=== PATIENT | male | born 1960 | race Hispanic/Latino ===

== ENCOUNTER 2016-08-26 20:05 | Emergency (ER) | payer MEDICARE, OTHER, MEDICAID ==
[2016-08-26 20:06] VITALS: BMI 24.7
[2016-08-26 20:12] VITALS: BP 154/98; PULSE 86; TEMP 97.2; O2SAT 99
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
[2016-08-26 20:48] VITALS: RESP 18
== END 2016-08-26 20:48 | disposition home or self-care (01) ==
LOC: C.ER 20:05
DX: F41.9 Anxiety disorder, unspecified (principal); Z76.0 Encounter for issue of repeat prescription

== ENCOUNTER 2016-08-30 10:57 | Inpatient (IN) | payer MEDICARE, OTHER ==
[2016-08-30 10:58] VITALS: BMI 24.7
[2016-08-30] MEDS ORDERED: Sodium Chloride 0.9% 1,000 ML IV ONE ×2 (11:40→14:12)
[2016-08-30 12:01] LABS: BASO # 0.1 K/uL (0.0-0.2); BASO % 0.3 % (0.0-2.0); HEMATOCRIT 52.5 % (35.0-51.0); LYMPH % 4.8 % (20.0-40.0); MEAN CORPUSCULAR HEMOGLOBIN 29.5 pg (27.0-31.0); MEAN CORPUSCULAR HGB CONC 33.4 g/dL (33.0-37.0); MEAN PLATELET VOLUME 9.5 fL (7.2-11.7); MONO # 1.6 K/uL (0.0-0.8); NRBC % 0.5 % (0.0-2.0); PLATELET COUNT 230 K/uL (130-400); RED CELL DISTRIBUTION WIDTH 13.8 % (11.5-14.5)
[2016-08-30] MEDS ORDERED: Sodium Chloride 0.9% 1,000 ML ONE (12:03)
[2016-08-30 12:05] LABS: MEAN CELL VOLUME 88.4 fL (80.0-94.0); WHITE BLOOD COUNT 20.3 K/uL (4.8-10.8)
[2016-08-30 12:09] LABS: CHLORIDE 96 mmol/L (98-107); POTASSIUM 3.6 mmol/L (3.6-5.2); SODIUM 147 mmol/L (132-148)
[2016-08-30 12:11] LABS: BILIRUBIN,TOTAL 0.9 mg/dL (0.2-1.3); GFR AFRICAN-AMERICAN > 60
[2016-08-30 12:12] LABS: ALB/GLOB RATIO 1.4 (1.0-2.1); ALKALINE PHOSPHATASE 65 U/L (38-126); ALT/SGPT 23 U/L (21-72); AST/SGOT 24 U/L (17-59); BLOOD UREA NITROGEN 63 mg/dL (9-20); CALCIUM 9.7 mg/dl (8.6-10.4); CARBON DIOXIDE 33 mmol/L (22-30); GLUCOSE,RANDOM 157 mg/dL (75-110); TOTAL PROTEIN 8.7 g/dL (6.3-8.3)
[2016-08-30 12:13] LABS: ALCOHOL SERUM < 10 mg/dl (0-10)
[2016-08-30 12:37] LABS: NEUTROPHIL 94 % (50-75); TOTAL CELLS COUNTED 100
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
[2016-08-30 13:57] LABS: VENOUS BLOOD GAS BASE EXCESS 8.1 mmol/L (0.0-2.0); VENOUS BLOOD GAS PCO2 48 mmHg (40-60); VENOUS BLOOD PH 7.45 (7.32-7.43)
--- NOTE | 2016-08-30 14:23 | RAD ---
HISTORY: AMS COMPARISON: Chest x-ray performed 06/21/15 TECHNIQUE: Chest, one view. FINDINGS: LUNGS: No focal consolidation. Please note that chest x-ray has limited sensitivity for the detection of pulmonary masses. PLEURA: No significant pleural effusion identified. No definite pneumothorax . CARDIOVASCULAR: The cardiomediastinal silhouette appears within normal limits of size. OSSEOUS STRUCTURES: Acromioclavicular arthropathy. VISUALIZED UPPER ABDOMEN: Unremarkable. OTHER FINDINGS: None. IMPRESSION: No focal consolidation, significant pleural effusion, or definite pneumothorax identified.
[2016-08-30 15:06] LABS: RBC URINE 1 /hpf (0-3); URINE BACTERIA RARE (<OCC); URINE BILIRUBIN NEGATIVE (NEGATIVE); URINE BLOOD 2+ (NEGATIVE); URINE COLOR Yellow (YELLOW); URINE GLUCOSE (UA) NORMAL (Normal); URINE KETONE TRACE mg/dL (NEGATIVE); URINE LEUKOCYTE ESTERASE NEG Leu/uL (Negative); URINE PROTEIN 2+ mg/dL (NEGATIVE); URINE UROBILINOGEN NORMAL mg/dL (0.2-1.0); WBC CLUMPS OCC /hpf; WBC URINE 6 /hpf (0-5)
--- NOTE | 2016-08-30 16:09 | CT ---
PROCEDURE: CT Abdomen and Pelvis without intravenous contrast HISTORY: fever, ams, leukocytosis COMPARISON: Comparison is made to the previous study dated 03/19/2013 TECHNIQUE: Axial and reformatted coronal and sagittal CT images of the abdomen and pelvis were obtained without IV or oral contrast administration.. Contrast Dose: 0 Radiation dose: Total exam DLP = 655.42 mGy-cm. This CT exam was performed using one or more of the following dose reduction techniques: Automated exposure control, adjustment of the mA and/or kV according to patient size, and/or use of iterative reconstruction technique. FINDINGS: LOWER THORAX: No evidence of acute pathology. LIVER: Unremarkable. No gross lesion or ductal dilatation. GALLBLADDER AND BILE DUCTS: No evidence of acute cholecystitis. Slightly prominent common bile duct is again noted. PANCREAS: Unremarkable. No gross lesion or ductal dilatation. SPLEEN: Unremarkable. ADRENALS: Unremarkable. No mass. KIDNEYS AND URETERS: Unremarkable. No hydronephrosis. No solid mass. VASCULATURE: Unremarkable. No aortic aneurysm. BOWEL: There is moderate diffuse thickening in the distal stomach and in the duodenum suspicious for gastritis and enteritis. Mildly dilated duodenum is also noted. No evidence of small bowel obstruction. Few scattered colonic diverticulosis seen without evidence of diverticulitis. APPENDIX: No evidence of appendicitis. PERITONEUM: Unremarkable. No free fluid. No free air. LYMPH NODES: Unremarkable. No enlarged lymph nodes. BLADDER: Unremarkable. REPRODUCTIVE: Unremarkable. BONES: No acute fracture. OTHER FINDINGS: None. IMPRESSION: Gastric and duodenal moderate wall thickening suspicious for gastritis/enteritis. Otherwise no evidence of acute pathology in the abdomen and pelvis.
[2016-08-30] MEDS ORDERED: Lidocaine 1% Inj (20ml) INFIL ONE (16:19)
[2016-08-30] MEDS ORDERED: Lidocaine 1% Inj (20ml) ONE (16:26)
[2016-08-30] MEDS ORDERED: cefTRIAXone IV 1 gm in Dextros 50 ML IV ONE (16:55)
[2016-08-30 17:10] LABS: FLUID TYPE SPINAL FLUID
[2016-08-30] MEDS ORDERED: cefTRIAXone IV 1 gm in Dextros 50 ML IVPB ONE (17:21)
[2016-08-30] MEDS: Piperacillin/Tazobact 3.375 GM in Sodium Chloride 100 ML IVPB SCH (22:32)
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
[2016-08-31] MEDS: Piperacillin/Tazobact 3.375 GM in Sodium Chloride 100 ML IVPB SCH ×3 (05:14→21:26)
[2016-08-31] MEDS: Vancomycin 750mg/D5W 150 ml 150 ML IV SCH ×2 (05:54→18:13)
[2016-08-31 07:32] LABS: LYMPH # 1.4 K/uL (1.0-4.3); LYMPH % 6.4 % (20.0-40.0)
[2016-08-31 07:46] LABS: BASO % 0.1 % (0.0-2.0); HEMATOCRIT 45.2 % (35.0-51.0); MEAN CELL VOLUME 88.9 fL (80.0-94.0); MEAN CORPUSCULAR HEMOGLOBIN 28.9 pg (27.0-31.0); MEAN CORPUSCULAR HGB CONC 32.5 g/dL (33.0-37.0); MEAN PLATELET VOLUME 9.8 fL (7.2-11.7); MONO # 2.2 K/uL (0.0-0.8); MONO % 9.8 % (0.0-10.0); PLATELET COUNT 194 K/uL (130-400)
[2016-08-31 07:54] LABS: CHLORIDE 103 mmol/L (98-107); POTASSIUM 3.5 mmol/L (3.6-5.2); SODIUM 145 mmol/L (132-148)
[2016-08-31 07:57] LABS: BLOOD UREA NITROGEN 34 mg/dL (9-20); CARBON DIOXIDE 27 mmol/L (22-30); GFR AFRICAN-AMERICAN > 60; GLUCOSE,RANDOM 110 mg/dL (75-110)
[2016-08-31 07:58] LABS: CALCIUM 8.2 mg/dl (8.6-10.4)
[2016-08-31 10:06] LABS: NEUTROPHIL 82 % (50-75); TOTAL CELLS COUNTED 100
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
[2016-08-31] MEDS ORDERED: Potassium Chloride 20 mEq ER Tab PO ONE (11:45)
--- NOTE | 2016-08-31 14:05 | CP.PCM.PN ---
Subjective - Date & Time of Evaluation Date of Evaluation: 08/31/16 Time of Evaluation: 14:05 - Subjective Subjective: MORE ALERT HAD URINARY RETENSION BLACKISH STOOL Objective - Vital Signs/Intake and Output Vital Signs (last 24 hours): Temp Pulse Resp BP Pulse Ox 99.5 F 60 18 169/80 H 100 08/31/16 07:25 08/31/16 08:00 08/31/16 07:25 08/31/16 07:25 08/31/16 07:25 Intake and Output: 08/31/16 08/31/16 11:59 23:59 Intake Total 830 Balance 830 - Medications Medications: Current Medications Dextrose (Dextrose 5% In Water 1000 Ml) 1,000 mls @ 80 mls/hr IV .[id number] [facility] Last Admin: 08/31/16 13:42 Dose: 80 mls/hr Piperacillin Sod/Tazobactam (Sod 3.375 gm/ Sodium Chloride) 100 mls @ 200 mls/ hr IVPB Q8H [facility] Last Admin: 08/31/16 13:43 Dose: 200 mls/hr Vancomycin HCl (Vancocin 750mg/D5w 150 Ml) 150 mls @ 167 mls/hr IV Q12H [facility] Stop: 09/05/16 06:01 Last Admin: 08/31/16 05:54 Dose: 167 mls/hr Lisinopril (Zestril) 20 mg PO DAILY [facility] Last Admin: 08/31/16 09:16 Dose: 20 mg Pneumococcal Polyvalent Vaccine (Pneumovax 23 Vaccine) 0.5 ml IM .ONCE ONE Stop: 09/01/16 10:01 - Labs Labs: 08/31/16 07:23 08/31/16 07:23
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
[2016-09-01] MEDS: Piperacillin/Tazobact 3.375 GM in Sodium Chloride 100 ML IVPB SCH ×3 (05:31→22:00)
[2016-09-01] MEDS: metroNIDAZOLE IV 500 mg/100 ml 500 MG/100 ML BAG IVPB SCH ×3 (06:30→22:38)
[2016-09-01] MEDS: Vancomycin 750mg/D5W 150 ml 150 ML IV SCH ×2 (08:22→18:01)
[2016-09-01] MEDS ORDERED: Pneumococcal 23-Valent Vaccine IM ONE (10:00)
[2016-09-01 12:22] LABS: MEAN CELL VOLUME 89.5 fL (80.0-94.0); MEAN CORPUSCULAR HEMOGLOBIN 28.9 pg (27.0-31.0); MEAN CORPUSCULAR HGB CONC 32.3 g/dL (33.0-37.0); RED CELL DISTRIBUTION WIDTH 13.8 % (11.5-14.5); WHITE BLOOD COUNT 16.8 K/uL (4.8-10.8)
[2016-09-01 12:39] LABS: CHLORIDE 99 mmol/L (98-107); SODIUM 138 mmol/L (132-148)
[2016-09-01 12:40] LABS: POTASSIUM 3.2 mmol/L (3.6-5.2)
[2016-09-01 12:42] LABS: ALB/GLOB RATIO 1.3 (1.0-2.1); ALKALINE PHOSPHATASE 54 U/L (38-126); AST/SGOT 24 U/L (17-59); BLOOD UREA NITROGEN 22 mg/dL (9-20); CARBON DIOXIDE 28 mmol/L (22-30); GFR AFRICAN-AMERICAN > 60; GLUCOSE,RANDOM 114 mg/dL (75-110); TOTAL PROTEIN 6.7 g/dL (6.3-8.3)
[2016-09-01 12:43] LABS: ALT/SGPT 21 U/L (21-72); CALCIUM 8.4 mg/dl (8.6-10.4)
[2016-09-01] MEDS ORDERED: Potassium Chloride 20 mEq/15 ml LIQ UD PO ONE (13:15)
--- NOTE | 2016-09-01 13:28 | CP.PCM.PN ---
Subjective - Date & Time of Evaluation Date of Evaluation: 09/01/16 Time of Evaluation: 13:27 - Subjective Subjective: MORE ALERT PERIODS OF CONFUSION WBC DOWN 16 K ALL CULTURES ARE NEG PT RECENTLY HAD DENTAL WORK DONE Objective - Vital Signs/Intake and Output Vital Signs (last 24 hours): Temp Pulse Resp BP Pulse Ox 98.1 F 69 97 H 161/89 H 100 09/01/16 08:05 09/01/16 10:13 09/01/16 08:05 09/01/16 10:13 08/31/16 23:50 Intake and Output: 09/01/16 09/01/16 11:59 23:59 Intake Total 940 Balance 940 - Medications Medications: Current Medications Dextrose (Dextrose 5% In Water 1000 Ml) 1,000 mls @ 80 mls/hr IV .[id number] [facility] Last Admin: 09/01/16 10:52 Dose: 80 mls/hr Piperacillin Sod/Tazobactam (Sod 3.375 gm/ Sodium Chloride) 100 mls @ 200 mls/ hr IVPB Q8H [facility] Last Admin: 09/01/16 13:11 Dose: 200 mls/hr Vancomycin HCl (Vancocin 750mg/D5w 150 Ml) 150 mls @ 167 mls/hr IV Q12H [facility] Stop: 09/05/16 06:01 Last Admin: 09/01/16 08:22 Dose: 167 mls/hr Metronidazole (Flagyl) 500 mg in 100 mls @ 100 mls/hr IVPB Q8 [facility] Last Admin: 09/01/16 06:30 Dose: 100 mls/hr Lisinopril (Zestril) 20 mg PO DAILY [facility] Last Admin: 09/01/16 10:14 Dose: 20 mg Pantoprazole Sodium (Protonix Inj) 40 mg IVP DAILY [facility] Last Admin: 09/01/16 11:54 Dose: 40 mg Pneumococcal Polyvalent Vaccine (Pneumovax 23 Vaccine) 0.5 ml IM .ONCE ONE Stop: 09/03/16 10:53 - Labs Labs: 09/01/16 06:20 09/01/16 12:21
--- NOTE | 2016-09-01 17:14 | CARD ---
APPROVED REPORT EKG Measurement Heart [id number] <Conclusion> Sinus bradycardia Nonspecific ST and T wave abnormality Prolonged QT Abnormal ECG
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
[2016-09-01 20:45] LABS: HEMATOCRIT 40.5 % (35.0-51.0); MEAN CELL VOLUME 88.2 fL (80.0-94.0); MEAN CORPUSCULAR HEMOGLOBIN 29.3 pg (27.0-31.0); MEAN CORPUSCULAR HGB CONC 33.2 g/dL (33.0-37.0); MEAN PLATELET VOLUME 9.8 fL (7.2-11.7); RED CELL DISTRIBUTION WIDTH 13.6 % (11.5-14.5); WHITE BLOOD COUNT 15.2 K/uL (4.8-10.8)
[2016-09-01 20:53] LABS: CHLORIDE 98 mmol/L (98-107); POTASSIUM 3.6 mmol/L (3.6-5.2); SODIUM 139 mmol/L (132-148)
[2016-09-01 20:55] LABS: GFR AFRICAN-AMERICAN > 60
[2016-09-01 20:56] LABS: ALB/GLOB RATIO 1.2 (1.0-2.1); ALKALINE PHOSPHATASE 49 U/L (38-126); ALT/SGPT 23 U/L (21-72); AST/SGOT 21 U/L (17-59); BILIRUBIN,TOTAL 1.1 mg/dL (0.2-1.3); BLOOD UREA NITROGEN 16 mg/dL (9-20); CALCIUM 8.6 mg/dl (8.6-10.4); CARBON DIOXIDE 29 mmol/L (22-30); GLUCOSE,RANDOM 108 mg/dL (75-110); TOTAL PROTEIN 6.7 g/dL (6.3-8.3)
--- NOTE | 2016-09-01 23:01 | CP.PCM.PN ---
Subjective - Date & Time of Evaluation Date of Evaluation: 09/01/16 Time of Evaluation: 23:01 - Subjective Subjective: AFEBRILE MORE ALERT PERIODS OF CONFUSION STATES HAS DIFFICULTY URINATING STRAIGHT CATHETER - URINE OUTPUT MORE THAN 400 CC REPORTED BY RN. PATIENT ALSO GIVES HISTORY OF RECENT DENTAL WORKUP. Objective - Vital Signs/Intake and Output Vital Signs (last 24 hours): Temp Pulse Resp BP Pulse Ox 98.2 F 61 20 169/96 H 100 09/01/16 16:09 09/01/16 16:09 09/01/16 16:09 09/01/16 16:09 09/01/16 16:09 - Medications Medications: Current Medications Dextrose (Dextrose 5% In Water 1000 Ml) 1,000 mls @ 80 mls/hr IV .[id number] [facility] Last Admin: 09/01/16 10:52 Dose: 80 mls/hr Piperacillin Sod/Tazobactam (Sod 3.375 gm/ Sodium Chloride) 100 mls @ 200 mls/ hr IVPB Q8H [facility] Last Admin: 09/01/16 22:00 Dose: 200 mls/hr Vancomycin HCl (Vancocin 750mg/D5w 150 Ml) 150 mls @ 167 mls/hr IV Q12H [facility] Stop: 09/05/16 06:01 Last Admin: 09/01/16 18:01 Dose: 167 mls/hr Metronidazole (Flagyl) 500 mg in 100 mls @ 100 mls/hr IVPB Q8 [facility] Last Admin: 09/01/16 22:38 Dose: 100 mls/hr Lisinopril (Zestril) 20 mg PO DAILY [facility] Last Admin: 09/01/16 10:14 Dose: 20 mg Pantoprazole Sodium (Protonix Inj) 40 mg IVP Q12H [facility] Last Admin: 09/01/16 20:21 Dose: 40 mg Pneumococcal Polyvalent Vaccine (Pneumovax 23 Vaccine) 0.5 ml IM .ONCE ONE Stop: 09/03/16 10:53 - Labs Labs: 09/01/16 20:41 09/01/16 20:41 - Constitutional Appears: No Acute Distress - Head Exam Head Exam: NORMAL INSPECTION - Eye Exam Eye Exam: PERRL - ENT Exam ENT Exam: Normal Oropharynx - Neck Exam Neck Exam: Normal Inspection - Respiratory Exam Respiratory Exam: Clear to Ausculation Bilateral - Cardiovascular Exam Cardiovascular Exam: REGULAR RHYTHM, +S1, +S2 - GI/Abdominal Exam GI & Abdominal Exam: Soft, Normal Bowel Sounds. absent: Tenderness - Extremities Exam Extremities Exam: absent: Calf Tenderness, Pedal Edema - Neurological Exam Neurological Exam: Awake - Psychiatric Exam Psychiatric exam: Anxious - Skin Skin Exam: Normal Color, Warm Assessment and Plan (1) Sepsis syndrome Status: Acute (2) Altered mental status Status: Acute (3) Enteritis Status: Acute (4) Leukocytosis Status: Acute (5) Anxiety Status: Acute (6) Hypertension Status: Acute (7) Dehydration Status: Acute (8) Urinary retention with incomplete bladder emptying Status: Acute (9) Melena Status: Acute - Assessment and Plan (Free Text) Plan: PLAN; CONTINUE on IV Zosyn 3.375 every 8 hourly.08/30/16 INCREASE IV vancomycin 1000 mg every 12 hourly for staph and MRSA coverage ( VANC TROUGH LEVEL 8.0 -LOW) ON IV Flagyl 500 mg every 8 hourly for anaerobic coverage.08/31/16 .Await cultures to adjust antibiotics . PSA. . SOCORRO ARANGO. ( URINARY RETENTION ) . 2D ECHO R/O VEGS . F/U CULTURES
[2016-09-02] MEDS: Piperacillin/Tazobact 3.375 GM in Sodium Chloride 100 ML IVPB SCH ×3 (05:07→22:10)
[2016-09-02] MEDS: metroNIDAZOLE IV 500 mg/100 ml 500 MG/100 ML BAG IVPB SCH ×3 (05:09→22:53)
[2016-09-02] MEDS: Vancomycin 1 gm/NS 200 ml 1 GM/200 ML BAG IVPB SCH ×2 (05:59→16:49)
[2016-09-02 11:27] LABS: HEMATOCRIT 38.9 % (35.0-51.0); MEAN CELL VOLUME 87.5 fL (80.0-94.0); MEAN CORPUSCULAR HEMOGLOBIN 29.3 pg (27.0-31.0); MEAN CORPUSCULAR HGB CONC 33.5 g/dL (33.0-37.0); MEAN PLATELET VOLUME 9.9 fL (7.2-11.7); RED CELL DISTRIBUTION WIDTH 13.2 % (11.5-14.5); WHITE BLOOD COUNT 12.5 K/uL (4.8-10.8)
[2016-09-02 11:37] LABS: CHLORIDE 99 mmol/L (98-107)
[2016-09-02 11:38] LABS: POTASSIUM 3.2 mmol/L (3.6-5.2); SODIUM 138 mmol/L (132-148)
[2016-09-02 11:40] LABS: AST/SGOT 23 U/L (17-59); CARBON DIOXIDE 27 mmol/L (22-30); GFR AFRICAN-AMERICAN > 60
[2016-09-02 11:41] LABS: ALB/GLOB RATIO 1.2 (1.0-2.1); ALKALINE PHOSPHATASE 47 U/L (38-126); ALT/SGPT 26 U/L (21-72); BLOOD UREA NITROGEN 17 mg/dL (9-20); CALCIUM 8.5 mg/dl (8.6-10.4); GLUCOSE,RANDOM 108 mg/dL (75-110); TOTAL PROTEIN 6.4 g/dL (6.3-8.3)
--- NOTE | 2016-09-02 14:11 | CP.PCM.PN ---
Subjective - Date & Time of Evaluation Date of Evaluation: 09/02/16 Time of Evaluation: 13:50 - Subjective Subjective: F/U melena Covering Dr Obregon and DR Beverly No reporrts of further melena. Pt is confused. Denies RB, melena, abdom pain, fever, chills, SZ, SOB, CP, hemoptysis, BURDEN, cough Objective - Vital Signs/Intake and Output Vital Signs (last 24 hours): Temp Pulse Resp BP Pulse Ox 99.0 F 52 L 20 159/86 H 99 09/02/16 07:22 09/02/16 07:22 09/02/16 07:22 09/02/16 05:30 09/02/16 07:22 Intake and Output: 09/02/16 09/02/16 06:59 18:59 Intake Total 990 Output Total 400 Balance 590 - Medications Medications: Current Medications Dextrose (Dextrose 5% In Water 1000 Ml) 1,000 mls @ 80 mls/hr IV .[id number] [facility] Last Admin: 09/02/16 05:09 Dose: 80 mls/hr Piperacillin Sod/Tazobactam (Sod 3.375 gm/ Sodium Chloride) 100 mls @ 200 mls/ hr IVPB Q8H [facility] Last Admin: 09/02/16 13:50 Dose: 200 mls/hr Metronidazole (Flagyl) 500 mg in 100 mls @ 100 mls/hr IVPB Q8 [facility] Last Admin: 09/02/16 13:00 Dose: 100 mls/hr Vancomycin/Sodium Chloride (Vancocin) 1 gm in 200 mls @ 166.6 mls/hr IVPB Q12H [facility] Stop: 09/07/16 05:01 Last Admin: 09/02/16 05:59 Dose: 166.6 mls/hr Lisinopril (Zestril) 20 mg PO DAILY [facility] Last Admin: 09/02/16 09:30 Dose: 20 mg Pantoprazole Sodium (Protonix Inj) 40 mg IVP Q12H [facility] Last Admin: 09/02/16 08:15 Dose: 40 mg Pneumococcal Polyvalent Vaccine (Pneumovax 23 Vaccine) 0.5 ml IM .ONCE ONE Stop: 09/03/16 10:53 - Labs Labs: 09/02/16 11:08 09/02/16 11:08 - Constitutional Appears: Non-toxic - Neck Exam Neck Exam: absent: Tenderness - Respiratory Exam Respiratory Exam: Clear to Ausculation Bilateral - Cardiovascular Exam Cardiovascular Exam: RRR - GI/Abdominal Exam GI & Abdominal Exam: Soft, Normal Bowel Sounds. absent: Guarding, Rigid, Tenderness, Mass - Extremities Exam Extremities Exam: absent: Calf Tenderness - Neurological Exam Neurological Exam: Alert, Awake. absent: Oriented x3 Assessment and Plan (1) Altered mental status Status: Acute (2) Enteritis Assessment & Plan: CT shows duodenitis and gastritis Status: Acute (3) Fever Status: Acute (4) Leukocytosis Assessment & Plan: WBC improving Status: Acute (5) Melena Assessment & Plan: Hb dropped- likley dilution. I doubt significant GI bleed. On PPI. Will need EGD when stable. Check Hbs Status: Acute (6) Occult blood in stools Status: Acute (7) Sepsis syndrome Status: Acute (8) Urinary retention with incomplete bladder emptying Status: Acute (9) Hepatitis C Assessment & Plan: and h/o etoh Status: Chronic
--- NOTE | 2016-09-02 14:13 | CP.PCM.PN ---
Subjective - Date & Time of Evaluation Date of Evaluation: 09/02/16 Time of Evaluation: 14:10 - Subjective Subjective: CLINICALLY REMAINS SAME PERIODS OF CONFUSION NO CLEAR REASON FOR CONFUSION . PSYCH CONSULTED BUT NO CONCLUSION WRITTEN FOR CAUSE OF CONFUSION NO GI W/U (EGD) DONE YET SEPTIC W/U IS NEG SO FAR Objective - Vital Signs/Intake and Output Vital Signs (last 24 hours): Temp Pulse Resp BP Pulse Ox 99.0 F 52 L 20 159/86 H 99 09/02/16 07:22 09/02/16 07:22 09/02/16 07:22 09/02/16 05:30 09/02/16 07:22 Intake and Output: 09/02/16 09/02/16 11:59 23:59 Intake Total 990 Output Total 400 Balance 590 - Medications Medications: Current Medications Dextrose (Dextrose 5% In Water 1000 Ml) 1,000 mls @ 80 mls/hr IV .[id number] [facility] Last Admin: 09/02/16 05:09 Dose: 80 mls/hr Piperacillin Sod/Tazobactam (Sod 3.375 gm/ Sodium Chloride) 100 mls @ 200 mls/ hr IVPB Q8H [facility] Last Admin: 09/02/16 13:50 Dose: 200 mls/hr Metronidazole (Flagyl) 500 mg in 100 mls @ 100 mls/hr IVPB Q8 [facility] Last Admin: 09/02/16 13:00 Dose: 100 mls/hr Vancomycin/Sodium Chloride (Vancocin) 1 gm in 200 mls @ 166.6 mls/hr IVPB Q12H [facility] Stop: 09/07/16 05:01 Last Admin: 09/02/16 05:59 Dose: 166.6 mls/hr Lisinopril (Zestril) 20 mg PO DAILY [facility] Last Admin: 09/02/16 09:30 Dose: 20 mg Pantoprazole Sodium (Protonix Inj) 40 mg IVP Q12H [facility] Last Admin: 09/02/16 08:15 Dose: 40 mg Pneumococcal Polyvalent Vaccine (Pneumovax 23 Vaccine) 0.5 ml IM .ONCE ONE Stop: 09/03/16 10:53 - Labs Labs: 09/02/16 11:08 09/02/16 11:08
--- NOTE | 2016-09-02 21:06 | CP.PCM.PN ---
Subjective - Date & Time of Evaluation Date of Evaluation: 09/02/16 Time of Evaluation: 21:06 - Subjective Subjective: AFEBRILE PERIODS OF CONFUSION STATES HAS DIFFICULTY URINATING, INCONTINANT PER RN HAD ONE LOOSE STOOL DARK COLORED REFUSES CATHETHER INSERTION Objective - Vital Signs/Intake and Output Vital Signs (last 24 hours): Temp Pulse Resp BP Pulse Ox 99.0 F 58 L 20 165/82 H 100 09/02/16 17:14 09/02/16 17:14 09/02/16 17:14 09/02/16 17:14 09/02/16 17:14 Intake and Output: 09/02/16 09/03/16 18:59 06:59 Intake Total 1040 Balance 1040 - Medications Medications: Current Medications Dextrose (Dextrose 5% In Water 1000 Ml) 1,000 mls @ 80 mls/hr IV .[id number] [facility] Last Admin: 09/02/16 05:09 Dose: 80 mls/hr Piperacillin Sod/Tazobactam (Sod 3.375 gm/ Sodium Chloride) 100 mls @ 200 mls/ hr IVPB Q8H [facility] Last Admin: 09/02/16 13:50 Dose: 200 mls/hr Metronidazole (Flagyl) 500 mg in 100 mls @ 100 mls/hr IVPB Q8 [facility] Last Admin: 09/02/16 13:00 Dose: 100 mls/hr Vancomycin/Sodium Chloride (Vancocin) 1 gm in 200 mls @ 166.6 mls/hr IVPB Q12H [facility] Stop: 09/07/16 05:01 Last Admin: 09/02/16 16:49 Dose: 166.6 mls/hr Lisinopril (Zestril) 20 mg PO DAILY [facility] Last Admin: 09/02/16 09:30 Dose: 20 mg Pantoprazole Sodium (Protonix Inj) 40 mg IVP Q12H [facility] Last Admin: 09/02/16 08:15 Dose: 40 mg Pneumococcal Polyvalent Vaccine (Pneumovax 23 Vaccine) 0.5 ml IM .ONCE ONE Stop: 09/03/16 10:53 - Labs Labs: 09/02/16 11:08 09/02/16 11:08 - Constitutional Appears: No Acute Distress - Head Exam Head Exam: NORMAL INSPECTION - Eye Exam Eye Exam: EOMI, PERRL - ENT Exam ENT Exam: Normal Oropharynx - Neck Exam Neck Exam: Normal Inspection - Cardiovascular Exam Cardiovascular Exam: REGULAR RHYTHM, +S1, +S2 - GI/Abdominal Exam GI & Abdominal Exam: Soft, Normal Bowel Sounds. absent: Organomegaly - Extremities Exam Extremities Exam: absent: Calf Tenderness, Pedal Edema - Neurological Exam Neurological Exam: Altered, Awake (TWITCHINGS OF FACE NOTED) - Psychiatric Exam Psychiatric exam: Anxious - Skin Skin Exam: Normal Color Assessment and Plan (1) Sepsis syndrome Assessment & Plan: all cultures -ve todate Status: Acute (2) Altered mental status Status: Acute (3) Enteritis Status: Acute (4) Leukocytosis Assessment & Plan: IMPROVING. ALL CULTURES -VE. Status: Acute (5) Anxiety Status: Acute (6) Hypertension Status: Acute (7) Dehydration Status: Acute (8) Urinary retention with incomplete bladder emptying Assessment & Plan: PSA -N EVALUATION PENDING ETIOLOGY OF URINARY RETENTION/ AND INCONTINANCE NOT CLEAR. WILL GET CT LUMBOSACRAL SPINE W/O CONTRAST R/O EPIDURAL ABSCESS VS DISCITIS. CSF STUDY N EXCEPT MILD ELEVATION OF CSF PROTEINS. WILL DISCUSS WITH NEUROLOGY DR IVEY.-CONSULT IN PROGRESS. CHECK WNV-IGM,WNV-IGG SERUM ARBO-VIRUS STUDIES LYME SERLOGY IGM,IGG BY WB RICKETTSIAL SEROLGY. Status: Acute (9) Melena Assessment & Plan: GI W/U IN PROGRESS PT WILL NEED EGD/COLONOSCOPY PER GI. R/O OCCULT MALIGNANCY. Status: Acute - Assessment and Plan (Free Text) Plan: DC IV Zosyn 3.375 every 8 hourly.08/30/16. START IV ROCEPHIN 1GM IVPB [id number] 09/03/16 ON IV vancomycin 1000 mg every 12 hourly for staph and MRSA coverage 08/30/16 ( VANC TROUGH LEVEL 8.0 -LOW) ON IV Flagyl 500 mg every 8 hourly for anaerobic coverage.08/31/[address] ARANGO. ( URINARY RETENTION ) -P . 2D ECHO R/O VEGS . F/U CULTURES
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
[2016-09-03] MEDS: Vancomycin 1 gm/NS 200 ml 1 GM/200 ML BAG IVPB SCH ×2 (05:00→17:59)
[2016-09-03 06:56] LABS: BASO % 0.3 % (0.0-2.0); EOS % 0.3 % (0.0-4.0); HEMATOCRIT 39.4 % (35.0-51.0); LYMPH # 1.7 K/uL (1.0-4.3); LYMPH % 12.1 % (20.0-40.0); MEAN CORPUSCULAR HEMOGLOBIN 29.2 pg (27.0-31.0); MEAN CORPUSCULAR HGB CONC 33.6 g/dL (33.0-37.0); MEAN PLATELET VOLUME 9.7 fL (7.2-11.7); MONO # 1.2 K/uL (0.0-0.8); MONO % 8.2 % (0.0-10.0); RED CELL DISTRIBUTION WIDTH 13.1 % (11.5-14.5); WHITE BLOOD COUNT 14.3 K/uL (4.8-10.8)
[2016-09-03] MEDS: metroNIDAZOLE IV 500 mg/100 ml 500 MG/100 ML BAG IVPB SCH ×3 (07:00→21:06)
[2016-09-03 07:04] LABS: CHOLESTEROL 125 mg/dL (0-199)
[2016-09-03 07:35] LABS: THYROID STIMULATING HORMONE 2.35 mIU/L (0.46-4.68)
[2016-09-03 10:17] LABS: MEAN CELL VOLUME 86.8 fL (80.0-94.0); MEAN CORPUSCULAR HEMOGLOBIN 29.6 pg (27.0-31.0); MEAN CORPUSCULAR HGB CONC 34.1 g/dL (33.0-37.0); MEAN PLATELET VOLUME 10.1 fL (7.2-11.7); RED CELL DISTRIBUTION WIDTH 13.4 % (11.5-14.5)
[2016-09-03] MEDS ORDERED: Pneumococcal 23-Valent Vaccine IM ONE (10:52)
--- NOTE | 2016-09-03 11:03 | CP.PCM.PN ---
Subjective - Date & Time of Evaluation Date of Evaluation: 09/03/16 Time of Evaluation: 10:50 - Subjective Subjective: F/U GI bleed. Covering Dr Beverly. No further bleeding. Denies fever, chills, SZ, CP, SOB, BURDEN cough, abdom pain, dysphagia, hemoptysis Objective - Vital Signs/Intake and Output Vital Signs (last 24 hours): Temp Pulse Resp BP Pulse Ox 97.1 F L 61 18 155/87 H 100 09/03/16 07:17 09/03/16 07:17 09/03/16 07:17 09/03/16 07:17 09/03/16 07:17 Intake and Output: 09/03/16 09/03/16 06:59 18:59 Intake Total 600 Balance 600 - Medications Medications: Current Medications Metronidazole (Flagyl) 500 mg in 100 mls @ 100 mls/hr IVPB Q8 [facility] Last Admin: 09/03/16 07:00 Dose: 100 mls/hr Vancomycin/Sodium Chloride (Vancocin) 1 gm in 200 mls @ 166.6 mls/hr IVPB Q12H [facility] Stop: 09/07/16 05:01 Last Admin: 09/03/16 05:00 Dose: 166.6 mls/hr Ceftriaxone Sodium 1 gm/ (Sodium Chloride) 100 mls @ 100 mls/hr IVPB Q12H [facility] Last Admin: 09/03/16 04:00 Dose: 100 mls/hr Lisinopril (Zestril) 20 mg PO DAILY [facility] Last Admin: 09/03/16 09:52 Dose: 20 mg Pantoprazole Sodium (Protonix Inj) 40 mg IVP Q12H [facility] Last Admin: 09/03/16 08:40 Dose: 40 mg Tamsulosin HCl (Flomax) 0.4 mg PO DAILY [facility] - Labs Labs: 09/03/16 10:11 - Constitutional Appears: Non-toxic - Neck Exam Neck Exam: absent: Tenderness - Respiratory Exam Respiratory Exam: Clear to Ausculation Bilateral - Cardiovascular Exam Cardiovascular Exam: RRR - GI/Abdominal Exam GI & Abdominal Exam: Soft, Normal Bowel Sounds. absent: Tenderness - Extremities Exam Extremities Exam: absent: Calf Tenderness - Neurological Exam Neurological Exam: Alert, Awake. absent: Oriented x3 Assessment and Plan (1) Altered mental status Status: Acute (2) Enteritis Status: Acute (3) Fever Status: Acute (4) Leukocytosis Assessment & Plan: Improving. Status: Acute (5) Melena Assessment & Plan: Dark stool. No further episodes. Hb is stable For EGD. Status: Acute (6) Occult blood in stools Status: Acute (7) Sepsis syndrome Status: Acute (8) Urinary retention with incomplete bladder emptying Status: Acute (9) Hepatitis C Status: Chronic
--- NOTE | 2016-09-03 14:20 | CT ---
PROCEDURE: CT HEAD WITHOUT CONTRAST. HISTORY: R/O CVA COMPARISON: 08/30/2016 TECHNIQUE: Axial computed tomography images were obtained through the head/brain without intravenous contrast. Radiation dose: Total exam DLP = 1072 mGy-cm. This CT exam was performed using one or more of the following dose reduction techniques: Automated exposure control, adjustment of the mA and/or kV according to patient size, and/or use of iterative reconstruction technique. FINDINGS: HEMORRHAGE: No intracranial hemorrhage. BRAIN: Moderate stable chronic encephalomalacia is seen in the right temporal lobe consistent with chronic infarct. Stable diffuse cerebral atrophy and mild small vessel changes are noted elsewhere. No cortical effacement is noted to suggest recent infarct. Posterior fossa is unremarkable. VENTRICLES: Stable poor encephalic change of the right temporal horn. Remainder of the ventricles are normal in outline and unchanged. CALVARIUM: Unremarkable. PARANASAL SINUSES: Unremarkable as visualized. No significant inflammatory changes. MASTOID AIR CELLS: Unremarkable as visualized. No inflammatory changes. OTHER FINDINGS: Evaluation of the right orbit reveals chronic posttraumatic deformity and previously identified radiopaque foreign bodies in the right orbit and adjacent to the right orbit. IMPRESSION: No evidence of recent infarct. 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
--- NOTE | 2016-09-03 14:24 | CP.PCM.PN ---
Subjective - Date & Time of Evaluation Date of Evaluation: 09/03/16 Time of Evaluation: 14:22 - Subjective Subjective: CLINICALLY REMAINS SAME , LESS CONFUSED NO NEW DEVELOPMENT AWAITING EGD NEURO EVAL NOTED Objective - Vital Signs/Intake and Output Vital Signs (last 24 hours): Temp Pulse Resp BP Pulse Ox 97.1 F L 58 L 18 155/87 H 100 09/03/16 07:17 09/03/16 11:43 09/03/16 07:17 09/03/16 07:17 09/03/16 11:43 Intake and Output: 09/03/16 09/03/16 11:59 23:59 Intake Total 600 Balance 600 - Medications Medications: Current Medications Metronidazole (Flagyl) 500 mg in 100 mls @ 100 mls/hr IVPB Q8 [facility] Last Admin: 09/03/16 07:00 Dose: 100 mls/hr Vancomycin/Sodium Chloride (Vancocin) 1 gm in 200 mls @ 166.6 mls/hr IVPB Q12H [facility] Stop: 09/07/16 05:01 Last Admin: 09/03/16 05:00 Dose: 166.6 mls/hr Ceftriaxone Sodium 1 gm/ (Sodium Chloride) 100 mls @ 100 mls/hr IVPB Q12H [facility] Last Admin: 09/03/16 04:00 Dose: 100 mls/hr Lisinopril (Zestril) 20 mg PO DAILY [facility] Last Admin: 09/03/16 09:52 Dose: 20 mg Pantoprazole Sodium (Protonix Inj) 40 mg IVP Q12H [facility] Last Admin: 09/03/16 08:40 Dose: 40 mg Tamsulosin HCl (Flomax) 0.4 mg PO DAILY [facility] Last Admin: 09/03/16 11:22 Dose: 0.4 mg - Labs Labs: 09/03/16 10:11
--- NOTE | 2016-09-03 14:32 | CT ---
PROCEDURE: CT Lumbar Spine without contrast HISTORY: r/o epidural abscess COMPARISON: None. TECHNIQUE: Axial computed tomography images were obtained of the lumbar spine without the use of intravenous contrast. Coronal and sagittal reformatted images were created and reviewed. Radiation dose: Total exam DLP = 1567 mGy-cm. This CT exam was performed using one or more of the following dose reduction techniques: Automated exposure control, adjustment of the mA and/or kV according to patient size, and/or use of iterative reconstruction technique. FINDINGS: VERTEBRAE: No vertebral body compression fracture. No malalignment of the vertebral bodies. No lytic process or cortical bone destruction is seen. There is evidence of a healing fracture of the right proximal 12th rib and also the right transverse process of L3 with healing callus formation identified. DISCS/SPINAL CANAL/NEURAL FORAMINA: L1-2: Mild disc bulging is seen at L1-2. No significant central canal stenosis is noted. No significant neural foraminal narrowing is noted. L2-3: Very mild disc bulging is noted with mild subarticular recess narrowing. There is additionally degenerative facet changes seen at this level with mild ligamentum flavum hypertrophy causing mild acquired stenosis. L3-4: Mild diffuse disc bulging with mild neural foraminal narrowing. Degenerate facet change and ligamentum flavum hypertrophy are also seen at this level causing mild acquired stenosis. L4-5: [id number] acquired stenosis is seen at L4-5 secondary to moderate bulging and moderate degenerative facet change and ligamentum flavum hypertrophy. Moderate bilateral neural foraminal narrowing is seen. L5-S1: Mild bulging is noted with mild flattening upon the thecal sac. Mild right neural foraminal narrowing is noted at lesser degree left neural foraminal narrowing is seen. PARASPINAL SOFT TISSUES: No appreciable paraspinal soft tissue masses or collections. OTHER FINDINGS: Visualized retroperitoneum shows no evidence of adenopathy. Adrenal glands and kidneys are within normal limits. No posterior sacral collections are seen. No presacral masses or collections are noted. Bladder is decompressed with very mild bladder wall thickening. Prostate gland is normal in size with a small amount of calcification. Visualized sacroiliac joints are not widened. Visualized sacral foramina are unremarkable. Visualized pancreas is also within normal limits. IMPRESSION: No appreciable CT scan evidence of epidural collection or discitis/osteomyelitis. Degenerative disc disease and degenerative facet changes as described above with elements of central canal narrowing. Note should be made that the examination was performed without contrast limiting evaluation for epidural enhancement as well as epidural collections. If there is strong clinical concern follow-up CT scan with contrast could be obtained.
[2016-09-03 16:05] LABS: CHLORIDE 99 mmol/L (98-107); POTASSIUM 3.2 mmol/L (3.6-5.2); SODIUM 138 mmol/L (132-148)
[2016-09-03 16:07] LABS: BILIRUBIN,TOTAL 0.7 mg/dL (0.2-1.3); GFR AFRICAN-AMERICAN > 60
[2016-09-03 16:08] LABS: ALB/GLOB RATIO 1.2 (1.0-2.1); ALKALINE PHOSPHATASE 53 U/L (38-126); ALT/SGPT 36 U/L (21-72); AST/SGOT 27 U/L (17-59); BLOOD UREA NITROGEN 13 mg/dL (9-20); CALCIUM 8.5 mg/dl (8.6-10.4); CARBON DIOXIDE 25 mmol/L (22-30); GLUCOSE,RANDOM 101 mg/dL (75-110); TOTAL PROTEIN 6.6 g/dL (6.3-8.3)
--- NOTE | 2016-09-03 23:21 | CP.PCM.PN ---
Subjective - Date & Time of Evaluation Date of Evaluation: 09/03/16 Time of Evaluation: 20:35 - Subjective Subjective: Patient is less confused than before. CT Lumbar is not showing much as it is without contrast. IMPRESSION of CT Brain: No evidence of recent infarct. 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 Lab work is showing high CRP, Non Reactive RPR Objective - Vital Signs/Intake and Output Vital Signs (last 24 hours): Temp Pulse Resp BP Pulse Ox 99.0 F 60 20 145/85 100 09/03/16 15:53 09/03/16 15:53 09/03/16 15:53 09/03/16 15:53 09/03/16 15:53 Intake and Output: 09/03/16 09/04/16 18:59 06:59 Intake Total 860 Output Total 1 Balance 859 - Medications Medications: Current Medications Metronidazole (Flagyl) 500 mg in 100 mls @ 100 mls/hr IVPB Q8 [facility] Last Admin: 09/03/16 21:06 Dose: 100 mls/hr Vancomycin/Sodium Chloride (Vancocin) 1 gm in 200 mls @ 166.6 mls/hr IVPB Q12H [facility] Stop: 09/07/16 05:01 Last Admin: 09/03/16 17:59 Dose: 166.6 mls/hr Ceftriaxone Sodium 1 gm/ (Sodium Chloride) 100 mls @ 100 mls/hr IVPB Q12H [facility] Last Admin: 09/03/16 16:29 Dose: 100 mls/hr Lisinopril (Zestril) 20 mg PO DAILY [facility] Last Admin: 09/03/16 09:52 Dose: 20 mg Pantoprazole Sodium (Protonix Inj) 40 mg IVP Q12H [facility] Last Admin: 09/03/16 21:05 Dose: 40 mg Tamsulosin HCl (Flomax) 0.4 mg PO DAILY [facility] Last Admin: 09/03/16 11:22 Dose: 0.4 mg - Labs Labs: 09/03/16 10:11 09/03/16 06:50 Assessment and Plan (1) Altered mental status Status: Acute (2) Dehydration Status: Acute (3) Enteritis Status: Acute (4) Fever Status: Acute (5) Leukocytosis Status: Acute (6) Melena Status: Acute (7) Occult blood in stools Status: Acute (8) Sepsis syndrome Status: Acute (9) CVA (cerebral vascular accident) Status: Acute (10) Seizures Status: Acute
[2016-09-04] MEDS: Vancomycin 1 gm/NS 200 ml 1 GM/200 ML BAG IVPB SCH ×2 (05:47→19:26)
[2016-09-04] MEDS: metroNIDAZOLE IV 500 mg/100 ml 500 MG/100 ML BAG IVPB SCH ×4 (05:50→22:46)
--- NOTE | 2016-09-04 09:23 | CP.PCM.PN ---
Subjective - Date & Time of Evaluation Date of Evaluation: 09/04/16 Time of Evaluation: 09:00 - Subjective Subjective: Patient was brought to endoscopy but was combative, refusing to remove dentures and accusing the staff of plotting against him. He denies having nausea, vomiting, abdominal pain or bleeding. He is oriented to person and place, and he knows the month and year. He was unable to name the President. Patient was last seen in the office 05/23/2016. He has hepatitis C and was treated with Interferon in 2007, after which he relapsed. Harvoni was prescribed in 2013, but he developed side effects including high blood pressure and rapid heart rate, and he stopped taking it after one month. The last viral load 04/03/2016 was 4,425,500, and, at the same time, the Fibrosure test showed F1 and A0. A screening colonoscopy was scheduled and cancelled by the patient. Objective - Vital Signs/Intake and Output Vital Signs (last 24 hours): Temp Pulse Resp BP Pulse Ox 99.4 F 68 18 124/80 97 09/04/16 08:42 09/04/16 08:42 09/04/16 08:42 09/04/16 08:42 09/04/16 08:42 Intake and Output: 09/04/16 09/04/16 06:59 18:59 Intake Total 1380 Balance 1380 - Medications Medications: Current Medications Metronidazole (Flagyl) 500 mg in 100 mls @ 100 mls/hr IVPB Q8 [facility] Last Admin: 09/04/16 05:50 Dose: 100 mls/hr Vancomycin/Sodium Chloride (Vancocin) 1 gm in 200 mls @ 166.6 mls/hr IVPB Q12H [facility] Stop: 09/07/16 05:01 Last Admin: 09/04/16 05:47 Dose: 166.6 mls/hr Ceftriaxone Sodium 1 gm/ (Sodium Chloride) 100 mls @ 100 mls/hr IVPB Q12H [facility] Last Admin: 09/04/16 03:15 Dose: 100 mls/hr Lisinopril (Zestril) 20 mg PO DAILY [facility] Last Admin: 09/03/16 09:52 Dose: 20 mg Pantoprazole Sodium (Protonix Inj) 40 mg IVP Q12H [facility] Last Admin: 09/04/16 08:27 Dose: 40 mg Tamsulosin HCl (Flomax) 0.4 mg PO DAILY [facility] Last Admin: 09/03/16 11:22 Dose: 0.4 mg - Labs Labs: 09/03/16 10:11 09/03/16 06:50 - Constitutional Appears: Confused - Head Exam Head Exam: ATRAUMATIC, NORMOCEPHALIC - Eye Exam Eye Exam: EOMI, PERRL - Neck Exam Neck Exam: absent: Lymphadenopathy, Thyromegaly - Respiratory Exam Respiratory Exam: NORMAL BREATHING PATTERN. absent: Rales, Rhonchi, Wheezes - Cardiovascular Exam Cardiovascular Exam: REGULAR RHYTHM, +S1, +S2. absent: Gallop, Rubs, Murmur - GI/Abdominal Exam GI & Abdominal Exam: Soft, Normal Bowel Sounds. absent: Tenderness, Mass, Organomegaly - Rectal Exam Rectal Exam: Deferred - Extremities Exam Extremities Exam: absent: Calf Tenderness, Pedal Edema Assessment and Plan (1) Altered mental status Assessment & Plan: Patient has chronic hepatitis C but no cirhosis, and the change in mental status is unlikely to be due to hepatic encephalopathy. Because of the history of melena, an EGD will be scheduled when he is more stable. The hemoglobin has been stable for the last 72 hours, so the procedure is not emergent. Status: Acute
--- NOTE | 2016-09-04 10:16 | CARD ---
APPROVED REPORT EKG Measurement Heart [id number] <Conclusion> Sinus bradycardia Minimal voltage criteria for LVH, may be normal variant ST & T wave abnormality, consider inferior ischemia ST & T wave abnormality, consider anterolateral ischemia Prolonged QT Abnormal ECG
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
[2016-09-04 11:50] LABS: HEMATOCRIT 39.3 % (35.0-51.0); MEAN CELL VOLUME 87.3 fL (80.0-94.0); MEAN CORPUSCULAR HEMOGLOBIN 29.4 pg (27.0-31.0); MEAN CORPUSCULAR HGB CONC 33.6 g/dL (33.0-37.0); MEAN PLATELET VOLUME 9.9 fL (7.2-11.7); RED CELL DISTRIBUTION WIDTH 13.2 % (11.5-14.5); WHITE BLOOD COUNT 14.7 K/uL (4.8-10.8)
[2016-09-04 12:06] LABS: CHLORIDE 98 mmol/L (98-107)
[2016-09-04 12:07] LABS: POTASSIUM 3.1 mmol/L (3.6-5.2); SODIUM 140 mmol/L (132-148)
[2016-09-04 12:08] LABS: GFR AFRICAN-AMERICAN > 60
[2016-09-04 12:09] LABS: ALB/GLOB RATIO 1.2 (1.0-2.1); ALKALINE PHOSPHATASE 55 U/L (38-126); ALT/SGPT 33 U/L (21-72); AST/SGOT 25 U/L (17-59); BILIRUBIN,TOTAL 0.6 mg/dL (0.2-1.3); BLOOD UREA NITROGEN 13 mg/dL (9-20); CARBON DIOXIDE 29 mmol/L (22-30); TOTAL PROTEIN 6.7 g/dL (6.3-8.3)
[2016-09-04 12:10] LABS: CALCIUM 8.3 mg/dl (8.6-10.4); GLUCOSE,RANDOM 102 mg/dL (75-110)
[2016-09-04 12:38] LABS: PROSTATE SPECIFIC ANTIGEN 1.49 ng/mL (0.00-4.0)
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
[2016-09-05 05:45] LABS: HAV AB (IGM) Nonreactive (Nonreactive)
[2016-09-05] MEDS: Vancomycin 1 gm/NS 200 ml 1 GM/200 ML BAG IVPB SCH ×2 (06:29→18:00)
[2016-09-05] MEDS: metroNIDAZOLE IV 500 mg/100 ml 500 MG/100 ML BAG IVPB SCH ×3 (06:30→22:05)
[2016-09-05 06:47] LABS: LYME DISEASE SCREEN <0.90 index
[2016-09-05 07:21] LABS: BASO % 0.3 % (0.0-2.0); EOS # 0.1 K/uL (0.0-0.7); EOS % 0.6 % (0.0-4.0); HEMATOCRIT 37.2 % (35.0-51.0); LYMPH # 1.6 K/uL (1.0-4.3); LYMPH % 12.9 % (20.0-40.0); MEAN CELL VOLUME 87.1 fL (80.0-94.0); MEAN CORPUSCULAR HEMOGLOBIN 29.4 pg (27.0-31.0); MEAN CORPUSCULAR HGB CONC 33.8 g/dL (33.0-37.0); MEAN PLATELET VOLUME 9.8 fL (7.2-11.7); MONO # 1.3 K/uL (0.0-0.8); MONO % 10.4 % (0.0-10.0); RED CELL DISTRIBUTION WIDTH 13.1 % (11.5-14.5); WHITE BLOOD COUNT 12.3 K/uL (4.8-10.8)
[2016-09-05] MEDS ORDERED: Iodixanol 320 MG/ML 100 ML BOTTLE IV ONE (12:15)
--- NOTE | 2016-09-05 12:57 | CP.PCM.PN ---
Subjective - Date & Time of Evaluation Date of Evaluation: 09/05/16 Time of Evaluation: 12:55 - Subjective Subjective: PT. UNCOOPERATIVE AND DOES NOT RESPONDS TO QUESTION WILL WAIT FOR PSYCH EVAL ALL W/U SO FAR NEG EGD NOT DONE Objective - Vital Signs/Intake and Output Vital Signs (last 24 hours): Temp Pulse Resp BP Pulse Ox 98.8 F 64 20 158/50 H 99 09/05/16 07:26 09/05/16 07:26 09/05/16 07:26 09/05/16 07:26 09/04/16 23:20 Intake and Output: 09/05/16 09/05/16 11:59 23:59 Intake Total 640 Balance 640 - Medications Medications: Current Medications Metronidazole (Flagyl) 500 mg in 100 mls @ 100 mls/hr IVPB Q8 [facility] Last Admin: 09/05/16 06:30 Dose: 100 mls/hr Vancomycin/Sodium Chloride (Vancocin) 1 gm in 200 mls @ 166.6 mls/hr IVPB Q12H [facility] Stop: 09/07/16 05:01 Last Admin: 09/05/16 06:29 Dose: 166.6 mls/hr Ceftriaxone Sodium 1 gm/ (Sodium Chloride) 100 mls @ 100 mls/hr IVPB Q12H [facility] Last Admin: 09/05/16 03:30 Dose: 100 mls/hr Lisinopril (Zestril) 20 mg PO DAILY [facility] Last Admin: 09/05/16 10:47 Dose: 20 mg Pantoprazole Sodium (Protonix Inj) 40 mg IVP Q12H [facility] Last Admin: 09/05/16 07:54 Dose: 40 mg Tamsulosin HCl (Flomax) 0.4 mg PO DAILY [facility] Last Admin: 09/05/16 10:47 Dose: 0.4 mg - Labs Labs: 09/05/16 07:12 09/04/16 11:30
[2016-09-05 14:15] LABS: CHLORIDE 97 mmol/L (98-107); SODIUM 137 mmol/L (132-148)
[2016-09-05 14:16] LABS: POTASSIUM 2.8 mmol/L (3.6-5.2)
[2016-09-05 14:18] LABS: ALB/GLOB RATIO 1.3 (1.0-2.1); ALKALINE PHOSPHATASE 47 U/L (38-126); ALT/SGPT 38 U/L (21-72); AST/SGOT 24 U/L (17-59); BILIRUBIN,TOTAL 0.5 mg/dL (0.2-1.3); BLOOD UREA NITROGEN 11 mg/dL (9-20); CARBON DIOXIDE 29 mmol/L (22-30); GFR AFRICAN-AMERICAN > 60; GLUCOSE,RANDOM 98 mg/dL (75-110); TOTAL PROTEIN 6.4 g/dL (6.3-8.3)
[2016-09-05 14:19] LABS: CALCIUM 8.5 mg/dl (8.6-10.4)
[2016-09-05] MEDS ORDERED: Potassium Chloride 20 mEq ER Tab PO STA (14:22)
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
--- NOTE | 2016-09-05 17:52 | CP.PCM.PN ---
Subjective - Date & Time of Evaluation Date of Evaluation: 09/05/16 Time of Evaluation: 17:48 - Subjective Subjective: Patient remains confused. He denies having abdominal pain, nausea, vomiting. He is not certain if he had a bowel movement today. Objective - Vital Signs/Intake and Output Vital Signs (last 24 hours): Temp Pulse Resp BP Pulse Ox 98.3 F 69 20 192/99 H 100 09/05/16 15:37 09/05/16 15:37 09/05/16 15:37 09/05/16 15:37 09/05/16 15:37 Intake and Output: 09/05/16 09/05/16 06:59 18:59 Intake Total 640 Balance 640 - Medications Medications: Current Medications Metronidazole (Flagyl) 500 mg in 100 mls @ 100 mls/hr IVPB Q8 [facility] Last Admin: 09/05/16 14:28 Dose: 100 mls/hr Vancomycin/Sodium Chloride (Vancocin) 1 gm in 200 mls @ 166.6 mls/hr IVPB Q12H [facility] Stop: 09/07/16 05:01 Last Admin: 09/05/16 06:29 Dose: 166.6 mls/hr Ceftriaxone Sodium 1 gm/ (Sodium Chloride) 100 mls @ 100 mls/hr IVPB Q12H [facility] Last Admin: 09/05/16 03:30 Dose: 100 mls/hr Lisinopril (Zestril) 20 mg PO DAILY [facility] Last Admin: 09/05/16 10:47 Dose: 20 mg Pantoprazole Sodium (Protonix Inj) 40 mg IVP Q12H [facility] Last Admin: 09/05/16 07:54 Dose: 40 mg Tamsulosin HCl (Flomax) 0.4 mg PO DAILY [facility] Last Admin: 09/05/16 10:47 Dose: 0.4 mg - Labs Labs: 09/05/16 07:12 09/05/16 13:54 - Constitutional Appears: Confused - Head Exam Head Exam: ATRAUMATIC, NORMOCEPHALIC - Eye Exam Eye Exam: EOMI, PERRL - Neck Exam Neck Exam: absent: Lymphadenopathy, Thyromegaly - Respiratory Exam Respiratory Exam: NORMAL BREATHING PATTERN. absent: Rales, Rhonchi, Wheezes - Cardiovascular Exam Cardiovascular Exam: REGULAR RHYTHM, +S1, +S2. absent: Gallop, Rubs, Murmur - GI/Abdominal Exam GI & Abdominal Exam: Soft, Normal Bowel Sounds. absent: Tenderness, Mass, Organomegaly - Rectal Exam Rectal Exam: Deferred - Extremities Exam Extremities Exam: absent: Calf Tenderness, Pedal Edema Assessment and Plan (1) Hepatitis C Assessment & Plan: Repeat ammonia level was 9, and AST and ALT are within the normal range. Doubt hepatic encephalopathy. EGD when stable. Status: Chronic
--- NOTE | 2016-09-05 20:00 | VASCLAB ---
PROCEDURE: HISTORY: R/O CVA COMPARISON: None available. TECHNIQUE: Grayscale and duplex Doppler evaluation of the cervical carotid and vertebral arteries were performed. The common carotid, carotid bifurcations and cervical Internal Carotid Artery (ICA) and proximal External Carotid Artery (ECA) were evaluated. The vertebral arteries were evaluated for gross patency and flow direction. Report prepared by Alfie Thompson, BS, RVT FINDINGS: RIGHT CAROTID ARTERIES: 1. Common Carotid Artery: No significant focal plaque formation of the right common carotid artery. Maximum Peak Systolic velocity: 93 cm/sec: End-diastolic velocity 12 cm/sec. 2. Carotid Bifurcation: Homogeneous plaque formation. Maximum Peak Systolic velocity: 59 cm/sec: End-diastolic velocity 11 cm/sec. 3. Internal Carotid Artery: Minimal plaque formation of the right proximal ICA which does not result in hemodynamically significant stenosis. Plaque description: Heterogeneous 3.1. Proximal Segment: Peak systolic velocity 71 cm/sec: End-diastolic velocity 17 cm/sec - % stenosis 0-15% 3.2. Middle Segment: Peak systolic velocity 119 cm/sec: End-diastolic velocity 30 cm/sec - % stenosis 0-15% 3.3. Distal Segment: Peak systolic velocity 127 cm/sec: End-diastolic velocity 33 cm/sec - % stenosis 0-15% 4. External Carotid Artery: No significant focal plaque formation. Peak systolic velocity 85 cm/sec 5. ICA/CCA Ratio: 1.4 LEFT CAROTID ARTERIES: 1. Common Carotid Artery: No significant focal plaque formation of the left common carotid artery. Maximum Peak Systolic velocity: 73 cm/sec: End-diastolic velocity 12 cm/sec. 2. Carotid Bifurcation: Homogeneous plaque formation. Maximum Peak Systolic velocity: 81 cm/sec: End-diastolic velocity 16 cm/sec. 3. Internal Carotid Artery: Minimal plaque formation of the left proximal ICA which does not result in hemodynamically significant stenosis. Plaque description: Homogeneous 3.1. Proximal Segment: Peak systolic velocity 74 cm/sec: End-diastolic velocity 18 cm/sec - % stenosis 0-15% 3.2. Middle Segment: Peak systolic velocity 74 cm/sec: End-diastolic velocity 12 cm/sec - % stenosis 0-15% 3.3. Distal Segment: Peak systolic velocity 57 cm/sec: End-diastolic velocity 19 cm/sec - % stenosis 0-15% 4. External Carotid Artery: No significant focal plaque formation. Peak systolic velocity 95 cm/sec 5. ICA/CCA Ratio: 1.1 VERTEBRAL ARTERIES: 1. Right Vertebral Artery: The right vertebral artery flow direction is antegrade. 2. Left Vertebral Artery: The left vertebral artery flow direction is antegrade. OTHER FINDINGS: 1. Right Brachial Blood pressure: 158 mmHg. 2. Left Brachial Blood pressure: 150 mmHg. IMPRESSION: RIGHT: Duplex scan does not suggest hemodynamically significant stenosis of the right extracranial carotid arteries. LEFT: Duplex scan does not suggest hemodynamically significant stenosis of the left extracranial carotid arteries.
[2016-09-05 20:32] LABS: WNV AB IGM 0.04
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
[2016-09-06] MEDS: Vancomycin 1 gm/NS 200 ml 1 GM/200 ML BAG IVPB SCH ×2 (04:30→17:02)
[2016-09-06] MEDS: metroNIDAZOLE IV 500 mg/100 ml 500 MG/100 ML BAG IVPB SCH ×3 (06:18→21:44)
--- NOTE | 2016-09-06 07:07 | PCM.URO ---
Urology Progress Note - General General: Tolerating Diet - Subjective Abdominal Pain: Yes Nausea: No Voiding Well: Yes Hematuria: No Chest Pain: No Fever & Chills: No Other: poor historian. oriented to person and place - Objective Lab Results Last 24 Hours: Laboratory Results - last 24 hr 09/03/16 09/05/16 09/05/16 06:50 07:12 13:54 WBC 12.3 H RBC 4.27 L Hgb 12.6 Hct 37.2 MCV 87.1 MCH 29.4 MCHC 33.8 RDW 13.1 Plt Count 195 MPV 9.8 Neut % (Auto) 75.8 H Lymph % (Auto) 12.9 L Porter % (Auto) 10.4 H Eos % (Auto) 0.6 Baso % (Auto) 0.3 Neut # 9.3 H Lymph # 1.6 Porter # 1.3 H Eos # 0.1 Baso # 0.0 Sodium 137 Potassium 2.8 L Chloride 97 L Carbon Dioxide 29 Anion Gap 14 BUN 11 Creatinine 0.8 Est GFR ( Amer) > 60 Est GFR (Non-Af Amer) > 60 Random Glucose 98 Calcium 8.5 L Total Bilirubin 0.5 AST 24 ALT 38 Alkaline Phosphatase 47 Total Protein 6.4 Albumin 3.6 Globulin 2.8 Albumin/Globulin Ratio 1.3 West Nile Virus IgG Ab 4.30 H West Nile Virus IgM Ab 0.04 Intake & Output: Intake & Output 09/05/16 09/06/16 09/06/16 18:59 06:59 18:59 Intake Total 350 Output Total 350 Balance 0 Intake: Intake, IV Amount 350 Right Antecubital 350 Output: Urine 350 Straight 350 Other: # Voids Straight 2 Vital Signs: Vital Signs - 24 hr 09/05/16 09/05/16 09/05/16 07:26 07:40 15:37 Temperature 98.8 F 98.3 F Pulse Rate 64 52 L 69 Respiratory 20 20 Rate Blood Pressure 158/50 H 192/99 H O2 Sat by Pulse 100 Oximetry 09/05/16 09/05/16 09/06/16 16:00 23:25 02:24 Temperature 98.8 F Pulse Rate 63 61 60 Respiratory 20 Rate Blood Pressure 167/75 H O2 Sat by Pulse 96 Oximetry 09/06/16 02:41 Temperature Pulse Rate 60 Respiratory Rate Blood Pressure O2 Sat by Pulse Oximetry - Physical Exam Abdominal Exam: Soft, Non-Tender, Non-Distended Bowel Sounds: Normal Back: No CVA Tenderness Genitalia: Without Inflammation - Plan Additional Information: imp: improved re retention - Date & Time of Note Date: 09/05/16 Time: 10:20
[2016-09-06 07:24] LABS: BASO % 0.4 % (0.0-2.0); EOS # 0.1 K/uL (0.0-0.7); EOS % 0.5 % (0.0-4.0); HEMATOCRIT 35.8 % (35.0-51.0); LYMPH # 1.8 K/uL (1.0-4.3); LYMPH % 14.1 % (20.0-40.0); MEAN CELL VOLUME 86.2 fL (80.0-94.0); MEAN CORPUSCULAR HEMOGLOBIN 29.3 pg (27.0-31.0); MEAN PLATELET VOLUME 9.6 fL (7.2-11.7); MONO # 1.1 K/uL (0.0-0.8); MONO % 9.3 % (0.0-10.0); RED CELL DISTRIBUTION WIDTH 13.3 % (11.5-14.5); WHITE BLOOD COUNT 12.4 K/uL (4.8-10.8)
--- NOTE | 2016-09-06 07:39 | CARD ---
APPROVED REPORT EXAM: Two-dimensional and M-mode echocardiogram with Doppler and color Doppler. Other Information Quality : AverageRhythm : NSR INDICATION FEVER, AMS STATUS, FEVER, LEUKOCYTOSIS, ENTERITIS RISK FACTORS Hypertension M-Mode DIMENSIONS RVDd1.64 (2.1-3.2cm)Left Atrium (MM)3.63 (2.5-4.0cm) IVSd0.74 (0.7-1.1cm)Aortic Root2.85 (2.2-3.7cm) LVDd5.97 (4.0-5.6cm)Aortic Cusp Exc.1.99 (1.5-2.0cm) PWd0.66 (0.7-1.1cm)FS (%) 25 % LVDs4.45 (2.0-3.8cm)LVEF (%)49 (>50%) Aortic Valve AoV Peak Nosmuhza859.9cm/Sarah Peak GR.17mmHg Mitral Valve MV E Krnjgayf68.0cm/sMV A Lacqgcvo63.8cm/sE/A ratio1.1 TDI E/Lateral E'0.0E/Medial E'0.0 Tricuspid Valve TR Peak [id number]/sTR Peak Gr.[id number] LEFT VENTRICLE The Left Ventricle is mildly dilated. There is normal left ventricular wall thickness. Left ventricle systolic function is borderline. The Ejection Fraction is 45-50%. There is normal LV segmental wall motion. The left ventricular diastolic function is normal. RIGHT VENTRICLE The right ventricle is normal size. There is normal right ventricular wall thickness. The right ventricular systolic function is normal. ATRIA The left atrium size is normal. The right atrium size is normal. The interatrial septum is intact with no evidence for an atrial septal defect. AORTIC VALVE The aortic valve is normal in structure. No aortic regurgitation is present. There is no aortic valvular stenosis. There is no aortic valvular vegetation. MITRAL VALVE The mitral valve is normal in structure. There is no evidence of mitral valve prolapse. There is no mitral valve stenosis. There is no mitral valve regurgitation noted. TRICUSPID VALVE The tricuspid valve is normal in structure. There is mild tricuspid regurgitation. Right ventricular systolic pressure is estimated at 30-40 mmHg. There is mild pulmonary hypertension. PULMONIC VALVE The pulmonic valve is not well visualized. There is no pulmonic valvular regurgitation. GREAT VESSELS The aortic root is normal in size. PERICARDIAL EFFUSION There is no pericardial effusion. <Conclusion> Left ventricle systolic function is borderline. The Ejection Fraction is 45-50%. No aortic regurgitation is present. There is no mitral valve regurgitation noted. There is mild tricuspid regurgitation. There is mild pulmonary hypertension. There is no pulmonic valvular regurgitation.
[2016-09-06 09:22] LABS: ALB/GLOB RATIO 1.3 (1.0-2.1); ALKALINE PHOSPHATASE 53 U/L (38-126); ALT/SGPT 36 U/L (21-72); AST/SGOT 32 U/L (17-59); BILIRUBIN,TOTAL 0.5 mg/dL (0.2-1.3); BLOOD UREA NITROGEN 12 mg/dL (9-20); CALCIUM 8.1 mg/dl (8.6-10.4); CARBON DIOXIDE 26 mmol/L (22-30); CHLORIDE 104 mmol/L (98-107); GFR AFRICAN-AMERICAN > 60; GLUCOSE,RANDOM 99 mg/dL (75-110); POTASSIUM 3.2 mmol/L (3.6-5.2); SODIUM 140 mmol/L (132-148); TOTAL PROTEIN 6.2 g/dL (6.3-8.3)
[2016-09-06 09:33] LABS: FOLATE 10.9 ng/mL
[2016-09-06 10:16] LABS: 18 KD (IGG) BAND Nonreactive; 23 KD (IGG) BAND Nonreactive; 23 KD (IGM) BAND Nonreactive; 28 KD (IGG) BAND Nonreactive; 30 KD (IGG) BAND Nonreactive; 39 KD (IGG) BAND Nonreactive; 39 KD (IGM) BAND Nonreactive; 41 KD (IGG) BAND Reactive; 41 KD (IGM) BAND Nonreactive; 45 KD (IGG) BAND Nonreactive; 58 KD (IGG) BAND Nonreactive; 66 KD (IGG) BAND Nonreactive; 93 KD (IGG) BAND Nonreactive; LYME DISEASE INTERP (IGG) Negative (Negative)
[2016-09-06] MEDS ORDERED: Potassium Chloride 20 mEq ER Tab PO ONE (11:23)
--- NOTE | 2016-09-06 11:39 | CP.PCM.PN ---
Subjective - Date & Time of Evaluation Date of Evaluation: 09/06/16 Time of Evaluation: 11:36 - Subjective Subjective: Mental status is essentially unchanged. When asked if he has any pain, he responded, "Do I look like I'm having funr?" He also stated that, "I'm totally confused." Objective - Vital Signs/Intake and Output Vital Signs (last 24 hours): Temp Pulse Resp BP Pulse Ox 98.4 F 55 L 20 157/72 H 100 09/06/16 07:25 09/06/16 07:25 09/06/16 07:25 09/06/16 07:25 09/06/16 07:25 Intake and Output: 09/06/16 09/06/16 06:59 18:59 Intake Total 350 Output Total 350 Balance 0 - Medications Medications: Current Medications Metronidazole (Flagyl) 500 mg in 100 mls @ 100 mls/hr IVPB Q8 [facility] Last Admin: 09/06/16 06:18 Dose: 100 mls/hr Vancomycin/Sodium Chloride (Vancocin) 1 gm in 200 mls @ 166.6 mls/hr IVPB Q12H [facility] Stop: 09/07/16 05:01 Last Admin: 09/06/16 04:30 Dose: 166.6 mls/hr Ceftriaxone Sodium 1 gm/ (Sodium Chloride) 100 mls @ 100 mls/hr IVPB Q12H [facility] Last Admin: 09/06/16 04:29 Dose: 100 mls/hr Lisinopril (Zestril) 20 mg PO DAILY [facility] Last Admin: 09/06/16 09:05 Dose: 20 mg Pantoprazole Sodium (Protonix Inj) 40 mg IVP Q12H [facility] Last Admin: 09/06/16 09:03 Dose: 40 mg Tamsulosin HCl (Flomax) 0.4 mg PO DAILY [facility] Last Admin: 09/06/16 09:04 Dose: 0.4 mg - Labs Labs: 09/06/16 07:10 09/06/16 07:10 - Constitutional Appears: No Acute Distress - Eye Exam Eye Exam: EOMI, PERRL - Neck Exam Neck Exam: absent: Lymphadenopathy, Thyromegaly - Respiratory Exam Respiratory Exam: NORMAL BREATHING PATTERN. absent: Rales, Rhonchi, Wheezes - Cardiovascular Exam Cardiovascular Exam: REGULAR RHYTHM, +S1, +S2. absent: Gallop, Rubs, Murmur - GI/Abdominal Exam GI & Abdominal Exam: Soft, Normal Bowel Sounds. absent: Tenderness, Mass, Organomegaly - Rectal Exam Rectal Exam: Deferred - Extremities Exam Extremities Exam: absent: Calf Tenderness, Pedal Edema Assessment and Plan (1) Hepatitis C Assessment & Plan: Transaminases remain in the same range, AST 36 and ALT 53. Leukocytosis persists, WBC now 12,400 down from 14,700. CT scan showed possible dental abscesses. Consider oral surgery consult. Consider adding IV penicillin or Zosyn. Status: Chronic
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
--- NOTE | 2016-09-06 12:01 | PCM.PYCHPN ---
Psychiatric Progress Note - Psychiatric Progress Note Patient seen today, length of contact: 17 min Patient Chief Complaint: "I knew something was wrong." "I am depressed." Problems Identified/Issues Discussed: Patient seen and evaluated, chart reviewed and discussed with the nurse. Patient remained disorganized and internally preoccupied. He appears suspicious , and paranoid. He is refusing to take medication and says 'they are giving him poison.' Supportive therapy and psychoeducation were given. Medication Change: Yes (Start depakote, start prolixin) Medical Record Reviewed: Yes Mental Status Examination - Cognitive Function Orientation: Person, Place, Situation, Time Memory: Intact Attention: Poor Concentration: Poor Association: Loose Fund of Knowledge: Poor - Mood Mood: Anxious - Affect Affect: Broad - Formal Thought Process Formal Thought Process: Hallucinations, Delusions, Paranoia, Loosening of associations, Flight of ideas - Suicidal Ideation Suicidal Ideation: No - Homicidal Ideation Homicidal Ideation: No Goal/Treatment Plan - Goal/Treatment Plan Need for Continued Stay: Discharge may exacerbated symptoms, Severe functional impairment Progress Toward Problem(s) and Goals/Treatment Plan: Brief psychotic disorder Rule out schizophrenia paranoid type CBT Psychoeducation start Prolixin 5 by mouth twice daily Start Depakote 250 mg by mouth twice a day start Cogentin 1 mg by mouth BID Start gabapentin 100 mg by TID Start trazodone 50 mg by mouth daily HS
--- NOTE | 2016-09-06 12:46 | CP.PCM.PN ---
Subjective - Date & Time of Evaluation Date of Evaluation: 09/06/16 Time of Evaluation: 12:43 - Subjective Subjective: FLIGHT OF IDEAS WITH PARANOIA PSYCH EVAL NOTED ON NOW MULTIPLE PSYCH MEDS SMALL DENTAL ABSCESS NOT THE CAUSE OF CONFUSION CONT IV AB AND MAY NEED PSYCH [facility] Objective - Vital Signs/Intake and Output Vital Signs (last 24 hours): Temp Pulse Resp BP Pulse Ox 98.4 F 55 L 20 157/72 H 100 09/06/16 07:25 09/06/16 07:25 09/06/16 07:25 09/06/16 07:25 09/06/16 07:25 Intake and Output: 09/06/16 09/06/16 11:59 23:59 Intake Total 350 Output Total 350 Balance 0 - Medications Medications: Current Medications Benztropine Mesylate (Cogentin) 1 mg PO BID [facility] Divalproex Sodium (Depakote Dr) 250 mg PO BID [facility] Fluphenazine HCl (Prolixin) 5 mg PO BID [facility] Gabapentin (Neurontin) 100 mg PO TID [facility] Metronidazole (Flagyl) 500 mg in 100 mls @ 100 mls/hr IVPB Q8 [facility] Last Admin: 09/06/16 06:18 Dose: 100 mls/hr Vancomycin/Sodium Chloride (Vancocin) 1 gm in 200 mls @ 166.6 mls/hr IVPB Q12H [facility] Stop: 09/07/16 05:01 Last Admin: 09/06/16 04:30 Dose: 166.6 mls/hr Ceftriaxone Sodium 1 gm/ (Sodium Chloride) 100 mls @ 100 mls/hr IVPB Q12H [facility] Last Admin: 09/06/16 04:29 Dose: 100 mls/hr Lisinopril (Zestril) 20 mg PO DAILY [facility] Last Admin: 09/06/16 09:05 Dose: 20 mg Lorazepam (Ativan) 1 mg PO Q6 PRN PRN Reason: Agitation Pantoprazole Sodium (Protonix Inj) 40 mg IVP Q12H [facility] Last Admin: 09/06/16 09:03 Dose: 40 mg Tamsulosin HCl (Flomax) 0.4 mg PO DAILY [facility] Last Admin: 09/06/16 09:04 Dose: 0.4 mg Trazodone HCl (Desyrel) 50 mg PO HS [facility] - Labs Labs: 09/06/16 07:10 09/06/16 07:10
[2016-09-06] MEDS: Divalproex 250 mg DR Tab PO SCH ×2 (13:55→19:43)
[2016-09-06 14:22] LABS: RMSF IGG Not Detected (Not Detected)
[2016-09-06 16:31] LABS: HCV RNA QN PCR IU/ML 48548 IU/mL (<15); HCV RNA QN PCR LOG IU/ML 4.69 log IU/mL (<1.18)
[2016-09-06 17:06] LABS: ALT 15 U/L (9-46); BILIRUBIN, TOTAL 0.7 mg/dL (0.2-1.2); FIBROSIS STAGE F1-F2; HAPTOGLOBIN 244 mg/dL (43-212); REFERENCE ID 1514588
--- NOTE | 2016-09-07 00:32 | CP.PCM.PN ---
Subjective - Date & Time of Evaluation Date of Evaluation: 09/06/16 Time of Evaluation: 20:15 - Subjective Subjective: Psychiatry note is well appreciated as it is describing typically his status. He is suffering from Paranoia and is started on Prolixin 5 mg BID and other measures. There is no change in his condition. Objective - Vital Signs/Intake and Output Vital Signs (last 24 hours): Temp Pulse Resp BP Pulse Ox 98.8 F 68 20 158/96 H 100 09/06/16 15:49 09/06/16 15:49 09/06/16 15:49 09/06/16 15:49 09/06/16 15:49 - Medications Medications: Current Medications Benztropine Mesylate (Cogentin) 1 mg PO BID [facility] Last Admin: 09/06/16 19:43 Dose: 1 mg Divalproex Sodium (Depakote Dr) 250 mg PO BID [facility] Last Admin: 09/06/16 19:43 Dose: 250 mg Fluphenazine HCl (Prolixin) 5 mg PO BID [facility] Last Admin: 09/06/16 19:43 Dose: 5 mg Gabapentin (Neurontin) 100 mg PO TID [facility] Last Admin: 09/06/16 19:42 Dose: 100 mg Metronidazole (Flagyl) 500 mg in 100 mls @ 100 mls/hr IVPB Q8 [facility] Last Admin: 09/06/16 21:44 Dose: 100 mls/hr Vancomycin/Sodium Chloride (Vancocin) 1 gm in 200 mls @ 166.6 mls/hr IVPB Q12H [facility] Stop: 09/07/16 05:01 Last Admin: 09/06/16 17:02 Dose: 166.6 mls/hr Ceftriaxone Sodium 1 gm/ (Sodium Chloride) 100 mls @ 100 mls/hr IVPB Q12H [facility] Last Admin: 09/06/16 17:02 Dose: 100 mls/hr Lisinopril (Zestril) 20 mg PO DAILY [facility] Last Admin: 09/06/16 09:05 Dose: 20 mg Lorazepam (Ativan) 1 mg PO Q6 PRN PRN Reason: Agitation Pantoprazole Sodium (Protonix Inj) 40 mg IVP Q12H [facility] Last Admin: 09/06/16 20:34 Dose: 40 mg Tamsulosin HCl (Flomax) 0.4 mg PO DAILY [facility] Last Admin: 09/06/16 09:04 Dose: 0.4 mg Trazodone HCl (Desyrel) 50 mg PO HS [facility] Last Admin: 09/06/16 21:44 Dose: 50 mg - Labs Labs: 09/06/16 07:10 09/06/16 07:10 Assessment and Plan (1) Altered mental status Status: Acute (2) Dehydration Status: Acute (3) Enteritis Status: Acute (4) Fever Status: Acute (5) Leukocytosis Status: Acute (6) Melena Status: Acute (7) Occult blood in stools Status: Acute (8) Sepsis syndrome Status: Acute (9) CVA (cerebral vascular accident) Status: Acute (10) Seizures Status: Acute (11) Acute psychosis Assessment & Plan: seen by Psychiatry and is started on Prolaxin and other measures. Status: Acute
[2016-09-07] MEDS: Vancomycin 1 gm/NS 200 ml 1 GM/200 ML BAG IVPB SCH (04:32)
[2016-09-07] MEDS: metroNIDAZOLE IV 500 mg/100 ml 500 MG/100 ML BAG IVPB SCH ×3 (05:16→21:09)
[2016-09-07] MEDS: Divalproex 250 mg DR Tab PO SCH ×2 (09:01→17:10)
--- NOTE | 2016-09-07 12:50 | CP.PCM.PN ---
Subjective - Date & Time of Evaluation Date of Evaluation: 09/07/16 Time of Evaluation: 12:49 - Subjective Subjective: AFEBRILE. 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 DOES NOT REMEMBER HIS DENTIST NAME LABS REVIEWED; CSF CULTURE -VE GROWTH LYME SEROLOGY BY WESTERN BLOT -VE. WNV -IGG +VE -IMMUNE. WNV IGM -VE Objective - Vital Signs/Intake and Output Vital Signs (last 24 hours): Temp Pulse Resp BP Pulse Ox 98.8 F 78 20 166/98 H 99 09/07/16 08:04 09/07/16 08:04 09/07/16 08:04 09/07/16 08:04 09/07/16 08:04 - Medications Medications: Current Medications Benztropine Mesylate (Cogentin) 1 mg PO BID [facility] Last Admin: 09/07/16 09:00 Dose: 1 mg Divalproex Sodium (Depakote Dr) 250 mg PO BID [facility] Last Admin: 09/07/16 09:01 Dose: 250 mg Fluphenazine HCl (Prolixin) 5 mg PO BID [facility] Last Admin: 09/07/16 09:00 Dose: 5 mg Gabapentin (Neurontin) 100 mg PO TID [facility] Last Admin: 09/07/16 09:00 Dose: 100 mg Metronidazole (Flagyl) 500 mg in 100 mls @ 100 mls/hr IVPB Q8 [facility] Last Admin: 09/07/16 05:16 Dose: 100 mls/hr Ceftriaxone Sodium 1 gm/ (Sodium Chloride) 100 mls @ 100 mls/hr IVPB Q12H [facility] Last Admin: 09/07/16 04:31 Dose: 100 mls/hr Lisinopril (Zestril) 20 mg PO DAILY [facility] Last Admin: 09/07/16 09:00 Dose: 20 mg Lorazepam (Ativan) 1 mg PO Q6 PRN PRN Reason: Agitation Pantoprazole Sodium (Protonix Inj) 40 mg IVP Q12H [facility] Last Admin: 09/07/16 07:57 Dose: 40 mg Tamsulosin HCl (Flomax) 0.4 mg PO DAILY [facility] Last Admin: 09/07/16 09:00 Dose: 0.4 mg Trazodone HCl (Desyrel) 50 mg PO HS [facility] Last Admin: 09/06/16 21:44 Dose: 50 mg - Labs Labs: 09/06/16 07:10 09/06/16 07:10 - Constitutional Appears: No Acute Distress - Head Exam Head Exam: NORMAL INSPECTION - Eye Exam Eye Exam: EOMI, PERRL - ENT Exam ENT Exam: Normal Oropharynx - Neck Exam Neck Exam: Normal Inspection - Respiratory Exam Respiratory Exam: Clear to Ausculation Bilateral - Cardiovascular Exam Cardiovascular Exam: REGULAR RHYTHM, +S1, +S2 - GI/Abdominal Exam GI & Abdominal Exam: Soft, Normal Bowel Sounds. absent: Organomegaly - Extremities Exam Extremities Exam: Normal Capillary Refill. absent: Calf Tenderness, Pedal Edema - Neurological Exam Neurological Exam: Awake, Reflexes Normal - Psychiatric Exam Psychiatric exam: Anxious, Depressed - Skin Skin Exam: Normal Color, Warm. absent: Rash Assessment and Plan (1) Sepsis syndrome Assessment & Plan: -PATIENT ON IV ANTIBIOTICS. IV ROCEPHIN 1GM IVPB [id number] 09/03/16 ON IV vancomycin 1000 mg every 12 hourly for staph and MRSA coverage 08/30/16 ( VANC TROUGH LEVEL 8.0 -LOW)dose increased to 1 g every 12hrly. ON IV Flagyl 500 mg every 8 hourly for anaerobic coverage.08/31/16 -ALL CULTURES NEGATIVE TO DATE -F/U 2-D ECHO R/O VEGETATIONS. Status: Acute (2) Altered mental status Status: Acute (3) Enteritis Status: Acute (4) Leukocytosis Status: Acute (5) Anxiety Status: Acute (6) Hypertension Status: Acute (7) Dehydration Status: Acute (8) Urinary retention with incomplete bladder emptying Status: Acute (9) Melena Assessment & Plan: NO MELANOTIC STOOLS PER RN. H/H STABLE. Status: Acute (10) Hepatitis C Assessment & Plan: PER GI. Status: Chronic (11) Acute psychosis Assessment & Plan: PER PSYCHIATRY. Status: Acute
--- NOTE | 2016-09-07 13:02 | CP.PCM.PN ---
Subjective - Date & Time of Evaluation Date of Evaluation: 09/07/16 Time of Evaluation: 13:02 - Subjective Subjective: FLIGHT OF IDEAS WITH PARANOIA PSYCH EVAL NOTED ON NOW MULTIPLE PSYCH MEDS SMALL DENTAL ABSCESS NOT THE CAUSE OF CONFUSION CONT IV AB AND MAY NEED PSYCH [facility] Objective - Vital Signs/Intake and Output Vital Signs (last 24 hours): Temp Pulse Resp BP Pulse Ox 98.8 F 78 20 166/98 H 99 09/07/16 08:04 09/07/16 08:04 09/07/16 08:04 09/07/16 08:04 09/07/16 08:04 - Medications Medications: Current Medications Benztropine Mesylate (Cogentin) 1 mg PO BID [facility] Last Admin: 09/07/16 09:00 Dose: 1 mg Divalproex Sodium (Depakote Dr) 250 mg PO BID [facility] Last Admin: 09/07/16 09:01 Dose: 250 mg Fluphenazine HCl (Prolixin) 5 mg PO BID [facility] Last Admin: 09/07/16 09:00 Dose: 5 mg Gabapentin (Neurontin) 100 mg PO TID [facility] Last Admin: 09/07/16 09:00 Dose: 100 mg Metronidazole (Flagyl) 500 mg in 100 mls @ 100 mls/hr IVPB Q8 [facility] Last Admin: 09/07/16 05:16 Dose: 100 mls/hr Ceftriaxone Sodium 1 gm/ (Sodium Chloride) 100 mls @ 100 mls/hr IVPB Q12H [facility] Last Admin: 09/07/16 04:31 Dose: 100 mls/hr Lisinopril (Zestril) 20 mg PO DAILY [facility] Last Admin: 09/07/16 09:00 Dose: 20 mg Lorazepam (Ativan) 1 mg PO Q6 PRN PRN Reason: Agitation Pantoprazole Sodium (Protonix Inj) 40 mg IVP Q12H [facility] Last Admin: 09/07/16 07:57 Dose: 40 mg Tamsulosin HCl (Flomax) 0.4 mg PO DAILY [facility] Last Admin: 09/07/16 09:00 Dose: 0.4 mg Trazodone HCl (Desyrel) 50 mg PO HS [facility] Last Admin: 09/06/16 21:44 Dose: 50 mg - Labs Labs: 09/06/16 07:10 09/06/16 07:10
[2016-09-07 20:25] LABS: CA ENCEPH.VIRUS IGG <1:16; CA ENCEPH.VIRUS IGM <1:16; E.EQUINE ENCEPH. VIRUS IGG <1:16; E.EQUINE ENCEPH.VIRUS IGM <1:16; W.EQUINE ENCEPH.VIRUS IGG <1:16; W.EQUINE ENCEPH.VIRUS IGM <1:16
--- NOTE | 2016-09-08 00:29 | CP.PCM.PN ---
Subjective - Date & Time of Evaluation Date of Evaluation: 09/07/16 Time of Evaluation: 19:35 - Subjective Subjective: Mental problems, Paranoid features, forgetfulness are seen. His lab work is negative for West Nile Virus and Other Viruses, Lyme disease as well. Objective - Vital Signs/Intake and Output Vital Signs (last 24 hours): Temp Pulse Resp BP Pulse Ox 98.8 F 78 20 163/86 H 98 09/07/16 15:16 09/07/16 15:16 09/07/16 15:16 09/07/16 15:16 09/07/16 15:16 Intake and Output: 09/07/16 09/08/16 18:59 06:59 Intake Total 400 450 Balance 400 450 - Medications Medications: Current Medications Benztropine Mesylate (Cogentin) 1 mg PO BID [facility] Last Admin: 09/07/16 17:10 Dose: 1 mg Divalproex Sodium (Depakote Dr) 250 mg PO BID [facility] Last Admin: 09/07/16 17:10 Dose: 250 mg Fluphenazine HCl (Prolixin) 5 mg PO BID [facility] Last Admin: 09/07/16 18:28 Dose: 5 mg Gabapentin (Neurontin) 100 mg PO TID [facility] Last Admin: 09/07/16 17:10 Dose: 100 mg Metronidazole (Flagyl) 500 mg in 100 mls @ 100 mls/hr IVPB Q8 [facility] Last Admin: 09/07/16 21:09 Dose: 100 mls/hr Ceftriaxone Sodium 1 gm/ (Sodium Chloride) 100 mls @ 100 mls/hr IVPB Q12H [facility] Last Admin: 09/07/16 16:00 Dose: 100 mls/hr Lisinopril (Zestril) 20 mg PO DAILY [facility] Last Admin: 09/07/16 09:00 Dose: 20 mg Lorazepam (Ativan) 1 mg PO Q6 PRN PRN Reason: Agitation Pantoprazole Sodium (Protonix Inj) 40 mg IVP Q12H [facility] Last Admin: 09/07/16 20:39 Dose: 40 mg Tamsulosin HCl (Flomax) 0.4 mg PO DAILY [facility] Last Admin: 09/07/16 09:00 Dose: 0.4 mg Trazodone HCl (Desyrel) 50 mg PO HS [facility] Last Admin: 09/07/16 21:10 Dose: 50 mg - Labs Labs: 09/06/16 07:10 09/06/16 07:10 Assessment and Plan (1) Altered mental status Status: Acute (2) Dehydration Status: Acute (3) Enteritis Status: Acute (4) Fever Status: Acute (5) Leukocytosis Status: Acute (6) Melena Status: Acute (7) Occult blood in stools Status: Acute (8) Sepsis syndrome Status: Acute (9) CVA (cerebral vascular accident) Status: Acute (10) Seizures Status: Acute (11) Acute psychosis Status: Acute
[2016-09-08] MEDS: metroNIDAZOLE IV 500 mg/100 ml 500 MG/100 ML BAG IVPB SCH ×3 (05:25→22:08)
--- NOTE | 2016-09-08 09:05 | CP.PCM.PN ---
Subjective - Date & Time of Evaluation Date of Evaluation: 09/08/16 Time of Evaluation: 09:02 - Subjective Subjective: Patient is more alert and calmer this morning. He again denies having nausea, vomiting or abdominal pain. He had a bowel movement this morning, but he is unaware if the stool contained any blood. Hep C RNA returned positive. The hemoglobin is currently 12.2, down from 13.2 on admission. The stool for occult blood was positive. Objective - Vital Signs/Intake and Output Vital Signs (last 24 hours): Temp Pulse Resp BP Pulse Ox 98.2 F 83 18 150/89 96 09/08/16 07:35 09/08/16 07:35 09/08/16 07:35 09/08/16 07:35 09/08/16 07:35 Intake and Output: 09/08/16 09/08/16 06:59 18:59 Intake Total 750 Balance 750 - Medications Medications: Current Medications Benztropine Mesylate (Cogentin) 1 mg PO BID [facility] Last Admin: 09/07/16 17:10 Dose: 1 mg Divalproex Sodium (Depakote Dr) 250 mg PO BID [facility] Last Admin: 09/07/16 17:10 Dose: 250 mg Fluphenazine HCl (Prolixin) 5 mg PO BID [facility] Last Admin: 09/07/16 18:28 Dose: 5 mg Gabapentin (Neurontin) 100 mg PO TID [facility] Last Admin: 09/07/16 17:10 Dose: 100 mg Metronidazole (Flagyl) 500 mg in 100 mls @ 100 mls/hr IVPB Q8 [facility] Last Admin: 09/08/16 05:25 Dose: 100 mls/hr Ceftriaxone Sodium 1 gm/ (Sodium Chloride) 100 mls @ 100 mls/hr IVPB Q12H [facility] Last Admin: 09/08/16 04:08 Dose: 100 mls/hr Lisinopril (Zestril) 20 mg PO DAILY [facility] Last Admin: 09/07/16 09:00 Dose: 20 mg Lorazepam (Ativan) 1 mg PO Q6 PRN PRN Reason: Agitation Pantoprazole Sodium (Protonix Inj) 40 mg IVP Q12H [facility] Last Admin: 09/07/16 20:39 Dose: 40 mg Tamsulosin HCl (Flomax) 0.4 mg PO DAILY [facility] Last Admin: 09/07/16 09:00 Dose: 0.4 mg Trazodone HCl (Desyrel) 50 mg PO HS [facility] Last Admin: 09/07/16 21:10 Dose: 50 mg - Labs Labs: 09/06/16 07:10 09/06/16 07:10 - Constitutional Appears: No Acute Distress - Eye Exam Eye Exam: EOMI, PERRL - Neck Exam Neck Exam: absent: Lymphadenopathy, Thyromegaly - Respiratory Exam Respiratory Exam: NORMAL BREATHING PATTERN. absent: Rales, Rhonchi, Wheezes - Cardiovascular Exam Cardiovascular Exam: REGULAR RHYTHM, +S1, +S2. absent: Gallop, Rubs, Murmur - GI/Abdominal Exam GI & Abdominal Exam: Soft, Normal Bowel Sounds. absent: Tenderness, Mass, Organomegaly - Rectal Exam Rectal Exam: Deferred - Extremities Exam Extremities Exam: absent: Calf Tenderness, Pedal Edema Assessment and Plan (1) Hepatitis C Assessment & Plan: Hepatitis C RNA remains positive, albeit at a lower level than in March. He evidently had a self-limited episode of melena. EGD should be performed; this can be done on Sunday, if patient remains hospitalized, or as an outpatient. Status: Chronic
[2016-09-08] MEDS: Divalproex 250 mg DR Tab PO SCH ×2 (09:08→18:01)
[2016-09-08] MEDS: Pantoprazole 40 mg EC Tab PO SCH ×2 (09:24→22:08)
[2016-09-08 11:41] LABS: BASO % 0.2 % (0.0-2.0); EOS % 0.2 % (0.0-4.0); HEMATOCRIT 36.9 % (35.0-51.0); LYMPH # 1.5 K/uL (1.0-4.3); LYMPH % 11.1 % (20.0-40.0); MEAN CORPUSCULAR HEMOGLOBIN 29.3 pg (27.0-31.0); MEAN CORPUSCULAR HGB CONC 33.7 g/dL (33.0-37.0); MEAN PLATELET VOLUME 9.3 fL (7.2-11.7); MONO # 1.2 K/uL (0.0-0.8); MONO % 8.5 % (0.0-10.0); RED CELL DISTRIBUTION WIDTH 13.4 % (11.5-14.5); WHITE BLOOD COUNT 13.6 K/uL (4.8-10.8)
[2016-09-08 11:52] LABS: SODIUM 139 mmol/L (132-148)
[2016-09-08 11:54] LABS: ALB/GLOB RATIO 1.1 (1.0-2.1); AST/SGOT 22 U/L (17-59); BILIRUBIN,TOTAL < 0.1 mg/dL (0.2-1.3); CARBON DIOXIDE 29 mmol/L (22-30); GFR AFRICAN-AMERICAN > 60; TOTAL PROTEIN 6.1 g/dL (6.3-8.3)
[2016-09-08 11:55] LABS: ALKALINE PHOSPHATASE 45 U/L (38-126); ALT/SGPT 37 U/L (21-72); BLOOD UREA NITROGEN 13 mg/dL (9-20); CALCIUM 8.4 mg/dl (8.6-10.4); GLUCOSE,RANDOM 135 mg/dL (75-110)
[2016-09-08 12:11] LABS: CHLORIDE 101 mmol/L (98-107)
--- NOTE | 2016-09-08 12:31 | CP.PCM.PN ---
Subjective - Date & Time of Evaluation Date of Evaluation: 09/08/16 Time of Evaluation: 12:30 - Subjective Subjective: temp 98.4 vs BP 141/85. MORE AWAKE AND RESPONSIVE POOR CONCENTRATION. INTERMITTENT INCONTINENT STATED BY THE PATIENT. STATES HAD A BOWEL MOVEMENT . HIV1/2 ANTIBODY NEGATIVE wbc 13.6 CREATININE 0.9/bun 13 LFTS NORMAL HCV VIRAL LOAD HIGH. GI FOLLOW-UP NOTED Objective - Vital Signs/Intake and Output Vital Signs (last 24 hours): Temp Pulse Resp BP Pulse Ox 98.2 F 83 18 150/89 96 09/08/16 07:35 09/08/16 07:35 09/08/16 07:35 09/08/16 07:35 09/08/16 07:35 Intake and Output: 09/08/16 09/08/16 06:59 18:59 Intake Total 750 Balance 750 - Medications Medications: Current Medications Benztropine Mesylate (Cogentin) 1 mg PO BID [facility] Last Admin: 09/08/16 09:08 Dose: 1 mg Divalproex Sodium (Depakote Dr) 250 mg PO BID [facility] Last Admin: 09/08/16 09:08 Dose: 250 mg Fluphenazine HCl (Prolixin) 5 mg PO BID [facility] Last Admin: 09/08/16 09:24 Dose: 5 mg Gabapentin (Neurontin) 100 mg PO TID [facility] Last Admin: 09/08/16 09:08 Dose: 100 mg Haloperidol (Haldol) 5 mg PO Q8 PRN PRN Reason: Moderate Agitation Haloperidol Lactate (Haldol) 5 mg IM Q8 PRN PRN Reason: Moderate Agitation Metronidazole (Flagyl) 500 mg in 100 mls @ 100 mls/hr IVPB Q8 [facility] Last Admin: 09/08/16 05:25 Dose: 100 mls/hr Ceftriaxone Sodium 1 gm/ (Sodium Chloride) 100 mls @ 100 mls/hr IVPB Q12H [facility] Last Admin: 09/08/16 04:08 Dose: 100 mls/hr Lisinopril (Zestril) 20 mg PO DAILY [facility] Last Admin: 09/08/16 09:07 Dose: 20 mg Lorazepam (Ativan) 1 mg PO Q6 PRN PRN Reason: Agitation Lorazepam (Ativan) 1 mg IM Q6H PRN PRN Reason: Anxiety Pantoprazole Sodium (Protonix Ec Tab) 40 mg PO Q12 [facility] Last Admin: 09/08/16 09:24 Dose: Not Given Tamsulosin HCl (Flomax) 0.4 mg PO DAILY [facility] Last Admin: 09/08/16 09:08 Dose: 0.4 mg Trazodone HCl (Desyrel) 50 mg PO HS [facility] Last Admin: 09/07/16 21:10 Dose: 50 mg - Labs Labs: 09/08/16 11:28 09/08/16 11:28 - Constitutional Appears: No Acute Distress - Head Exam Head Exam: NORMAL INSPECTION - Eye Exam Eye Exam: EOMI, PERRL. absent: Scleral icterus - ENT Exam ENT Exam: Normal Oropharynx - Neck Exam Neck Exam: Normal Inspection - Respiratory Exam Respiratory Exam: Clear to Ausculation Bilateral - Cardiovascular Exam Cardiovascular Exam: REGULAR RHYTHM, +S1, +S2 - GI/Abdominal Exam GI & Abdominal Exam: Soft, Normal Bowel Sounds. absent: Tenderness - Extremities Exam Extremities Exam: absent: Calf Tenderness, Pedal Edema - Neurological Exam Neurological Exam: Awake - Psychiatric Exam Psychiatric exam: Normal Affect - Skin Skin Exam: Normal Color, Warm Assessment and Plan (1) Sepsis syndrome Assessment & Plan: IV ROCEPHIN 1GM IVPB [id number] 09/03/16 ON IV vancomycin 1000 mg every 12 hourly for staph and MRSA coverage 08/30/16 ( VANC TROUGH LEVEL 8.0 -LOW)dose increased to 1 g every 12hrly. ON IV Flagyl 500 mg every 8 hourly for anaerobic coverage.08/31/16 -ALL CULTURES NEGATIVE TO DATE - 2D -ECHO ;09/04/16 EJECTION FRACTION 45-50% LVSF BORDERLINE . NO VALVULAR ABNORMALITIES. NO PERICARDIAL EFFUSION. Status: Acute (2) Altered mental status Assessment & Plan: EEG REPORTED NORMAL PER NEURO. CSF -CULTURE NEGATIVE GROWTH. Status: Acute (3) Enteritis Status: Acute (4) Leukocytosis Status: Acute (5) Anxiety Status: Acute (6) Hypertension Status: Acute (7) Dehydration Status: Acute (8) Urinary retention with incomplete bladder emptying Status: Acute (9) Melena Status: Acute (10) Hepatitis C Status: Chronic (11) Acute psychosis Status: Acute
--- NOTE | 2016-09-08 13:23 | CP.PCM.PN ---
Subjective - Date & Time of Evaluation Date of Evaluation: 09/08/16 Time of Evaluation: 13:21 - Subjective Subjective: PT IS MORE HAVING INTELLIGENT CONVERSATION BUT IN BETWEEN HAS DISORGANIZED THOUGHT PROCESS GI PLANNING EGD PT WILL CONT IV AB Objective - Vital Signs/Intake and Output Vital Signs (last 24 hours): Temp Pulse Resp BP Pulse Ox 98.2 F 83 18 150/89 96 09/08/16 07:35 09/08/16 07:35 09/08/16 07:35 09/08/16 07:35 09/08/16 07:35 Intake and Output: 09/08/16 09/08/16 11:59 23:59 Intake Total 300 Balance 300 - Medications Medications: Current Medications Benztropine Mesylate (Cogentin) 1 mg PO BID [facility] Last Admin: 09/08/16 09:08 Dose: 1 mg Divalproex Sodium (Depakote Dr) 250 mg PO BID [facility] Last Admin: 09/08/16 09:08 Dose: 250 mg Fluphenazine HCl (Prolixin) 5 mg PO BID [facility] Last Admin: 09/08/16 09:24 Dose: 5 mg Gabapentin (Neurontin) 100 mg PO TID [facility] Last Admin: 09/08/16 09:08 Dose: 100 mg Haloperidol (Haldol) 5 mg PO Q8 PRN PRN Reason: Moderate Agitation Haloperidol Lactate (Haldol) 5 mg IM Q8 PRN PRN Reason: Moderate Agitation Metronidazole (Flagyl) 500 mg in 100 mls @ 100 mls/hr IVPB Q8 [facility] Last Admin: 09/08/16 05:25 Dose: 100 mls/hr Ceftriaxone Sodium 1 gm/ (Sodium Chloride) 100 mls @ 100 mls/hr IVPB Q12H [facility] Last Admin: 09/08/16 04:08 Dose: 100 mls/hr Lisinopril (Zestril) 20 mg PO DAILY [facility] Last Admin: 09/08/16 09:07 Dose: 20 mg Lorazepam (Ativan) 1 mg PO Q6 PRN PRN Reason: Agitation Lorazepam (Ativan) 1 mg IM Q6H PRN PRN Reason: Anxiety Pantoprazole Sodium (Protonix Ec Tab) 40 mg PO Q12 [facility] Last Admin: 09/08/16 09:24 Dose: Not Given Tamsulosin HCl (Flomax) 0.4 mg PO DAILY [facility] Last Admin: 09/08/16 09:08 Dose: 0.4 mg Trazodone HCl (Desyrel) 50 mg PO [facility] Last Admin: 09/07/16 21:10 Dose: 50 mg - Labs Labs: 09/08/16 11:28 09/08/16 11:28
[2016-09-08 15:27] LABS: RBC URINE < 1 /hpf (0-3); URINE BILIRUBIN NEGATIVE (NEGATIVE); URINE BLOOD NEGATIVE (NEGATIVE); URINE COLOR Yellow (YELLOW); URINE GLUCOSE (UA) NORMAL (Normal); URINE KETONE 1+ mg/dL (NEGATIVE); URINE LEUKOCYTE ESTERASE TRACE Leu/uL (Negative); URINE PROTEIN NEGATIVE (NEGATIVE); URINE UROBILINOGEN NORMAL mg/dL (0.2-1.0); WBC URINE 1 /hpf (0-5)
[2016-09-09] MEDS ORDERED: Potassium Chloride 20 mEq ER Tab PO ONE ×2 (00:43→23:50)
--- NOTE | 2016-09-09 01:05 | CP.PCM.PN ---
Subjective - Date & Time of Evaluation Date of Evaluation: 09/08/16 Time of Evaluation: 21:35 - Subjective Subjective: More Psychologically controlled, less aggressive, not violent, more intelligible conversation. He still has to have his EGD and needs to have a resolution for his Hepatitis C infection. No seizures are reported and his EEG is negative. Remains Hypokalemic. Objective - Vital Signs/Intake and Output Vital Signs (last 24 hours): Temp Pulse Resp BP Pulse Ox 98.4 F 87 20 153/87 H 96 09/08/16 16:00 09/08/16 19:05 09/08/16 16:00 09/08/16 16:00 09/08/16 07:35 - Medications Medications: Current Medications Benztropine Mesylate (Cogentin) 1 mg PO BID [facility] Last Admin: 09/08/16 18:01 Dose: 1 mg Divalproex Sodium (Depakote Dr) 250 mg PO BID [facility] Last Admin: 09/08/16 18:01 Dose: 250 mg Fluphenazine HCl (Prolixin) 5 mg PO BID [facility] Last Admin: 09/08/16 18:01 Dose: 5 mg Gabapentin (Neurontin) 100 mg PO TID [facility] Last Admin: 09/08/16 18:01 Dose: 100 mg Haloperidol (Haldol) 5 mg PO Q8 PRN PRN Reason: Moderate Agitation Haloperidol Lactate (Haldol) 5 mg IM Q8 PRN PRN Reason: Moderate Agitation Metronidazole (Flagyl) 500 mg in 100 mls @ 100 mls/hr IVPB Q8 [facility] Last Admin: 09/08/16 22:08 Dose: 100 mls/hr Ceftriaxone Sodium 1 gm/ (Sodium Chloride) 100 mls @ 100 mls/hr IVPB Q12H [facility] Last Admin: 09/08/16 15:20 Dose: 100 mls/hr Lisinopril (Zestril) 20 mg PO DAILY [facility] Last Admin: 09/08/16 09:07 Dose: 20 mg Lorazepam (Ativan) 1 mg PO Q6 PRN PRN Reason: Agitation Lorazepam (Ativan) 1 mg IM Q6H PRN PRN Reason: Anxiety Pantoprazole Sodium (Protonix Ec Tab) 40 mg PO Q12 [facility] Last Admin: 09/08/16 22:08 Dose: 40 mg Tamsulosin HCl (Flomax) 0.4 mg PO DAILY [facility] Last Admin: 09/08/16 09:08 Dose: 0.4 mg Trazodone HCl (Desyrel) 50 mg PO [facility] Last Admin: 09/08/16 22:08 Dose: 50 mg - Labs Labs: 09/08/16 11:28 09/08/16 11:28 Assessment and Plan (1) Altered mental status Status: Acute (2) Dehydration Status: Acute (3) Enteritis Status: Acute (4) Fever Status: Acute (5) Leukocytosis Status: Acute (6) Melena Status: Acute (7) Occult blood in stools Status: Acute (8) Sepsis syndrome Status: Acute (9) CVA (cerebral vascular accident) Status: Chronic (10) Seizures Status: Suspected (11) Acute psychosis Status: Acute (12) Hepatitis C Status: Chronic
[2016-09-09] MEDS: metroNIDAZOLE IV 500 mg/100 ml 500 MG/100 ML BAG IVPB SCH ×3 (05:34→21:21)
[2016-09-09 08:13] LABS: MAGNESIUM 2.6 mg/dL (1.6-2.3)
[2016-09-09 10:09] LABS: CHLORIDE 102 mmol/L (98-107)
[2016-09-09] MEDS: Pantoprazole 40 mg EC Tab PO SCH ×2 (10:09→21:21)
[2016-09-09 10:10] LABS: POTASSIUM 3.8 mmol/L (3.6-5.2); SODIUM 139 mmol/L (132-148)
[2016-09-09] MEDS: Divalproex 250 mg DR Tab PO SCH ×2 (10:11→17:26)
[2016-09-09 10:12] LABS: ALB/GLOB RATIO 1.2 (1.0-2.1); ALKALINE PHOSPHATASE 42 U/L (38-126); AST/SGOT 24 U/L (17-59); BILIRUBIN,TOTAL 0.5 mg/dL (0.2-1.3); BLOOD UREA NITROGEN 14 mg/dL (9-20); CARBON DIOXIDE 29 mmol/L (22-30); GFR AFRICAN-AMERICAN > 60; GLUCOSE,RANDOM 99 mg/dL (75-110); TOTAL PROTEIN 6.1 g/dL (6.3-8.3)
[2016-09-09 10:13] LABS: ALT/SGPT 40 U/L (21-72); CALCIUM 8.5 mg/dl (8.6-10.4)
[2016-09-09 10:14] LABS: BASO # 0.1 K/uL (0.0-0.2); BASO % 0.5 % (0.0-2.0); EOS % 0.2 % (0.0-4.0); LYMPH # 1.8 K/uL (1.0-4.3); LYMPH % 15.7 % (20.0-40.0); MEAN CELL VOLUME 88.2 fL (80.0-94.0); MEAN CORPUSCULAR HEMOGLOBIN 29.1 pg (27.0-31.0); MEAN PLATELET VOLUME 9.4 fL (7.2-11.7); MONO # 0.8 K/uL (0.0-0.8); MONO % 7.1 % (0.0-10.0); RED CELL DISTRIBUTION WIDTH 13.6 % (11.5-14.5); WHITE BLOOD COUNT 11.5 K/uL (4.8-10.8)
--- NOTE | 2016-09-09 14:08 | CP.PCM.PN ---
Subjective - Date & Time of Evaluation Date of Evaluation: 09/09/16 Time of Evaluation: 14:07 - Subjective Subjective: CLINICALLY IMPROVING PT IS MORE HAVING INTELLIGENT CONVERSATION BUT IN BETWEEN HAS DISORGANIZED THOUGHT PROCESS GI PLANNING EGD PT WILL CONT IV AB Objective - Vital Signs/Intake and Output Vital Signs (last 24 hours): Temp Pulse Resp BP Pulse Ox 97.6 F 76 20 160/87 H 98 09/09/16 07:28 09/09/16 07:30 09/09/16 07:28 09/09/16 07:28 09/09/16 07:28 - Medications Medications: Current Medications Benztropine Mesylate (Cogentin) 1 mg PO BID [facility] Last Admin: 09/09/16 10:11 Dose: 1 mg Divalproex Sodium (Depakote Dr) 250 mg PO BID [facility] Last Admin: 09/09/16 10:11 Dose: 250 mg Fluphenazine HCl (Prolixin) 5 mg PO BID [facility] Last Admin: 09/09/16 10:11 Dose: 5 mg Gabapentin (Neurontin) 100 mg PO TID [facility] Last Admin: 09/09/16 13:17 Dose: 100 mg Haloperidol (Haldol) 5 mg PO Q8 PRN PRN Reason: Moderate Agitation Last Admin: 09/09/16 10:14 Dose: 5 mg Haloperidol Lactate (Haldol) 5 mg IM Q8 PRN PRN Reason: Moderate Agitation Metronidazole (Flagyl) 500 mg in 100 mls @ 100 mls/hr IVPB Q8 [facility] Last Admin: 09/09/16 13:15 Dose: 100 mls/hr Ceftriaxone Sodium 1 gm/ (Sodium Chloride) 100 mls @ 100 mls/hr IVPB Q12H [facility] Last Admin: 09/09/16 04:34 Dose: 100 mls/hr Lisinopril (Zestril) 20 mg PO DAILY [facility] Last Admin: 09/09/16 13:17 Dose: 20 mg Lorazepam (Ativan) 1 mg PO Q6 PRN PRN Reason: Agitation Lorazepam (Ativan) 1 mg IM Q6H PRN PRN Reason: Anxiety Pantoprazole Sodium (Protonix Ec Tab) 40 mg PO Q12 [facility] Last Admin: 09/09/16 10:09 Dose: 40 mg Tamsulosin HCl (Flomax) 0.4 mg PO DAILY [facility] Last Admin: 09/09/16 10:09 Dose: 0.4 mg Trazodone HCl (Desyrel) 50 mg PO HS [facility] Last Admin: 09/08/16 22:08 Dose: 50 mg - Labs Labs: 09/09/16 10:03 09/09/16 07:15
--- NOTE | 2016-09-09 19:37 | CP.PCM.PN ---
Subjective - Date & Time of Evaluation Date of Evaluation: 09/09/16 Time of Evaluation: 19:37 - Subjective Subjective: TMAX 100, BP 145/72 MORE AWAKE AND RESPONSIVE POOR CONCENTRATION. TRYING TO REMEMBER FACTS STILL INTERMITTENT INCONTINANT ?BPH MOVES ALL EXTREMITIES Objective - Vital Signs/Intake and Output Vital Signs (last 24 hours): Temp Pulse Resp BP Pulse Ox 99.6 F 89 20 143/94 H 100 09/09/16 16:10 09/09/16 16:10 09/09/16 16:10 09/09/16 16:10 09/09/16 16:10 - Medications Medications: Current Medications Benztropine Mesylate (Cogentin) 1 mg PO BID [facility] Last Admin: 09/09/16 17:26 Dose: 1 mg Divalproex Sodium (Depakote Dr) 250 mg PO BID [facility] Last Admin: 09/09/16 17:26 Dose: 250 mg Fluphenazine HCl (Prolixin) 5 mg PO BID [facility] Last Admin: 09/09/16 17:26 Dose: 5 mg Gabapentin (Neurontin) 100 mg PO TID [facility] Last Admin: 09/09/16 17:26 Dose: 100 mg Haloperidol (Haldol) 5 mg PO Q8 PRN PRN Reason: Moderate Agitation Last Admin: 09/09/16 10:14 Dose: 5 mg Haloperidol Lactate (Haldol) 5 mg IM Q8 PRN PRN Reason: Moderate Agitation Metronidazole (Flagyl) 500 mg in 100 mls @ 100 mls/hr IVPB Q8 [facility] Last Admin: 09/09/16 13:15 Dose: 100 mls/hr Ceftriaxone Sodium 1 gm/ (Sodium Chloride) 100 mls @ 100 mls/hr IVPB Q12H [facility] Last Admin: 09/09/16 16:00 Dose: 100 mls/hr Lisinopril (Zestril) 20 mg PO DAILY [facility] Last Admin: 09/09/16 13:17 Dose: 20 mg Lorazepam (Ativan) 1 mg PO Q6 PRN PRN Reason: Agitation Lorazepam (Ativan) 1 mg IM Q6H PRN PRN Reason: Anxiety Pantoprazole Sodium (Protonix Ec Tab) 40 mg PO Q12 [facility] Last Admin: 09/09/16 10:09 Dose: 40 mg Tamsulosin HCl (Flomax) 0.4 mg PO DAILY [facility] Last Admin: 09/09/16 10:09 Dose: 0.4 mg Trazodone HCl (Desyrel) 50 mg PO HS [facility] Last Admin: 09/08/16 22:08 Dose: 50 mg - Labs Labs: 09/09/16 10:03 09/09/16 07:15 - Constitutional Appears: No Acute Distress - Head Exam Head Exam: NORMAL INSPECTION - Eye Exam Eye Exam: EOMI, PERRL - ENT Exam ENT Exam: Normal Oropharynx - Respiratory Exam Respiratory Exam: Clear to Ausculation Bilateral - Cardiovascular Exam Cardiovascular Exam: REGULAR RHYTHM, +S1, +S2 - GI/Abdominal Exam GI & Abdominal Exam: Soft, Normal Bowel Sounds - Extremities Exam Extremities Exam: Normal Capillary Refill. absent: Calf Tenderness, Pedal Edema - Neurological Exam Neurological Exam: Awake, CN II-XII Intact - Psychiatric Exam Psychiatric exam: Normal Affect - Skin Skin Exam: Pallor, Warm Assessment and Plan (1) Sepsis syndrome Assessment & Plan: PATIENT WILL NEED 3 WEEKS OF IV -F/U BY ORAL ANTIBIOTICS FOR HIS MULTIPLE DENTAL ABSCESSES. ON IV ROCEPHIN 1GM IVPB [id number] 09/03/16 ON IV vancomycin 1000 mg every 12 hourly for staph and MRSA coverage 08/30/16 ( VANC TROUGH LEVEL 8.0 -LOW)dose increased to 1 g every 12hrly. ON IV Flagyl 500 mg every 8 hourly for anaerobic coverage.08/31/16 -ALL CULTURES NEGATIVE TO DATE - 2D -ECHO ;09/04/16 EJECTION FRACTION 45-50% LVSF BORDERLINE . NO VALVULAR ABNORMALITIES. NO PERICARDIAL EFFUSION. Status: Acute (2) Altered mental status Status: Acute (3) Enteritis Status: Acute (4) Leukocytosis Status: Acute (5) Anxiety Status: Acute (6) Hypertension Status: Acute (7) Dehydration Status: Acute (8) Urinary retention with incomplete bladder emptying Status: Acute (9) Melena Status: Acute (10) Hepatitis C Status: Chronic (11) Acute psychosis Status: Acute
--- NOTE | 2016-09-09 23:34 | CP.PCM.PN ---
Subjective - Date & Time of Evaluation Date of Evaluation: 09/09/16 Time of Evaluation: 21:05 - Subjective Subjective: He is more able to have intelligible conversations for short period of time, followed by periods of mental unsteadiness and paranoia. He is to be continued on Antibiotics. Objective - Vital Signs/Intake and Output Vital Signs (last 24 hours): Temp Pulse Resp BP Pulse Ox 99.6 F 89 20 143/94 H 100 09/09/16 16:10 09/09/16 16:10 09/09/16 16:10 09/09/16 16:10 09/09/16 16:10 Intake and Output: 09/09/16 09/10/16 18:59 06:59 Intake Total 600 Balance 600 - Medications Medications: Current Medications Benztropine Mesylate (Cogentin) 1 mg PO BID [facility] Last Admin: 09/09/16 17:26 Dose: 1 mg Divalproex Sodium (Depakote Dr) 250 mg PO BID [facility] Last Admin: 09/09/16 17:26 Dose: 250 mg Fluphenazine HCl (Prolixin) 5 mg PO BID [facility] Last Admin: 09/09/16 17:26 Dose: 5 mg Gabapentin (Neurontin) 100 mg PO TID [facility] Last Admin: 09/09/16 17:26 Dose: 100 mg Haloperidol (Haldol) 5 mg PO Q8 PRN PRN Reason: Moderate Agitation Last Admin: 09/09/16 10:14 Dose: 5 mg Haloperidol Lactate (Haldol) 5 mg IM Q8 PRN PRN Reason: Moderate Agitation Metronidazole (Flagyl) 500 mg in 100 mls @ 100 mls/hr IVPB Q8 [facility] Last Admin: 09/09/16 21:21 Dose: 100 mls/hr Ceftriaxone Sodium 1 gm/ (Sodium Chloride) 100 mls @ 100 mls/hr IVPB Q12H [facility] Last Admin: 09/09/16 16:00 Dose: 100 mls/hr Lisinopril (Zestril) 20 mg PO DAILY [facility] Last Admin: 09/09/16 13:17 Dose: 20 mg Lorazepam (Ativan) 1 mg PO Q6 PRN PRN Reason: Agitation Lorazepam (Ativan) 1 mg IM Q6H PRN PRN Reason: Anxiety Pantoprazole Sodium (Protonix Ec Tab) 40 mg PO Q12 [facility] Last Admin: 09/09/16 21:21 Dose: 40 mg Tamsulosin HCl (Flomax) 0.4 mg PO DAILY [facility] Last Admin: 09/09/16 10:09 Dose: 0.4 mg Trazodone HCl (Desyrel) 50 mg PO HS [facility] Last Admin: 09/09/16 21:21 Dose: 50 mg - Labs Labs: 09/09/16 10:03 09/09/16 07:15 Assessment and Plan (1) Altered mental status Status: Acute (2) Dehydration Status: Acute (3) Enteritis Status: Acute (4) Fever Status: Acute (5) Leukocytosis Status: Acute (6) Melena Status: Acute (7) Occult blood in stools Status: Acute (8) Sepsis syndrome Status: Acute (9) CVA (cerebral vascular accident) Status: Chronic (10) Seizures Status: Suspected (11) Acute psychosis Status: Acute (12) Hepatitis C Status: Chronic
[2016-09-10] MEDS: metroNIDAZOLE IV 500 mg/100 ml 500 MG/100 ML BAG IVPB SCH ×3 (05:04→21:52)
[2016-09-10] MEDS: Pantoprazole 40 mg EC Tab PO SCH ×2 (09:37→21:52)
[2016-09-10] MEDS: Divalproex 250 mg DR Tab PO SCH ×2 (09:38→17:56)
--- NOTE | 2016-09-10 10:17 | CP.PCM.PN ---
Subjective - Date & Time of Evaluation Date of Evaluation: 09/10/16 Time of Evaluation: 10:15 - Subjective Subjective: Covering Dr Beverly CC: history of GI bleed Hgbs have remained stable, and no overt bleeding noted. Patient can not provide meaningful history, does not answer questions appropriately. Denies abdominal pain Objective - Vital Signs/Intake and Output Vital Signs (last 24 hours): Temp Pulse Resp BP Pulse Ox 98.3 F 69 20 165/98 H 99 09/10/16 07:30 09/10/16 07:40 09/10/16 07:30 09/10/16 07:30 09/10/16 07:30 Intake and Output: 09/10/16 09/10/16 06:59 18:59 Intake Total 600 Balance 600 - Medications Medications: Current Medications Benztropine Mesylate (Cogentin) 1 mg PO BID [facility] Last Admin: 09/10/16 09:39 Dose: 1 mg Divalproex Sodium (Depakote Dr) 250 mg PO BID [facility] Last Admin: 09/10/16 09:38 Dose: 250 mg Fluphenazine HCl (Prolixin) 5 mg PO BID [facility] Last Admin: 09/10/16 09:39 Dose: 5 mg Gabapentin (Neurontin) 100 mg PO TID [facility] Last Admin: 09/10/16 09:37 Dose: 100 mg Haloperidol (Haldol) 5 mg PO Q8 PRN PRN Reason: Moderate Agitation Last Admin: 09/09/16 10:14 Dose: 5 mg Haloperidol Lactate (Haldol) 5 mg IM Q8 PRN PRN Reason: Moderate Agitation Metronidazole (Flagyl) 500 mg in 100 mls @ 100 mls/hr IVPB Q8 [facility] Last Admin: 09/10/16 05:04 Dose: 100 mls/hr Ceftriaxone Sodium 1 gm/ (Sodium Chloride) 100 mls @ 100 mls/hr IVPB Q12H [facility] Last Admin: 09/10/16 03:18 Dose: 100 mls/hr Lisinopril (Zestril) 20 mg PO DAILY [facility] Last Admin: 09/10/16 09:37 Dose: 20 mg Lorazepam (Ativan) 1 mg PO Q6 PRN PRN Reason: Agitation Last Admin: 09/10/16 00:02 Dose: 1 mg Lorazepam (Ativan) 1 mg IM Q6H PRN PRN Reason: Anxiety Pantoprazole Sodium (Protonix Ec Tab) 40 mg PO Q12 [facility] Last Admin: 09/10/16 09:37 Dose: 40 mg Tamsulosin HCl (Flomax) 0.4 mg PO DAILY [facility] Last Admin: 09/10/16 09:37 Dose: 0.4 mg Trazodone HCl (Desyrel) 50 mg PO HS [facility] Last Admin: 09/09/16 21:21 Dose: 50 mg - Labs Labs: 09/09/16 10:03 09/09/16 07:15 - Constitutional Appears: Confused, Chronically Ill - Eye Exam Eye Exam: absent: Scleral icterus - Cardiovascular Exam Cardiovascular Exam: REGULAR RHYTHM - GI/Abdominal Exam GI & Abdominal Exam: Soft. absent: Tenderness Assessment and Plan (1) Altered mental status Assessment & Plan: Remains confused. Followed and addressed by Neurolologist. Status: Acute (2) Melena Assessment & Plan: Last week, without recurrence. Hgb stable. Rec: EGD by Dr Beverly, provided consent can be obtained and patient cooperates. Can be deferred until more stable. Status: Acute (3) Occult blood in stools Assessment & Plan: see melena Status: Acute (4) Hepatitis C Assessment & Plan: stable To be addressed as outpatient Status: Chronic
--- NOTE | 2016-09-10 14:22 | CP.PCM.PN ---
Subjective - Date & Time of Evaluation Date of Evaluation: 09/10/16 Time of Evaluation: 14:21 - Subjective Subjective: MENTAL STAUS HAS NOT MUCH IMPROVED FROM FEW DAYS ON IV AB WILL NEED PSYCH FLOOR Objective - Vital Signs/Intake and Output Vital Signs (last 24 hours): Temp Pulse Resp BP Pulse Ox 98.3 F 69 20 165/98 H 99 09/10/16 07:30 09/10/16 07:40 09/10/16 07:30 09/10/16 07:30 09/10/16 07:30 - Medications Medications: Current Medications Benztropine Mesylate (Cogentin) 1 mg PO BID [facility] Last Admin: 09/10/16 09:39 Dose: 1 mg Divalproex Sodium (Depakote Dr) 250 mg PO BID [facility] Last Admin: 09/10/16 09:38 Dose: 250 mg Fluphenazine HCl (Prolixin) 5 mg PO BID [facility] Last Admin: 09/10/16 09:39 Dose: 5 mg Gabapentin (Neurontin) 100 mg PO TID [facility] Last Admin: 09/10/16 09:37 Dose: 100 mg Haloperidol (Haldol) 5 mg PO Q8 PRN PRN Reason: Moderate Agitation Last Admin: 09/09/16 10:14 Dose: 5 mg Haloperidol Lactate (Haldol) 5 mg IM Q8 PRN PRN Reason: Moderate Agitation Metronidazole (Flagyl) 500 mg in 100 mls @ 100 mls/hr IVPB Q8 [facility] Last Admin: 09/10/16 05:04 Dose: 100 mls/hr Ceftriaxone Sodium 1 gm/ (Sodium Chloride) 100 mls @ 100 mls/hr IVPB Q12H [facility] Last Admin: 09/10/16 03:18 Dose: 100 mls/hr Lisinopril (Zestril) 20 mg PO DAILY [facility] Last Admin: 09/10/16 09:37 Dose: 20 mg Lorazepam (Ativan) 1 mg PO Q6 PRN PRN Reason: Agitation Last Admin: 09/10/16 00:02 Dose: 1 mg Lorazepam (Ativan) 1 mg IM Q6H PRN PRN Reason: Anxiety Pantoprazole Sodium (Protonix Ec Tab) 40 mg PO Q12 [facility] Last Admin: 09/10/16 09:37 Dose: 40 mg Tamsulosin HCl (Flomax) 0.4 mg PO DAILY [facility] Last Admin: 09/10/16 09:37 Dose: 0.4 mg Trazodone HCl (Desyrel) 50 mg PO [facility] Last Admin: 09/09/16 21:21 Dose: 50 mg - Labs Labs: 09/09/16 10:03 09/09/16 07:15
[2016-09-10 18:45] VITALS: RESP 20
--- NOTE | 2016-09-11 00:25 | CP.PCM.PN ---
Subjective - Date & Time of Evaluation Date of Evaluation: 09/10/16 Time of Evaluation: 19:35 - Subjective Subjective: No change, Hb and Hct did not change, h/o melena. Will need a GI Study for better assessment. Mental status is still showing paranoid features. He will eventually need to go go to Psych care floor. Objective - Vital Signs/Intake and Output Vital Signs (last 24 hours): Temp Pulse Resp BP Pulse Ox 98.6 F 82 20 157/94 H 98 09/11/16 00:14 09/11/16 00:14 09/11/16 00:14 09/11/16 00:14 09/11/16 00:14 Intake and Output: 09/10/16 09/11/16 18:59 06:59 Intake Total 520 Output Total 600 Balance -80 - Medications Medications: Current Medications Benztropine Mesylate (Cogentin) 1 mg PO BID [facility] Last Admin: 09/10/16 17:56 Dose: 1 mg Divalproex Sodium (Depakote Dr) 250 mg PO BID [facility] Last Admin: 09/10/16 17:56 Dose: 250 mg Fluphenazine HCl (Prolixin) 5 mg PO BID [facility] Last Admin: 09/10/16 17:56 Dose: 5 mg Gabapentin (Neurontin) 100 mg PO TID [facility] Last Admin: 09/10/16 17:56 Dose: 100 mg Haloperidol (Haldol) 5 mg PO Q8 PRN PRN Reason: Moderate Agitation Last Admin: 09/09/16 10:14 Dose: 5 mg Haloperidol Lactate (Haldol) 5 mg IM Q8 PRN PRN Reason: Moderate Agitation Metronidazole (Flagyl) 500 mg in 100 mls @ 100 mls/hr IVPB Q8 [facility] Last Admin: 09/10/16 21:52 Dose: 100 mls/hr Ceftriaxone Sodium 1 gm/ (Sodium Chloride) 100 mls @ 100 mls/hr IVPB Q12H [facility] Last Admin: 09/10/16 15:05 Dose: 100 mls/hr Lisinopril (Zestril) 20 mg PO DAILY [facility] Last Admin: 09/10/16 09:37 Dose: 20 mg Lorazepam (Ativan) 1 mg PO Q6 PRN PRN Reason: Agitation Last Admin: 09/10/16 00:02 Dose: 1 mg Lorazepam (Ativan) 1 mg IM Q6H PRN PRN Reason: Anxiety Pantoprazole Sodium (Protonix Ec Tab) 40 mg PO Q12 [facility] Last Admin: 09/10/16 21:52 Dose: 40 mg Tamsulosin HCl (Flomax) 0.4 mg PO DAILY [facility] Last Admin: 09/10/16 09:37 Dose: 0.4 mg Trazodone HCl (Desyrel) 50 mg PO HS [facility] Last Admin: 09/10/16 21:52 Dose: 50 mg - Labs Labs: 09/09/16 10:03 09/09/16 07:15 Assessment and Plan (1) Altered mental status Status: Acute (2) Dehydration Status: Resolved (3) Enteritis Status: Acute (4) Fever Status: Acute (5) Leukocytosis Status: Acute (6) Melena Status: Acute (7) Occult blood in stools Status: Acute (8) Sepsis syndrome Status: Acute (9) CVA (cerebral vascular accident) Status: Chronic (10) Seizures Status: Suspected (11) Acute psychosis Status: Acute (12) Hepatitis C Status: Chronic
[2016-09-11] MEDS: metroNIDAZOLE IV 500 mg/100 ml 500 MG/100 ML BAG IVPB SCH ×3 (05:23→21:06)
[2016-09-11 06:17] LABS: BASO # 0.1 K/uL (0.0-0.2); BASO % 0.4 % (0.0-2.0); EOS % 0.3 % (0.0-4.0); HEMATOCRIT 37.7 % (35.0-51.0); LYMPH # 1.1 K/uL (1.0-4.3); LYMPH % 6.2 % (20.0-40.0); MEAN CELL VOLUME 87.4 fL (80.0-94.0); MEAN CORPUSCULAR HEMOGLOBIN 28.9 pg (27.0-31.0); MEAN CORPUSCULAR HGB CONC 33.1 g/dL (33.0-37.0); MEAN PLATELET VOLUME 8.7 fL (7.2-11.7); MONO # 0.9 K/uL (0.0-0.8); MONO % 4.8 % (0.0-10.0); PLATELET COUNT 226 K/uL (130-400); RED CELL DISTRIBUTION WIDTH 13.7 % (11.5-14.5)
[2016-09-11 06:36] LABS: CHLORIDE 101 mmol/L (98-107); POTASSIUM 3.6 mmol/L (3.6-5.2); SODIUM 137 mmol/L (132-148)
[2016-09-11 06:38] LABS: ALB/GLOB RATIO 1.2 (1.0-2.1); AST/SGOT 18 U/L (17-59); BILIRUBIN,TOTAL 0.6 mg/dL (0.2-1.3); CARBON DIOXIDE 29 mmol/L (22-30); GFR AFRICAN-AMERICAN > 60; TOTAL PROTEIN 6.3 g/dL (6.3-8.3)
[2016-09-11 06:39] LABS: ALKALINE PHOSPHATASE 46 U/L (38-126); ALT/SGPT 30 U/L (21-72); BLOOD UREA NITROGEN 13 mg/dL (9-20); CALCIUM 8.2 mg/dl (8.6-10.4); GLUCOSE,RANDOM 90 mg/dL (75-110); INR 1.2
[2016-09-11 07:46] LABS: NEUTROPHIL 88 % (50-75); TOTAL CELLS COUNTED 100
--- NOTE | 2016-09-11 10:29 | CP.PCM.PN ---
Subjective - Date & Time of Evaluation Date of Evaluation: 09/11/16 Time of Evaluation: 10:26 - Subjective Subjective: Patient remains confused. He is concerned about losing his [address] housing. He denies having abdominal pain, nausea or vomiting today. He had one bowel movement this morning which was loose. Objective - Vital Signs/Intake and Output Vital Signs (last 24 hours): Temp Pulse Resp BP Pulse Ox 99.1 F 94 H 20 157/92 H 98 09/11/16 07:57 09/11/16 07:57 09/11/16 07:57 09/11/16 07:57 09/11/16 07:57 Intake and Output: 09/11/16 09/11/16 06:59 18:59 Intake Total 520 Output Total 600 Balance -80 - Medications Medications: Current Medications Benztropine Mesylate (Cogentin) 1 mg PO BID [facility] Last Admin: 09/10/16 17:56 Dose: 1 mg Divalproex Sodium (Depakote Dr) 250 mg PO BID [facility] Last Admin: 09/10/16 17:56 Dose: 250 mg Fluphenazine HCl (Prolixin) 5 mg PO BID [facility] Last Admin: 09/10/16 17:56 Dose: 5 mg Gabapentin (Neurontin) 100 mg PO TID [facility] Last Admin: 09/10/16 17:56 Dose: 100 mg Haloperidol (Haldol) 5 mg PO Q8 PRN PRN Reason: Moderate Agitation Last Admin: 09/09/16 10:14 Dose: 5 mg Haloperidol Lactate (Haldol) 5 mg IM Q8 PRN PRN Reason: Moderate Agitation Metronidazole (Flagyl) 500 mg in 100 mls @ 100 mls/hr IVPB Q8 [facility] Last Admin: 09/11/16 05:23 Dose: 100 mls/hr Ceftriaxone Sodium 1 gm/ (Sodium Chloride) 100 mls @ 100 mls/hr IVPB Q12H [facility] Last Admin: 09/11/16 04:12 Dose: 100 mls/hr Lisinopril (Zestril) 20 mg PO DAILY [facility] Last Admin: 09/10/16 09:37 Dose: 20 mg Lorazepam (Ativan) 1 mg PO Q6 PRN PRN Reason: Agitation Last Admin: 09/10/16 00:02 Dose: 1 mg Lorazepam (Ativan) 1 mg IM Q6H PRN PRN Reason: Anxiety Pantoprazole Sodium (Protonix Ec Tab) 40 mg PO Q12 [facility] Last Admin: 09/10/16 21:52 Dose: 40 mg Tamsulosin HCl (Flomax) 0.4 mg PO DAILY [facility] Last Admin: 09/10/16 09:37 Dose: 0.4 mg Trazodone HCl (Desyrel) 50 mg PO HS [facility] Last Admin: 09/10/16 21:52 Dose: 50 mg - Labs Labs: 09/11/16 06:06 09/11/16 06:06 PT 13.7 SECONDS (9.7-12.2) H 09/11/16 06:06 INR 1.2 09/11/16 06:06 APTT 28 SECONDS (21-34) 09/11/16 06:06 - Eye Exam Eye Exam: EOMI, PERRL - Neck Exam Neck Exam: absent: Lymphadenopathy, Thyromegaly - Respiratory Exam Respiratory Exam: NORMAL BREATHING PATTERN. absent: Rales, Rhonchi, Wheezes - Cardiovascular Exam Cardiovascular Exam: REGULAR RHYTHM, +S1, +S2. absent: Gallop, Rubs, Murmur - GI/Abdominal Exam GI & Abdominal Exam: Soft, Normal Bowel Sounds. absent: Tenderness, Mass, Organomegaly - Rectal Exam Rectal Exam: Deferred - Extremities Exam Extremities Exam: absent: Calf Tenderness, Pedal Edema Assessment and Plan (1) Hepatitis C Assessment & Plan: Liver enzymes are unchanged. No plans to initiate treatment at present. Status: Chronic (2) Melena Assessment & Plan: Hemoglobin has been stable around 12.5 for the past six days. Will perform EGD when patient or family give consent (ex- does not have standing to do this). Status: Acute (3) Occult blood in stools Status: Acute
[2016-09-11] MEDS: Pantoprazole 40 mg EC Tab PO SCH ×3 (11:00→21:03)
[2016-09-11] MEDS: Divalproex 250 mg DR Tab PO SCH ×3 (11:00→17:12)
--- NOTE | 2016-09-11 11:25 | PCM.URO ---
Urology Progress Note - General General: Tolerating Diet - Subjective Abdominal Pain: Yes Nausea: No Vomiting: No Voiding Well: Yes Dysuria: No Hematuria: No Good Stream: Yes Fever & Chills: No - Objective Lab Studies: Reviewed (LEKOCYTOSIS) Lab Results Last 24 Hours: Laboratory Results - last 24 hr 09/02/16 09/11/16 09/11/16 11:08 06:06 06:06 WBC 18.0 H D RBC 4.31 L Hgb 12.5 Hct 37.7 MCV 87.4 MCH 28.9 MCHC 33.1 RDW 13.7 Plt Count 226 MPV 8.7 Neut % (Auto) 88.3 H Lymph % (Auto) 6.2 L [place] % (Auto) 4.8 Eos % (Auto) 0.3 Baso % (Auto) 0.4 Neut # 16.0 H Lymph # 1.1 [place] # 0.9 H Eos # 0.0 Baso # 0.1 Neutrophils % (Manual) 88 H Lymphocytes % (Manual) 7 L Monocytes % (Manual) 5 Platelet Estimate Normal PT INR APTT Sodium 137 Potassium 3.6 Chloride 101 Carbon Dioxide 29 Anion Gap 11 BUN 13 Creatinine 0.8 Est GFR ( Amer) > 60 Est GFR (Non-Af Amer) > 60 Random Glucose 90 Calcium 8.2 L Total Bilirubin 0.6 AST 18 ALT 30 Alkaline Phosphatase 46 Total Protein 6.3 Albumin 3.4 L Globulin 2.9 Albumin/Globulin Ratio 1.2 HCV RNA Genotype LiPA 4 H 09/11/16 06:06 WBC RBC Hgb Hct MCV MCH MCHC RDW Plt Count MPV Neut % (Auto) Lymph % (Auto) [place] % (Auto) Eos % (Auto) Baso % (Auto) Neut # Lymph # [place] # Eos # Baso # Neutrophils % (Manual) Lymphocytes % (Manual) Monocytes % (Manual) Platelet Estimate PT 13.7 H INR 1.2 APTT 28 Sodium Potassium Chloride Carbon Dioxide Anion Gap BUN Creatinine Est GFR ( Amer) Est GFR (Non-Af Amer) Random Glucose Calcium Total Bilirubin AST ALT Alkaline Phosphatase Total Protein Albumin Globulin Albumin/Globulin Ratio HCV RNA Genotype LiPA Intake & Output: Intake & Output 09/10/16 09/11/16 09/11/16 18:59 06:59 18:59 Intake Total 520 Output Total 600 Balance -80 Intake: Intake, IV Amount 100 Right Antecubital 100 Oral 420 Output: Urine 600 Urine, Voided 600 Other: # Voids Urine, Voided 3 # Bowel Movements 1 Vital Signs: Vital Signs - 24 hr 09/10/16 09/10/16 09/11/16 16:00 23:30 00:14 Temperature 98.4 F 98.6 F Pulse Rate 86 84 82 Respiratory 20 20 Rate Blood Pressure 176/82 H 157/94 H O2 Sat by Pulse 97 98 Oximetry 09/11/16 09/11/16 03:30 07:57 Temperature 99.1 F Pulse Rate 76 94 H Respiratory 20 Rate Blood Pressure 157/92 H O2 Sat by Pulse 98 Oximetry - Physical Exam Abdominal Exam: Soft, Non-Tender, Non-Distended Bowel Sounds: Normal Back: No CVA Tenderness Genitalia: Without Inflammation Urine Color: Clear, Yellow - Plan Additional Information: IMP: IMPROVED RE RETENTION - Date & Time of Note Date: 09/11/16 Time: 11:10
--- NOTE | 2016-09-11 12:47 | CP.PCM.PN ---
Subjective - Date & Time of Evaluation Date of Evaluation: 09/11/16 Time of Evaluation: 12:47 - Subjective Subjective: MORE AWAKE AND RESPONSIVE OUT OF BED ON CHAIR STILL POOR CONCENTRATION. SPEECH MUCH MORE CLEARER AND COMPLETING SENTENCES WBC INCREASED TO 18.0. NOTED PATIENT'S MEDICATION GOT DROPPED OUT-PATIENT WAS NOT GETTING VANCOMYCIN. VANCOMYCIN RESTARTED. Objective - Vital Signs/Intake and Output Vital Signs (last 24 hours): Temp Pulse Resp BP Pulse Ox 99.1 F 94 H 20 157/92 H 98 09/11/16 07:57 09/11/16 07:57 09/11/16 07:57 09/11/16 07:57 09/11/16 07:57 Intake and Output: 09/11/16 09/11/16 06:59 18:59 Intake Total 520 Output Total 600 Balance -80 - Medications Medications: Current Medications Benztropine Mesylate (Cogentin) 1 mg PO BID [facility] Last Admin: 09/11/16 11:00 Dose: 1 mg Divalproex Sodium (Depakote Dr) 250 mg PO BID [facility] Last Admin: 09/11/16 11:00 Dose: 250 mg Fluphenazine HCl (Prolixin) 5 mg PO BID [facility] Last Admin: 09/11/16 11:00 Dose: 5 mg Gabapentin (Neurontin) 100 mg PO TID [facility] Last Admin: 09/11/16 11:00 Dose: 100 mg Haloperidol (Haldol) 5 mg PO Q8 PRN PRN Reason: Moderate Agitation Last Admin: 09/09/16 10:14 Dose: 5 mg Haloperidol Lactate (Haldol) 5 mg IM Q8 PRN PRN Reason: Moderate Agitation Metronidazole (Flagyl) 500 mg in 100 mls @ 100 mls/hr IVPB Q8 [facility] Last Admin: 09/11/16 05:23 Dose: 100 mls/hr Ceftriaxone Sodium 1 gm/ (Sodium Chloride) 100 mls @ 100 mls/hr IVPB Q12H [facility] Last Admin: 09/11/16 04:12 Dose: 100 mls/hr Lisinopril (Zestril) 20 mg PO DAILY [facility] Last Admin: 09/11/16 11:00 Dose: 20 mg Lorazepam (Ativan) 1 mg PO Q6 PRN PRN Reason: Agitation Last Admin: 09/10/16 00:02 Dose: 1 mg Lorazepam (Ativan) 1 mg IM Q6H PRN PRN Reason: Anxiety Last Admin: 09/11/16 10:56 Dose: 1 mg Pantoprazole Sodium (Protonix Ec Tab) 40 mg PO Q12 [facility] Last Admin: 09/11/16 11:00 Dose: 40 mg Tamsulosin HCl (Flomax) 0.4 mg PO DAILY [facility] Last Admin: 09/11/16 11:00 Dose: 0.4 mg Trazodone HCl (Desyrel) 50 mg PO HS [facility] Last Admin: 09/10/16 21:52 Dose: 50 mg - Labs Labs: 09/11/16 06:06 09/11/16 06:06 PT 13.7 SECONDS (9.7-12.2) H 09/11/16 06:06 INR 1.2 09/11/16 06:06 APTT 28 SECONDS (21-34) 09/11/16 06:06 - Constitutional Appears: No Acute Distress - Eye Exam Eye Exam: EOMI, PERRL - ENT Exam ENT Exam: Normal Oropharynx - Neck Exam Neck Exam: Normal Inspection - Respiratory Exam Respiratory Exam: Clear to Ausculation Bilateral - Cardiovascular Exam Cardiovascular Exam: REGULAR RHYTHM, +S1, +S2 - GI/Abdominal Exam GI & Abdominal Exam: Soft, Normal Bowel Sounds - Extremities Exam Extremities Exam: absent: Calf Tenderness, Full ROM, Pedal Edema - Neurological Exam Neurological Exam: Awake, CN II-XII Intact, Reflexes Normal - Psychiatric Exam Psychiatric exam: Anxious - Skin Skin Exam: Normal Color Assessment and Plan (1) Sepsis syndrome Assessment & Plan: source of sepsis most likely multiple mandibular abscesses with previous history of dental workup. Patient still not remembering when he had dental workup ON IV ROCEPHIN 1GM IVPB [id number] 09/03/16 ON IV vancomycin 1000 mg every 12 hourly for staph and MRSA coverage 08/30/16 ( VANC TROUGH LEVEL 8.0 -LOW ) dose increased to 1 g every 12hrly. ON IV Flagyl 500 mg every 8 hourly for anaerobic coverage.08/31/16 -ALL CULTURES NEGATIVE TO DATE - 2D -ECHO ;09/04/16 EJECTION FRACTION 45-50% LVSF BORDERLINE . NO VALVULAR ABNORMALITIES. NO PERICARDIAL EFFUSION. PATIENT WILL NEED 3 WEEKS OF IV -F/U BY ORAL ANTIBIOTICS FOR HIS MULTIPLE DENTAL ABSCESSES. F/U CT [facility] AFTER 4 WEEKS OF ABX. Status: Acute (2) Altered mental status Status: Acute (3) Enteritis Status: Acute (4) Leukocytosis Status: Acute (5) Anxiety Status: Acute (6) Hypertension Status: Acute (7) Dehydration Status: Resolved (8) Urinary retention with incomplete bladder emptying Assessment & Plan: PATIENT HAS MORE CONTROL OVER URINE AND VOIDING ON HIS OWN. dENIES ANY HESITANCY OR DYSURIA. Status: Acute (9) Melena Status: Acute (10) Hepatitis C Status: Chronic (11) Acute psychosis Assessment & Plan: PER DR. LIZ PETERS Status: Acute
--- NOTE | 2016-09-11 13:16 | CP.PCM.PN ---
Subjective - Date & Time of Evaluation Date of Evaluation: 09/11/16 Time of Evaluation: 13:15 - Subjective Subjective: AFEBRILE WBC UP, PHARMACY D/JACOB AB WITHOUT CALLING MD CONFUSED AT TIMES EGD POSTPONED PSYCH EVAL Objective - Vital Signs/Intake and Output Vital Signs (last 24 hours): Temp Pulse Resp BP Pulse Ox 99.1 F 94 H 20 157/92 H 98 09/11/16 07:57 09/11/16 07:57 09/11/16 07:57 09/11/16 07:57 09/11/16 07:57 - Medications Medications: Current Medications Benztropine Mesylate (Cogentin) 1 mg PO BID [facility] Last Admin: 09/11/16 11:00 Dose: 1 mg Divalproex Sodium (Depakote Dr) 250 mg PO BID [facility] Last Admin: 09/11/16 11:00 Dose: 250 mg Fluphenazine HCl (Prolixin) 5 mg PO BID [facility] Last Admin: 09/11/16 11:00 Dose: 5 mg Gabapentin (Neurontin) 100 mg PO TID [facility] Last Admin: 09/11/16 11:00 Dose: 100 mg Haloperidol (Haldol) 5 mg PO Q8 PRN PRN Reason: Moderate Agitation Last Admin: 09/09/16 10:14 Dose: 5 mg Haloperidol Lactate (Haldol) 5 mg IM Q8 PRN PRN Reason: Moderate Agitation Metronidazole (Flagyl) 500 mg in 100 mls @ 100 mls/hr IVPB Q8 [facility] Last Admin: 09/11/16 05:23 Dose: 100 mls/hr Ceftriaxone Sodium 1 gm/ (Sodium Chloride) 100 mls @ 100 mls/hr IVPB Q12H [facility] Last Admin: 09/11/16 04:12 Dose: 100 mls/hr Vancomycin/Sodium Chloride (Vancocin) 1 gm in 200 mls @ 133.333 mls/hr IVPB Q12H [facility] Lisinopril (Zestril) 20 mg PO DAILY [facility] Last Admin: 09/11/16 11:00 Dose: 20 mg Lorazepam (Ativan) 1 mg PO Q6 PRN PRN Reason: Agitation Last Admin: 09/10/16 00:02 Dose: 1 mg Lorazepam (Ativan) 1 mg IM Q6H PRN PRN Reason: Anxiety Last Admin: 09/11/16 10:56 Dose: 1 mg Pantoprazole Sodium (Protonix Ec Tab) 40 mg PO Q12 [facility] Last Admin: 09/11/16 11:00 Dose: 40 mg Tamsulosin HCl (Flomax) 0.4 mg PO DAILY [facility] Last Admin: 09/11/16 11:00 Dose: 0.4 mg Trazodone HCl (Desyrel) 50 mg PO HS [facility] Last Admin: 09/10/16 21:52 Dose: 50 mg - Labs Labs: 09/11/16 06:06 09/11/16 06:06 PT 13.7 SECONDS (9.7-12.2) H 09/11/16 06:06 INR 1.2 09/11/16 06:06 APTT 28 SECONDS (21-34) 09/11/16 06:06
[2016-09-11] MEDS: Vancomycin 1 gm/NS 200 ml 1 GM/200 ML BAG IVPB SCH (13:30)
[2016-09-11 14:40] LABS: ST.LOUIS ENCEPH VIRUS IGG 1:32; ST.LOUIS ENCEPH VIRUS IGM <1:16
--- NOTE | 2016-09-12 00:14 | CP.PCM.PN ---
Subjective - Date & Time of Evaluation Date of Evaluation: 09/11/16 Time of Evaluation: 20:10 - Subjective Subjective: Patient is has +ve Lisette Ig G Abs in serum at a titer of 1:32 He is doing the same, unstable emotionally and is suffering from Paranoia. Hypertensive, Temperature is 99.2 Objective - Vital Signs/Intake and Output Vital Signs (last 24 hours): Temp Pulse Resp BP Pulse Ox 99.2 F 85 20 169/112 H 95 09/11/16 15:00 09/11/16 22:40 09/11/16 15:00 09/11/16 15:00 09/11/16 15:00 - Medications Medications: Current Medications Benztropine Mesylate (Cogentin) 1 mg PO BID [facility] Last Admin: 09/11/16 17:12 Dose: 1 mg Divalproex Sodium (Depakote Dr) 250 mg PO BID [facility] Last Admin: 09/11/16 17:12 Dose: 250 mg Fluphenazine HCl (Prolixin) 5 mg PO BID [facility] Last Admin: 09/11/16 17:12 Dose: 5 mg Gabapentin (Neurontin) 100 mg PO TID [facility] Last Admin: 09/11/16 17:12 Dose: 100 mg Haloperidol (Haldol) 5 mg PO Q8 PRN PRN Reason: Moderate Agitation Last Admin: 09/09/16 10:14 Dose: 5 mg Haloperidol Lactate (Haldol) 5 mg IM Q8 PRN PRN Reason: Moderate Agitation Metronidazole (Flagyl) 500 mg in 100 mls @ 100 mls/hr IVPB Q8 [facility] Last Admin: 09/11/16 21:06 Dose: 100 mls/hr Ceftriaxone Sodium 1 gm/ (Sodium Chloride) 100 mls @ 100 mls/hr IVPB Q12H [facility] Last Admin: 09/11/16 16:30 Dose: 100 mls/hr Vancomycin/Sodium Chloride (Vancocin) 1 gm in 200 mls @ 133.333 mls/hr IVPB Q12H [facility] Last Admin: 09/11/16 13:30 Dose: 133.333 mls/hr Lisinopril (Zestril) 20 mg PO DAILY [facility] Last Admin: 09/11/16 11:00 Dose: 20 mg Lorazepam (Ativan) 1 mg PO Q6 PRN PRN Reason: Agitation Last Admin: 09/11/16 21:04 Dose: 1 mg Lorazepam (Ativan) 1 mg IM Q6H PRN PRN Reason: Anxiety Last Admin: 09/11/16 10:56 Dose: 1 mg Pantoprazole Sodium (Protonix Ec Tab) 40 mg PO Q12 [facility] Last Admin: 09/11/16 21:03 Dose: 40 mg Tamsulosin HCl (Flomax) 0.4 mg PO DAILY [facility] Last Admin: 09/11/16 11:00 Dose: 0.4 mg Trazodone HCl (Desyrel) 50 mg PO HS [facility] Last Admin: 09/11/16 21:03 Dose: 50 mg - Labs Labs: 09/11/16 06:06 09/11/16 06:06 PT 13.7 SECONDS (9.7-12.2) H 09/11/16 06:06 INR 1.2 09/11/16 06:06 APTT 28 SECONDS (21-34) 09/11/16 06:06 Assessment and Plan (1) Altered mental status Status: Acute (2) Dehydration Status: Resolved (3) Enteritis Status: Acute (4) Fever Status: Acute (5) Leukocytosis Status: Acute (6) Melena Status: Acute (7) Occult blood in stools Status: Acute (8) Sepsis syndrome Status: Acute (9) CVA (cerebral vascular accident) Status: Chronic (10) Seizures Status: Suspected (11) Acute psychosis Status: Acute (12) Hepatitis C Status: Chronic
[2016-09-12] MEDS: Vancomycin 1 gm/NS 200 ml 1 GM/200 ML BAG IVPB SCH ×2 (02:09→15:58)
[2016-09-12] MEDS: metroNIDAZOLE IV 500 mg/100 ml 500 MG/100 ML BAG IVPB SCH ×3 (05:50→21:43)
[2016-09-12] MEDS: Divalproex 250 mg DR Tab PO SCH (09:15)
[2016-09-12] MEDS: Pantoprazole 40 mg EC Tab PO SCH ×2 (09:15→21:43)
[2016-09-12 11:56] LABS: BASO % 0.5 % (0.0-2.0); EOS # 0.1 K/uL (0.0-0.7); EOS % 0.6 % (0.0-4.0); HEMATOCRIT 37.7 % (35.0-51.0); LYMPH # 1.1 K/uL (1.0-4.3); LYMPH % 11.9 % (20.0-40.0); MEAN CELL VOLUME 87.8 fL (80.0-94.0); MEAN CORPUSCULAR HEMOGLOBIN 29.3 pg (27.0-31.0); MEAN CORPUSCULAR HGB CONC 33.4 g/dL (33.0-37.0); MEAN PLATELET VOLUME 9.3 fL (7.2-11.7); MONO # 1.1 K/uL (0.0-0.8); MONO % 11.7 % (0.0-10.0); RED CELL DISTRIBUTION WIDTH 13.6 % (11.5-14.5); WHITE BLOOD COUNT 9.1 K/uL (4.8-10.8)
[2016-09-12 12:13] LABS: CHLORIDE 99 mmol/L (98-107); POTASSIUM 3.1 mmol/L (3.6-5.2); SODIUM 138 mmol/L (132-148)
[2016-09-12 12:15] LABS: BILIRUBIN,TOTAL 0.5 mg/dL (0.2-1.3); GFR AFRICAN-AMERICAN > 60
[2016-09-12 12:16] LABS: ALB/GLOB RATIO 1.3 (1.0-2.1); ALKALINE PHOSPHATASE 37 U/L (38-126); ALT/SGPT 29 U/L (21-72); AST/SGOT 23 U/L (17-59); BLOOD UREA NITROGEN 10 mg/dL (9-20); CALCIUM 8.3 mg/dl (8.6-10.4); CARBON DIOXIDE 30 mmol/L (22-30); GLUCOSE,RANDOM 96 mg/dL (75-110); TOTAL PROTEIN 6.4 g/dL (6.3-8.3)
--- NOTE | 2016-09-12 13:15 | CP.PCM.PN ---
Subjective - Date & Time of Evaluation Date of Evaluation: 09/12/16 Time of Evaluation: 13:14 - Subjective Subjective: AFEBRILE PERIODS OF CONFUSION AWAITING FURTHER PSYCH EVALUATION Objective - Vital Signs/Intake and Output Vital Signs (last 24 hours): Temp Pulse Resp BP Pulse Ox 98.9 F 74 20 150/95 H 97 09/11/16 23:30 09/12/16 10:30 09/11/16 23:30 09/11/16 23:30 09/11/16 23:30 Intake and Output: 09/12/16 09/12/16 11:59 23:59 Intake Total 600 Balance 600 - Medications Medications: Current Medications Benztropine Mesylate (Cogentin) 1 mg PO BID [facility] Last Admin: 09/12/16 09:15 Dose: 1 mg Divalproex Sodium (Depakote Dr) 250 mg PO BID [facility] Last Admin: 09/12/16 09:15 Dose: 250 mg Fluphenazine HCl (Prolixin) 5 mg PO BID [facility] Last Admin: 09/12/16 09:15 Dose: 5 mg Gabapentin (Neurontin) 100 mg PO TID [facility] Last Admin: 09/12/16 09:15 Dose: 100 mg Haloperidol (Haldol) 5 mg PO Q8 PRN PRN Reason: Moderate Agitation Last Admin: 09/09/16 10:14 Dose: 5 mg Haloperidol Lactate (Haldol) 5 mg IM Q8 PRN PRN Reason: Moderate Agitation Metronidazole (Flagyl) 500 mg in 100 mls @ 100 mls/hr IVPB Q8 [facility] Last Admin: 09/12/16 05:50 Dose: 100 mls/hr Ceftriaxone Sodium 1 gm/ (Sodium Chloride) 100 mls @ 100 mls/hr IVPB Q12H [facility] Last Admin: 09/12/16 03:50 Dose: 100 mls/hr Vancomycin/Sodium Chloride (Vancocin) 1 gm in 200 mls @ 133.333 mls/hr IVPB Q12H [facility] Last Admin: 09/12/16 02:09 Dose: 133.333 mls/hr Lisinopril (Zestril) 20 mg PO DAILY [facility] Last Admin: 09/12/16 09:15 Dose: 20 mg Lorazepam (Ativan) 1 mg PO Q6 PRN PRN Reason: Agitation Last Admin: 09/11/16 21:04 Dose: 1 mg Lorazepam (Ativan) 1 mg IM Q6H PRN PRN Reason: Anxiety Last Admin: 09/11/16 10:56 Dose: 1 mg Pantoprazole Sodium (Protonix Ec Tab) 40 mg PO Q12 [facility] Last Admin: 09/12/16 09:15 Dose: 40 mg Tamsulosin HCl (Flomax) 0.4 mg PO DAILY [facility] Last Admin: 09/12/16 09:16 Dose: 0.4 mg Trazodone HCl (Desyrel) 50 mg PO HS [facility] Last Admin: 09/11/16 21:03 Dose: 50 mg - Labs Labs: 09/12/16 11:38 09/12/16 11:38 PT 13.7 SECONDS (9.7-12.2) H 09/11/16 06:06 INR 1.2 09/11/16 06:06 APTT 28 SECONDS (21-34) 09/11/16 06:06
--- NOTE | 2016-09-12 13:20 | PCM.PYCHPN ---
Psychiatric Progress Note - Psychiatric Progress Note Patient seen today, length of contact: 16 min Patient Chief Complaint: I'm feeling much better Problems Identified/Issues Discussed: Patient seen and evaluated, chart reviewed and discussed with the nurse. Today patient appeared more organized and less delusional and less internally preoccupied than before. He is more coherent today than before. However during conversation he appears to have some degrees of paranoia. He reports improvement in the voices and his mood. He is taking medication and denies any side effects. However, ss per the staff they have to push him to take his medications. Supportive therapy and psychoeducation were given. Medication Change: Yes (Increase depakote, increase prolixin) Medical Record Reviewed: Yes Mental Status Examination - Cognitive Function Orientation: Person, Place, Situation, Time Memory: Intact Attention: WNL Concentration: WNL Association: Loose Fund of Knowledge: WNL - Mood Mood: Anxious - Affect Affect: Constricted - Formal Thought Process Formal Thought Process: Paranoia, Loosening of associations - Suicidal Ideation Suicidal Ideation: No - Homicidal Ideation Homicidal Ideation: No Goal/Treatment Plan - Goal/Treatment Plan Need for Continued Stay: Discharge may exacerbated symptoms, Severe functional impairment Progress Toward Problem(s) and Goals/Treatment Plan: Brief psychotic disorder Rule out schizophrenia paranoid type CBT Psychoeducation Increase Prolixin to 10 mg by mouth twice daily Increase Depakote to 500 mg by mouth twice a day Cogentin 1 mg by mouth BID gabapentin 100 mg by TID trazodone 50 mg by mouth daily HS - Smoking Cessation Smoking Cessation Initiated: No
--- NOTE | 2016-09-12 13:32 | CP.PCM.PN ---
Subjective - Date & Time of Evaluation Date of Evaluation: 09/12/16 Time of Evaluation: 13:32 - Subjective Subjective: afebrile. Mental status slowly improving Less paranoia. Labs reviewed wbc DECREASED TO 9.1. [place] IgG positive 1:32 [place] IgM negative ( PAST INFECTION ) NO THERAPY. SEEN BY PSYCHIATRIST MEDS INCREASED NOTED .pATIENT TO CONTINUE iv ANTIBIOTICS FOR NOW PATIENT WILL NEED 3 WEEKS OF IV -F/U BY ORAL ANTIBIOTICS FOR HIS MULTIPLE DENTAL ABSCESSES.( STARTED 08/30- 2WKS RX ) F/U CT MAXILLO-FACIAL AFTER 4 WEEKS OF ABX. PER PSYCHE Discharge may exacerbated symptoms, Severe functional impairment CONSIDER TRANSFER TO PSYCH UNIT.WILL SWITCH TO BY MOUTH ANTIBIOTICS BY END OF WEEK. Objective - Vital Signs/Intake and Output Vital Signs (last 24 hours): Temp Pulse Resp BP Pulse Ox 98.9 F 74 20 150/95 H 97 09/11/16 23:30 09/12/16 10:30 09/11/16 23:30 09/11/16 23:30 09/11/16 23:30 Intake and Output: 09/12/16 09/12/16 06:59 18:59 Intake Total 600 Balance 600 - Medications Medications: Current Medications Benztropine Mesylate (Cogentin) 1 mg PO BID [facility] Last Admin: 09/12/16 09:15 Dose: 1 mg Divalproex Sodium (Depakote Dr) 500 mg PO BID [facility] Fluphenazine HCl (Prolixin) 10 mg PO BID [facility] Gabapentin (Neurontin) 100 mg PO TID [facility] Last Admin: 09/12/16 09:15 Dose: 100 mg Haloperidol (Haldol) 5 mg PO Q8 PRN PRN Reason: Moderate Agitation Last Admin: 09/09/16 10:14 Dose: 5 mg Haloperidol Lactate (Haldol) 5 mg IM Q8 PRN PRN Reason: Moderate Agitation Metronidazole (Flagyl) 500 mg in 100 mls @ 100 mls/hr IVPB Q8 [facility] Last Admin: 09/12/16 13:19 Dose: 100 mls/hr Ceftriaxone Sodium 1 gm/ (Sodium Chloride) 100 mls @ 100 mls/hr IVPB Q12H [facility] Last Admin: 09/12/16 03:50 Dose: 100 mls/hr Vancomycin/Sodium Chloride (Vancocin) 1 gm in 200 mls @ 133.333 mls/hr IVPB Q12H [facility] Last Admin: 09/12/16 02:09 Dose: 133.333 mls/hr Lisinopril (Zestril) 20 mg PO DAILY [facility] Last Admin: 09/12/16 09:15 Dose: 20 mg Lorazepam (Ativan) 1 mg PO Q6 PRN PRN Reason: Agitation Last Admin: 09/11/16 21:04 Dose: 1 mg Lorazepam (Ativan) 1 mg IM Q6H PRN PRN Reason: Anxiety Last Admin: 09/11/16 10:56 Dose: 1 mg Pantoprazole Sodium (Protonix Ec Tab) 40 mg PO Q12 [facility] Last Admin: 09/12/16 09:15 Dose: 40 mg Potassium Chloride (Potassium Chloride Oral Soln) 40 meq PO Q4 [facility] Stop: 09/12/16 16:01 Tamsulosin HCl (Flomax) 0.4 mg PO DAILY [facility] Last Admin: 09/12/16 09:16 Dose: 0.4 mg Trazodone HCl (Desyrel) 50 mg PO HS [facility] Last Admin: 09/11/16 21:03 Dose: 50 mg - Labs Labs: 09/12/16 11:38 09/12/16 11:38 PT 13.7 SECONDS (9.7-12.2) H 09/11/16 06:06 INR 1.2 09/11/16 06:06 APTT 28 SECONDS (21-34) 09/11/16 06:06 Assessment and Plan (1) Sepsis syndrome Status: Acute (2) Altered mental status Status: Acute (3) Enteritis Status: Acute (4) Leukocytosis Status: Acute (5) Anxiety Status: Acute (6) Hypertension Status: Acute (7) Dehydration Status: Resolved (8) Urinary retention with incomplete bladder emptying Status: Acute (9) Melena Status: Acute (10) Hepatitis C Status: Chronic (11) Acute psychosis Status: Acute
[2016-09-12] MEDS: Potassium Chloride 20 mEq/15 ml LIQ UD PO SCH ×2 (13:39→16:00)
[2016-09-12] MEDS: Divalproex 500 mg DR Tab PO SCH (17:50)
[2016-09-13] MEDS: Vancomycin 1 gm/NS 200 ml 1 GM/200 ML BAG IVPB SCH ×2 (02:27→13:52)
[2016-09-13] MEDS: metroNIDAZOLE IV 500 mg/100 ml 500 MG/100 ML BAG IVPB SCH ×2 (05:21→13:49)
[2016-09-13] MEDS: Pantoprazole 40 mg EC Tab PO SCH (09:43)
[2016-09-13] MEDS: Divalproex 500 mg DR Tab PO SCH ×2 (09:43→18:03)
[2016-09-13 11:41] LABS: CHLORIDE 99 mmol/L (98-107); POTASSIUM 3.5 mmol/L (3.6-5.2); SODIUM 139 mmol/L (132-148)
[2016-09-13 11:43] LABS: BILIRUBIN,TOTAL 0.3 mg/dL (0.2-1.3); GFR AFRICAN-AMERICAN > 60
[2016-09-13 11:44] LABS: ALB/GLOB RATIO 1.2 (1.0-2.1); ALKALINE PHOSPHATASE 42 U/L (38-126); ALT/SGPT 35 U/L (21-72); AST/SGOT 18 U/L (17-59); BLOOD UREA NITROGEN 9 mg/dL (9-20); CARBON DIOXIDE 31 mmol/L (22-30); GLUCOSE,RANDOM 100 mg/dL (75-110); TOTAL PROTEIN 6.1 g/dL (6.3-8.3)
[2016-09-13 11:45] LABS: CALCIUM 8.8 mg/dl (8.6-10.4)
--- NOTE | 2016-09-13 13:22 | CP.PCM.PN ---
Subjective - Date & Time of Evaluation Date of Evaluation: 09/13/16 Time of Evaluation: 13:21 - Subjective Subjective: PSYCH EVALUATION NOTED . WILL NEED CONTINUED HOSPITAL STAY INCONGRUENT THOUGHT PROCESS WITH PARONIA HAD WHEEZING , NEB. GIVEN CONT IV AB Objective - Vital Signs/Intake and Output Vital Signs (last 24 hours): Temp Pulse Resp BP Pulse Ox 97.9 F 65 20 158/92 H 100 09/13/16 07:00 09/13/16 07:30 09/13/16 07:00 09/13/16 07:00 09/13/16 07:00 Intake and Output: 09/13/16 09/13/16 11:59 23:59 Intake Total 520 Balance 520 - Medications Medications: Current Medications Benztropine Mesylate (Cogentin) 1 mg PO BID [facility] Last Admin: 09/13/16 09:44 Dose: 1 mg Divalproex Sodium (Depakote Dr) 500 mg PO BID [facility] Last Admin: 09/13/16 09:43 Dose: 500 mg Fluphenazine HCl (Prolixin) 10 mg PO BID [facility] Last Admin: 09/13/16 10:10 Dose: 10 mg Gabapentin (Neurontin) 100 mg PO TID [facility] Last Admin: 09/13/16 09:43 Dose: 100 mg Haloperidol (Haldol) 5 mg PO Q8 PRN PRN Reason: Moderate Agitation Last Admin: 09/12/16 22:43 Dose: 5 mg Haloperidol Lactate (Haldol) 5 mg IM Q8 PRN PRN Reason: Moderate Agitation Metronidazole (Flagyl) 500 mg in 100 mls @ 100 mls/hr IVPB Q8 [facility] Last Admin: 09/13/16 05:21 Dose: 100 mls/hr Ceftriaxone Sodium 1 gm/ (Sodium Chloride) 100 mls @ 100 mls/hr IVPB Q12H [facility] Last Admin: 09/13/16 04:17 Dose: 100 mls/hr Vancomycin/Sodium Chloride (Vancocin) 1 gm in 200 mls @ 133.333 mls/hr IVPB Q12H [facility] Last Admin: 09/13/16 02:27 Dose: 133.333 mls/hr Lisinopril (Zestril) 20 mg PO DAILY [facility] Last Admin: 09/13/16 09:43 Dose: 20 mg Lorazepam (Ativan) 1 mg IM Q6H PRN PRN Reason: Anxiety Last Admin: 09/11/16 10:56 Dose: 1 mg Pantoprazole Sodium (Protonix Ec Tab) 40 mg PO Q12 [facility] Last Admin: 09/13/16 09:43 Dose: 40 mg Tamsulosin HCl (Flomax) 0.4 mg PO DAILY [facility] Last Admin: 09/13/16 09:43 Dose: 0.4 mg Trazodone HCl (Desyrel) 50 mg PO HS [facility] Last Admin: 09/12/16 21:44 Dose: 50 mg - Labs Labs: 09/12/16 11:38 09/13/16 11:24 PT 13.7 SECONDS (9.7-12.2) H 09/11/16 06:06 INR 1.2 09/11/16 06:06 APTT 28 SECONDS (21-34) 09/11/16 06:06
--- NOTE | 2016-09-13 13:32 | CP.PCM.PN ---
Subjective - Date & Time of Evaluation Date of Evaluation: 09/13/16 Time of Evaluation: 13:32 - Subjective Subjective: AFEBRILE, STILL WEAK, OPENS EYES TO NAME BUT STATES HE IS STILL NOT UP TO IT SPEECH CLEAR BUT MUMBLES AT TIME.. PT IS GETTING TRANSFERRED TO THE [facility]. CASE DISCUSSED WITH NURSE PRACTITIONER NIGEL. DC IV ABX . START BY MOUTH KEFLEX 500MF QID X 3WKS . PO FLAGYL 250MG TID X 3 WKS. F/U RENAL FUNCTION /LFTS WEEKLY. Objective - Vital Signs/Intake and Output Vital Signs (last 24 hours): Temp Pulse Resp BP Pulse Ox 97.9 F 65 20 158/92 H 100 09/13/16 07:00 09/13/16 07:30 09/13/16 07:00 09/13/16 07:00 09/13/16 07:00 Intake and Output: 09/13/16 09/13/16 06:59 18:59 Intake Total 520 Balance 520 - Medications Medications: Current Medications Benztropine Mesylate (Cogentin) 1 mg PO BID [facility] Last Admin: 09/13/16 09:44 Dose: 1 mg Divalproex Sodium (Depakote Dr) 500 mg PO BID [facility] Last Admin: 09/13/16 09:43 Dose: 500 mg Fluphenazine HCl (Prolixin) 10 mg PO BID [facility] Last Admin: 09/13/16 10:10 Dose: 10 mg Gabapentin (Neurontin) 100 mg PO TID [facility] Last Admin: 09/13/16 09:43 Dose: 100 mg Haloperidol (Haldol) 5 mg PO Q8 PRN PRN Reason: Moderate Agitation Last Admin: 09/12/16 22:43 Dose: 5 mg Haloperidol Lactate (Haldol) 5 mg IM Q8 PRN PRN Reason: Moderate Agitation Metronidazole (Flagyl) 500 mg in 100 mls @ 100 mls/hr IVPB Q8 [facility] Last Admin: 09/13/16 05:21 Dose: 100 mls/hr Ceftriaxone Sodium 1 gm/ (Sodium Chloride) 100 mls @ 100 mls/hr IVPB Q12H [facility] Last Admin: 09/13/16 04:17 Dose: 100 mls/hr Vancomycin/Sodium Chloride (Vancocin) 1 gm in 200 mls @ 133.333 mls/hr IVPB Q12H [facility] Last Admin: 09/13/16 02:27 Dose: 133.333 mls/hr Lisinopril (Zestril) 20 mg PO DAILY [facility] Last Admin: 09/13/16 09:43 Dose: 20 mg Lorazepam (Ativan) 1 mg IM Q6H PRN PRN Reason: Anxiety Last Admin: 09/11/16 10:56 Dose: 1 mg Pantoprazole Sodium (Protonix Ec Tab) 40 mg PO Q12 [facility] Last Admin: 09/13/16 09:43 Dose: 40 mg Potassium Chloride (K-Dur 20 Meq Er Tab) 20 meq PO DAILY [facility] Stop: 09/15/16 16:01 Tamsulosin HCl (Flomax) 0.4 mg PO DAILY [facility] Last Admin: 09/13/16 09:43 Dose: 0.4 mg Trazodone HCl (Desyrel) 50 mg PO HS [facility] Last Admin: 09/12/16 21:44 Dose: 50 mg - Labs Labs: 09/12/16 11:38 09/13/16 11:24 PT 13.7 SECONDS (9.7-12.2) H 09/11/16 06:06 INR 1.2 09/11/16 06:06 APTT 28 SECONDS (21-34) 09/11/16 06:06 - Constitutional Appears: No Acute Distress - Head Exam Head Exam: NORMAL INSPECTION - Eye Exam Eye Exam: EOMI, PERRL. absent: Scleral icterus - ENT Exam ENT Exam: Normal Oropharynx - Neck Exam Neck Exam: Normal Inspection - Respiratory Exam Respiratory Exam: Prolonged Expiratory Phase - GI/Abdominal Exam GI & Abdominal Exam: Soft, Normal Bowel Sounds - Extremities Exam Extremities Exam: absent: Calf Tenderness, Pedal Edema - Neurological Exam Neurological Exam: Awake, CN II-XII Intact, Normal Gait, Oriented x3, Reflexes Normal - Psychiatric Exam Psychiatric exam: Depressed, Normal Affect - Skin Skin Exam: Normal Color, Warm Assessment and Plan (1) Sepsis syndrome Assessment & Plan: SOURCE OF SEPSIS MULTIPLE DENTAL ABSCESSES. pATIENT ON iv ANTIBIOTICS-TO BE FOLLOWED UP BY BY MOUTH kEFLEX 500 4 TIMES A DAY FOR 21 DAYS aND BY MOUTH fLAGYL 250 3 TIMES A DAY FOR [address]YS. fOLLOW-UP CT MAXILLOFACIAL ONCE ANTIBIOTICS ARE COMPLETED FOR RESOLUTION OFF ABSCESSES. cASE DISCUSSED WITH ATTENDING. Status: Acute (2) Altered mental status Status: Acute (3) Enteritis Status: Acute (4) Anxiety Status: Acute (5) Hypertension Status: Acute (6) Urinary retention with incomplete bladder emptying Status: Acute (7) Melena Status: Acute (8) Hepatitis C Status: Chronic (9) Acute psychosis Status: Acute
--- NOTE | 2016-09-13 14:55 | RAD ---
HISTORY: r/o aspiration pneumonia COMPARISON: 08/30/2016 TECHNIQUE: Chest PA and lateral FINDINGS: LUNGS: No pulmonary infiltrate. Small calcified granuloma upper right lung. Probable small granulomas lower right lung, frontal view. Likely lower lobe. PLEURA: No significant pleural effusion identified. No pneumothorax apparent. CARDIOVASCULAR: Normal. OSSEOUS STRUCTURES: No significant abnormalities. VISUALIZED UPPER ABDOMEN: Normal. OTHER FINDINGS: None. IMPRESSION: No active disease.
--- NOTE | 2016-09-13 15:59 | CP.PCM.PN ---
Subjective - Date & Time of Evaluation Date of Evaluation: 09/13/16 Time of Evaluation: 15:57 - Subjective Subjective: Patient seems more alert today. He denies having nausea, vomiting, abdominal pain or constipation. Hemoglobin from today is pending. Yesterday, the hemoglobin was stable at 12.6. Objective - Vital Signs/Intake and Output Vital Signs (last 24 hours): Temp Pulse Resp BP Pulse Ox 97.9 F 65 20 158/92 H 100 09/13/16 07:00 09/13/16 07:30 09/13/16 07:00 09/13/16 07:00 09/13/16 07:00 Intake and Output: 09/13/16 09/13/16 06:59 18:59 Intake Total 520 Balance 520 - Medications Medications: Current Medications Benztropine Mesylate (Cogentin) 1 mg PO BID [facility] Last Admin: 09/13/16 09:44 Dose: 1 mg Divalproex Sodium (Depakote Dr) 500 mg PO BID [facility] Last Admin: 09/13/16 09:43 Dose: 500 mg Fluphenazine HCl (Prolixin) 10 mg PO BID [facility] Gabapentin (Neurontin) 100 mg PO TID [facility] Last Admin: 09/13/16 13:52 Dose: 100 mg Haloperidol (Haldol) 5 mg PO Q8 PRN PRN Reason: Moderate Agitation Last Admin: 09/12/16 22:43 Dose: 5 mg Haloperidol Lactate (Haldol) 5 mg IM Q8 PRN PRN Reason: Moderate Agitation Metronidazole (Flagyl) 500 mg in 100 mls @ 100 mls/hr IVPB Q8 [facility] Last Admin: 09/13/16 13:49 Dose: 100 mls/hr Ceftriaxone Sodium 1 gm/ (Sodium Chloride) 100 mls @ 100 mls/hr IVPB Q12H [facility] Last Admin: 09/13/16 15:00 Dose: 100 mls/hr Vancomycin/Sodium Chloride (Vancocin) 1 gm in 200 mls @ 133.333 mls/hr IVPB Q12H [facility] Last Admin: 09/13/16 13:52 Dose: 133.333 mls/hr Lisinopril (Zestril) 20 mg PO DAILY [facility] Last Admin: 09/13/16 09:43 Dose: 20 mg Lorazepam (Ativan) 1 mg IM Q6H PRN PRN Reason: Anxiety Last Admin: 09/11/16 10:56 Dose: 1 mg Pantoprazole Sodium (Protonix Ec Tab) 40 mg PO Q12 [facility] Last Admin: 09/13/16 09:43 Dose: 40 mg Potassium Chloride (K-Dur 20 Meq Er Tab) 20 meq PO DAILY [facility] Stop: 09/15/16 16:01 Tamsulosin HCl (Flomax) 0.4 mg PO DAILY [facility] Last Admin: 09/13/16 09:43 Dose: 0.4 mg Trazodone HCl (Desyrel) 50 mg PO HS [facility] Last Admin: 09/12/16 21:44 Dose: 50 mg - Labs Labs: 09/12/16 11:38 09/13/16 11:24 PT 13.7 SECONDS (9.7-12.2) H 09/11/16 06:06 INR 1.2 09/11/16 06:06 APTT 28 SECONDS (21-34) 09/11/16 06:06 - Constitutional Appears: No Acute Distress - Eye Exam Eye Exam: EOMI, PERRL - Neck Exam Neck Exam: absent: Lymphadenopathy, Thyromegaly - Respiratory Exam Respiratory Exam: NORMAL BREATHING PATTERN. absent: Rales, Rhonchi, Wheezes - Cardiovascular Exam Cardiovascular Exam: REGULAR RHYTHM, +S1, +S2. absent: Gallop, Rubs, Murmur - GI/Abdominal Exam GI & Abdominal Exam: Soft, Normal Bowel Sounds. absent: Tenderness, Mass, Organomegaly - Rectal Exam Rectal Exam: Deferred - Extremities Exam Extremities Exam: absent: Calf Tenderness, Pedal Edema Assessment and Plan (1) Hepatitis C Assessment & Plan: AST and ALT remain within the normal range. No plans for treatment at present. Status: Chronic (2) Melena Assessment & Plan: Hemoglobin remains stable, though we will check again this evening. This was a self-limited episode of melena, and EGD is not emergent. The EGD will be scheduled electively when patient's mental status improves. Status: Acute (3) Occult blood in stools Status: Acute
[2016-09-13] MEDS ORDERED: Potassium Chloride 20 mEq ER Tab PO SCH (16:00)
[2016-09-13 16:24] VITALS: BP 147/87; PULSE 87; TEMP 98; O2SAT 99
--- NOTE | 2016-09-13 17:41 | CP.PCM.PN ---
Objective - Vital Signs/Intake and Output Vital Signs (last 24 hours): Temp Pulse Resp BP Pulse Ox 98 F 87 20 147/87 99 09/13/16 16:22 09/13/16 16:22 09/13/16 16:22 09/13/16 16:22 09/13/16 16:22 Intake and Output: 09/13/16 09/13/16 06:59 18:59 Intake Total 520 Balance 520 - Medications Medications: Current Medications Benztropine Mesylate (Cogentin) 1 mg PO BID [facility] Last Admin: 09/13/16 09:44 Dose: 1 mg Divalproex Sodium (Depakote Dr) 500 mg PO BID [facility] Last Admin: 09/13/16 09:43 Dose: 500 mg Fluphenazine HCl (Prolixin) 10 mg PO BID [facility] Gabapentin (Neurontin) 100 mg PO TID [facility] Last Admin: 09/13/16 13:52 Dose: 100 mg Haloperidol (Haldol) 5 mg PO Q8 PRN PRN Reason: Moderate Agitation Last Admin: 09/12/16 22:43 Dose: 5 mg Haloperidol Lactate (Haldol) 5 mg IM Q8 PRN PRN Reason: Moderate Agitation Metronidazole (Flagyl) 500 mg in 100 mls @ 100 mls/hr IVPB Q8 [facility] Last Admin: 09/13/16 13:49 Dose: 100 mls/hr Ceftriaxone Sodium 1 gm/ (Sodium Chloride) 100 mls @ 100 mls/hr IVPB Q12H [facility] Last Admin: 09/13/16 15:00 Dose: 100 mls/hr Vancomycin/Sodium Chloride (Vancocin) 1 gm in 200 mls @ 133.333 mls/hr IVPB Q12H [facility] Last Admin: 09/13/16 13:52 Dose: 133.333 mls/hr Lisinopril (Zestril) 20 mg PO DAILY [facility] Last Admin: 09/13/16 09:43 Dose: 20 mg Lorazepam (Ativan) 1 mg IM Q6H PRN PRN Reason: Anxiety Last Admin: 09/11/16 10:56 Dose: 1 mg Pantoprazole Sodium (Protonix Ec Tab) 40 mg PO Q12 [facility] Last Admin: 09/13/16 09:43 Dose: 40 mg Potassium Chloride (K-Dur 20 Meq Er Tab) 20 meq PO DAILY [facility] Stop: 09/15/16 16:01 Tamsulosin HCl (Flomax) 0.4 mg PO DAILY [facility] Last Admin: 09/13/16 09:43 Dose: 0.4 mg Trazodone HCl (Desyrel) 50 mg PO [facility] Last Admin: 09/12/16 21:44 Dose: 50 mg - Labs Labs: 09/12/16 11:38 09/13/16 11:24 PT 13.7 SECONDS (9.7-12.2) H 09/11/16 06:06 INR 1.2 09/11/16 06:06 APTT 28 SECONDS (21-34) 09/11/16 06:06
--- NOTE | 2016-09-13 22:49 | CP.PCM.PN ---
Subjective - Date & Time of Evaluation Date of Evaluation: 09/13/16 Time of Evaluation: 14:00 - Subjective Subjective: Patient spoke to me earlier in the morning and told me he wants a treatment for his dry throat and is worried about respiratory complications. He received a treatment of Duoneb that helped him. He is discharged to a longterm [facility] and will be followed. Objective - Vital Signs/Intake and Output Vital Signs (last 24 hours): Temp Pulse Resp BP Pulse Ox 98 F 87 20 147/87 99 09/13/16 16:22 09/13/16 16:22 09/13/16 16:22 09/13/16 16:22 09/13/16 16:22 - Labs Labs: 09/12/16 11:38 09/13/16 11:24 PT 13.7 SECONDS (9.7-12.2) H 09/11/16 06:06 INR 1.2 09/11/16 06:06 APTT 28 SECONDS (21-34) 09/11/16 06:06 Assessment and Plan (1) Altered mental status Status: Acute (2) Dehydration Status: Resolved (3) Enteritis Status: Acute (4) Fever Status: Acute (5) Leukocytosis Status: Resolved (6) Melena Status: Acute (7) Occult blood in stools Status: Acute (8) Sepsis syndrome Status: Acute (9) CVA (cerebral vascular accident) Status: Chronic (10) Seizures Status: Suspected (11) Acute psychosis Status: Acute (12) Hepatitis C Status: Chronic
--- NOTE | 2016-09-14 20:58 | CP.PCM.DIS ---
Provider - Provider Date of Admission: 08/30/16 17:04 Attending physician: Mary Sam MD Time Spent in preparation of Discharge (in minutes): 35 Hospital Course - Lab Results Lab Results: Micro Results 09/08/16 15:15 Urine Urine Culture - Final No Growth (<1,000 CFU/ML) Most Recent Lab Values WBC 9.1 K/uL (4.8-10.8) 09/12/16 11:38 RBC 4.30 Mil/uL (4.40-5.90) L 09/12/16 11:38 Hgb 12.6 g/dL (12.0-18.0) 09/12/16 11:38 Hct 37.7 % (35.0-51.0) 09/12/16 11:38 MCV 87.8 fL (80.0-94.0) 09/12/16 11:38 MCH 29.3 pg (27.0-31.0) 09/12/16 11:38 MCHC 33.4 g/dL (33.0-37.0) 09/12/16 11:38 RDW 13.6 % (11.5-14.5) 09/12/16 11:38 Plt Count 183 K/uL (130-400) 09/12/16 11:38 MPV 9.3 fL (7.2-11.7) 09/12/16 11:38 Neut % (Auto) 75.3 % (50.0-75.0) H 09/12/16 11:38 Lymph % (Auto) 11.9 % (20.0-40.0) L 09/12/16 11:38 Nobles % (Auto) 11.7 % (0.0-10.0) H 09/12/16 11:38 Eos % (Auto) 0.6 % (0.0-4.0) 09/12/16 11:38 Baso % (Auto) 0.5 % (0.0-2.0) 09/12/16 11:38 Neut # 6.9 K/uL (1.8-7.0) 09/12/16 11:38 Lymph # 1.1 K/uL (1.0-4.3) 09/12/16 11:38 Nobles # 1.1 K/uL (0.0-0.8) H 09/12/16 11:38 Eos # 0.1 K/uL (0.0-0.7) 09/12/16 11:38 Baso # 0.0 K/uL (0.0-0.2) 09/12/16 11:38 Neutrophils % (Manual) 88 % (50-75) H 09/11/16 06:06 Lymphocytes % (Manual) 7 % (20-40) L 09/11/16 06:06 Monocytes % (Manual) 5 % (0-10) 09/11/16 06:06 Platelet Estimate Normal (NORMAL) 09/11/16 06:06 RBC Morphology Normal 08/31/16 07:23 ESR 10 mm/hr (0-15) 09/03/16 06:50 Haptoglobin 244 mg/dL (43-212) H 09/02/16 11:08 PT 13.7 SECONDS (9.7-12.2) H 09/11/16 06:06 INR 1.2 09/11/16 06:06 APTT 28 SECONDS (21-34) 09/11/16 06:06 pO2 31 mm/Hg (30-55) 08/30/16 13:50 VBG pH 7.45 (7.32-7.43) H 08/30/16 13:50 VBG pCO2 48 mmHg (40-60) 08/30/16 13:50 VBG HCO3 30.3 mmol/L 08/30/16 13:50 VBG Total CO2 34.9 mmol/L (22-28) H 08/30/16 13:50 VBG O2 Sat (Calc) 62.2 % (40-65) 08/30/16 13:50 VBG Base Excess 8.1 mmol/L (0.0-2.0) H 08/30/16 13:50 VBG Potassium 3.0 mmol/L (3.6-5.2) L 08/30/16 13:50 Sodium 148.0 mmol/l (132-148) 08/30/16 13:50 Chloride 107.0 mmol/L (98-107) 08/30/16 13:50 Glucose 123 mg/dl (75-110) H 08/30/16 13:50 Lactate 1.9 mmol/L (0.7-2.1) 08/30/16 13:50 Sodium 139 mmol/L (132-148) 09/13/16 11:24 Potassium 3.5 mmol/L (3.6-5.2) L 09/13/16 11:24 Chloride 99 mmol/L (98-107) 09/13/16 11:24 Carbon Dioxide 31 mmol/L (22-30) H 09/13/16 11:24 Anion Gap 13 (10-20) 09/13/16 11:24 BUN 9 mg/dL (9-20) 09/13/16 11:24 Creatinine 0.7 MG/DL (0.8-1.5) L 09/13/16 11:24 Est GFR ( Amer) > 60 09/13/16 11:24 Est GFR (Non-Af Amer) > 60 09/13/16 11:24 POC Glucose (mg/dL) 98 mg/dL (65-110) 09/07/16 21:23 Random Glucose 100 mg/dL (75-110) 09/13/16 11:24 Hemoglobin A1c 5.5 % (4.2-6.5) 09/03/16 06:50 Calcium 8.8 mg/dl (8.6-10.4) 09/13/16 11:24 Phosphorus 3.0 mg/dL (2.5-4.5) 09/09/16 07:15 Magnesium 2.6 mg/dL (1.6-2.3) H 09/09/16 07:15 Total Bilirubin 0.3 mg/dL (0.2-1.3) 09/13/16 11:24 AST 18 U/L (17-59) 09/13/16 11:24 ALT 35 U/L (21-72) 09/13/16 11:24 Alkaline Phosphatase 42 U/L (38-126) 09/13/16 11:24 Liver Fibrosis Score 0.34 09/02/16 11:08 Liver Fibrosis Interp See note 09/02/16 11:08 Liver Fibrosis Comment See note 09/02/16 11:08 Liver Fibrosis Stage F1-f2 09/02/16 11:08 Necroinflammator Score 0.05 09/02/16 11:08 Necroinflam Score Cmmt See note 09/02/16 11:08 Necroinflammator Grade A0 09/02/16 11:08 Ammonia 9 umol/L (9-33) D 09/04/16 11:34 Total Creatine Kinase 75 U/L (55-170) 08/30/16 15:11 CK-MB (Mass) 0.38 ng/mL (0.0-3.38) 08/30/16 15:11 Troponin I, Quant 0.0990 ng/mL (0.00-0.120) 08/30/16 15:11 C-React Prot High Sens 3.12 mg/L (1.00-3.00) H 09/03/16 06:50 Total Protein 6.1 g/dL (6.3-8.3) L 09/13/16 11:24 Albumin 3.4 g/dL (3.5-5.0) L 09/13/16 11:24 Globulin 2.7 gm/dL (2.2-3.9) 09/13/16 11:24 Albumin/Globulin Ratio 1.2 (1.0-2.1) 09/13/16 11:24 Kjgln-5-Lgodwhxvqdoau 160 mg/dL (106-279) 09/02/16 11:08 Triglycerides 52 mg/dL (0-149) 09/03/16 06:50 Cholesterol 125 mg/dL (0-199) 09/03/16 06:50 LDL Cholesterol Direct 56 mg/dL (0-129) 09/03/16 06:50 HDL Cholesterol 50 mg/dL (30-70) 09/03/16 06:50 Apolipoprotein A-1 101 mg/dL (94-176) 09/02/16 11:08 Alpha Fetoprotein 2.8 ng/mL (0.0-7.5) 09/02/16 11:13 Prostate Specific Ag 1.49 ng/mL (0.00-4.0) 09/04/16 11:30 Vitamin B12 679 pg/mL (239-931) 09/06/16 07:10 Folate 10.9 ng/mL 09/06/16 07:10 TSH 3rd Generation 2.35 mIU/L (0.46-4.68) 09/03/16 06:50 Venous Blood Potassium 3.0 mmol/L (3.6-5.2) L 08/30/16 13:50 Urine Color Yellow (YELLOW) 09/08/16 14:56 Urine Clarity Clear (Clear) 09/08/16 14:56 Urine pH 5.0 (5.0-8.0) 09/08/16 14:56 Ur Specific Lewis 1.023 (1.003-1.030) 09/08/16 14:56 Urine Protein Negative mg/dL (NEGATIVE) 09/08/16 14:56 Urine Glucose (UA) Normal mg/dL (Normal) 09/08/16 14:56 Urine Ketones 1+ mg/dL (NEGATIVE) H 09/08/16 14:56 Urine Blood Negative (NEGATIVE) 09/08/16 14:56 Urine Nitrate Negative (NEGATIVE) 09/08/16 14:56 Urine Bilirubin Negative (NEGATIVE) 09/08/16 14:56 Urine Urobilinogen Normal mg/dL (0.2-1.0) 09/08/16 14:56 Ur Leukocyte Esterase Trace Hussein/uL (Negative) 09/08/16 14:56 Urine WBC (Auto) 1 /hpf (0-5) 09/08/16 14:56 Urine RBC (Auto) < 1 /hpf (0-3) 09/08/16 14:56 Urine WBC Clumps (Auto) Occ /hpf (NONE) H 08/30/16 14:42 Ur Squamous Epith Cells 1 /hpf (0-5) 09/08/16 14:56 Amorphous Sediment Rare /ul (<OCC) H 08/30/16 14:42 Urine Bacteria Rare (<OCC) 08/30/16 14:42 Fluid Type Spinal fluid 08/30/16 17:08 CSF Volume 3 mL (0-1) H 08/30/16 17:08 CSF Appearance Clear/colorless (CLEAR) 08/30/16 17:08 CSF WBC 2.0 /mm3 (0.0-5.0) 08/30/16 17:08 CSF RBC 1.0 /mm3 (0.0-0.0) H 08/30/16 17:08 CSF Total Cell Counted TEST NOT PERFORMED 08/30/16 17:08 CSF Monos/Macrophages TEST NOT PERFORMED 08/30/16 17:08 CSF Comment 08/30/16 17:08 CSF Glucose 95 mg/dL (40-70) H 08/30/16 17:08 CSF Total Protein 80.0 mg/dL (12-60) H 08/30/16 17:08 Stool Occult Blood Positive (NEGATIVE) H 08/31/16 14:46 Stool Leukocytes, Qual Negative (NEGATIVE) 08/31/16 23:51 Stl Cryptosporidium Ag Not detected (Not detected) 08/31/16 15:10 Vancomycin Trough < 5.0 ug/mL (5.0-10.0) L 09/10/16 06:40 Urine Opiates Screen Negative (NEGATIVE) 08/30/16 14:42 Urine Methadone Screen Negative (NEGATIVE) 08/30/16 14:42 Ur Barbiturates Screen Negative (NEGATIVE) 08/30/16 14:42 Ur Phencyclidine Scrn Negative (NEGATIVE) 08/30/16 14:42 Ur Amphetamines Screen Negative (NEGATIVE) 08/30/16 14:42 U Benzodiazepines Scrn Negative (NEGATIVE) 08/30/16 14:42 U Oth Cocaine Metabols Negative (NEGATIVE) 08/30/16 14:42 U Cannabinoids Screen Negative (NEGATIVE) 08/30/16 14:42 Alcohol, Quantitative < 10 mg/dl (0-10) 08/30/16 11:56 Serum Cryoglobulins Negative (NEGATIVE) 09/05/16 07:12 Rheum Arthritis Panel Positive (NEGATIVE) H 09/03/16 06:50 LOGAN 6 Profile Negative (NEGATIVE) 09/03/16 06:50 RPR Nonreactive (NONREACTIVE) 09/03/16 06:50 Lyme Disease Screen <0.90 index 09/03/16 06:50 Lyme IgG 18 kDa Band Nonreactive 09/03/16 06:50 Lyme IgG 23 kDa Band Nonreactive 09/03/16 06:50 Lyme IgG 28 kDa Band Nonreactive 09/03/16 06:50 Lyme IgG 30 kDa Band Nonreactive 09/03/16 06:50 Lyme IgG 39 kDa Band Nonreactive 09/03/16 06:50 Lyme IgG 41 kDa Band Reactive H 09/03/16 06:50 Lyme IgG 45 kDa Band Nonreactive 09/03/16 06:50 Lyme IgG 58 kDa Band Nonreactive 09/03/16 06:50 Lyme IgG 66 kDa Band Nonreactive 09/03/16 06:50 Lyme IgG 93 kDa Band Nonreactive 09/03/16 06:50 Lyme IgG W Blot Interp Negative (Negative) 09/03/16 06:50 Lyme IgM 23 kDa Band Nonreactive 09/03/16 06:50 Lyme IgM 39 kDa Band Nonreactive 09/03/16 06:50 Lyme IgM 41 kDa Band Nonreactive 09/03/16 06:50 Lyme IgM W Blot Interp Negative (Negative) 09/03/16 06:50 C. difficile Ag & Toxin Negative (NEGATIVE) 09/11/16 06:00 Cryptococcus Ag Negative (NEGATIVE) 09/01/16 06:20 Cryptosp/Giardia Source Stool 08/31/16 15:10 St.Cam Encephal IgG 1:32 H 09/03/16 06:50 St.Cam Encephal IgM <1:16 09/03/16 06:50 Lisette Enceph Interp Past infection 09/03/16 06:50 [place] Equ[place] Enceph IgG <1:16 09/03/16 06:50 [place] Equ[place] Enceph IgM <1:16 09/03/16 06:50 E Equine Enceph Interp See note 09/03/16 06:50 [place] Equine Enceph IgG <1:16 09/03/16 06:50 West Equine Enceph IgM <1:16 09/03/16 06:50 W Equine Enceph Interp See note 09/03/16 06:50 [place] Encephalitis IgG <1:16 09/03/16 06:50 [place] Encephalitis IgM <1:16 09/03/16 06:50 [place] Encephal Interp See note 09/03/16 06:50 West Nile Virus IgG Ab 4.30 H 09/03/16 06:50 West Nile Virus IgM Ab 0.04 09/03/16 06:50 Giardia Antigen Not detected (Not Detected) 08/31/16 15:10 Hepatitis A IgM Ab Nonreactive (Nonreactive) 09/02/16 11:08 Hepatitis A Ab Total Reactive (Nonreactive) H 09/02/16 11:08 Hep Bs Antigen Negative (NEGATIVE) 09/02/16 11:08 Hep Bs Antibody Positive (NEGATIVE) 09/02/16 11:08 Hep B Core IgM Ab Negative (NEGATIVE) 09/02/16 11:08 Hepatitis C Antibody Reactive (NEGATIVE) H 09/01/16 06:20 HCV RNA Genotype LiPA 4 (Not Detected) H 09/02/16 11:08 HCV RNA (PCR) IUs/ml 31799 IU/mL (<15) H 09/02/16 11:08 HCV RNA PCR log IUs/ml 4.69 log IU/mL (<1.18) H 09/02/16 11:08 HIV 1&2 Antibody Screen Negative (NEGATIVE) 09/08/16 11:28 Rickettsia IgG Titer (()) 09/03/16 06:50 Rickettsia IgG Ab Not detected (Not Detected) 09/03/16 06:50 Rickettsia IgM Titer (()) 09/03/16 06:50 Rickettsia IgM Ab Not detected (Not Detected) 09/03/16 06:50 Anti-Staphylolysin O Negative (NEGATIVE) 09/01/16 06:20 Ref Lab Specimen ID [id number] 09/02/16 11:08 - Hospital Course Hospital Course: PT ADMITTED WITH FEVER AND CHANGE OF MENTAL STATUS VAGUE HISTORY , N/V/ LOOSE BM. [facility], [facility] NEG, WBC 22K , CT ABD , THICKENED GASTRIC LINING. PAST HIST. HEP. C / LOW TITRES /BACK PAIN ON OXYCONTIN /ANXIETY ON XANAX /ARTIFICAL EYE PT'S MENTAL CONDITION DID NOT IMPROVE. PSYCH EVALUATED PT AND PUT HIM ON MAJOR ANTPSYCHOTIC MEDS AND IMPROVEDP PT WAS STILL WEAK AND DISORIENTD. PT ALSO HAS TOOTH ABSCESS AND ON IV AB PT WAS TRANFERRED TO REHAB ,PSYCH UNIT Discharge Exam - Head Exam Head Exam: NORMAL INSPECTION Discharge Plan - Discharge Medications Prescriptions: Metronidazole [Flagyl] 250 mg PO TID 21 Days Cephalexin [cephalexin] 500 mg PO Q6 21 Days - Follow Up Plan Condition: FAIR Disposition: REHAB FACILITY/REHAB UNIT Instructions: Leukocytosis (DC), Altered Mental Status (GEN), Enteritis (DC) Additional Instructions: Please f/u with Dr. Sam upon discharge from rehab- call for appointment Continue keflex and flagyl x 3 weeks Continue all other medication as per Med. rec. Referrals: India Randle MD [Staff Provider] - Mary Sam MD [Staff Provider] -
--- NOTE | 2016-09-26 10:32 | EEG ---
DATE: 09/05/2016 The record was obtained for a history of rule out seizures. The record was obtained while the patien t was awake and drowsy. The record was symmetrically equal on both sides with velocity of 8 cycles p er second. Waves are fairly formed, fairly organized with a posterior distribution, moderate in ampl itude, reactive to eye opening by attenuation. There are no abnormal discharges. No spikes, no poly spikes, no sharp wave, no focal slowing, no paroxysmal discharge. The record did not show any change s with photic stimulation. The hyperventilation was omitted. There were no changes during the perio d of drowsiness during which attenuation and slowing of the record were seen and theta waves were see n. No periods of sleep were seen. There are movement artifacts, electrode artifact, and muscle move ment artifact. In sum, this is a normal awake and drowsy EEG. Clinical correlation is recommended. Declan Perez MD cc: [id number] TT: 09/23/2016 06:46:52 Confirmation # [id number] Dictation # [id number] tn
== END 2016-09-13 19:47 | DRG 872 ==
LOC: C.ER 10:57 → C.9E 17:04 → C.6T 19:10
PROVIDERS: ADMIT Internal Medicine Cardiovascular Disease; ATTEND Internal Medicine Cardiovascular Disease
DX: A41.9 Sepsis, unspecified organism (principal); F05 Delirium due to known physiological condition; K52.9 Noninfective gastroenteritis and colitis, unspecified; R56.9 Unspecified convulsions; K92.1 Melena; F23 Brief psychotic disorder; E86.0 Dehydration; F41.9 Anxiety disorder, unspecified; B19.20 Unspecified viral hepatitis C without hepatic coma; E78.5 Hyperlipidemia, unspecified; E87.6 Hypokalemia; K04.7 Periapical abscess without sinus; I10 Essential (primary) hypertension; Z87.891 Personal history of nicotine dependence; Y90.0 Blood alcohol level of less than 20 mg/100 ml; F22 Delusional disorders; F32.9 Major depressive disorder, single episode, unspecified; N40.1 Benign prostatic hyperplasia with lower urinary tract symptoms; R33.8 Other retention of urine; R48.0 Dyslexia and alexia; Z79.899 Other long term (current) drug therapy

== ENCOUNTER 2016-09-26 14:17 | Inpatient (IN) | payer MEDICARE, OTHER ==
[2016-09-26 14:18] VITALS: BMI 24.7
[2016-09-26] MEDS ORDERED: Sodium Chloride 0.9% 1,000 ML IV ONE (14:54)
[2016-09-26] MEDS ORDERED: Sodium Chloride 0.9% 1,000 ML ONE (15:29)
--- NOTE | 2016-09-26 16:02 | RAD ---
PROCEDURE: Radiographs of the chest and abdomen (obstructive series) HISTORY: abd pain COMPARISON: CT abdomen and pelvis without contrast performed 08/30/16 FINDINGS: CHEST: Heart size appears within normal limits. Tortuous aorta. No focal consolidation, significant pleural effusion, or definite pneumothorax identified.Please note that chest x-ray has limited sensitivity for the detection of pulmonary masses. ABDOMEN AND PELVIS: Nonobstructive bowel gas pattern. No definite free air. Moderate constipation. No acute osseous abnormality is detected. IMPRESSION: Moderate constipation.
[2016-09-26 16:09] LABS: BASO % 0.3 % (0.0-2.0); LYMPH # 2.1 K/uL (1.0-4.3); LYMPH % 21.1 % (20.0-40.0); MEAN CELL VOLUME 89.1 fL (80.0-94.0); MEAN CORPUSCULAR HEMOGLOBIN 29.7 pg (27.0-31.0); MEAN CORPUSCULAR HGB CONC 33.3 g/dL (33.0-37.0); MEAN PLATELET VOLUME 9.8 fL (7.2-11.7); MONO # 1.3 K/uL (0.0-0.8); MONO % 13.5 % (0.0-10.0); NRBC % 0.1 % (0.0-2.0); RED CELL DISTRIBUTION WIDTH 14.5 % (11.5-14.5); WHITE BLOOD COUNT 9.9 K/uL (4.8-10.8)
[2016-09-26 17:00] LABS: CHLORIDE 99 mmol/L (98-107); SODIUM 143 mmol/L (132-148)
[2016-09-26 17:01] LABS: POTASSIUM 3.6 mmol/L (3.6-5.2)
[2016-09-26 17:02] LABS: BILIRUBIN,TOTAL 0.5 mg/dL (0.2-1.3); GFR AFRICAN-AMERICAN > 60
[2016-09-26 17:03] LABS: ALB/GLOB RATIO 1.5 (1.0-2.1); ALKALINE PHOSPHATASE 46 U/L (38-126); ALT/SGPT 47 U/L (21-72); AST/SGOT 50 U/L (17-59); BLOOD UREA NITROGEN 15 mg/dL (9-20); CALCIUM 8.9 mg/dl (8.6-10.4); CARBON DIOXIDE 35 mmol/L (22-30); GLUCOSE,RANDOM 104 mg/dL (75-110)
[2016-09-26 17:04] LABS: ALCOHOL SERUM < 10 mg/dl (0-10)
[2016-09-26] MEDS ORDERED: Iohexol 300 100 ML IJ ONE (17:24)
[2016-09-26 18:26] LABS: RBC URINE 5 /hpf (0-3); URINE BACTERIA RARE (<OCC); URINE BILIRUBIN NEGATIVE (NEGATIVE); URINE COLOR Yellow (YELLOW); URINE GLUCOSE (UA) NORMAL (Normal); URINE HYALINE CAST 0-2 /lpf (0-2); URINE KETONE TRACE mg/dL (NEGATIVE); URINE LEUKOCYTE ESTERASE NEG Leu/uL (Negative); URINE PROTEIN 2+ mg/dL (NEGATIVE); URINE UROBILINOGEN NORMAL mg/dL (0.2-1.0); WBC URINE 1 /hpf (0-5)
--- NOTE | 2016-09-26 18:26 | CT ---
PROCEDURE: CT Abdomen and Pelvis with contrast HISTORY: epigastric pain, wt loss, nl labs COMPARISON: Obstructive series performed 09/26/16, CT abdomen and pelvis without contrast performed 08/30/16 TECHNIQUE: Contrast dose: 100 cc Omnipaque Radiation dose: Total exam DLP = 307.87 mGy-cm. This CT exam was performed using one or more of the following dose reduction techniques: Automated exposure control, adjustment of the mA and/or kV according to patient size, and/or use of iterative reconstruction technique. FINDINGS: LOWER THORAX: No visible consolidation, pleural effusion, or pneumothorax. LIVER: Hypoattenuation of the liver compatible with hepatic steatosis. GALLBLADDER AND BILE DUCTS: Unremarkable. PANCREAS: Unremarkable. SPLEEN: Numerous hypoechoic densities, indeterminate. Question 2 cm heterogeneous nodule at the level of the splenic hilum verses small hypoechoic nodules surrounded by normal splenic tissue. ADRENALS: Unremarkable. KIDNEYS AND URETERS: The kidneys enhance symmetrically. No hydronephrosis or obstructing calculus identified. 5 cm too small to characterize left renal hypodensity; statistically likely a cyst. VASCULATURE: No aortic aneurysm. BOWEL: Stomach is nondistended. Lack of oral contrast limits evaluation for bowel pathology. Bowel loops appear within normal limits of caliber without evidence of obstruction. Mild duodenal wall thickening. Moderate to severe constipation. APPENDIX: Not visualized. Suture materials noted at the base of the cecum presumably due to appendectomy. No secondary signs of acute appendicitis. PERITONEUM: No significant free fluid. No definite free air. LYMPH NODES: No bulky adenopathy identified. BLADDER: Distended urinary bladder appears otherwise grossly unremarkable. REPRODUCTIVE: The prostate gland measures approximately 3.0 x 4.2 cm. BONES: 11 mm lucency within the left iliac, indeterminate. Degenerative changes. OTHER FINDINGS: None. IMPRESSION: Numerous splenic hypoechoic densities, indeterminate. Question 2 cm heterogeneous nodule at the level of the splenic hilum verses small hypoechoic nodules surrounded by normal splenic tissue. Consider metastasis, lymphoma, sarcoid or infectious etiologies. Mild duodenal wall thickening; correlate for infectious or inflammatory etiologies. Moderate to severe constipation. 11 mm lucency within the left iliac wing, indeterminate. Hepatic steatosis. Additional findings as above.
[2016-09-26 18:27] LABS: URINE BLOOD 1+ (NEGATIVE)
--- NOTE | 2016-09-26 19:06 | C.PDOC ---
History Of Present Illness 56 year old patient presents to the ED complaining of epigastric discomfort. Patient also complains of failure to thrive, poor appetite, and wasting. Patient was admitted 08/30/[address] Sam for duodenitis. Patient was transferred to a psychiatric center at that time. Today, patient comes from home stating he has been non-compliant with his medications. Patient denies fever or any other complaints at this time. Time Seen by Provider: 09/26/16 14:50 Chief Complaint (Nursing): GI Problem History Per: Patient History/Exam Limitations: no limitations Onset/Duration Of Symptoms: Other Current Symptoms Are (Timing): Still Present Context: Other Severity: Mild Pain Scale Rating Of: 3 Location Of Pain/Discomfort: Epigastric Radiation Of Pain To:: None Quality Of Discomfort: "Pain" Associated Symptoms: Loss Of Appetite Exacerbating Factors: None Alleviating Factors: None Last Bowel Movement: Today Recent travel outside of the [place]: No Past Medical History Reviewed: Historical Data, Nursing Documentation, Vital Signs Vital Signs: Last Vital Signs Temp 98.4 F 09/26/16 14:38 Pulse 98 H 09/26/16 18:49 Resp 18 09/26/16 17:11 BP 148/111 H 09/26/16 18:49 Pulse Ox 99 09/26/16 19:46 - Medical History PMH: Anxiety, Depression, Gastritis, Hepatitis (C), HTN Denies: Chronic Kidney Disease Surgical History: Appendectomy (mar 21 2013) - [facility] Procedures OTHER APPENDECTOMY (03/19/13) Family History: States: Unknown Family Hx, Hypertension - Social History Hx Tobacco Use: Yes Hx Alcohol Use: Yes Hx Substance Use: Yes (opiods, benzos) - Immunization History Hx Tetanus Toxoid Vaccination: No Hx Influenza Vaccination: Yes Hx Pneumococcal Vaccination: No Review Of Systems Except As Marked, All Systems Reviewed And Found Negative. Constitutional: Positive for: Other (poor appetite, wasting, failure to thrive) . Negative for: Fever Gastrointestinal: Positive for: Abdominal Pain (epigastric) Physical Exam - Physical Exam Appears: Other (bitemporal wasting, thin, gaunt, sallow) Skin: Warm, Dry Head: Atraumatic Eye(s): right: Other (occluded; blind), left: Normal Inspection, PERRL, EOMI Oral Mucosa: Moist Neck: Normal ROM, Supple Chest: Symmetrical Cardiovascular: Rhythm Regular Respiratory: Normal Breath Sounds, No Rales, No Rhonchi, No Wheezing Gastrointestinal/Abdominal: Bowel Sounds (dull to percussion), Soft, Tenderness (mild epigastric), No Guarding, No Rebound, Other ((-)Mcburney's signs, (-) Riggins's signs) Back: Normal Inspection, No CVA Tenderness Extremity: Normal ROM Neurological/Psych: Oriented x3 Gait: Steady ED Course And Treatment - Laboratory Results Result Diagrams: 09/26/16 16:00 09/26/16 16:41 Lab Interpretation: Normal (tox/etoh neg.) ECG: Interpreted By Or ECG Rhythm: Sinus Tachycardia ECG Interpretation: Abnormal Rate From EC O2 Sat by Pulse Oximetry: 99 (room air) Pulse Ox Interpretation: Normal - Radiology CXR: Interpreted by Or CXR Interpretation: Yes: No Acute Disease - CT Scan/US Abdomen/Pelvis CT Other Rad Studies (CT/US): Read By Radiologist (Cornelia Wong MD), Radiology Report Reviewed CT/US Interpretation: IMPRESSION: Numerous splenic hypoechoic densities, indeterminate. Question 2 cm heterogeneous nodule at the level of the splenic hilum verses small hypoechoic nodules surrounded by normal splenic tissue. Consider metastasis, lymphoma, sarcoid or infectious etiologies. Mild duodenal wall thickening; correlate for infectious or inflammatory etiologies. Moderate to severe constipation. 11 mm lucency within the left iliac wing, indeterminate. Hepatic steatosis. Additional findings as above. Progress Note: xanax, IVF's, pepcid IV Reevaluation Time: 19:07 Reassessment Condition: Improved - Physician Consult Information Outcome Of Conversation: 1899: d/w PMD Dr. Sam- zari to Obs. No new meds at this time. Medical Decision Making Medical Decision Making: appreciate eval of 08/30/16- CT head with multiple finding of old stroke CT without contrast: Abd/Pelvis gastritis/duodenitis. New CT abd/pelvis with IV contrast with ? liver/spleen meds vs sarcoid vs infectuous. further eval as inpt. May explain weight loss and cachexia Suspect poorly compliant with PO meds regimen @ home due to h/o CVA and/or psych Poor PO intake due to gastritis/duodenitis-PPI continued in ED Disposition Doctor Will See Patient In The: Hospital Counseled Patient/Family Regarding: Studies Performed, Diagnosis - Disposition Disposition: HOSPITALIZED Disposition Time: 19:09 Condition: GOOD - Clinical Impression Clinical Impression: Wasting generalized, Epigastric pain, Liver nodule, Anxiety, Duodenitis - Scribe Statement The provider has reviewed the documentation as recorded by the Scribe Opal Caraballo Provider Attestation: All medical record entries made by the Scribe were at my direction and personally dictated by me. I have reviewed the chart and agree that the record accurately reflects my personal performance of the history, physical exam, medical decision making, and the department course for this patient. I have also personally directed, reviewed, and agree with the discharge instructions and disposition.
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
[2016-09-26] MEDS: Pantoprazole 40 mg EC Tab PO SCH (22:12)
[2016-09-27 06:36] LABS: BASO % 0.2 % (0.0-2.0); EOS % 0.2 % (0.0-4.0); LYMPH # 1.7 K/uL (1.0-4.3); LYMPH % 22.8 % (20.0-40.0); MEAN CELL VOLUME 88.2 fL (80.0-94.0); MEAN CORPUSCULAR HEMOGLOBIN 29.7 pg (27.0-31.0); MEAN CORPUSCULAR HGB CONC 33.7 g/dL (33.0-37.0); MEAN PLATELET VOLUME 9.6 fL (7.2-11.7); MONO # 0.9 K/uL (0.0-0.8); MONO % 11.8 % (0.0-10.0); RED CELL DISTRIBUTION WIDTH 14.5 % (11.5-14.5); WHITE BLOOD COUNT 7.4 K/uL (4.8-10.8)
[2016-09-27 06:38] LABS: CHLORIDE 98 mmol/L (98-107)
[2016-09-27 06:39] LABS: POTASSIUM 3.7 mmol/L (3.6-5.2); SODIUM 139 mmol/L (132-148)
[2016-09-27 06:41] LABS: GFR AFRICAN-AMERICAN > 60
[2016-09-27 06:42] LABS: ALB/GLOB RATIO 1.3 (1.0-2.1); ALKALINE PHOSPHATASE 36 U/L (38-126); ALT/SGPT 40 U/L (21-72); AST/SGOT 30 U/L (17-59); BILIRUBIN,TOTAL 0.6 mg/dL (0.2-1.3); BLOOD UREA NITROGEN 15 mg/dL (9-20); CALCIUM 8.9 mg/dl (8.6-10.4); CARBON DIOXIDE 33 mmol/L (22-30); GLUCOSE,RANDOM 108 mg/dL (75-110); TOTAL PROTEIN 6.1 g/dL (6.3-8.3)
[2016-09-27] MEDS: Pantoprazole 40 mg EC Tab PO SCH ×2 (10:40→21:00)
--- NOTE | 2016-09-27 11:56 | PCM.PSYCH ---
Initial Psychiatric Evaluation - Initial Psychiatric Evaluation Type of Admission: Voluntary Legal Status: Capacity Chief Complaint (in patient's own words): Psychiatric referral for Dr. Hanks "I need my xanax." History of Present Illness and Precipitating Events: Patient is a 56 year old male who was admitted to [facility] for failure to thrive, poor appetite, and wasting. Patient was recently admitted on 08/30/16 for duodenitis. Psychiatry was consulted because patient's psych medications were not ordered by medicine team. Patient seen and examined. He states he lives by himself in section [address] housing and supports himself with Social Security. He states that he was transferred to [facility] yesterday directly from [facility], where he had been for 2 weeks at his assisted. Patient told ED on admission that he was coming from home and was non-compliant with medications. Patient complains of loss of appetite, insomnia and weight loss. He denies any drug use for many years, but states he drinks a couple of beers a day. Patient states he needs his xanax and asked for 3 mg, which is his home dose for anxiety. Patient states this is the only psychiatric medicine he takes at home, although nursing reports that he is also on ativan, haldol, neurontin, depakote , cephalexin, cogentin. Patient states he has a history of anxiety and depression. He states he feels paranoid and that people are out to get him, and that he is being chased and followed. He complains of racing thoughts, visual hallucinations of shadows and people, and insomnia. Patient denies auditory hallucinations and suicidal ideation. On exam, patient displays disorganized thinking and speech. He is rambling and his affect is broad and pressured. Patient repeatedly asks for xanax. Current Medications: Active Medications Generic Name Dose Route Start Last Admin Trade Name Freq PRN Reason Stop Dose Admin Ceftriaxone Sodium 1 gm/ 100 mls @ 100 mls/hr 09/26/16 23:59 09/27/16 11:55 Sodium Chloride IVPB 100 mls/hr Q12H ELAYNE Administration Vancomycin HCl 1,000 mg/ 250 mls @ 166.6 mls/hr 09/27/16 01:00 09/27/16 01:30 Sodium Chloride IVPB 166.6 mls/hr Q12H ELAYNE Administration Lisinopril 20 mg 09/27/16 10:00 09/27/16 10:41 Zestril PO 20 mg DAILY ELAYNE Administration Pantoprazole Sodium 40 mg 09/26/16 22:00 09/27/16 10:40 Protonix Ec Tab PO 40 mg Q12 ELAYNE Administration Tamsulosin HCl 0.4 mg 09/27/16 10:00 09/27/16 10:40 Flomax PO 0.4 mg DAILY ELAYNE Administration Past Psychiatric History - Past Psychiatric History Previous Treatment History: None Pertinent Medical Hx (Current Medical&Sleep Prob, Allergies): Allergies Allergy/AdvReac Type Severity Reaction Status Date / Time No Known Allergies Allergy Verified 08/26/16 20:12 Benztropine [Cogentin] 1 mg PO BID tab 09/13/16 Cephalexin [cephalexin] 500 mg PO Q6 21 Days 09/13/16 Divalproex [Depakote DR] 500 mg PO BID tcp 09/13/16 Gabapentin [Neurontin] 100 mg PO TID cap 09/13/16 Haloperidol [Haldol] 5 mg PO Q8 PRN tab 09/13/16 LORazepam [Ativan] 1 mg PO Q6 PRN tab 09/13/16 Lisinopril [Zestril] 20 mg PO DAILY tab 09/13/16 Metronidazole [Flagyl] 250 mg PO TID 21 Days 09/13/16 Pantoprazole [Protonix EC Tab] 40 mg PO Q12 ect 09/13/16 Tamsulosin [Flomax] 0.4 mg PO DAILY cap 09/13/16 fluPHENAZine [Prolixin] 10 mg PO BID tab 09/13/16 traZODone [Desyrel] 50 mg PO HS tab 09/13/16 Review of Systems - Review of Systems All systems: reviewed and no additional remarkable complaints except - Psychiatric Psychiatric: Anxiety, Hallucinations, Irritability Mental Status Examination - Personal Presentation Personal Presentation: Looks older than stated age - Affect Affect: Broad - Motor Activity Motor Activity: Psychomotor Agitation - Reliability in Providing Information Reliability in Providing Information: Poor, due to alteration in thoughts, Poor , due to altered mood - Speech Speech: Organized - Mood Mood: Depressed, Anxious - Formal Thought Process Formal Thought Process: Hallucinations, Delusions, Paranoia, Loosening of associations - Obsessions/Compulsions Obsessions: No Compulsions: No - Cognitive Functions Orientation: Person, Place, Situation, Time Sensorium: Alert Attention/Concentration: Attentive Abstract Thinking: [place] Estimate of Intelligence: Below average Judgement: Imparied, as evidence by: Poor judgement, Imparied, as evidence by: Lack of insight into illness - Risk Risk: Diminished functioning DSM 5 DX - DSM 5 

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
--- NOTE | 2016-09-27 13:35 | CP.PCM.PN ---
Subjective - Date & Time of Evaluation Date of Evaluation: 09/27/16 Time of Evaluation: 13:34 - Subjective Subjective: AFEBRILE ECHO SHOWS NO DEF. VEGETATION DISTAL KORI-SEPTAL WALL MOTION ABN. NOT PRESENT A MONTH AGO WILL D/W ID ABOUT DREW Objective - Vital Signs/Intake and Output Vital Signs (last 24 hours): Temp Pulse Resp BP Pulse Ox 97.2 F L 88 20 132/97 H 98 09/27/16 07:55 09/27/16 07:55 09/27/16 07:55 09/27/16 07:55 09/27/16 07:55 Intake and Output: 09/27/16 09/27/16 11:59 23:59 Intake Total 600 Balance 600 - Medications Medications: Current Medications Enoxaparin Sodium (Lovenox) 40 mg SC DAILY [facility] Ceftriaxone Sodium 1 gm/ (Sodium Chloride) 100 mls @ 100 mls/hr IVPB Q12H ELAYNE Last Admin: 09/27/16 11:55 Dose: 100 mls/hr Vancomycin HCl 1,000 mg/ (Sodium Chloride) 250 mls @ 166.6 mls/hr IVPB Q12H ELAYNE Last Admin: 09/27/16 13:14 Dose: 166.6 mls/hr Lisinopril (Zestril) 20 mg PO DAILY [facility] Last Admin: 09/27/16 10:41 Dose: 20 mg Pantoprazole Sodium (Protonix Ec Tab) 40 mg PO Q12 ELAYNE Last Admin: 09/27/16 10:40 Dose: 40 mg Tamsulosin HCl (Flomax) 0.4 mg PO DAILY [facility] Last Admin: 09/27/16 10:40 Dose: 0.4 mg - Labs Labs: 09/27/16 06:24 09/27/16 06:24
[2016-09-27] MEDS: Enoxaparin 40 mg Syringe SC SCH (20:58)
[2016-09-28] MEDS ORDERED: Labetalol 25mg/5ml Syringe ONE (08:40)
[2016-09-28] MEDS ORDERED: Labetalol 25mg/5ml Syringe IVP ONE (08:45)
[2016-09-28 08:49] LABS: CHLORIDE 96 mmol/L (98-107); POTASSIUM 3.5 mmol/L (3.6-5.2); SODIUM 140 mmol/L (132-148)
[2016-09-28 08:52] LABS: ALB/GLOB RATIO 1.3 (1.0-2.1); ALKALINE PHOSPHATASE 46 U/L (38-126); ALT/SGPT 56 U/L (21-72); AST/SGOT 40 U/L (17-59); BILIRUBIN,TOTAL 0.6 mg/dL (0.2-1.3); BLOOD UREA NITROGEN 11 mg/dL (9-20); CALCIUM 8.9 mg/dl (8.6-10.4); CARBON DIOXIDE 34 mmol/L (22-30); GFR AFRICAN-AMERICAN > 60; GLUCOSE,RANDOM 106 mg/dL (75-110)
--- NOTE | 2016-09-28 08:58 | RAD ---
HISTORY: rapid COMPARISON: 09/13/2016 FINDINGS: LUNGS: No active pulmonary disease. PLEURA: No significant pleural effusion identified, no pneumothorax apparent. CARDIOVASCULAR: Normal. OSSEOUS STRUCTURES: No significant abnormalities. VISUALIZED UPPER ABDOMEN: Normal. OTHER FINDINGS: None. IMPRESSION: No active disease.
[2016-09-28 09:09] LABS: BASO % 0.6 % (0.0-2.0); EOS % 0.4 % (0.0-4.0); HEMATOCRIT 38.6 % (35.0-51.0); LYMPH # 1.9 K/uL (1.0-4.3); LYMPH % 28.1 % (20.0-40.0); MEAN CELL VOLUME 88.5 fL (80.0-94.0); MEAN CORPUSCULAR HEMOGLOBIN 29.7 pg (27.0-31.0); MEAN CORPUSCULAR HGB CONC 33.6 g/dL (33.0-37.0); MEAN PLATELET VOLUME 9.9 fL (7.2-11.7); NRBC % 0.1 % (0.0-2.0); RED CELL DISTRIBUTION WIDTH 14.1 % (11.5-14.5); WHITE BLOOD COUNT 6.9 K/uL (4.8-10.8)
[2016-09-28] MEDS ORDERED: Enoxaparin 40 mg Syringe SC SCH (10:00)
[2016-09-28] MEDS: Pantoprazole 40 mg EC Tab PO SCH ×2 (11:00→21:30)
[2016-09-28] MEDS: Enoxaparin 40 mg Syringe SC SCH (11:00)
[2016-09-28] MEDS ORDERED: Potassium Chloride 20 mEq/15 ml LIQ UD PO STA (12:30)
--- NOTE | 2016-09-28 13:26 | CP.PCM.PN ---
Subjective - Date & Time of Evaluation Date of Evaluation: 09/28/16 Time of Evaluation: 13:24 - Subjective Subjective: SUDDEN RISE OF BP STABILIZED WITH IV MEDS CURRENTLY NOR. VS MORE ALERT BUT STILL HAS PERIODS OF CONFUSION P/E NO CHANGE WILL NEED PICC LINE FOR BLOOD DRAWING W/P ON PROGRESS Objective - Vital Signs/Intake and Output Vital Signs (last 24 hours): Temp Pulse Resp BP Pulse Ox 97.4 F L 97 H 20 137/90 99 09/28/16 09:00 09/28/16 11:00 09/28/16 09:00 09/28/16 11:00 09/28/16 09:00 Intake and Output: 09/28/16 09/28/16 11:59 23:59 Intake Total 790 Balance 790 - Medications Medications: Current Medications Acetaminophen (Tylenol 325mg Tab) 650 mg PO Q6 PRN PRN Reason: Pain, moderate (4-7) Last Admin: 09/28/16 13:02 Dose: 650 mg Benztropine Mesylate (Cogentin) 1 mg PO BID [facility] Last Admin: 09/28/16 11:18 Dose: 1 mg Clonazepam (Klonopin) 1 mg PO BID [facility] Last Admin: 09/28/16 11:00 Dose: 1 mg Enoxaparin Sodium (Lovenox) 40 mg SC DAILY [facility] Last Admin: 09/28/16 11:00 Dose: 40 mg Fluphenazine HCl (Prolixin) 5 mg PO BID [facility] Last Admin: 09/28/16 11:19 Dose: 5 mg Ceftriaxone Sodium 1 gm/ (Sodium Chloride) 100 mls @ 100 mls/hr IVPB Q12H [facility] Last Admin: 09/28/16 12:56 Dose: 100 mls/hr Vancomycin HCl 1,000 mg/ (Sodium Chloride) 250 mls @ 166.6 mls/hr IVPB Q12H [facility] Last Admin: 09/28/16 01:28 Dose: 166.6 mls/hr Lisinopril (Zestril) 20 mg PO DAILY [facility] Last Admin: 09/28/16 11:00 Dose: 20 mg Lorazepam (Ativan) 1 mg PO Q6 PRN PRN Reason: Agitation Last Admin: 09/28/16 02:58 Dose: 1 mg Pantoprazole Sodium (Protonix Ec Tab) 40 mg PO Q12 [facility] Last Admin: 09/28/16 11:00 Dose: 40 mg Pneumococcal Polyvalent Vaccine (Pneumovax 23 Vaccine) 0.5 ml IM .ONCE ONE Stop: 09/29/16 10:01 Tamsulosin HCl (Flomax) 0.4 mg PO DAILY [facility] Last Admin: 09/28/16 11:00 Dose: 0.4 mg - Labs Labs: 09/28/16 08:57 09/28/16 08:37
--- NOTE | 2016-09-28 13:57 | CP.PCM.PN ---
Subjective - Date & Time of Evaluation Date of Evaluation: 09/28/16 Time of Evaluation: 13:57 - Subjective Subjective: AFEBRILE MORE ALERT BUT STILL HAS PERIODS OF CONFUSION P/E NO CHANGE ON IV ABX. SEPTIC W/U IN PROGRESS. Objective - Vital Signs/Intake and Output Vital Signs (last 24 hours): Temp Pulse Resp BP Pulse Ox 97.4 F L 97 H 20 137/90 99 09/28/16 09:00 09/28/16 11:00 09/28/16 09:00 09/28/16 11:00 09/28/16 09:00 Intake and Output: 09/28/16 09/28/16 06:59 18:59 Intake Total 590 200 Balance 590 200 - Medications Medications: Current Medications Acetaminophen (Tylenol 325mg Tab) 650 mg PO Q6 PRN PRN Reason: Pain, moderate (4-7) Last Admin: 09/28/16 13:02 Dose: 650 mg Benztropine Mesylate (Cogentin) 1 mg PO BID [facility] Last Admin: 09/28/16 11:18 Dose: 1 mg Clonazepam (Klonopin) 1 mg PO BID [facility] Last Admin: 09/28/16 11:00 Dose: 1 mg Enoxaparin Sodium (Lovenox) 40 mg SC DAILY [facility] Last Admin: 09/28/16 11:00 Dose: 40 mg Fluphenazine HCl (Prolixin) 5 mg PO BID [facility] Last Admin: 09/28/16 11:19 Dose: 5 mg Ceftriaxone Sodium 1 gm/ (Sodium Chloride) 100 mls @ 100 mls/hr IVPB Q12H [facility] Last Admin: 09/28/16 12:56 Dose: 100 mls/hr Vancomycin HCl 1,000 mg/ (Sodium Chloride) 250 mls @ 166.6 mls/hr IVPB Q12H [facility] Last Admin: 09/28/16 01:28 Dose: 166.6 mls/hr Lisinopril (Zestril) 20 mg PO DAILY [facility] Last Admin: 09/28/16 11:00 Dose: 20 mg Lorazepam (Ativan) 1 mg PO Q6 PRN PRN Reason: Agitation Last Admin: 09/28/16 02:58 Dose: 1 mg Pantoprazole Sodium (Protonix Ec Tab) 40 mg PO Q12 [facility] Last Admin: 09/28/16 11:00 Dose: 40 mg Pneumococcal Polyvalent Vaccine (Pneumovax 23 Vaccine) 0.5 ml IM .ONCE ONE Stop: 09/29/16 10:01 Tamsulosin HCl (Flomax) 0.4 mg PO DAILY [facility] Last Admin: 09/28/16 11:00 Dose: 0.4 mg - Labs Labs: 09/28/16 08:57 09/28/16 08:37 - Constitutional Appears: No Acute Distress - Head Exam Head Exam: NORMAL INSPECTION - Eye Exam Eye Exam: EOMI, PERRL (RT EYE ENUCLEATED.) - ENT Exam ENT Exam: Mucous Membranes Dry (POOR ORAL HYGIENE.) - Neck Exam Neck Exam: Normal Inspection - Respiratory Exam Respiratory Exam: Clear to Ausculation Bilateral, NORMAL BREATHING PATTERN - Cardiovascular Exam Cardiovascular Exam: REGULAR RHYTHM, +S1, +S2 - GI/Abdominal Exam GI & Abdominal Exam: Soft, Tenderness (RLQ AND SUPRAPUBIC.), Normal Bowel Sounds - Extremities Exam Extremities Exam: Normal Capillary Refill. absent: Calf Tenderness, Pedal Edema - Neurological Exam Neurological Exam: Awake, CN II-XII Intact, Normal Gait, Reflexes Normal - Skin Skin Exam: Normal Color, Warm Assessment and Plan (1) Dental abscess Status: Acute (2) Abdominal pain Status: Acute (3) Duodenitis Status: Acute (4) Wasting generalized Status: Acute (5) Hypertension Status: Acute (6) Hepatitis C Status: Chronic (7) Anxiety Status: Acute (8) Schizophrenia Status: Acute (9) Bipolar 1 disorder, manic, mild Status: Acute - Assessment and Plan (Free Text) Assessment: IMPRESSION; -MULTIPLE DENTAL ABSCESSES R/O SBE . -ABDOMINAL PAIN WITH MULTIPLE SPLENIC LESIONS/NODULE SPLENIC HILUM. ? ABSCESSES/CYSTS/VS METASTATIC -HX GI-BLEEDING -HEPATITIS C CHRONIC -ANOREXIA AND WEIGHT LOSS R/O OCCULT LYMPHOMA VS MALIGNANCY -SCHIZOPHRENIA/BIPOLAR DISORDER. PLAN DREW R/O VEGETATIONS IF 2-D ECHO IS NORMAL. STARTED ON iv rOCEPHIN 1 G EVERY 12 HOURLY 09/26/16 iv VANCOMYCIN 1 G EVERY 12 HOURLY.09/26/16 FOLLOW-UP VANCO TROUGH LEVEL PRIOR TO THE FOURTH DOSE. FOLLOW-UP RENAL FUNCTIONS CLOSELY. CERETAC SCAN ABDOMEN RULE OUT SPLENIC ABSCESSES
--- NOTE | 2016-09-28 15:27 | CP.PCM.PN ---
<Alessandra Fish - Last Filed: 09/28/16 15:28> Subjective - Date & Time of Evaluation Date of Evaluation: 09/28/16 Time of Evaluation: 08:00 - Subjective Subjective: Rapid Response called at 8:12 AM for high blood pressure Patient was put on the monitor. BP 184/125 HR 100 RR 20 100%02 Lungs sounded clear, cardio tachycardic regular rhythm, no murmurs Patient complained of a headache, denied vision changes, chest pain, palpitations. He complained of mild shortness of breath. He stated that he takes a lot of pain medications at home and could be in withdrawal Patient was admitted for anxiety, constipation, duodenitis, multiple liver and spleen nodules Patient was given one dose of Hydralazine 10mg IVP, Hydralazine 25mg PO, and Ativan 1mg IVP BP recheck was 194/90 After a few minutes BP was still not lowering so he was given a dose of Labetolol 20mg IVP. BP recheck was 140/103, then 144/98, last bp check 137/90. Chest X ray was negative. Routine labs, AMISH, and EKG were ordered Dr. Sma was notified of this event. Patient was transferred to telemetry floor for closer observation. Alessandra Fish PGY 1 - Family Medicine Objective - Vital Signs/Intake and Output Vital Signs (last 24 hours): Temp Pulse Resp BP Pulse Ox 97.4 F L 97 H 20 137/90 99 09/28/16 09:00 09/28/16 11:00 09/28/16 09:00 09/28/16 11:00 09/28/16 09:00 Intake and Output: 09/28/16 09/28/16 06:59 18:59 Intake Total 590 200 Balance 590 200 - Medications Medications: Current Medications Acetaminophen (Tylenol 325mg Tab) 650 mg PO Q6 PRN PRN Reason: Pain, moderate (4-7) Last Admin: 09/28/16 13:02 Dose: 650 mg Benztropine Mesylate (Cogentin) 1 mg PO BID [facility] Last Admin: 09/28/16 11:18 Dose: 1 mg Clonazepam (Klonopin) 1 mg PO BID [facility] Last Admin: 09/28/16 11:00 Dose: 1 mg Enoxaparin Sodium (Lovenox) 40 mg SC DAILY [facility] Last Admin: 09/28/16 11:00 Dose: 40 mg Fluphenazine HCl (Prolixin) 5 mg PO BID [facility] Last Admin: 09/28/16 11:19 Dose: 5 mg Ceftriaxone Sodium 1 gm/ (Sodium Chloride) 100 mls @ 100 mls/hr IVPB Q12H [facility] Last Admin: 09/28/16 12:56 Dose: 100 mls/hr Vancomycin HCl 1,000 mg/ (Sodium Chloride) 250 mls @ 166.6 mls/hr IVPB Q12H [facility] Last Admin: 09/28/16 14:00 Dose: 166.6 mls/hr Lisinopril (Zestril) 20 mg PO DAILY [facility] Last Admin: 09/28/16 11:00 Dose: 20 mg Lorazepam (Ativan) 1 mg PO Q6 PRN PRN Reason: Agitation Last Admin: 09/28/16 02:58 Dose: 1 mg Pantoprazole Sodium (Protonix Ec Tab) 40 mg PO Q12 [facility] Last Admin: 09/28/16 11:00 Dose: 40 mg Pneumococcal Polyvalent Vaccine (Pneumovax 23 Vaccine) 0.5 ml IM .ONCE ONE Stop: 09/29/16 10:01 Tamsulosin HCl (Flomax) 0.4 mg PO DAILY [facility] Last Admin: 09/28/16 11:00 Dose: 0.4 mg - Labs Labs: 09/28/16 08:57 09/28/16 08:37 <Malik Peterson - Last Filed: 09/28/16 15:47> Objective - Vital Signs/Intake and Output Vital Signs (last 24 hours): Temp Pulse Resp BP Pulse Ox 97.4 F L 97 H 20 137/90 99 09/28/16 09:00 09/28/16 11:00 09/28/16 09:00 09/28/16 11:00 09/28/16 09:00 Intake and Output: 09/28/16 09/28/16 06:59 18:59 Intake Total 590 200 Balance 590 200 - Medications Medications: Current Medications Acetaminophen (Tylenol 325mg Tab) 650 mg PO Q6 PRN PRN Reason: Pain, moderate (4-7) Last Admin: 09/28/16 13:02 Dose: 650 mg Benztropine Mesylate (Cogentin) 1 mg PO BID [facility] Last Admin: 09/28/16 11:18 Dose: 1 mg Clonazepam (Klonopin) 1 mg PO BID [facility] Last Admin: 09/28/16 11:00 Dose: 1 mg Enoxaparin Sodium (Lovenox) 40 mg SC DAILY [facility] Last Admin: 09/28/16 11:00 Dose: 40 mg Fluphenazine HCl (Prolixin) 5 mg PO BID [facility] Last Admin: 09/28/16 11:19 Dose: 5 mg Ceftriaxone Sodium 1 gm/ (Sodium Chloride) 100 mls @ 100 mls/hr IVPB Q12H [facility] Last Admin: 09/28/16 12:56 Dose: 100 mls/hr Vancomycin HCl 1,000 mg/ (Sodium Chloride) 250 mls @ 166.6 mls/hr IVPB Q12H [facility] Last Admin: 09/28/16 14:00 Dose: 166.6 mls/hr Lisinopril (Zestril) 20 mg PO DAILY [facility] Last Admin: 09/28/16 11:00 Dose: 20 mg Lorazepam (Ativan) 1 mg PO Q6 PRN PRN Reason: Agitation Last Admin: 09/28/16 02:58 Dose: 1 mg Pantoprazole Sodium (Protonix Ec Tab) 40 mg PO Q12 [facility] Last Admin: 09/28/16 11:00 Dose: 40 mg Pneumococcal Polyvalent Vaccine (Pneumovax 23 Vaccine) 0.5 ml IM .ONCE ONE Stop: 09/29/16 10:01 Tamsulosin HCl (Flomax) 0.4 mg PO DAILY [facility] Last Admin: 09/28/16 11:00 Dose: 0.4 mg - Labs Labs: 09/28/16 08:57 09/28/16 08:37 Attending/Attestation - Attestation I have personally seen and examined this patient.: Yes I have fully participated in the care of the patient.: Yes I have reviewed all pertinent clinical information, including history, physical exam and plan: Yes Notes (Text): 09/28/16 15:45 Medical hospitalist: Patient was seen and examined by me during the rapid response. I saw the patient with the medical residents I agree with the above note by the resident. An MEDICAL RECORDS RECEPTIONIST was called after he was noted that the patient had a very elevated blood pressure, he was given IV hydralazine 10 as well as IV labetalol 20. And started on by mouth hydralazine for the time being Per my discussion with the patient he was worried that could be going into some type of drug withdrawal. I asked him what kind of medications he took before he said that he usually takes large amounts of OxyContin for chronic pain. We went ahead and gave him IV Ativan as well to help with withdrawal. The patient was moved over to telemetry for further monitoring may need further IV blood pressure medications. Thank you very much, Malik Peterson
[2016-09-29 07:22] LABS: BASO % 0.4 % (0.0-2.0); EOS % 0.2 % (0.0-4.0); LYMPH # 2.6 K/uL (1.0-4.3); LYMPH % 26.5 % (20.0-40.0); MEAN CELL VOLUME 88.2 fL (80.0-94.0); MEAN CORPUSCULAR HEMOGLOBIN 29.7 pg (27.0-31.0); MEAN CORPUSCULAR HGB CONC 33.7 g/dL (33.0-37.0); MEAN PLATELET VOLUME 9.7 fL (7.2-11.7); MONO # 1.3 K/uL (0.0-0.8); MONO % 13.1 % (0.0-10.0); RED CELL DISTRIBUTION WIDTH 14.2 % (11.5-14.5); WHITE BLOOD COUNT 9.7 K/uL (4.8-10.8)
[2016-09-29 07:42] LABS: CHLORIDE 96 mmol/L (98-107)
[2016-09-29 07:43] LABS: POTASSIUM 3.6 mmol/L (3.6-5.2); SODIUM 139 mmol/L (132-148)
[2016-09-29 07:45] LABS: ALB/GLOB RATIO 1.4 (1.0-2.1); AST/SGOT 32 U/L (17-59); BILIRUBIN,TOTAL 0.6 mg/dL (0.2-1.3); BLOOD UREA NITROGEN 11 mg/dL (9-20); CARBON DIOXIDE 33 mmol/L (22-30); GFR AFRICAN-AMERICAN > 60; TOTAL PROTEIN 7.2 g/dL (6.3-8.3)
[2016-09-29 07:46] LABS: ALKALINE PHOSPHATASE 44 U/L (38-126); ALT/SGPT 47 U/L (21-72); CALCIUM 9.3 mg/dl (8.6-10.4); GLUCOSE,RANDOM 110 mg/dL (75-110)
[2016-09-29] MEDS: Pantoprazole 40 mg EC Tab PO SCH ×2 (09:04→22:00)
[2016-09-29] MEDS: Enoxaparin 40 mg Syringe SC SCH (09:05)
[2016-09-29] MEDS ORDERED: Pneumococcal 23-Valent Vaccine IM ONE (10:00)
--- NOTE | 2016-09-29 13:31 | CP.PCM.PN ---
Subjective - Date & Time of Evaluation Date of Evaluation: 09/29/16 Time of Evaluation: 13:31 - Subjective Subjective: PERIODS OF CONFUSION BP NOW MORE STABLE SEPTIC W/U IN PROGRESS [facility] Objective - Vital Signs/Intake and Output Vital Signs (last 24 hours): Temp Pulse Resp BP Pulse Ox 98.1 F 105 H 20 113/76 100 09/28/16 23:05 09/29/16 07:30 09/28/16 23:05 09/28/16 23:05 09/28/16 23:05 Intake and Output: 09/29/16 09/29/16 11:59 23:59 Intake Total 650 Output Total 600 Balance 50 - Medications Medications: Current Medications Acetaminophen (Tylenol 325mg Tab) 650 mg PO Q6 PRN PRN Reason: Pain, moderate (4-7) Last Admin: 09/28/16 21:31 Dose: 650 mg Amlodipine Besylate (Norvasc) 10 mg PO DAILY [facility] Last Admin: 09/29/16 09:04 Dose: 10 mg Benztropine Mesylate (Cogentin) 1 mg PO BID [facility] Last Admin: 09/29/16 10:00 Dose: 1 mg Clonazepam (Klonopin) 1 mg PO BID [facility] Last Admin: 09/29/16 09:04 Dose: 1 mg Enoxaparin Sodium (Lovenox) 40 mg SC DAILY [facility] Last Admin: 09/29/16 09:05 Dose: 40 mg Fluphenazine HCl (Prolixin) 5 mg PO BID [facility] Last Admin: 09/28/16 18:04 Dose: 5 mg Ceftriaxone Sodium 1 gm/ (Sodium Chloride) 100 mls @ 100 mls/hr IVPB Q12H [facility] Last Admin: 09/29/16 00:08 Dose: 100 mls/hr Vancomycin HCl 1,000 mg/ (Sodium Chloride) 250 mls @ 166.6 mls/hr IVPB Q12H [facility] Last Admin: 09/29/16 00:08 Dose: 166.6 mls/hr Lisinopril (Zestril) 20 mg PO BID [facility] Last Admin: 09/28/16 18:04 Dose: 20 mg Lorazepam (Ativan) 1 mg PO Q6 PRN PRN Reason: Agitation Last Admin: 09/29/16 09:04 Dose: 1 mg Pantoprazole Sodium (Protonix Ec Tab) 40 mg PO Q12 [facility] Last Admin: 09/29/16 09:04 Dose: 40 mg Tamsulosin HCl (Flomax) 0.4 mg PO DAILY [facility] Last Admin: 09/29/16 09:04 Dose: 0.4 mg - Labs Labs: 09/29/16 07:11 09/29/16 07:11
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
[2016-09-30 07:18] LABS: BASO % 0.5 % (0.0-2.0); EOS % 0.2 % (0.0-4.0); HEMATOCRIT 40.7 % (35.0-51.0); LYMPH # 3.7 K/uL (1.0-4.3); LYMPH % 34.3 % (20.0-40.0); MEAN CELL VOLUME 88.7 fL (80.0-94.0); MEAN CORPUSCULAR HEMOGLOBIN 29.6 pg (27.0-31.0); MEAN CORPUSCULAR HGB CONC 33.4 g/dL (33.0-37.0); MEAN PLATELET VOLUME 9.6 fL (7.2-11.7); MONO # 1.4 K/uL (0.0-0.8); MONO % 13.2 % (0.0-10.0); NRBC % 0.1 % (0.0-2.0); RED CELL DISTRIBUTION WIDTH 14.7 % (11.5-14.5); WHITE BLOOD COUNT 10.8 K/uL (4.8-10.8)
[2016-09-30 07:35] LABS: CHLORIDE 98 mmol/L (98-107); POTASSIUM 3.6 mmol/L (3.6-5.2); SODIUM 141 mmol/L (132-148)
[2016-09-30 07:38] LABS: BILIRUBIN,TOTAL 0.5 mg/dL (0.2-1.3); GFR AFRICAN-AMERICAN > 60
[2016-09-30 07:40] LABS: ALB/GLOB RATIO 1.3 (1.0-2.1); ALKALINE PHOSPHATASE 42 U/L (38-126); ALT/SGPT 43 U/L (21-72); AST/SGOT 30 U/L (17-59); BLOOD UREA NITROGEN 15 mg/dL (9-20); CARBON DIOXIDE 34 mmol/L (22-30); GLUCOSE,RANDOM 109 mg/dL (75-110); TOTAL PROTEIN 7.2 g/dL (6.3-8.3)
[2016-09-30] MEDS: Enoxaparin 40 mg Syringe SC SCH (09:57)
[2016-09-30] MEDS: Aritificial Tears (15ml) OU PRN ×3 (09:57→23:16)
[2016-09-30] MEDS: Pantoprazole 40 mg EC Tab PO SCH ×2 (09:58→22:01)
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
--- NOTE | 2016-09-30 14:09 | CP.PCM.PN ---
Subjective - Date & Time of Evaluation Date of Evaluation: 09/30/16 Time of Evaluation: 14:08 - Subjective Subjective: MORE FUNCTIONAL AFEBRILE SEPTIC W/U IN PROGRESS IV AB Objective - Vital Signs/Intake and Output Vital Signs (last 24 hours): Temp Pulse Resp BP Pulse Ox 98.2 F 104 H 18 147/94 H 100 09/30/16 09:28 09/30/16 09:28 09/30/16 09:28 09/30/16 09:28 09/30/16 09:28 - Medications Medications: Current Medications Acetaminophen (Tylenol 325mg Tab) 650 mg PO Q6 PRN PRN Reason: Pain, moderate (4-7) Last Admin: 09/30/16 00:32 Dose: 650 mg Amlodipine Besylate (Norvasc) 10 mg PO DAILY [facility] Last Admin: 09/30/16 09:58 Dose: 10 mg Artificial Tears (Artificial Tears) 0 ml OU Q4 PRN PRN Reason: Dry eyes Last Admin: 09/30/16 09:57 Dose: 1 drop Benztropine Mesylate (Cogentin) 1 mg PO BID [facility] Last Admin: 09/30/16 09:58 Dose: 1 mg Clonazepam (Klonopin) 1 mg PO BID [facility] Last Admin: 09/30/16 09:58 Dose: 1 mg Enoxaparin Sodium (Lovenox) 40 mg SC DAILY [facility] Last Admin: 09/30/16 09:57 Dose: 40 mg Fluphenazine HCl (Prolixin) 5 mg PO BID [facility] Last Admin: 09/30/16 09:58 Dose: 5 mg Ceftriaxone Sodium 1 gm/ (Sodium Chloride) 100 mls @ 100 mls/hr IVPB Q12H [facility] Last Admin: 09/30/16 12:18 Dose: 100 mls/hr Vancomycin HCl 1,000 mg/ (Sodium Chloride) 250 mls @ 166.6 mls/hr IVPB Q12H [facility] Last Admin: 09/30/16 12:18 Dose: 166.6 mls/hr Lisinopril (Zestril) 20 mg PO BID [facility] Last Admin: 09/30/16 09:58 Dose: 20 mg Lorazepam (Ativan) 1 mg PO Q6 PRN PRN Reason: Agitation Last Admin: 09/30/16 00:34 Dose: 1 mg Pantoprazole Sodium (Protonix Ec Tab) 40 mg PO Q12 [facility] Last Admin: 09/30/16 09:58 Dose: 40 mg Tamsulosin HCl (Flomax) 0.4 mg PO DAILY [facility] Last Admin: 09/30/16 09:58 Dose: 0.4 mg - Labs Labs: 09/30/16 07:00 09/30/16 07:00
--- NOTE | 2016-09-30 16:50 | NM ---
PROCEDURE: Ceretec labeled white blood cell study HISTORY: splenic abscesses/metastasis COMPARISON: 09/26/2016. CT abdomen and pelvis TECHNIQUE: 18.1 mCi technetium 99 M Ceretec labeled white blood cells administered intravenously. FINDINGS: Expected uptake in the liver, spleen and bowel. No Ceretec avid abnormalities to suggest an acute inflammatory process/abscess. IMPRESSION: Negative examination for inflammatory process. Particular attention was directed to the spleen.
[2016-10-01] MEDS: Pantoprazole 40 mg EC Tab PO SCH ×2 (09:05→21:06)
[2016-10-01] MEDS: Enoxaparin 40 mg Syringe SC SCH (09:06)
[2016-10-01] MEDS: Aritificial Tears (15ml) OU PRN ×2 (09:25→19:55)
[2016-10-01 11:35] LABS: BASO % 0.5 % (0.0-2.0); EOS % 0.3 % (0.0-4.0); HEMATOCRIT 40.1 % (35.0-51.0); LYMPH # 1.6 K/uL (1.0-4.3); LYMPH % 18.4 % (20.0-40.0); MEAN CELL VOLUME 88.8 fL (80.0-94.0); MEAN CORPUSCULAR HEMOGLOBIN 29.5 pg (27.0-31.0); MEAN CORPUSCULAR HGB CONC 33.2 g/dL (33.0-37.0); MEAN PLATELET VOLUME 9.5 fL (7.2-11.7); MONO # 1.1 K/uL (0.0-0.8); MONO % 12.5 % (0.0-10.0); RED CELL DISTRIBUTION WIDTH 14.3 % (11.5-14.5); WHITE BLOOD COUNT 8.9 K/uL (4.8-10.8)
--- NOTE | 2016-10-01 14:10 | CP.PCM.PN ---
Subjective - Date & Time of Evaluation Date of Evaluation: 10/01/16 Time of Evaluation: 14:10 - Subjective Subjective: MOST OF TIME PT IS SLEEPING AFEBRILE AWAITING [facility] SCAN AND THEN PLAN FURTHER Objective - Vital Signs/Intake and Output Vital Signs (last 24 hours): Temp Pulse Resp BP Pulse Ox 98.0 F 89 19 128/87 100 09/30/16 23:24 10/01/16 07:30 09/30/16 23:24 09/30/16 23:24 09/30/16 23:24 Intake and Output: 10/01/16 10/01/16 11:59 23:59 Intake Total 400 Output Total 350 Balance 50 - Medications Medications: Current Medications Acetaminophen (Tylenol 325mg Tab) 650 mg PO Q6 PRN PRN Reason: Pain, moderate (4-7) Last Admin: 10/01/16 01:38 Dose: 650 mg Amlodipine Besylate (Norvasc) 10 mg PO DAILY [facility] Last Admin: 10/01/16 09:05 Dose: 10 mg Artificial Tears (Artificial Tears) 0 ml OU Q4 PRN PRN Reason: Dry eyes Last Admin: 10/01/16 09:25 Dose: 1 drop Benztropine Mesylate (Cogentin) 1 mg PO BID [facility] Last Admin: 10/01/16 09:23 Dose: 1 mg Clonazepam (Klonopin) 1 mg PO BID [facility] Last Admin: 10/01/16 09:05 Dose: 1 mg Enoxaparin Sodium (Lovenox) 40 mg SC DAILY [facility] Last Admin: 10/01/16 09:06 Dose: 40 mg Fluphenazine HCl (Prolixin) 5 mg PO BID [facility] Last Admin: 10/01/16 09:23 Dose: 5 mg Ceftriaxone Sodium 1 gm/ (Sodium Chloride) 100 mls @ 100 mls/hr IVPB Q12H [facility] Last Admin: 10/01/16 00:03 Dose: Not Given Vancomycin HCl 1,000 mg/ (Sodium Chloride) 250 mls @ 166.6 mls/hr IVPB Q12H [facility] Last Admin: 10/01/16 01:08 Dose: Not Given Lisinopril (Zestril) 20 mg PO BID [facility] Last Admin: 09/30/16 17:30 Dose: 20 mg Lorazepam (Ativan) 1 mg PO Q6 PRN PRN Reason: Agitation Last Admin: 10/01/16 09:05 Dose: 1 mg Pantoprazole Sodium (Protonix Ec Tab) 40 mg PO Q12 [facility] Last Admin: 10/01/16 09:05 Dose: 40 mg Tamsulosin HCl (Flomax) 0.4 mg PO DAILY [facility] Last Admin: 10/01/16 09:05 Dose: 0.4 mg - Labs Labs: 10/01/16 11:27 09/30/16 07:00
--- NOTE | 2016-10-01 21:30 | CARD ---
APPROVED REPORT EKG Measurement Heart [id number] <Conclusion> Sinus tachycardia with premature atrial complexes with aberrant conduction Otherwise normal ECG
--- NOTE | 2016-10-01 22:01 | CARD ---
APPROVED REPORT EXAM: Two-dimensional and M-mode echocardiogram with Doppler and color Doppler. Other Information Quality : GoodRhythm : NSR INDICATION Endocarditis Onset RISK FACTORS Hypertension M-Mode DIMENSIONS RVDd0.92 (2.1-3.2cm)Left Atrium (MM)2.73 (2.5-4.0cm) IVSd1.22 (0.7-1.1cm)Aortic Root3.28 (2.2-3.7cm) LVDd6.56 (4.0-5.6cm)Aortic Cusp Exc.1.95 (1.5-2.0cm) PWd1.22 (0.7-1.1cm)FS (%) 27 % LVDs4.79 (2.0-3.8cm)LVEF (%)51 (>50%) Aortic Valve AoV Peak Jwjkanrv250.0cm/Sarah Peak GR.4mmHg Mitral Valve MV E Lbmfkydg49.7cm/sMV A Jevwomlh84.7cm/sE/A ratio1.0 TDI E/Lateral E'0.0E/Medial E'0.0 Tricuspid Valve TR Peak Uhljhtwr324vd/sTR Peak Gr.37zgOmYJHC64diEw LEFT VENTRICLE The left ventricle is normal size. There is mild concentric left ventricular hypertrophy. The left ventricular function is normal. The left ventricular ejection fraction is 55-60% Septal motion consistent with conduction abnormality. Transmitral Doppler flow pattern is Grade I-abnormal relaxation pattern. RIGHT VENTRICLE The right ventricle is normal size. There is normal right ventricular wall thickness. The right ventricular systolic function is normal. ATRIA The left atrium size is normal. The right atrium size is normal. The interatrial septum is intact with no evidence for an atrial septal defect. AORTIC VALVE The aortic valve is mildly thickened. No aortic regurgitation is present. There is no aortic valvular stenosis. There is no aortic valvular vegetation. MITRAL VALVE The mitral valve is normal in structure. There is no evidence of mitral valve prolapse. There is no mitral valve stenosis. There is no mitral valve regurgitation noted. TRICUSPID VALVE The tricuspid valve is normal in structure. There is trace to mild tricuspid regurgitation. There is no tricuspid valve prolapse or vegetation. There is no tricuspid valve stenosis. PULMONIC VALVE NWV GREAT VESSELS The aortic root is normal in size. The IVC is normal in size and collapses >50% with inspiration. PERICARDIAL EFFUSION There is no pericardial effusion. <Conclusion> The left ventricular ejection fraction is 55-60% There is mild concentric left ventricular hypertrophy. Septal motion consistent with conduction abnormality. Transmitral Doppler flow pattern is Grade I-abnormal relaxation pattern. The aortic valve is mildly thickened. The mitral valve is normal in structure. The tricuspid valve is normal in structure. There is no aortic, tricuspid or mitral valvular vegetation. The PV is not well visualized
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
[2016-10-02] MEDS: Aritificial Tears (15ml) OU PRN ×2 (00:22→17:47)
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
[2016-10-02] MEDS ORDERED: Iodixanol 320 MG/ML 100 ML BOTTLE IV ONE (08:55)
[2016-10-02] MEDS: Pantoprazole 40 mg EC Tab PO SCH ×2 (08:59→23:00)
[2016-10-02] MEDS: Enoxaparin 40 mg Syringe SC SCH (08:59)
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
--- NOTE | 2016-10-02 13:57 | CP.PCM.PN ---
Subjective - Date & Time of Evaluation Date of Evaluation: 10/02/16 Time of Evaluation: 13:55 - Subjective Subjective: RESTLESS AND AGITATION REFUSING IV VANCO W/U FOR ENDOCARDITIS AND LYMPHOMA PSYCH F/U TO ADJUST MEDS Objective - Vital Signs/Intake and Output Vital Signs (last 24 hours): Temp Pulse Resp BP Pulse Ox 98.0 F 104 H 20 158/88 H 95 10/02/16 09:00 10/02/16 09:00 10/02/16 09:00 10/02/16 09:00 10/02/16 09:00 Intake and Output: 10/02/16 10/02/16 11:59 23:59 Intake Total 360 Balance 360 - Medications Medications: Current Medications Acetaminophen (Tylenol 325mg Tab) 650 mg PO Q6 PRN PRN Reason: Pain, moderate (4-7) Last Admin: 10/02/16 09:01 Dose: 650 mg Amlodipine Besylate (Norvasc) 10 mg PO DAILY [facility] Last Admin: 10/02/16 08:59 Dose: 10 mg Artificial Tears (Artificial Tears) 0 ml OU Q4 PRN PRN Reason: Dry eyes Last Admin: 10/02/16 00:22 Dose: 2 drop Benztropine Mesylate (Cogentin) 1 mg PO BID [facility] Last Admin: 10/02/16 09:01 Dose: 1 mg Clonazepam (Klonopin) 1 mg PO BID [facility] Last Admin: 10/02/16 08:59 Dose: 1 mg Enoxaparin Sodium (Lovenox) 40 mg SC DAILY [facility] Last Admin: 10/02/16 08:59 Dose: 40 mg Fluphenazine HCl (Prolixin) 5 mg PO BID [facility] Last Admin: 10/02/16 09:01 Dose: 5 mg Vancomycin HCl 1,000 mg/ (Sodium Chloride) 250 mls @ 166.6 mls/hr IVPB Q12H [facility] Last Admin: 10/02/16 13:00 Dose: 166.6 mls/hr Lisinopril (Zestril) 20 mg PO BID [facility] Last Admin: 10/02/16 08:59 Dose: 20 mg Lorazepam (Ativan) 1 mg PO Q6 PRN PRN Reason: Agitation Last Admin: 10/02/16 13:54 Dose: 1 mg Pantoprazole Sodium (Protonix Ec Tab) 40 mg PO Q12 [facility] Last Admin: 10/02/16 08:59 Dose: 40 mg Tamsulosin HCl (Flomax) 0.4 mg PO DAILY [facility] Last Admin: 10/02/16 08:59 Dose: 0.4 mg - Labs Labs: 10/01/16 11:27 09/30/16 07:00
--- NOTE | 2016-10-02 16:52 | PCM.PYCHPN ---
Psychiatric Progress Note - Psychiatric Progress Note Patient seen today, length of contact: 16 min Patient Chief Complaint: 'I have a lot of abdominal pain' Problems Identified/Issues Discussed: Patient seen and evaluated, chart reviewed and discussed with the nurse. Today patient appeared more organized and less internally preoccupied. He reports improvement in his hallucinations and denies any persecutory delusions. He reports improvement in his mood and he no longer had any racing of thoughts or flight of ideas. However he is irritable and agitated because of lower abdominal pain. As per staff patient is coherent but appears to be in a lot of pain. He is taking medication and denies any side effects Supportive therapy and psychoeducation were given. Medication Change: No Medical Record Reviewed: Yes Mental Status Examination - Cognitive Function Orientation: Person, Place, Situation, Time Memory: Intact Attention: Poor Concentration: WNL Association: Loose Fund of Knowledge: WNL - Mood Mood: Anxious - Affect Affect: Broad - Speech Speech: Soft - Formal Thought Process Formal Thought Process: Hallucinations, Paranoia - Suicidal Ideation Suicidal Ideation: No - Homicidal Ideation Homicidal Ideation: No Goal/Treatment Plan - Goal/Treatment Plan Need for Continued Stay: Discharge may exacerbated symptoms, Severe functional impairment Progress Toward Problem(s) and Goals/Treatment Plan: Schizophrenia paranoid type continuous rule out schizoaffective disorder bipolar type CBT Psychoeducation Supportive therapy, group therapy, individual therapy Prolixin 5 mg by mouth twice a day Cogentin 1 mg by mouth twice a day Klonopin 1 mg by mouth twice a day Ativan 1 mg by mouth every 6 hours when necessary Since patient is less psychotic and his behavioral symptoms are improving, psychiatrically, he is stable and has full capacity to make medical decisions. - Smoking Cessation Smoking Cessation Initiated: No
[2016-10-02] MEDS: Tears Naturale Forte (15ml) OS SCH (20:25)
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
[2016-10-03] MEDS: Aritificial Tears (15ml) OU PRN (02:28)
[2016-10-03] MEDS: Pantoprazole 40 mg EC Tab PO SCH ×2 (09:11→21:09)
[2016-10-03] MEDS: Tears Naturale Forte (15ml) OS SCH (09:12)
[2016-10-03] MEDS: Enoxaparin 40 mg Syringe SC SCH (09:12)
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
[2016-10-03] MEDS: Aritificial Tears (15ml) OS SCH ×3 (13:42→21:09)
[2016-10-03] MEDS ORDERED: Iodixanol 320 MG/ML 100 ML BOTTLE IV ONE (16:00)
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
--- NOTE | 2016-10-03 17:29 | CT ---
PROCEDURE: CT Chest with contrast HISTORY: Follow-up splenic lesions ? malignancy Relevant medical history: Hepatitis-C. Prior surgical history: Appendectomy. COMPARISON: None. TECHNIQUE: Contiguous axial images were obtained through the chest with intravenous contrast enhancement. Sagittal and coronal reconstructions were performed. IV contrast: 100 cc Omnipaque 350 Radiation dose (DLP): 251.67 mGy-cm. This CT exam was performed using one or more of the following dose reduction techniques: Automated exposure control, adjustment of the mA and/or kV according to patient size, and/or use of iterative reconstruction technique. FINDINGS: LUNGS: Clear lungs. Visualized airway clear.Incidental finding(s): Multiple calcified granuloma none larger than 4 mm right lower lobe. Lastly floridalma MEDIASTINUM: Unremarkable thoracic aorta. No aneurysm or dissection. Normal sized heart. Main pulmonary artery unremarkable. No vascular congestion. No lymphadenopathy. PLEURA: No pleural fluid. No pneumothorax. BONES: No fracture. No destructive lesion. UPPER ABDOMEN: Confirmation of splenic mass originally seen CT abdomen and pelvis 09/26/2016. OTHER FINDINGS: None. IMPRESSION: No significant or acute findings to account for/ related to the clinical presentation. Additional benign and/or incidental findings described above.
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
[2016-10-04] MEDS: Aritificial Tears (15ml) OU PRN ×2 (00:13→21:03)
[2016-10-04 06:52] LABS: HEMATOCRIT 37.3 % (35.0-51.0); MEAN CORPUSCULAR HEMOGLOBIN 29.2 pg (27.0-31.0); MEAN CORPUSCULAR HGB CONC 33.2 g/dL (33.0-37.0); MEAN PLATELET VOLUME 9.4 fL (7.2-11.7); RED CELL DISTRIBUTION WIDTH 14.4 % (11.5-14.5); WHITE BLOOD COUNT 7.7 K/uL (4.8-10.8)
[2016-10-04 07:33] LABS: CHLORIDE 98 mmol/L (98-107); POTASSIUM 3.2 mmol/L (3.6-5.2); SODIUM 139 mmol/L (132-148)
[2016-10-04 07:36] LABS: BLOOD UREA NITROGEN 13 mg/dL (9-20); CARBON DIOXIDE 33 mmol/L (22-30); GFR AFRICAN-AMERICAN > 60; GLUCOSE,RANDOM 94 mg/dL (75-110)
[2016-10-04 07:37] LABS: CALCIUM 8.7 mg/dl (8.6-10.4)
[2016-10-04] MEDS: Aritificial Tears (15ml) OS SCH ×4 (10:15→22:03)
[2016-10-04] MEDS: Pantoprazole 40 mg EC Tab PO SCH ×2 (10:18→21:03)
[2016-10-04] MEDS ORDERED: Potassium Chloride 20 mEq/15 ml LIQ UD PO ONE (11:00)
[2016-10-04] MEDS ORDERED: Phenylephrine 10 mg/ml Inj ONE (12:14)
--- NOTE | 2016-10-04 12:46 | CP.PCM.PN ---
Subjective - Date & Time of Evaluation Date of Evaluation: 10/04/16 Time of Evaluation: 12:30 - Subjective Subjective: Feels weak Objective - Vital Signs/Intake and Output Vital Signs (last 24 hours): Temp Pulse Resp BP Pulse Ox 98.2 F 76 18 125/88 100 10/04/16 07:25 10/04/16 07:25 10/04/16 07:25 10/04/16 07:25 10/04/16 07:25 Intake and Output: 10/04/16 10/04/16 06:59 18:59 Intake Total 370 Balance 370 - Medications Medications: Current Medications Acetaminophen (Tylenol 325mg Tab) 650 mg PO Q6 PRN PRN Reason: Pain, moderate (4-7) Last Admin: 10/03/16 05:25 Dose: 650 mg Amlodipine Besylate (Norvasc) 10 mg PO DAILY [facility] Last Admin: 10/04/16 10:20 Dose: 10 mg Artificial Tears (Artificial Tears) 0 ml OU Q4 PRN PRN Reason: Dry eyes Last Admin: 10/04/16 00:13 Dose: 2 drop Artificial Tears (Artificial Tears) 0 ml OS QID [facility] Last Admin: 10/04/16 10:15 Dose: 2 drop Benztropine Mesylate (Cogentin) 1 mg PO BID [facility] Last Admin: 10/03/16 17:16 Dose: 1 mg Clonazepam (Klonopin) 1 mg PO BID [facility] Last Admin: 10/03/16 17:16 Dose: 1 mg Enoxaparin Sodium (Lovenox) 40 mg SC DAILY [facility] Last Admin: 10/03/16 09:12 Dose: 40 mg Fluphenazine HCl (Prolixin) 5 mg PO BID [facility] Last Admin: 10/04/16 10:17 Dose: 5 mg Vancomycin HCl 1,000 mg/ (Sodium Chloride) 250 mls @ 166.6 mls/hr IVPB Q12H [facility] Last Admin: 10/04/16 00:04 Dose: 166.6 mls/hr Ceftriaxone Sodium 1 gm/ (Sodium Chloride) 100 mls @ 100 mls/hr IVPB Q12H [facility] Last Admin: 10/04/16 08:12 Dose: 100 mls/hr Potassium Chloride (Potassium Chloride 20 Meq/100 Ml) 20 meq in 100 mls @ 50 mls/hr IVPB Q2 [facility] Stop: 10/04/16 15:59 Lisinopril (Zestril) 20 mg PO BID [facility] Last Admin: 10/04/16 10:20 Dose: 20 mg Lorazepam (Ativan) 1 mg PO Q6 PRN PRN Reason: Agitation Last Admin: 10/04/16 06:15 Dose: 1 mg Pantoprazole Sodium (Protonix Ec Tab) 40 mg PO Q12 [facility] Last Admin: 10/04/16 10:18 Dose: 40 mg Tamsulosin HCl (Flomax) 0.4 mg PO DAILY [facility] Last Admin: 10/04/16 10:18 Dose: 0.4 mg - Labs Labs: 10/04/16 06:44 10/04/16 06:44 PT 11.7 SECONDS (9.7-12.2) 10/04/16 06:44 INR 1.0 10/04/16 06:44 - Head Exam Head Exam: ATRAUMATIC - ENT Exam ENT Exam: Mucous Membranes Dry - Respiratory Exam Respiratory Exam: NORMAL BREATHING PATTERN - Cardiovascular Exam Cardiovascular Exam: +S1 - GI/Abdominal Exam GI & Abdominal Exam: Normal Bowel Sounds - Extremities Exam Extremities Exam: Normal Inspection Assessment and Plan (1) Splenic lesion Assessment & Plan: rule out malignancy; recommend IR biopsy of splenic lesions Status: Acute (2) Bone lesion Assessment & Plan: myeloma w/u sent isolated lesion seen on CT but skeletal survey negative for lytic bone lesions Status: Acute (3) Anemia Assessment & Plan: mild will check ferritin, retic count, b12, folate to further characterize Status: Acute
--- NOTE | 2016-10-04 13:12 | CP.PCM.PN ---
Subjective - Date & Time of Evaluation Date of Evaluation: 10/04/16 Time of Evaluation: 13:11 - Subjective Subjective: PERIODS OF AGITATION FOR DREW TODAY WILL NEED SPLEEN BIOPSY MRI CAN NOT BE DONE Objective - Vital Signs/Intake and Output Vital Signs (last 24 hours): Temp Pulse Resp BP Pulse Ox 98.2 F 76 18 125/88 100 10/04/16 07:25 10/04/16 07:25 10/04/16 07:25 10/04/16 07:25 10/04/16 07:25 Intake and Output: 10/04/16 10/04/16 11:59 23:59 Intake Total 370 Balance 370 - Medications Medications: Current Medications Acetaminophen (Tylenol 325mg Tab) 650 mg PO Q6 PRN PRN Reason: Pain, moderate (4-7) Last Admin: 10/03/16 05:25 Dose: 650 mg Amlodipine Besylate (Norvasc) 10 mg PO DAILY [facility] Last Admin: 10/04/16 10:20 Dose: 10 mg Artificial Tears (Artificial Tears) 0 ml OU Q4 PRN PRN Reason: Dry eyes Last Admin: 10/04/16 00:13 Dose: 2 drop Artificial Tears (Artificial Tears) 0 ml OS QID [facility] Last Admin: 10/04/16 10:15 Dose: 2 drop Benztropine Mesylate (Cogentin) 1 mg PO BID [facility] Last Admin: 10/03/16 17:16 Dose: 1 mg Clonazepam (Klonopin) 1 mg PO BID [facility] Last Admin: 10/03/16 17:16 Dose: 1 mg Enoxaparin Sodium (Lovenox) 40 mg SC DAILY [facility] Last Admin: 10/03/16 09:12 Dose: 40 mg Fluphenazine HCl (Prolixin) 5 mg PO BID [facility] Last Admin: 10/04/16 10:17 Dose: 5 mg Vancomycin HCl 1,000 mg/ (Sodium Chloride) 250 mls @ 166.6 mls/hr IVPB Q12H [facility] Last Admin: 10/04/16 00:04 Dose: 166.6 mls/hr Ceftriaxone Sodium 1 gm/ (Sodium Chloride) 100 mls @ 100 mls/hr IVPB Q12H [facility] Last Admin: 10/04/16 08:12 Dose: 100 mls/hr Potassium Chloride (Potassium Chloride 20 Meq/100 Ml) 20 meq in 100 mls @ 50 mls/hr IVPB Q2 [facility] Stop: 10/04/16 15:59 Lisinopril (Zestril) 20 mg PO BID [facility] Last Admin: 10/04/16 10:20 Dose: 20 mg Lorazepam (Ativan) 1 mg PO Q6 PRN PRN Reason: Agitation Last Admin: 10/04/16 06:15 Dose: 1 mg Pantoprazole Sodium (Protonix Ec Tab) 40 mg PO Q12 [facility] Last Admin: 10/04/16 10:18 Dose: 40 mg Tamsulosin HCl (Flomax) 0.4 mg PO DAILY [facility] Last Admin: 10/04/16 10:18 Dose: 0.4 mg - Labs Labs: 10/04/16 06:44 10/04/16 06:44 PT 11.7 SECONDS (9.7-12.2) 10/04/16 06:44 INR 1.0 10/04/16 06:44
[2016-10-04] MEDS: Enoxaparin 40 mg Syringe SC SCH (13:20)
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
--- NOTE | 2016-10-04 17:26 | CP.PCM.PN ---
Subjective - Date & Time of Evaluation Date of Evaluation: 10/04/16 Time of Evaluation: 17:21 - Subjective Subjective: Patient's mental status is unchanged. He denies having nausea or vomiting. He complains of RUQ discomfort. He had one formed stool today. Objective - Vital Signs/Intake and Output Vital Signs (last 24 hours): Temp Pulse Resp BP Pulse Ox 97.4 F L 89 20 107/83 100 10/04/16 16:00 10/04/16 16:00 10/04/16 16:00 10/04/16 16:00 10/04/16 16:00 Intake and Output: 10/04/16 10/04/16 06:59 18:59 Intake Total 370 Balance 370 - Medications Medications: Current Medications Acetaminophen (Tylenol 325mg Tab) 650 mg PO Q6 PRN PRN Reason: Pain, moderate (4-7) Last Admin: 10/03/16 05:25 Dose: 650 mg Amlodipine Besylate (Norvasc) 10 mg PO DAILY [facility] Last Admin: 10/04/16 10:20 Dose: 10 mg Artificial Tears (Artificial Tears) 0 ml OU Q4 PRN PRN Reason: Dry eyes Last Admin: 10/04/16 00:13 Dose: 2 drop Artificial Tears (Artificial Tears) 0 ml OS QID [facility] Last Admin: 10/04/16 13:20 Dose: 2 drop Benztropine Mesylate (Cogentin) 1 mg PO BID [facility] Last Admin: 10/04/16 13:20 Dose: 1 mg Clonazepam (Klonopin) 1 mg PO BID [facility] Last Admin: 10/04/16 13:20 Dose: 1 mg Enoxaparin Sodium (Lovenox) 40 mg SC DAILY [facility] Last Admin: 10/04/16 13:20 Dose: 40 mg Fluphenazine HCl (Prolixin) 5 mg PO BID [facility] Last Admin: 10/04/16 10:17 Dose: 5 mg Vancomycin HCl 1,000 mg/ (Sodium Chloride) 250 mls @ 166.6 mls/hr IVPB Q12H [facility] Last Admin: 10/04/16 13:43 Dose: 166.6 mls/hr Ceftriaxone Sodium 1 gm/ (Sodium Chloride) 100 mls @ 100 mls/hr IVPB Q12H [facility] Last Admin: 10/04/16 08:12 Dose: 100 mls/hr Lisinopril (Zestril) 20 mg PO BID [facility] Last Admin: 10/04/16 10:20 Dose: 20 mg Lorazepam (Ativan) 1 mg PO Q6 PRN PRN Reason: Agitation Last Admin: 10/04/16 06:15 Dose: 1 mg Pantoprazole Sodium (Protonix Ec Tab) 40 mg PO Q12 [facility] Last Admin: 10/04/16 10:18 Dose: 40 mg Tamsulosin HCl (Flomax) 0.4 mg PO DAILY [facility] Last Admin: 10/04/16 10:18 Dose: 0.4 mg - Labs Labs: 10/04/16 06:44 10/04/16 06:44 PT 11.7 SECONDS (9.7-12.2) 10/04/16 06:44 INR 1.0 10/04/16 06:44 - Constitutional Appears: No Acute Distress - Neck Exam Neck Exam: absent: Lymphadenopathy, Thyromegaly - Respiratory Exam Respiratory Exam: NORMAL BREATHING PATTERN. absent: Rales, Rhonchi, Wheezes - Cardiovascular Exam Cardiovascular Exam: REGULAR RHYTHM, +S1, +S2. absent: Gallop, Rubs, Murmur - GI/Abdominal Exam GI & Abdominal Exam: Soft, Normal Bowel Sounds. absent: Tenderness, Mass, Organomegaly - Rectal Exam Rectal Exam: NORMAL INSPECTION - Extremities Exam Extremities Exam: absent: Calf Tenderness, Pedal Edema Assessment and Plan (1) Splenic mass Assessment & Plan: Continue antibiotics. Check results of DREW. Consider bone marrow biopsy. Repeat CT scan next week. If no change in the splenic lesion, consider splenectomy. Status: Acute
--- NOTE | 2016-10-04 23:04 | CP.PCM.PN ---
Subjective - Date & Time of Evaluation Date of Evaluation: 10/04/16 Time of Evaluation: 13:00 - Subjective Subjective: Patient s/p DREW No evidence of endocarditis Full report to follow Objective - Vital Signs/Intake and Output Vital Signs (last 24 hours): Temp Pulse Resp BP Pulse Ox 97.4 F L 89 20 107/83 100 10/04/16 16:00 10/04/16 16:00 10/04/16 16:00 10/04/16 16:00 10/04/16 16:00 - Medications Medications: Current Medications Acetaminophen (Tylenol 325mg Tab) 650 mg PO Q6 PRN PRN Reason: Pain, moderate (4-7) Last Admin: 10/03/16 05:25 Dose: 650 mg Amlodipine Besylate (Norvasc) 10 mg PO DAILY [facility] Last Admin: 10/04/16 10:20 Dose: 10 mg Artificial Tears (Artificial Tears) 0 ml OU Q4 PRN PRN Reason: Dry eyes Last Admin: 10/04/16 21:03 Dose: 2 drop Artificial Tears (Artificial Tears) 0 ml OS QID [facility] Last Admin: 10/04/16 22:03 Dose: 2 drop Benztropine Mesylate (Cogentin) 1 mg PO BID [facility] Last Admin: 10/04/16 17:26 Dose: 1 mg Clonazepam (Klonopin) 1 mg PO BID [facility] Last Admin: 10/04/16 17:26 Dose: 1 mg Enoxaparin Sodium (Lovenox) 40 mg SC DAILY [facility] Last Admin: 10/04/16 13:20 Dose: 40 mg Fluphenazine HCl (Prolixin) 5 mg PO BID [facility] Last Admin: 10/04/16 17:25 Dose: 5 mg Vancomycin HCl 1,000 mg/ (Sodium Chloride) 250 mls @ 166.6 mls/hr IVPB Q12H [facility] Last Admin: 10/04/16 13:43 Dose: 166.6 mls/hr Ceftriaxone Sodium 1 gm/ (Sodium Chloride) 100 mls @ 100 mls/hr IVPB Q12H [facility] Last Admin: 10/04/16 21:03 Dose: 100 mls/hr Lisinopril (Zestril) 20 mg PO BID [facility] Last Admin: 10/04/16 17:26 Dose: 20 mg Lorazepam (Ativan) 1 mg PO Q6 PRN PRN Reason: Agitation Last Admin: 10/04/16 06:15 Dose: 1 mg Pantoprazole Sodium (Protonix Ec Tab) 40 mg PO Q12 [facility] Last Admin: 10/04/16 21:03 Dose: 40 mg Tamsulosin HCl (Flomax) 0.4 mg PO DAILY [facility] Last Admin: 10/04/16 10:18 Dose: 0.4 mg - Labs Labs: 10/04/16 06:44 10/04/16 06:44 PT 11.7 SECONDS (9.7-12.2) 10/04/16 06:44 INR 1.0 10/04/16 06:44
[2016-10-05] MEDS: Aritificial Tears (15ml) OU PRN ×2 (03:44→17:31)
[2016-10-05] MEDS: Pantoprazole 40 mg EC Tab PO SCH ×2 (11:00→21:18)
[2016-10-05] MEDS: Aritificial Tears (15ml) OS SCH ×3 (11:00→22:44)
[2016-10-05] MEDS: Enoxaparin 40 mg Syringe SC SCH (11:21)
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
--- NOTE | 2016-10-05 13:27 | CP.PCM.DIS ---
Provider - Provider Date of Admission: 09/27/16 16:03 Attending physician: Mary Sam MD Time Spent in preparation of Discharge (in minutes): 35 Hospital Course - Lab Results Lab Results: Most Recent Lab Values WBC 7.7 K/uL (4.8-10.8) 10/04/16 06:44 RBC 4.24 Mil/uL (4.40-5.90) L 10/04/16 06:44 Hgb 12.4 g/dL (12.0-18.0) 10/04/16 06:44 Hct 37.3 % (35.0-51.0) 10/04/16 06:44 MCV 88.0 fL (80.0-94.0) 10/04/16 06:44 MCH 29.2 pg (27.0-31.0) 10/04/16 06:44 MCHC 33.2 g/dL (33.0-37.0) 10/04/16 06:44 RDW 14.4 % (11.5-14.5) 10/04/16 06:44 Plt Count 175 K/uL (130-400) 10/04/16 06:44 MPV 9.4 fL (7.2-11.7) 10/04/16 06:44 Neut % (Auto) 68.3 % (50.0-75.0) 10/01/16 11:27 Lymph % (Auto) 18.4 % (20.0-40.0) L 10/01/16 11:27 [place] % (Auto) 12.5 % (0.0-10.0) H 10/01/16 11:27 Eos % (Auto) 0.3 % (0.0-4.0) 10/01/16 11:27 Baso % (Auto) 0.5 % (0.0-2.0) 10/01/16 11:27 Neut # 6.1 K/uL (1.8-7.0) 10/01/16 11:27 Lymph # 1.6 K/uL (1.0-4.3) 10/01/16 11:27 [place] # 1.1 K/uL (0.0-0.8) H 10/01/16 11:27 Eos # 0.0 K/uL (0.0-0.7) 10/01/16 11:27 Baso # 0.0 K/uL (0.0-0.2) 10/01/16 11:27 ESR 10 mm/hr (0-15) 09/28/16 08:57 PT 11.7 SECONDS (9.7-12.2) 10/04/16 06:44 INR 1.0 10/04/16 06:44 Sodium 139 mmol/L (132-148) 10/04/16 06:44 Potassium 3.2 mmol/L (3.6-5.2) L 10/04/16 06:44 Chloride 98 mmol/L (98-107) 10/04/16 06:44 Carbon Dioxide 33 mmol/L (22-30) H 10/04/16 06:44 Anion Gap 11 (10-20) 10/04/16 06:44 BUN 13 mg/dL (9-20) 10/04/16 06:44 Creatinine 0.7 MG/DL (0.8-1.5) L 10/04/16 06:44 Est GFR ( Amer) > 60 10/04/16 06:44 Est GFR (Non-Af Amer) > 60 10/04/16 06:44 POC Glucose (mg/dL) 102 mg/dL (65-110) 09/28/16 11:45 Random Glucose 94 mg/dL (75-110) 10/04/16 06:44 Calcium 8.7 mg/dl (8.6-10.4) 10/04/16 06:44 Total Bilirubin 0.5 mg/dL (0.2-1.3) 09/30/16 07:00 AST 30 U/L (17-59) 09/30/16 07:00 ALT 43 U/L (21-72) 09/30/16 07:00 Alkaline Phosphatase 42 U/L (38-126) 09/30/16 07:00 Lactate Dehydrogenase 419 U/L (313-618) 09/28/16 08:37 Total Creatine Kinase 23 U/L (55-170) L 09/28/16 08:37 CK-MB (Mass) 0.38 ng/mL (0.0-3.38) 09/28/16 08:37 Troponin I < 0.0120 ng/mL (0.00-0.120) 09/26/16 16:41 Troponin I, Quant 0.0140 ng/mL (0.00-0.120) 09/28/16 08:37 C-React Prot High Sens 0.28 mg/L (1.00-3.00) L 09/28/16 08:38 Total Protein 7.2 g/dL (6.3-8.3) 09/30/16 07:00 Albumin 4.1 g/dL (3.5-5.0) 09/30/16 07:00 Globulin 3.1 gm/dL (2.2-3.9) 09/30/16 07:00 Albumin/Globulin Ratio 1.3 (1.0-2.1) 09/30/16 07:00 Lipase 237 U/L (23-300) 09/26/16 16:41 Angiotensin Convert Enz 8 U/L (9-67) L 09/28/16 08:38 Urine Color Yellow (YELLOW) 09/26/16 18:08 Urine Clarity Clear (Clear) 09/26/16 18:08 Urine pH 6.0 (5.0-8.0) 09/26/16 18:08 Ur Specific [place] 1.031 (1.003-1.030) H 09/26/16 18:08 Urine Protein 2+ mg/dL (NEGATIVE) H 09/26/16 18:08 Urine Glucose (UA) Normal mg/dL (Normal) 09/26/16 18:08 Urine Ketones Trace mg/dL (NEGATIVE) 09/26/16 18:08 Urine Blood 1+ (NEGATIVE) H 09/26/16 18:08 Urine Nitrate Negative (NEGATIVE) 09/26/16 18:08 Urine Bilirubin Negative (NEGATIVE) 09/26/16 18:08 Urine Urobilinogen Normal mg/dL (0.2-1.0) 09/26/16 18:08 Ur Leukocyte Esterase Neg Hussein/uL (Negative) 09/26/16 18:08 Urine WBC (Auto) 1 /hpf (0-5) 09/26/16 18:08 Urine RBC (Auto) 5 /hpf (0-3) H 09/26/16 18:08 Urine Bacteria Rare (<OCC) 09/26/16 18:08 Hyaline Casts 0-2 /lpf (0-2) 09/26/16 18:08 Stool Occult Blood Negative (NEGATIVE) 09/28/16 13:20 Vancomycin Trough 10.8 ug/mL (5.0-10.0) H 09/28/16 08:38 Urine Opiates Screen Negative (NEGATIVE) 09/26/16 15:41 Urine Methadone Screen Negative (NEGATIVE) 09/26/16 15:41 Ur Barbiturates Screen Negative (NEGATIVE) 09/26/16 15:41 Ur Phencyclidine Scrn Negative (NEGATIVE) 09/26/16 15:41 Ur Amphetamines Screen Negative (NEGATIVE) 09/26/16 15:41 U Benzodiazepines Scrn Negative (NEGATIVE) 09/26/16 15:41 U Oth Cocaine Metabols Negative (NEGATIVE) 09/26/16 15:41 U Cannabinoids Screen Negative (NEGATIVE) 09/26/16 15:41 Alcohol, Quantitative < 10 mg/dl (0-10) 09/26/16 16:41 Complement C2 1.7 mg/dL (1.6-3.5) 09/28/16 08:38 Complement C4 28.4 mg/dL (14.0-44.0) 09/28/16 08:38 Tot Complement (CH50) >60 U/mL (31-60) H 09/28/16 08:38 - Hospital Course Hospital Course: PT PRESENTED TO ER WITH VAGUE ABD PAIN . NO N/V . CT ABD SHOWED HYPOECHOIC SCATTERED SONY IN SPLEEN . PT. ADMITTED FOR POSSIBLE ENDOCARDITIS . PT RECENTLY WAS ADMITTED IN FOR ACUTE PSYCHOSIS AND DENTAL ABSCESS. ECHO THAT TIME DID NOT SHOW ANY VALVULAR ABNORMALITY . PT WAS TRANSFERRED TO [facility]CH [facility]. PT WAS TRANSFERRED FROM [facility] FAILURE TO THRIVE CONTINUED PT HAS H/O HEP. C / HTN/ANXIETY AND DEPRESSION PSYCH/ID/HEM/GI WERE CONSULTED DREW WAS NEG FOR VEGETATION IN [facility] /SINDY WAS GIVEN NO DEFINITE CAUSE FOR ABN SPLEEN WAS DETECTED PT HAS PISS LINE FOR IV AB AND HYPERALIMENTATION WILL TRANSFER PT TO [facility] AND REPEAT T ABD AND POSSIBLE BONE [facility]OW [facility]END[facility] FAMILY HAD ISSUES WITH [facility] AND PT WAS DELAYED FOR DISCHARGE PT NOW ACCEPTED AT [facility] IN [place] WHICH IS AGREEABLE TO ALL PARTIES INVOLVING PT Discharge Exam - Head Exam Head Exam: NORMAL INSPECTION Discharge Plan - Follow Up Plan Condition: GOOD Disposition: HOME/ ROUTINE
--- NOTE | 2016-10-05 14:58 | CP.PCM.PN ---
Subjective - Date & Time of Evaluation Date of Evaluation: 10/05/16 Time of Evaluation: 14:56 - Subjective Subjective: Patient complains of weakness, pain all over the body. He denies having nausea , vomiting, diarrhea. He had one soft bowel movement today. Objective - Vital Signs/Intake and Output Vital Signs (last 24 hours): Temp Pulse Resp BP Pulse Ox 97.9 F 90 20 114/83 100 10/05/16 07:30 10/05/16 07:30 10/05/16 07:30 10/05/16 07:30 10/05/16 07:30 - Medications Medications: Current Medications Acetaminophen (Tylenol 325mg Tab) 650 mg PO Q6 PRN PRN Reason: Pain, moderate (4-7) Last Admin: 10/03/16 05:25 Dose: 650 mg Amlodipine Besylate (Norvasc) 10 mg PO DAILY [facility] Last Admin: 10/05/16 11:21 Dose: 10 mg Artificial Tears (Artificial Tears) 0 ml OU Q4 PRN PRN Reason: Dry eyes Last Admin: 10/05/16 03:44 Dose: 1 drop Artificial Tears (Artificial Tears) 0 ml OS QID [facility] Last Admin: 10/05/16 11:00 Dose: 1 drop Benztropine Mesylate (Cogentin) 1 mg PO BID [facility] Last Admin: 10/05/16 11:00 Dose: 1 mg Clonazepam (Klonopin) 1 mg PO BID [facility] Last Admin: 10/05/16 11:23 Dose: 1 mg Enoxaparin Sodium (Lovenox) 40 mg SC DAILY [facility] Last Admin: 10/05/16 11:21 Dose: 40 mg Fluphenazine HCl (Prolixin) 5 mg PO BID [facility] Last Admin: 10/05/16 11:00 Dose: 5 mg Vancomycin HCl 1,000 mg/ (Sodium Chloride) 250 mls @ 166.6 mls/hr IVPB Q12H [facility] Last Admin: 10/05/16 00:23 Dose: 166.6 mls/hr Ceftriaxone Sodium 1 gm/ (Sodium Chloride) 100 mls @ 100 mls/hr IVPB Q12H [facility] Last Admin: 10/05/16 08:00 Dose: 100 mls/hr Lisinopril (Zestril) 20 mg PO BID [facility] Last Admin: 10/05/16 11:21 Dose: 20 mg Lorazepam (Ativan) 1 mg PO Q6 PRN PRN Reason: Agitation Last Admin: 10/05/16 06:20 Dose: 1 mg Pantoprazole Sodium (Protonix Ec Tab) 40 mg PO Q12 [facility] Last Admin: 10/05/16 11:00 Dose: 40 mg Tamsulosin HCl (Flomax) 0.4 mg PO DAILY [facility] Last Admin: 10/05/16 11:00 Dose: 0.4 mg - Labs Labs: 10/04/16 06:44 10/04/16 06:44 PT 11.7 SECONDS (9.7-12.2) 10/04/16 06:44 INR 1.0 10/04/16 06:44 - Constitutional Appears: In Acute Distress - Neck Exam Neck Exam: absent: Lymphadenopathy, Thyromegaly - Respiratory Exam Respiratory Exam: NORMAL BREATHING PATTERN. absent: Rales, Rhonchi, Wheezes - Cardiovascular Exam Cardiovascular Exam: REGULAR RHYTHM, +S1, +S2. absent: Gallop, Rubs, Murmur - GI/Abdominal Exam GI & Abdominal Exam: Soft, Normal Bowel Sounds. absent: Tenderness, Mass, Organomegaly - Rectal Exam Rectal Exam: Deferred - Extremities Exam Extremities Exam: absent: Calf Tenderness, Pedal Edema Assessment and Plan (1) Splenic mass Assessment & Plan: Interventional radiology was consulted regarding possible aspiration of the splenic lesion. If they feel it is not feasible, would recommend splenectomy. Status: Acute
--- NOTE | 2016-10-05 19:26 | CP.PCM.PN ---
Subjective - Date & Time of Evaluation Date of Evaluation: 10/05/16 Time of Evaluation: 13:40 - Subjective Subjective: Feels weak Objective - Vital Signs/Intake and Output Vital Signs (last 24 hours): Temp Pulse Resp BP Pulse Ox 98 F 110 H 20 110/72 97 10/05/16 15:00 10/05/16 16:00 10/05/16 15:00 10/05/16 15:00 10/05/16 15:00 - Medications Medications: Current Medications Acetaminophen (Tylenol 325mg Tab) 650 mg PO Q6 PRN PRN Reason: Pain, moderate (4-7) Last Admin: 10/05/16 17:23 Dose: 650 mg Amlodipine Besylate (Norvasc) 10 mg PO DAILY [facility] Last Admin: 10/05/16 11:21 Dose: 10 mg Artificial Tears (Artificial Tears) 0 ml OU Q4 PRN PRN Reason: Dry eyes Last Admin: 10/05/16 17:31 Dose: 1 drop Artificial Tears (Artificial Tears) 0 ml OS QID [facility] Last Admin: 10/05/16 11:00 Dose: 1 drop Benztropine Mesylate (Cogentin) 1 mg PO BID [facility] Last Admin: 10/05/16 19:00 Dose: 1 mg Clonazepam (Klonopin) 1 mg PO BID [facility] Last Admin: 10/05/16 17:23 Dose: 1 mg Enoxaparin Sodium (Lovenox) 40 mg SC DAILY [facility] Last Admin: 10/05/16 11:21 Dose: 40 mg Fluphenazine HCl (Prolixin) 5 mg PO BID [facility] Last Admin: 10/05/16 17:32 Dose: 5 mg Vancomycin HCl 1,000 mg/ (Sodium Chloride) 250 mls @ 166.6 mls/hr IVPB Q12H [facility] Last Admin: 10/05/16 00:23 Dose: 166.6 mls/hr Ceftriaxone Sodium 1 gm/ (Sodium Chloride) 100 mls @ 100 mls/hr IVPB Q12H [facility] Last Admin: 10/05/16 08:00 Dose: 100 mls/hr Lisinopril (Zestril) 20 mg PO BID [facility] Last Admin: 10/05/16 17:23 Dose: 20 mg Lorazepam (Ativan) 1 mg PO Q6 PRN PRN Reason: Agitation Last Admin: 10/05/16 16:36 Dose: 1 mg Pantoprazole Sodium (Protonix Ec Tab) 40 mg PO Q12 [facility] Last Admin: 10/05/16 11:00 Dose: 40 mg Tamsulosin HCl (Flomax) 0.4 mg PO DAILY [facility] Last Admin: 10/05/16 11:00 Dose: 0.4 mg - Labs Labs: 10/04/16 06:44 10/04/16 06:44 PT 11.7 SECONDS (9.7-12.2) 10/04/16 06:44 INR 1.0 10/04/16 06:44 - Head Exam Head Exam: ATRAUMATIC - Eye Exam Eye Exam: Normal appearance - ENT Exam ENT Exam: Mucous Membranes Dry - Respiratory Exam Respiratory Exam: NORMAL BREATHING PATTERN - Cardiovascular Exam Cardiovascular Exam: +S1, +S2 - GI/Abdominal Exam GI & Abdominal Exam: Normal Bowel Sounds Assessment and Plan (1) Splenic lesion Assessment & Plan: unable to biopsy possible outpatient PET CT Status: Acute (2) Bone lesion Assessment & Plan: negative skeletal survey Status: Acute (3) Anemia Assessment & Plan: chronic disease Status: Acute
[2016-10-06] MEDS: Aritificial Tears (15ml) OU PRN (01:31)
--- NOTE | 2016-10-06 07:55 | CP.PCM.PN ---
Subjective - Date & Time of Evaluation Date of Evaluation: 10/06/16 Time of Evaluation: 07:54 - Subjective Subjective: Patient denies having nausea, vomiting, abdominal pain. He has not had a bowel movement so far this morning. Objective - Vital Signs/Intake and Output Vital Signs (last 24 hours): Temp Pulse Resp BP Pulse Ox 98.3 F 106 H 20 144/95 H 96 10/05/16 23:35 10/05/16 23:35 10/05/16 23:35 10/05/16 23:35 10/05/16 23:35 - Medications Medications: Current Medications Acetaminophen (Tylenol 325mg Tab) 650 mg PO Q6 PRN PRN Reason: Pain, moderate (4-7) Last Admin: 10/06/16 01:29 Dose: 650 mg Amlodipine Besylate (Norvasc) 10 mg PO DAILY [facility] Last Admin: 10/05/16 11:21 Dose: 10 mg Artificial Tears (Artificial Tears) 0 ml OU Q4 PRN PRN Reason: Dry eyes Last Admin: 10/06/16 01:31 Dose: 1 drop Artificial Tears (Artificial Tears) 0 ml OS QID [facility] Last Admin: 10/05/16 22:44 Dose: 1 drop Benztropine Mesylate (Cogentin) 1 mg PO BID [facility] Last Admin: 10/05/16 19:00 Dose: 1 mg Clonazepam (Klonopin) 1 mg PO BID [facility] Last Admin: 10/05/16 17:23 Dose: 1 mg Enoxaparin Sodium (Lovenox) 40 mg SC DAILY [facility] Last Admin: 10/05/16 11:21 Dose: 40 mg Fluphenazine HCl (Prolixin) 5 mg PO BID [facility] Last Admin: 10/05/16 17:32 Dose: 5 mg Vancomycin HCl 1,000 mg/ (Sodium Chloride) 250 mls @ 166.6 mls/hr IVPB Q12H [facility] Last Admin: 10/06/16 01:33 Dose: 166.6 mls/hr Ceftriaxone Sodium 1 gm/ (Sodium Chloride) 100 mls @ 100 mls/hr IVPB Q12H [facility] Last Admin: 10/05/16 21:17 Dose: Not Given Lisinopril (Zestril) 20 mg PO BID [facility] Last Admin: 10/05/16 17:23 Dose: 20 mg Lorazepam (Ativan) 1 mg PO Q6 PRN PRN Reason: Agitation Last Admin: 10/06/16 06:23 Dose: 1 mg Pantoprazole Sodium (Protonix Ec Tab) 40 mg PO Q12 [facility] Last Admin: 10/05/16 21:18 Dose: 40 mg Tamsulosin HCl (Flomax) 0.4 mg PO DAILY [facility] Last Admin: 10/05/16 11:00 Dose: 0.4 mg - Labs Labs: 10/04/16 06:44 10/04/16 06:44 PT 11.7 SECONDS (9.7-12.2) 10/04/16 06:44 INR 1.0 10/04/16 06:44 - Constitutional Appears: No Acute Distress - Neck Exam Neck Exam: absent: Lymphadenopathy, Thyromegaly - Respiratory Exam Respiratory Exam: NORMAL BREATHING PATTERN. absent: Rales, Rhonchi, Wheezes - Cardiovascular Exam Cardiovascular Exam: REGULAR RHYTHM, +S1, +S2. absent: Gallop, Rubs, Murmur - GI/Abdominal Exam GI & Abdominal Exam: Soft, Normal Bowel Sounds. absent: Tenderness, Mass, Organomegaly - Rectal Exam Rectal Exam: Deferred - Extremities Exam Extremities Exam: absent: Calf Tenderness, Pedal Edema Assessment and Plan (1) Splenic mass Assessment & Plan: Evidently, IR has concluded that biopsy of the splenic mass is not feasible. Agree with plans for outpatient PET-CT scan. Consider splenectomy. Patient is stable for discharge from my standpoint. Status: Acute
[2016-10-06 08:24] VITALS: RESP 18; O2SAT 99
[2016-10-06] MEDS ORDERED: Lidocaine 2% Inj (20ml) ONE (08:28)
--- NOTE | 2016-10-06 09:18 | PCM.SURG1 ---
Surgeon's Initial Post Op Note - Surgeon's Notes Surgeon: Leonard Lockett MD Computer Operations Supervisor: NONE Type of Anesthesia: Local Pre-Operative Diagnosis: Poor venous access Operative Findings: Patent brachial vein. Small basilic vein. Post-Operative Diagnosis: Poor venous access Operation Performed: SIngle lumen picc placement, 39 cm, right brachial vein. Tip in SVC. Specimen/Specimens Removed: None Estimated Blood Loss: EBL {In ML}: 2 Blood Products Given: N/A Drains Used: No Drains Post-Op Condition: Fair Date of Surgery/Procedure: 10/06/16 Time of Surgery/Procedure: 09:00
[2016-10-06] MEDS: Enoxaparin 40 mg Syringe SC SCH (09:46)
[2016-10-06] MEDS: Pantoprazole 40 mg EC Tab PO SCH (09:46)
[2016-10-06] MEDS: Aritificial Tears (15ml) OS SCH (09:47)
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
[2016-10-06 15:48] VITALS: BP 134/84; PULSE 103; TEMP 97.8
--- NOTE | 2016-10-06 15:55 | CP.PCM.PN ---
Subjective - Date & Time of Evaluation Date of Evaluation: 10/06/16 Time of Evaluation: 15:55 - Subjective Subjective: awake, responsive, mumbling, no acute distress. Objective - Vital Signs/Intake and Output Vital Signs (last 24 hours): Temp Pulse Resp BP Pulse Ox 97.6 F 90 18 113/76 99 10/06/16 07:17 10/06/16 07:17 10/06/16 07:17 10/06/16 07:17 10/06/16 07:17 - Medications Medications: Current Medications Acetaminophen (Tylenol 325mg Tab) 650 mg PO Q6 PRN PRN Reason: Pain, moderate (4-7) Last Admin: 10/06/16 01:29 Dose: 650 mg Amlodipine Besylate (Norvasc) 10 mg PO DAILY [facility] Last Admin: 10/06/16 09:46 Dose: 10 mg Artificial Tears (Artificial Tears) 0 ml OU Q4 PRN PRN Reason: Dry eyes Last Admin: 10/06/16 01:31 Dose: 1 drop Artificial Tears (Artificial Tears) 0 ml OS QID [facility] Last Admin: 10/06/16 09:47 Dose: 1 drop Benztropine Mesylate (Cogentin) 1 mg PO BID [facility] Last Admin: 10/06/16 09:47 Dose: 1 mg Clonazepam (Klonopin) 1 mg PO BID [facility] Last Admin: 10/06/16 09:53 Dose: 1 mg Enoxaparin Sodium (Lovenox) 40 mg SC DAILY [facility] Last Admin: 10/06/16 09:46 Dose: 40 mg Fluphenazine HCl (Prolixin) 5 mg PO BID [facility] Last Admin: 10/06/16 09:48 Dose: 5 mg Vancomycin HCl 1,000 mg/ (Sodium Chloride) 250 mls @ 166.6 mls/hr IVPB Q12H [facility] Last Admin: 10/06/16 12:30 Dose: 166.6 mls/hr Ceftriaxone Sodium 1 gm/ (Sodium Chloride) 100 mls @ 100 mls/hr IVPB Q12H [facility] Last Admin: 10/06/16 08:00 Dose: 100 mls/hr Lisinopril (Zestril) 20 mg PO BID [facility] Last Admin: 10/06/16 09:46 Dose: 20 mg Lorazepam (Ativan) 1 mg PO Q6 PRN PRN Reason: Agitation Last Admin: 10/06/16 13:12 Dose: 1 mg Pantoprazole Sodium (Protonix Ec Tab) 40 mg PO Q12 [facility] Last Admin: 10/06/16 09:46 Dose: 40 mg Tamsulosin HCl (Flomax) 0.4 mg PO DAILY [facility] Last Admin: 10/06/16 09:46 Dose: 0.4 mg - Labs Labs: 10/04/16 06:44 10/04/16 06:44 PT 11.7 SECONDS (9.7-12.2) 10/04/16 06:44 INR 1.0 10/04/16 06:44 Assessment and Plan - Assessment and Plan (Free Text) Assessment: Patient is seen and examined. Awake, alert, resting, no agitation. PICC line inserted , plan to discharge to [facility] as per window caser. D/W DR Sam and DR Randle , will continue with rocephin and vancomycin for 2 weeks more as per DR Randle for cellulitis. DREW negative for endocarditis. Instructed to do weekly vanco trough level, CBC and BMP. PPN arranged for poor oral intake.
--- NOTE | 2016-10-06 21:31 | CARD ---
APPROVED REPORT EXAM: Transesophageal echocardiogram with color flow Doppler. Mitral Valve E/A ratio0.0 TDI E/Lateral E'0.0E/Medial E'0.0 Reason For Test : Rule out endocarditis. PROCEDURE After obtaining informed consent, patient underwent transesophageal echo in the [employer]. Type of Sedation : Conscious Sedation Sedation was provided by anesthesiologist. Sedation was achieved with intravenously. The DREW was performed complications. Throughout the procedure, the blood pressure, pulse oximetry, cardiac rhythm, and rate were monitored. The patient tolerated the procedure without adverse effects. Recovery from conscious sedation was uneventful and vital signs were stable. LEFT VENTRICLE The left ventricle is normal size. The left ventricular function is normal. The left ventricular ejection fraction is within the normal range. No left ventricle thrombus noted on this study. There is no ventricular septal defect visualized. There is no left ventricular aneurysm. RIGHT VENTRICLE The right ventricle is normal size. The right ventricular systolic function is normal. ATRIA The left atrium size is normal. The right atrium size is normal. No bubble crossover for right to left AORTIC VALVE The aortic valve is normal in structure. No aortic regurgitation is present. There is no aortic valvular stenosis. There is no aortic valvular vegetation. MITRAL VALVE The mitral valve is normal in structure. There is no mitral valve stenosis. Mitral regurgitation is trace. TRICUSPID VALVE The tricuspid valve is normal in structure. There is mild tricuspid regurgitation. There is no tricuspid valve stenosis. PULMONIC VALVE The pulmonary valve is normal in structure. GREAT VESSELS The aortic root is normal in size. <Conclusion> No evidence of endocarditis Other findings as described above
--- NOTE | 2016-10-09 09:24 | SPECPROC ---
PROCEDURE: Date of procedure: Procedure: 1. Placement of a right arm PICC with ultrasound and fluoroscopic guidance, CPT 72035 2. PICC tip confirmation with spot radiograph and is in the superior vena cava Medications: 3cc 1 percent lidocaine HISTORY: Bacteremia requiring long-term IV antibiotics TECHNIQUE: Following informed consent and procedure time-out, the patient was placed supine on the interventional table and the right arm prepped and draped in the usual sterile fashion. Ultrasound showed a patent and compressible right basilic vein. After the skin was anesthetized with lidocaine, the basilic vein was accessed with micro micropuncture technique using ultrasound guidance. A guidewire was then advanced under fluoroscopic guidance into the superior vena cava. An image documenting ultrasound guidance for vascular access was permanently saved. The length of the single-lumen 5 Slovak PICC was trimmed to 37 centimeters and advanced through a peel-away sheath. The PICC was position with tip of PICC confirm a spot radiograph the superior vena cava. The PICC was secured to the patient's skin. The PICC was flushed. A biopatch and sterile dressing was applied. IMPRESSION: Placement of a single-lumen 5 Slovak PICC trimmed to 37 centimeters via right basilic vein. The tip of the PICC is confirmed with spot radiograph and is in the superior vena cava.
== END 2016-10-06 18:29 | DRG 641 ==
LOC: C.ER 14:17 → C.9E 19:02 → C.3T 20:03 → OBSVTOIN 09-27 16:03 → C.3T 09-27 22:39 → C.6T 09-28 09:06
PROVIDERS: ADMIT Internal Medicine Cardiovascular Disease; ATTEND Internal Medicine Cardiovascular Disease
PROC: B246ZZ4 Ultrasonography of Right and Left Heart, Transesophageal (ICD-10-PCS; principal; 2016-10-04 11:30)
PROC: 02HV33Z Insertion of Infusion Device into Superior Vena Cava, Percutaneous Approach (ICD-10-PCS; 2016-10-06)
PROC: B518ZZA Fluoroscopy of Superior Vena Cava, Guidance (ICD-10-PCS; 2016-10-06)
DX: R62.7 Adult failure to thrive (principal); R64 Cachexia; R78.81 Bacteremia; D73.89 Other diseases of spleen; F20.0 Paranoid schizophrenia; I10 Essential (primary) hypertension; B18.2 Chronic viral hepatitis C; K04.7 Periapical abscess without sinus; D64.9 Anemia, unspecified; G47.00 Insomnia, unspecified; G89.29 Other chronic pain; H54.41 Blindness, right eye, normal vision left eye; K29.80 Duodenitis without bleeding; K59.00 Constipation, unspecified; Z90.49 Acquired absence of other specified parts of digestive tract; K76.89 Other specified diseases of liver; Z79.899 Other long term (current) drug therapy; Z86.73 Personal history of transient ischemic attack (TIA), and cerebral infarction without residual deficits; Z91.14 Patient's other noncompliance with medication regimen; R63.0 Anorexia

== ENCOUNTER 2016-11-11 13:59 | Observation (INO) | payer MEDICARE, OTHER ==
[2016-11-11 13:59] VITALS: BMI 24.7
[2016-11-11] MEDS ORDERED: Sodium Chloride 0.9% 1,000 ML IV ONE ×2 (14:19→14:20)
[2016-11-11] MEDS ORDERED: Sodium Chloride 0.9% 2,000 ML ONE (14:47)
[2016-11-11 15:13] LABS: ALBUMIN 4.3 g/dL (3.5-5.0)
[2016-11-11 15:14] LABS: BASO # 0.1 K/uL (0.0-0.2); BASO % 0.9 % (0.0-2.0); EOS % 0.1 % (0.0-4.0); HEMOGLOBIN 12.3 g/dL (12.0-18.0); LYMPH # 1.3 K/uL (1.0-4.3); LYMPH % 18.9 % (20.0-40.0); MEAN CORPUSCULAR HEMOGLOBIN 29.1 pg (27.0-31.0); MEAN CORPUSCULAR HGB CONC 32.7 g/dL (33.0-37.0); MEAN PLATELET VOLUME 8.8 fL (7.2-11.7); MONO # 0.5 K/uL (0.0-0.8); MONO % 7.7 % (0.0-10.0); NEUT # 5.1 K/uL (1.8-7.0); NEUT % 72.4 % (50.0-75.0); RBC 4.22 Mil/uL (4.40-5.90); RED CELL DISTRIBUTION WIDTH 15.3 % (11.5-14.5)
[2016-11-11 15:16] LABS: ALB/GLOB RATIO 1.3 (1.0-2.1); AST/SGOT 21 U/L (17-59); GFR AFRICAN-AMERICAN > 60; GFR NON-AFRICAN AMERICAN > 60
[2016-11-11 15:17] LABS: ALT/SGPT 32 U/L (21-72); BLOOD UREA NITROGEN 17 mg/dL (9-20); CALCIUM 9.6 mg/dl (8.6-10.4); LIPASE 374 U/L (23-300)
[2016-11-11 15:22] LABS: INR 1.1; PROTHROMBIN TIME 12.4 SECONDS (9.7-12.2)
[2016-11-11] MEDS ORDERED: Iodixanol 320 MG/ML 100 ML BOTTLE IV ONE (15:51)
--- NOTE | 2016-11-11 16:51 | CT ---
PROCEDURE: CT Abdomen and Pelvis with contrast HISTORY: abd pain COMPARISON: Comparison is made to the previous study dated 09/26/2016 TECHNIQUE: Contrast dose: 100 mL Visipaque 320. Axial and reformatted coronal and sagittal CT images of the abdomen and pelvis were obtained after IV contrast administration. Radiation dose: Total exam DLP = 288.18 mGy-cm. This CT exam was performed using one or more of the following dose reduction techniques: Automated exposure control, adjustment of the mA and/or kV according to patient size, and/or use of iterative reconstruction technique. FINDINGS: LOWER THORAX: Unremarkable. LIVER: MK mild hepatomegaly and mild hepatic steatosis are again seen. GALLBLADDER AND BILE DUCTS: Unremarkable. PANCREAS: No evidence of pancreatitis. The main pancreatic duct is not dilated. . SPLEEN: Small foci of hypodensity are again seen in the spleen. No significant interval change when compared to the previous exam. ADRENALS: Unremarkable. No mass. KIDNEYS AND URETERS: Unremarkable. No hydronephrosis. No solid mass. VASCULATURE: Unremarkable. No aortic aneurysm. BOWEL: Mild gastric and duodenal wall thickening. . No obstruction. No gross mural thickening. APPENDIX: No evidence of appendicitis. PERITONEUM: Unremarkable. No free fluid. No free air. LYMPH NODES: Unremarkable. No enlarged lymph nodes. BLADDER: Unremarkable. REPRODUCTIVE: Unremarkable. BONES: No acute fracture. OTHER FINDINGS: None. IMPRESSION: No evidence of significant interval change compared to the previous exam. Suspicious for mild gastric and duodenal wall thickening. Correlate clinically for gastritis and enteritis. Stable small low-attenuation foci in the spleen. Mild hepatomegaly and mild hepatic steatosis.
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
[2016-11-11 21:51] LABS: URINE BACTERIA OCC (<OCC); URINE BILIRUBIN NEGATIVE (NEGATIVE); URINE BLOOD NEGATIVE (NEGATIVE); URINE CLARITY Clear (Clear); URINE COLOR Yellow (YELLOW); URINE GLUCOSE (UA) NORMAL (Normal); URINE LEUKOCYTE ESTERASE NEG Leu/uL (Negative); URINE NITRATE NEGATIVE (NEGATIVE); URINE PROTEIN NEGATIVE (NEGATIVE); URINE UROBILINOGEN NORMAL mg/dL (0.2-1.0)
[2016-11-11] MEDS: Pantoprazole 40 mg EC Tab PO SCH (22:39)
[2016-11-11 23:46] VITALS: RESP 20
[2016-11-12] MEDS: Pantoprazole 40 mg EC Tab PO SCH ×2 (11:43→21:25)
--- NOTE | 2016-11-12 15:37 | CP.PCM.PN ---
Subjective - Date & Time of Evaluation Date of Evaluation: 11/12/16 Time of Evaluation: 15:36 - Subjective Subjective: CHIEF COMPLAINTS TODAY : ROS. HEENT : N. Resp : No cough, wheezing ,pleuritic CP ,or hemoptysis Cardio : No anginal CP, PND, orthopnea, palpitation GI : No abd.pain, n/v ,diarrhea or GI bleeding . [employer] : No headache, vertigo, focal deficit. Musculoskel : No joint swelling , Derm : No rash Psych : Normal affect. Ext : No swelling ,calf pain PE. Pt. is alert awake in no distress. V.S As noted in the chart Head ,ear nose,throat and eyes : Normal. Neck : Supple with normal carotids. Lungs: Clear air entry. Heart : S1 & S2 normal with S4. No murmur. Abd : Soft non tender with normal bowel sounds. Neuro : Moves all ext. with no localized deficit. Ext : No edema with intact pulses.Non tender calves Derm : No rashes or decubitus ulcer. LABS/RADIOLOGY: ASSESSMENT/PLAN : Objective - Vital Signs/Intake and Output Vital Signs (last 24 hours): Temp Pulse Resp BP Pulse Ox 98.9 F 67 20 134/76 99 11/12/16 08:16 11/12/16 14:00 11/12/16 08:16 11/12/16 14:00 11/12/16 08:16 Intake and Output: 11/12/16 11/12/16 11:59 23:59 Intake Total 100 Balance 100 - Medications Medications: Current Medications Benztropine Mesylate (Cogentin) 1 mg PO BID [facility] Last Admin: 11/12/16 11:43 Dose: 1 mg Fluphenazine HCl (Prolixin) 5 mg PO BID [facility] Last Admin: 11/12/16 11:42 Dose: 5 mg Gabapentin (Neurontin) 100 mg PO TID [facility] Last Admin: 11/12/16 14:47 Dose: 100 mg Heparin Sodium (Porcine) (Heparin) 5,000 units SC Q12 [facility] Last Admin: 11/12/16 14:15 Dose: 5,000 units Lisinopril (Zestril) 20 mg PO DAILY [facility] Last Admin: 11/12/16 11:47 Dose: 20 mg Lorazepam (Ativan) 1 mg PO Q6 PRN PRN Reason: Agitation Last Admin: 11/12/16 14:48 Dose: 1 mg Pantoprazole Sodium (Protonix Ec Tab) 40 mg PO Q12 [facility] Last Admin: 11/12/16 11:43 Dose: 40 mg Pneumococcal Polyvalent Vaccine (Pneumovax 23 Vaccine) 0.5 ml IM .ONCE ONE Stop: 11/13/16 10:01 Tamsulosin HCl (Flomax) 0.4 mg PO DAILY [facility] Last Admin: 11/12/16 11:42 Dose: 0.4 mg - Labs Labs: PT 12.4 SECONDS (9.7-12.2) H 11/11/16 15:00 INR 1.1 11/11/16 15:00 APTT 30 SECONDS (21-34) 11/11/16 15:00
[2016-11-13] MEDS: Pantoprazole 40 mg EC Tab PO SCH (09:56)
[2016-11-13] MEDS ORDERED: Pneumococcal 23-Valent Vaccine IM ONE (10:00)
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
--- NOTE | 2016-11-13 15:47 | CP.PCM.PN ---
Subjective - Date & Time of Evaluation Date of Evaluation: 11/13/16 Time of Evaluation: 15:47 - Subjective Subjective: alert, orientedx3, no acute distress noted. Objective - Vital Signs/Intake and Output Vital Signs (last 24 hours): Temp Pulse Resp BP Pulse Ox 98.9 F 66 20 131/85 100 11/13/16 08:55 11/13/16 08:55 11/13/16 08:55 11/13/16 08:55 11/13/16 08:55 Intake and Output: 11/13/16 11/13/16 06:59 18:59 Intake Total 350 550 Output Total 500 Balance 350 50 - Medications Medications: Current Medications Benztropine Mesylate (Cogentin) 1 mg PO BID [facility] Last Admin: 11/13/16 09:55 Dose: 1 mg Cyproheptadine HCl (Periactin) 4 mg PO HS [facility] Fluphenazine HCl (Prolixin) 5 mg PO BID [facility] Last Admin: 11/13/16 09:55 Dose: 5 mg Gabapentin (Neurontin) 100 mg PO TID [facility] Last Admin: 11/13/16 14:24 Dose: 100 mg Heparin Sodium (Porcine) (Heparin) 5,000 units SC Q12 [facility] Last Admin: 11/13/16 09:56 Dose: 5,000 units Lisinopril (Zestril) 20 mg PO DAILY [facility] Last Admin: 11/13/16 09:55 Dose: 20 mg Lorazepam (Ativan) 1 mg PO Q6 PRN PRN Reason: Agitation Last Admin: 11/13/16 08:55 Dose: 1 mg Mirtazapine (Remeron) 15 mg PO HS [facility] Pantoprazole Sodium (Protonix Ec Tab) 40 mg PO Q12 [facility] Last Admin: 11/13/16 09:56 Dose: 40 mg Tamsulosin HCl (Flomax) 0.4 mg PO DAILY [facility] Last Admin: 11/13/16 09:55 Dose: 0.4 mg - Labs Labs: PT 12.4 SECONDS (9.7-12.2) H 11/11/16 15:00 INR 1.1 11/11/16 15:00 APTT 30 SECONDS (21-34) 11/11/16 15:00 Assessment and Plan - Assessment and Plan (Free Text) Assessment: Patient is seen and examined. Denies abdominal pain or distress , tolerating diet. Seen by psyche, added remron and periactin to the med list, cleared for discharge today. D/W DR Sam, discharge plan for today, advised to follow up with paula in 1 week. Patient verbalized understanding oft he instructions given. Will be getting taxi voucher from nursing assembly and packing supervisor.
[2016-11-13 16:04] VITALS: BP 135/74; PULSE 77; TEMP 98.3; O2SAT 99
--- NOTE | 2016-11-17 13:59 | CARD ---
APPROVED REPORT EKG Measurement Heart [id number] <Conclusion> Sinus bradycardia Otherwise normal ECG
== END 2016-11-13 18:45 ==
LOC: C.ER 13:59 → C.9E 18:24 → C.3T 18:58
PROVIDERS: ADMIT Internal Medicine Cardiovascular Disease; ATTEND Internal Medicine Cardiovascular Disease
DX: F25.1 Schizoaffective disorder, depressive type (principal); F43.10 Post-traumatic stress disorder, unspecified; H54.0 Blindness, both eyes; I10 Essential (primary) hypertension; K29.70 Gastritis, unspecified, without bleeding; K29.80 Duodenitis without bleeding; R62.7 Adult failure to thrive; Z87.891 Personal history of nicotine dependence; B19.20 Unspecified viral hepatitis C without hepatic coma; Z68.20 Body mass index [BMI] 20.0-20.9, adult
CPT/HCPCS: 74177; 80053; 81001; 83690; 84484; 85025; 85610; 85730; 87040; 87086; 93005; 96361; 96372; 96374; 99285; G0378; J1644; J7040; Q9967

== ENCOUNTER 2016-12-18 13:46 | Inpatient (IN) | payer OTHER ==
[2016-12-18 13:46] VITALS: BMI 24.7
[2016-12-18] MEDS ORDERED: Sodium Chloride 0.9% 1,000 ML IV STA (14:16)
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
--- NOTE | 2016-12-18 14:30 | RAD ---
HISTORY: syncope COMPARISON: Comparison made with chest radiograph 09/28/2016 TECHNIQUE: Chest PA and lateral FINDINGS: LUNGS: Re- demonstrated is a small calcified granuloma right upper lobe with what may represent a few scattered calcified granulomata right lower lobe. Lung shirley are otherwise clear PLEURA: No significant pleural effusion identified. No pneumothorax apparent. CARDIOVASCULAR: Normal. OSSEOUS STRUCTURES: Mild multilevel degenerative spondylosis of the thoracic spine VISUALIZED UPPER ABDOMEN: Normal. OTHER FINDINGS: None. IMPRESSION: No acute infiltrates. Small calcified granuloma right upper lobe with what could represent few scattered granulomata right lower lobe. Followup nonemergent CT scan of the chest for further evaluation
[2016-12-18] MEDS ORDERED: Sodium Chloride 0.9% 1,000 ML ONE (15:08)
[2016-12-18 15:13] LABS: BASO % 0.2 % (0.0-2.0); EOS % 0.1 % (0.0-4.0); HEMATOCRIT 39.1 % (35.0-51.0); LYMPH # 0.9 K/uL (1.0-4.3); LYMPH % 6.4 % (20.0-40.0); MEAN CELL VOLUME 87.2 fL (80.0-94.0); MEAN CORPUSCULAR HEMOGLOBIN 29.9 pg (27.0-31.0); MEAN CORPUSCULAR HGB CONC 34.4 g/dL (33.0-37.0); MEAN PLATELET VOLUME 8.1 fL (7.2-11.7); MONO # 0.9 K/uL (0.0-0.8); MONO % 6.8 % (0.0-10.0); PLATELET COUNT 293 K/uL (130-400)
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
[2016-12-18 15:14] LABS: WHITE BLOOD COUNT 13.8 K/uL (4.8-10.8)
[2016-12-18 15:22] LABS: CHLORIDE 96 mmol/L (98-107); SODIUM 141 mmol/L (132-148)
[2016-12-18 15:24] LABS: BILIRUBIN,TOTAL 0.7 mg/dL (0.2-1.3); CARBON DIOXIDE 29 mmol/L (22-30); GFR AFRICAN-AMERICAN > 60
[2016-12-18 15:25] LABS: ALB/GLOB RATIO 1.3 (1.0-2.1); ALKALINE PHOSPHATASE 63 U/L (38-126); ALT/SGPT 38 U/L (21-72); AST/SGOT 20 U/L (17-59); BLOOD UREA NITROGEN 15 mg/dL (9-20); CALCIUM 8.8 mg/dl (8.6-10.4); GLUCOSE,RANDOM 115 mg/dL (75-110); TOTAL PROTEIN 7.4 g/dL (6.3-8.3)
[2016-12-18 15:39] LABS: EOSINOPHIL 1 % (0-4); NEUTROPHIL 83 % (50-75); TOTAL CELLS COUNTED 100
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
[2016-12-18] MEDS ORDERED: Pantoprazole 40 mg EC Tab PO ONE (22:45)
[2016-12-18] MEDS: Pantoprazole 40 mg EC Tab PO SCH (22:46)
[2016-12-19] MEDS ORDERED: Pantoprazole 40 mg EC Tab PO ONE (10:02)
[2016-12-19] MEDS: Pantoprazole 40 mg EC Tab PO SCH ×2 (10:02→21:23)
--- NOTE | 2016-12-19 11:09 | PCM.PSYCH ---
Initial Psychiatric Evaluation - Initial Psychiatric Evaluation Type of Admission: Voluntary Legal Status: Capacity Chief Complaint (in patient's own words): Patient is confused Patient's Reaction to Hospitalization: cooperative History of Present Illness and Precipitating Events: Patient is a 56 year old male with PMH of HTN, gastritis, Hep C, paranoid schizophrenia, depression, and anxiety who presents to the ED for syncope. Patient has been very anxious and depressed since his friend 5 months ago. Patient says he doesn't want to leave his apartment and has thoughts that is better than life. He has thought of hurting himself because he "feels like nothing is working" for him. He tried to overdose on some pills a few weeks ago. He lives alone, but has a nurse that comes to help him once a week. He says he has not been taking his medications for months because he gets overwhelmed by how many medications he is on. He has a history of auditory and visual hallucinations, but says he has not had those in 1 month. He says he is no longer paranoid like he was in his 40s. He has not done drugs in many years. He used to be able to drink a bottle of vodka in a day, but has not had a drink in many months. Currently he has no SI/HI and has no hallucinations. PMHx: HTN, gastritis, Hep C Ppsych: paranoid schizophrenia, depression, and anxiety, hospitalized at [facility] for depression last week Social hx: lives in low income housing alone, years ago did heroine and cocaine , stopped methadone 6 years ago, used to drink vodka, up to a bottle per day, but hasn't in many months, used to smoke cigarettes years ago Famhx: mother: paranoid schizophrenia, half sister in [place] [facility] care for unknown psychiatric illness Current Medications: Active Medications Generic Name Dose Route Start Last Admin Trade Name Freq PRN Reason Stop Dose Admin Benztropine Mesylate 1 mg 12/19/16 10:00 12/19/16 10:02 Cogentin PO 1 mg BID ELAYNE Administration Cyproheptadine HCl 4 mg 12/18/16 22:00 12/18/16 22:45 Periactin PO 4 mg HS ELAYNE Administration Fluphenazine HCl 5 mg 12/19/16 10:00 12/19/16 10:02 Prolixin PO 5 mg BID ELAYNE Administration Gabapentin 100 mg 12/19/16 10:00 12/19/16 10:02 Neurontin PO 100 mg TID ELAYNE Administration Lisinopril 20 mg 12/19/16 10:00 12/19/16 10:02 Zestril PO 20 mg DAILY ELAYNE Administration Mirtazapine 15 mg 12/18/16 22:00 12/18/16 22:46 Remeron PO 15 mg HS ELAYNE Administration Pantoprazole Sodium 40 mg 12/18/16 22:00 12/19/16 10:02 Protonix Ec Tab PO 40 mg Q12 ELAYNE Administration Tamsulosin HCl 0.4 mg 12/19/16 10:00 12/19/16 10:02 Flomax PO 0.4 mg DAILY ELAYNE Administration Past Psychiatric History - Past Psychiatric History Previous Treatment History: Inpatient At [facility]: [facility] Pertinent Medical Hx (Current Medical&Sleep Prob, Allergies): Allergies Allergy/AdvReac Type Severity Reaction Status Date / Time No Known Allergies Allergy Verified 12/18/16 14:02 Benztropine [Cogentin] 1 mg PO BID tab 09/13/16 Gabapentin [Neurontin] 100 mg PO TID cap 09/13/16 Lisinopril [Zestril] 20 mg PO DAILY tab 09/13/16 Pantoprazole [Protonix EC Tab] 40 mg PO Q12 ect 09/13/16 Tamsulosin [Flomax] 0.4 mg PO DAILY cap 09/13/16 fluPHENAZine [Prolixin] 5 mg PO BID #60 tab 10/06/16 Cyproheptadine [Periactin] 4 mg PO HS #30 tab 11/13/16 Mirtazapine [Remeron] 15 mg PO HS #15 tab 11/13/16 Review of Systems - Psychiatric Psychiatric: Anxiety, Auditory Hallucinations, Depression, Hopelessness, Visual Hallucinations. absent: Homicidal Ideation, Suicidal Ideation Mental Status Examination - Personal Presentation Personal Presentation: Looks stated age - Affect Affect: Constricted - Motor Activity Motor Activity: Calm - Reliability in Providing Information Reliability in Providing Information: Fair - Speech Speech: Organized - Mood Mood: Depressed, Anxious - Formal Thought Process Formal Thought Process: No Impairment - Obsessions/Compulsions Obsessions: No Compulsions: No - Cognitive Functions Orientation: Person, Place, Situation, Time Sensorium: Alert Attention/Concentration: Attentive Abstract Thinking: Somers Estimate of Intelligence: Below average Judgement: Imparied, as evidence by: Lack of insight into illness Memory: Recent intact, as evidence by: Ability to recall events of the day - Risk Risk: Suicidal - Strength & Assets Inventory Strength & Assets Inventory: Cooperative - Limitations Limitations: Living alone DSM 5 DX - DSM 5 DSM 5 Diagnosis: Schizophrenia Anxiety Disorder Major Depressive Disorder - Recommended/Plan of Treatment Treatment Recommendations and Plan of Treatment: Schizophrenia Prolixin 5mg PO BID Cyproheptadine 4mg PO HS Cogentin 1 mg PO BID Major Depressive Disorder Remeron 15 mg PO HS Anxiety Disorder Neurontin 100 mg PO TID Prognosis: fair, with medications - Smoking Cessation Smoking Cessation Initiated: No Reason for not providing: nonsmoker for many years
--- NOTE | 2016-12-19 14:01 | CP.PCM.PN ---
Subjective - Date & Time of Evaluation Date of Evaluation: 12/19/16 Time of Evaluation: 14:00 - Subjective Subjective: CHIEF COMPLAINTS TODAY : GEN WEAKNESS AND RESTLESSNESS ROS. HEENT : N. Resp : No cough, wheezing ,pleuritic CP ,or hemoptysis Cardio : No anginal CP, PND, orthopnea, palpitation GI : No abd.pain, n/v ,diarrhea or GI bleeding . PENCIL SORTER : No headache, vertigo, focal deficit. Musculoskel : No joint swelling , Derm : No rash Psych : Normal affect. Ext : No swelling ,calf pain PE. Pt. is alert awake in no distress. V.S As noted in the chart Head ,ear nose,throat and eyes : Normal. Neck : Supple with normal carotids. Lungs: Clear air entry. Heart : S1 & S2 normal with S4. No murmur. Abd : Soft non tender with normal bowel sounds. Neuro : Moves all ext. with no localized deficit. Ext : No edema with intact pulses.Non tender calves Derm : No rashes or decubitus ulcer. LABS/RADIOLOGY: ASSESSMENT/PLAN : PSYCH EVAL FOR MEDS CT ABD. FOR F/U SPLEEN DENSITY Objective - Vital Signs/Intake and Output Vital Signs (last 24 hours): Temp Pulse Resp BP Pulse Ox 97.6 F 94 H 14 147/83 98 12/19/16 12:54 12/19/16 12:54 12/19/16 12:54 12/19/16 12:54 12/19/16 12:54 - Medications Medications: Current Medications Benztropine Mesylate (Cogentin) 1 mg PO BID [facility] Last Admin: 12/19/16 10:02 Dose: 1 mg Cyproheptadine HCl (Periactin) 4 mg PO HS [facility] Last Admin: 12/18/16 22:45 Dose: 4 mg Fluphenazine HCl (Prolixin) 5 mg PO BID [facility] Last Admin: 12/19/16 10:02 Dose: 5 mg Gabapentin (Neurontin) 100 mg PO TID [facility] Last Admin: 12/19/16 10:02 Dose: 100 mg Heparin Sodium (Porcine) (Heparin) 5,000 units SC Q8 [facility] Last Admin: 12/19/16 13:49 Dose: 5,000 units Lisinopril (Zestril) 20 mg PO DAILY [facility] Last Admin: 12/19/16 10:02 Dose: 20 mg Mirtazapine (Remeron) 15 mg PO HS [facility] Last Admin: 12/18/16 22:46 Dose: 15 mg Pantoprazole Sodium (Protonix Ec Tab) 40 mg PO Q12 [facility] Last Admin: 12/19/16 10:02 Dose: 40 mg Tamsulosin HCl (Flomax) 0.4 mg PO DAILY [facility] Last Admin: 12/19/16 10:02 Dose: 0.4 mg
[2016-12-19] MEDS ORDERED: Iodixanol 320 MG/ML 100 ML BOTTLE IV ONE (15:21)
--- NOTE | 2016-12-19 17:07 | CT ---
CT abdomen and pelvis without IV contrast Indication: Abnormal spleen density on previous CT Technique: Contiguous axial images of the abdomen. No oral or IV contrast given. Coronal and Sagittal reformats generated and reviewed. This CT exam was performed using 1 or more of the following dose reduction techniques: Automated exposure control, adjustment of the MAA and/or kV according to patient size, and/or use of iterative reconstruction technique. Radiation dose: Total exam DLP = 189.73 MGy-cm. Comparison: CT abdomen and pelvis with contrast performed 11/11/16 Findings: No visible consolidation, pleural effusion, or pneumothorax. Mild hepatomegaly and mild hepatic steatosis are again seen. Numerous hypodense foci throughout the spleen. 2.2 x 1.5 cm hypodense heterogeneous medial splenic lesion. The kidneys, pancreas, adrenal glands, and gallbladder appear unremarkable. The stomach is nondistended. The included upper abdominal bowel loops appear within normal limits of caliber without evidence of intestinal obstruction. Moderate constipation. There is no definite free air. No acute osseous abnormality is detected. Impression: Mild hepatomegaly and mild hepatic steatosis are again seen. Numerous hypodense foci are re- identified throughout the spleen. 2.2 x 1.5 cm hypodense heterogeneous medial splenic lesion. These lesions are indeterminate. Considerations include but not limited to multiple hemangiomas, lymphangiomas, sarcoid, hamartomas, metastases. Infection is considered unlikely. Correlate clinically.
--- NOTE | 2016-12-19 19:31 | CARD ---
APPROVED REPORT EKG Measurement Heart [id number] <Conclusion> Normal sinus rhythm Normal ECG
--- NOTE | 2016-12-19 19:31 | CARD ---
APPROVED REPORT EKG Measurement Heart [id number] <Conclusion> Normal sinus rhythm Normal ECG
[2016-12-20] MEDS: Pantoprazole 40 mg EC Tab PO SCH ×2 (09:03→22:07)
--- NOTE | 2016-12-20 13:45 | CP.PCM.PN ---
Subjective - Date & Time of Evaluation Date of Evaluation: 12/20/16 Time of Evaluation: 13:44 - Subjective Subjective: CHIEF COMPLAINTS TODAY : GEN WEAKNESS AND RESTLESSNESS RESTLESS ROS. HEENT : N. Resp : No cough, wheezing ,pleuritic CP ,or hemoptysis Cardio : No anginal CP, PND, orthopnea, palpitation GI : No abd.pain, n/v ,diarrhea or GI bleeding . ASSISTANT THERAPY AIDE : No headache, vertigo, focal deficit. Musculoskel : No joint swelling , Derm : No rash Psych : Normal affect. Ext : No swelling ,calf pain PE. Pt. is alert awake in no distress. V.S As noted in the chart Head ,ear nose,throat and eyes : Normal. Neck : Supple with normal carotids. Lungs: Clear air entry. Heart : S1 & S2 normal with S4. No murmur. Abd : Soft non tender with normal bowel sounds. Neuro : Moves all ext. with no localized deficit. Ext : No edema with intact pulses.Non tender calves Derm : No rashes or decubitus ulcer. LABS/RADIOLOGY: CT ABD NO CHANGE WITH MULTIPLE SCATTERED DENSITY ASSESSMENT/PLAN : PSYCH EVAL NOTED GI EVAL Objective - Vital Signs/Intake and Output Vital Signs (last 24 hours): Temp Pulse Resp BP Pulse Ox 97.7 F 99 H 18 127/87 97 12/20/16 07:55 12/20/16 08:04 12/20/16 07:55 12/20/16 07:55 12/20/16 07:55 - Medications Medications: Current Medications Benztropine Mesylate (Cogentin) 1 mg PO BID [facility] Last Admin: 12/20/16 09:03 Dose: 1 mg Cyproheptadine HCl (Periactin) 4 mg PO HS [facility] Last Admin: 12/19/16 21:21 Dose: 4 mg Fluphenazine HCl (Prolixin) 5 mg PO BID [facility] Last Admin: 12/20/16 09:04 Dose: 5 mg Gabapentin (Neurontin) 100 mg PO TID [facility] Last Admin: 12/20/16 13:28 Dose: 100 mg Heparin Sodium (Porcine) (Heparin) 5,000 units SC Q8 [facility] Last Admin: 12/20/16 13:28 Dose: 5,000 units Lisinopril (Zestril) 20 mg PO DAILY [facility] Last Admin: 08/23/17 09:03 Dose: 20 mg Mirtazapine (Remeron) 15 mg PO HS [facility] Last Admin: 12/19/16 21:21 Dose: 15 mg Pantoprazole Sodium (Protonix Ec Tab) 40 mg PO Q12 [facility] Last Admin: 12/20/16 09:03 Dose: 40 mg Tamsulosin HCl (Flomax) 0.4 mg PO DAILY [facility] Last Admin: 12/20/16 09:03 Dose: 0.4 mg
[2016-12-20 15:24] VITALS: RESP 20
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
[2016-12-21] MEDS: Pantoprazole 40 mg EC Tab PO SCH ×2 (09:42→21:48)
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
--- NOTE | 2016-12-21 13:54 | CP.PCM.PN ---
Subjective - Date & Time of Evaluation Date of Evaluation: 12/21/16 Time of Evaluation: 13:53 - Subjective Subjective: CHIEF COMPLAINTS TODAY : GEN WEAKNESS AND RESTLESSNESS RESTLESS ROS. HEENT : N. Resp : No cough, wheezing ,pleuritic CP ,or hemoptysis Cardio : No anginal CP, PND, orthopnea, palpitation GI : No abd.pain, n/v ,diarrhea or GI bleeding . APIGEE DEVELOPER : No headache, vertigo, focal deficit. Musculoskel : No joint swelling , Derm : No rash Psych : Normal affect. Ext : No swelling ,calf pain PE. Pt. is alert awake in no distress. V.S As noted in the chart Head ,ear nose,throat and eyes : Normal. Neck : Supple with normal carotids. Lungs: Clear air entry. Heart : S1 & S2 normal with S4. No murmur. Abd : Soft non tender with normal bowel sounds. Neuro : Moves all ext. with no localized deficit. Ext : No edema with intact pulses.Non tender calves Derm : No rashes or decubitus ulcer. LABS/RADIOLOGY: CT ABD NO CHANGE WITH MULTIPLE SCATTERED DENSITY ASSESSMENT/PLAN : PSYCH EVAL NOTED GI EVAL Objective - Vital Signs/Intake and Output Vital Signs (last 24 hours): Temp Pulse Resp BP Pulse Ox 97.7 F 73 20 149/80 100 12/21/16 07:57 12/21/16 07:57 12/21/16 07:57 12/21/16 07:57 12/21/16 07:57 Intake and Output: 12/21/16 12/21/16 11:59 23:59 Intake Total 100 Balance 100 - Medications Medications: Current Medications Benztropine Mesylate (Cogentin) 1 mg PO BID [facility] Last Admin: 12/21/16 09:42 Dose: 1 mg Cyproheptadine HCl (Periactin) 4 mg PO HS [facility] Last Admin: 12/20/16 22:06 Dose: 4 mg Fluphenazine HCl (Prolixin) 5 mg PO BID [facility] Last Admin: 12/21/16 09:42 Dose: 5 mg Gabapentin (Neurontin) 100 mg PO TID [facility] Last Admin: 12/21/16 13:04 Dose: 100 mg Heparin Sodium (Porcine) (Heparin) 5,000 units SC Q8 [facility] Last Admin: 12/21/16 13:04 Dose: 5,000 units Lisinopril (Zestril) 20 mg PO DAILY [facility] Last Admin: 12/21/16 09:42 Dose: 20 mg Lorazepam (Ativan) 1 mg PO Q6 PRN PRN Reason: Anxiety Last Admin: 12/21/16 05:21 Dose: 1 mg Mirtazapine (Remeron) 15 mg PO HS [facility] Last Admin: 12/20/16 22:06 Dose: 15 mg Pantoprazole Sodium (Protonix Ec Tab) 40 mg PO Q12 [facility] Last Admin: 12/21/16 09:42 Dose: 40 mg Tamsulosin HCl (Flomax) 0.4 mg PO DAILY [facility] Last Admin: 12/21/16 09:42 Dose: 0.4 mg
--- NOTE | 2016-12-21 18:52 | CP.PCM.PN ---
Subjective - Date & Time of Evaluation Date of Evaluation: 12/21/16 Time of Evaluation: 18:49 - Subjective Subjective: Patient denies having nausea, vomiting, abdominal pain. He had one formed bowel movement today. Objective - Vital Signs/Intake and Output Vital Signs (last 24 hours): Temp Pulse Resp BP Pulse Ox 98.1 F 71 20 115/74 98 12/21/16 15:00 12/21/16 15:47 12/21/16 15:00 12/21/16 15:00 12/21/16 15:00 Intake and Output: 12/21/16 12/21/16 06:59 18:59 Intake Total 100 480 Balance 100 480 - Medications Medications: Current Medications Benztropine Mesylate (Cogentin) 1 mg PO BID [facility] Last Admin: 12/21/16 17:28 Dose: 1 mg Cyproheptadine HCl (Periactin) 4 mg PO [facility] Last Admin: 12/20/16 22:06 Dose: 4 mg Fluphenazine HCl (Prolixin) 5 mg PO BID [facility] Last Admin: 12/21/16 17:28 Dose: 5 mg Gabapentin (Neurontin) 100 mg PO TID [facility] Last Admin: 12/21/16 17:28 Dose: 100 mg Heparin Sodium (Porcine) (Heparin) 5,000 units SC Q8 [facility] Last Admin: 12/21/16 13:04 Dose: 5,000 units Lisinopril (Zestril) 20 mg PO DAILY [facility] Last Admin: 12/21/16 09:42 Dose: 20 mg Lorazepam (Ativan) 1 mg PO Q6 PRN PRN Reason: Anxiety Last Admin: 12/21/16 14:10 Dose: 1 mg Mirtazapine (Remeron) 15 mg PO [facility] Last Admin: 12/20/16 22:06 Dose: 15 mg Pantoprazole Sodium (Protonix Ec Tab) 40 mg PO Q12 [facility] Last Admin: 12/21/16 09:42 Dose: 40 mg Tamsulosin HCl (Flomax) 0.4 mg PO DAILY [facility] Last Admin: 12/21/16 09:42 Dose: 0.4 mg - Constitutional Appears: No Acute Distress - Neck Exam Neck Exam: absent: Lymphadenopathy, Thyromegaly - Respiratory Exam Respiratory Exam: NORMAL BREATHING PATTERN. absent: Rales, Rhonchi, Wheezes - Cardiovascular Exam Cardiovascular Exam: REGULAR RHYTHM, +S1, +S2. absent: Gallop, Rubs, Murmur - GI/Abdominal Exam GI & Abdominal Exam: Soft, Normal Bowel Sounds. absent: Tenderness, Mass, Organomegaly - Rectal Exam Rectal Exam: Deferred - Extremities Exam Extremities Exam: absent: Calf Tenderness, Pedal Edema Assessment and Plan (1) Splenic mass Assessment & Plan: Patient remains asymptomatic from the splenic lesions. The maxillofacial CT again showed multiple dental abscesses, and the WBC count went uip to 13.8. Will repeat blood cultures. Consider splenectomy. Status: Acute
--- NOTE | 2016-12-22 08:20 | CP.PCM.PN ---
Subjective - Date & Time of Evaluation Date of Evaluation: 12/22/16 Time of Evaluation: 08:17 - Subjective Subjective: Patient complains that he "feels [his] stomach in his throat." He denies having heartburn or vomiting. He denies having abdominal pain, He had one formed bowel movement this morning. He repeatedly asks for Xanax in place of Ativan. Objective - Vital Signs/Intake and Output Vital Signs (last 24 hours): Temp Pulse Resp BP Pulse Ox 97.7 F 74 20 125/84 99 12/21/16 23:00 12/22/16 01:00 12/21/16 23:00 12/21/16 23:00 12/21/16 23:00 - Medications Medications: Current Medications Benztropine Mesylate (Cogentin) 1 mg PO BID [facility] Last Admin: 12/21/16 17:28 Dose: 1 mg Cyproheptadine HCl (Periactin) 4 mg PO HS [facility] Last Admin: 12/21/16 21:48 Dose: 4 mg Fluphenazine HCl (Prolixin) 5 mg PO BID [facility] Last Admin: 12/21/16 17:28 Dose: 5 mg Gabapentin (Neurontin) 100 mg PO TID [facility] Last Admin: 12/21/16 17:28 Dose: 100 mg Heparin Sodium (Porcine) (Heparin) 5,000 units SC Q8 [facility] Last Admin: 12/22/16 05:07 Dose: 5,000 units Lisinopril (Zestril) 20 mg PO DAILY [facility] Last Admin: 12/21/16 09:42 Dose: 20 mg Lorazepam (Ativan) 1 mg PO Q6 PRN PRN Reason: Anxiety Last Admin: 12/21/16 20:27 Dose: 1 mg Mirtazapine (Remeron) 15 mg PO HS [facility] Last Admin: 12/21/16 21:48 Dose: 15 mg Pantoprazole Sodium (Protonix Ec Tab) 40 mg PO Q12 [facility] Last Admin: 12/21/16 21:48 Dose: 40 mg Tamsulosin HCl (Flomax) 0.4 mg PO DAILY [facility] Last Admin: 12/21/16 09:42 Dose: 0.4 mg - Constitutional Appears: No Acute Distress - Neck Exam Neck Exam: absent: Lymphadenopathy, Thyromegaly - Respiratory Exam Respiratory Exam: NORMAL BREATHING PATTERN. absent: Decreased Breath Sounds, Rhonchi, Wheezes - Cardiovascular Exam Cardiovascular Exam: REGULAR RHYTHM, +S1, +S2. absent: Gallop, Rubs, Murmur - GI/Abdominal Exam GI & Abdominal Exam: Soft, Normal Bowel Sounds. absent: Tenderness, Mass, Organomegaly - Rectal Exam Rectal Exam: Deferred - Extremities Exam Extremities Exam: absent: Calf Tenderness, Pedal Edema Assessment and Plan (1) Splenic mass Assessment & Plan: Patient remains asymptomatic from the splenic lesions. Will repeat labs and blood cultures. Consider surgery consult for splenectomy. Status: Acute
[2016-12-22] MEDS: Pantoprazole 40 mg EC Tab PO SCH ×2 (10:24→22:04)
[2016-12-22 11:22] LABS: BASO % 0.7 % (0.0-2.0); EOS % 0.6 % (0.0-4.0); HEMATOCRIT 37.6 % (35.0-51.0); LYMPH # 1.3 K/uL (1.0-4.3); LYMPH % 21.2 % (20.0-40.0); MEAN CORPUSCULAR HGB CONC 33.7 g/dL (33.0-37.0); MEAN PLATELET VOLUME 8.8 fL (7.2-11.7); MONO # 0.5 K/uL (0.0-0.8); MONO % 7.9 % (0.0-10.0); RED CELL DISTRIBUTION WIDTH 13.9 % (11.5-14.5)
[2016-12-22 11:50] LABS: CHLORIDE 100 mmol/L (98-107); POTASSIUM 4.2 mmol/L (3.6-5.2); SODIUM 142 mmol/L (132-148)
[2016-12-22 11:53] LABS: ALB/GLOB RATIO 1.2 (1.0-2.1); ALKALINE PHOSPHATASE 65 U/L (38-126); ALT/SGPT 36 U/L (21-72); AST/SGOT 26 U/L (17-59); BILIRUBIN,TOTAL 0.4 mg/dL (0.2-1.3); BLOOD UREA NITROGEN 12 mg/dL (9-20); CALCIUM 9.8 mg/dl (8.6-10.4); CARBON DIOXIDE 30 mmol/L (22-30); GFR AFRICAN-AMERICAN > 60; GLUCOSE,RANDOM 87 mg/dL (75-110); TOTAL PROTEIN 7.4 g/dL (6.3-8.3)
--- NOTE | 2016-12-22 11:58 | CP.PCM.PN ---
Subjective - Date & Time of Evaluation Date of Evaluation: 12/22/16 Time of Evaluation: 11:58 - Subjective Subjective: CHIEF COMPLAINTS TODAY : GEN WEAKNESS AND RESTLESSNESS RESTLESS ROS. HEENT : N. Resp : No cough, wheezing ,pleuritic CP ,or hemoptysis Cardio : No anginal CP, PND, orthopnea, palpitation GI : No abd.pain, n/v ,diarrhea or GI bleeding . PARTS ROOM ASSISTANT : No headache, vertigo, focal deficit. Musculoskel : No joint swelling , Derm : No rash Psych : Normal affect. Ext : No swelling ,calf pain PE. Pt. is alert awake in no distress. V.S As noted in the chart Head ,ear nose,throat and eyes : Normal. Neck : Supple with normal carotids. Lungs: Clear air entry. Heart : S1 & S2 normal with S4. No murmur. Abd : Soft non tender with normal bowel sounds. Neuro : Moves all ext. with no localized deficit. Ext : No edema with intact pulses.Non tender calves Derm : No rashes or decubitus ulcer. LABS/RADIOLOGY: CT ABD NO CHANGE WITH MULTIPLE SCATTERED DENSITY ASSESSMENT/PLAN : PSYCH EVAL NOTED Objective - Vital Signs/Intake and Output Vital Signs (last 24 hours): Temp Pulse Resp BP Pulse Ox 97.5 F L 70 20 147/70 99 12/22/16 08:22 12/22/16 08:22 12/22/16 08:22 12/22/16 08:22 12/22/16 08:22 Intake and Output: 12/21/16 12/22/16 23:59 11:59 Intake Total 480 Balance 480 - Medications Medications: Current Medications Benztropine Mesylate (Cogentin) 1 mg PO BID [facility] Last Admin: 12/22/16 10:20 Dose: 1 mg Cyproheptadine HCl (Periactin) 4 mg PO HS [facility] Last Admin: 12/21/16 21:48 Dose: 4 mg Fluphenazine HCl (Prolixin) 5 mg PO BID [facility] Last Admin: 12/22/16 10:20 Dose: 5 mg Gabapentin (Neurontin) 100 mg PO TID [facility] Last Admin: 12/22/16 10:20 Dose: 100 mg Heparin Sodium (Porcine) (Heparin) 5,000 units SC Q8 [facility] Last Admin: 12/22/16 05:07 Dose: 5,000 units Lisinopril (Zestril) 20 mg PO DAILY [facility] Last Admin: 12/22/16 10:21 Dose: 20 mg Lorazepam (Ativan) 1 mg PO Q6 PRN PRN Reason: Anxiety Last Admin: 12/22/16 08:00 Dose: 1 mg Mirtazapine (Remeron) 15 mg PO HS [facility] Last Admin: 12/21/16 21:48 Dose: 15 mg Pantoprazole Sodium (Protonix Ec Tab) 40 mg PO Q12 [facility] Last Admin: 12/22/16 10:24 Dose: 40 mg Tamsulosin HCl (Flomax) 0.4 mg PO DAILY [facility] Last Admin: 12/22/16 10:20 Dose: 0.4 mg - Labs Labs: 12/22/16 11:09 12/22/16 11:09
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
--- NOTE | 2016-12-23 09:49 | CP.PCM.PN ---
<Malcolm Dao - Last Filed: 12/23/16 12:02> Subjective - Date & Time of Evaluation Date of Evaluation: 12/23/16 Time of Evaluation: 09:46 - Subjective Subjective: General Surgery Progress Note for Dr. Marshall Patient seen and examined at bedside. No acute event overnight. Patient lying in bed comfortably. Patient still has reflux. Tolerating diet and having BMs. No other complaints. Objective - Vital Signs/Intake and Output Vital Signs (last 24 hours): Temp Pulse Resp BP Pulse Ox 98.1 F 78 20 122/85 98 12/23/16 07:05 12/23/16 08:20 12/23/16 07:05 12/23/16 07:05 12/23/16 07:05 - Medications Medications: Current Medications Benztropine Mesylate (Cogentin) 1 mg PO BID [facility] Last Admin: 12/22/16 17:39 Dose: 1 mg Cyproheptadine HCl (Periactin) 4 mg PO HS [facility] Last Admin: 12/22/16 22:04 Dose: 4 mg Fluphenazine HCl (Prolixin) 5 mg PO BID [facility] Last Admin: 12/22/16 17:37 Dose: 5 mg Gabapentin (Neurontin) 100 mg PO TID [facility] Last Admin: 12/22/16 17:37 Dose: 100 mg Lisinopril (Zestril) 20 mg PO DAILY [facility] Last Admin: 12/22/16 10:21 Dose: 20 mg Lorazepam (Ativan) 1 mg PO Q6 PRN PRN Reason: Anxiety Last Admin: 12/23/16 08:27 Dose: 1 mg Mirtazapine (Remeron) 15 mg PO HS [facility] Last Admin: 12/22/16 22:04 Dose: 15 mg Pantoprazole Sodium (Protonix Ec Tab) 40 mg PO Q12 [facility] Last Admin: 12/22/16 22:04 Dose: 40 mg Tamsulosin HCl (Flomax) 0.4 mg PO DAILY [facility] Last Admin: 12/22/16 10:20 Dose: 0.4 mg - Labs Labs: 12/22/16 11:09 12/22/16 11:09 - Constitutional Appears: Non-toxic, No Acute Distress - Head Exam Head Exam: ATRAUMATIC, NORMOCEPHALIC - Eye Exam Eye Exam: Normal appearance - ENT Exam ENT Exam: Mucous Membranes Dry - Respiratory Exam Respiratory Exam: NORMAL BREATHING PATTERN - Cardiovascular Exam Cardiovascular Exam: REGULAR RHYTHM - GI/Abdominal Exam GI & Abdominal Exam: Soft. absent: Distended, Firm, Guarding, Tenderness, Rebound - Back Exam Back Exam: absent: CVA tenderness (L), CVA tenderness (R) - Neurological Exam Neurological Exam: Alert, Awake, Normal Gait, Oriented x3 - Psychiatric Exam Psychiatric exam: Normal Affect, Normal Mood - Skin Skin Exam: Dry, Warm Additional comments: dry scaly skin on forehead Assessment and Plan - Assessment and Plan (Free Text) Plan: 56 M with splenic lesions -CT abdomen: Mild hepatomegaly and mild hepatic steatosis are again seen. Numerous hypodense foci are re- identified throughout the spleen. 2.2 x 1.5 cm hypodense heterogeneous medial splenic lesion. These lesions are indeterminate. Considerations include but not limited to multiple hemangiomas, lymphangiomas , sarcoid, hamartomas, metastases. Infection is considered unlikely (see full report) -Patient asymptomatic -Management as per primary -No surgical intervention at this time -follow up as outpatient -Will ZEENAT Dao PGY1 <Mateus Marshall - Last Filed: 12/24/16 19:16> Objective - Vital Signs/Intake and Output Vital Signs (last 24 hours): Temp Pulse Resp BP Pulse Ox 98.4 F 101 H 20 91/60 L 98 12/24/16 15:06 12/24/16 15:06 12/24/16 15:06 12/24/16 15:06 12/24/16 15:06 Intake and Output: 12/24/16 12/25/16 18:59 06:59 Intake Total 480 Balance 480 - Medications Medications: Current Medications Benztropine Mesylate (Cogentin) 1 mg PO BID [facility] Last Admin: 12/24/16 17:33 Dose: 1 mg Cyproheptadine HCl (Periactin) 4 mg PO HS [facility] Last Admin: 12/23/16 21:32 Dose: 4 mg Fluphenazine HCl (Prolixin) 5 mg PO BID [facility] Last Admin: 12/24/16 17:34 Dose: 5 mg Gabapentin (Neurontin) 100 mg PO TID [facility] Last Admin: 12/24/16 17:33 Dose: 100 mg Lisinopril (Zestril) 20 mg PO DAILY [facility] Last Admin: 12/24/16 09:16 Dose: 20 mg Lorazepam (Ativan) 1 mg PO Q6 PRN PRN Reason: Anxiety Last Admin: 12/24/16 15:59 Dose: 1 mg Mirtazapine (Remeron) 15 mg PO HS [facility] Last Admin: 12/23/16 21:32 Dose: 15 mg Pantoprazole Sodium (Protonix Ec Tab) 40 mg PO Q12 [facility] Last Admin: 12/24/16 09:16 Dose: 40 mg Tamsulosin HCl (Flomax) 0.4 mg PO DAILY [facility] Last Admin: 12/24/16 09:17 Dose: 0.4 mg - Labs Labs: 12/22/16 11:09 12/22/16 11:09 Attending/Attestation - Attestation I have personally seen and examined this patient.: Yes I have fully participated in the care of the patient.: Yes I have reviewed all pertinent clinical information, including history, physical exam and plan: Yes Notes (Text): 12/24/16 19:14 Pt was seen and examined at bedside Agree with above note and assessment Pt with Splenic lesion Possible Hemangiomas C/w current mx F.U as out pt for further investigation. Plan d.w pt and PMD in detail Risk and benefit explained in detail.
[2016-12-23] MEDS: Pantoprazole 40 mg EC Tab PO SCH ×2 (10:31→21:32)
--- NOTE | 2016-12-23 13:42 | CP.PCM.PN ---
Subjective - Date & Time of Evaluation Date of Evaluation: 12/23/16 Time of Evaluation: 13:42 - Subjective Subjective: CHIEF COMPLAINTS TODAY : GEN WEAKNESS AND RESTLESSNESS RESTLESS ROS. HEENT : N. Resp : No cough, wheezing ,pleuritic CP ,or hemoptysis Cardio : No anginal CP, PND, orthopnea, palpitation GI : No abd.pain, n/v ,diarrhea or GI bleeding . 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 Musculoskel : No joint swelling , Derm : No rash Psych : Normal affect. Ext : No swelling ,calf pain PE. Pt. is alert awake in no distress. V.S As noted in the chart Head ,ear nose,throat and eyes : Normal. Neck : Supple with normal carotids. Lungs: Clear air entry. Heart : S1 & S2 normal with S4. No murmur. Abd : Soft non tender with normal bowel sounds. Neuro : Moves all ext. with no localized deficit. Ext : No edema with intact pulses.Non tender calves Derm : No rashes or decubitus ulcer. LABS/RADIOLOGY: CT ABD NO CHANGE WITH MULTIPLE SCATTERED DENSITY ASSESSMENT/PLAN : SURGICAL EVAL NOTED , OUT PT F/U ADJUST PSYCH MEDS Objective - Vital Signs/Intake and Output Vital Signs (last 24 hours): Temp Pulse Resp BP Pulse Ox 98.1 F 78 20 122/85 98 12/23/16 07:05 12/23/16 08:20 12/23/16 07:05 12/23/16 07:05 12/23/16 07:05 Intake and Output: 12/23/16 12/23/16 11:59 23:59 Intake Total 500 Balance 500 - Medications Medications: Current Medications Benztropine Mesylate (Cogentin) 1 mg PO BID [facility] Last Admin: 12/23/16 10:32 Dose: 1 mg Cyproheptadine HCl (Periactin) 4 mg PO HS [facility] Last Admin: 12/22/16 22:04 Dose: 4 mg Fluphenazine HCl (Prolixin) 5 mg PO BID [facility] Last Admin: 12/23/16 10:32 Dose: 5 mg Gabapentin (Neurontin) 100 mg PO TID [facility] Last Admin: 12/23/16 13:33 Dose: 100 mg Lisinopril (Zestril) 20 mg PO DAILY [facility] Last Admin: 12/23/16 10:31 Dose: 20 mg Lorazepam (Ativan) 1 mg PO Q6 PRN PRN Reason: Anxiety Last Admin: 12/23/16 08:27 Dose: 1 mg Mirtazapine (Remeron) 15 mg PO HS [facility] Last Admin: 12/22/16 22:04 Dose: 15 mg Pantoprazole Sodium (Protonix Ec Tab) 40 mg PO Q12 [facility] Last Admin: 12/23/16 10:31 Dose: 40 mg Tamsulosin HCl (Flomax) 0.4 mg PO DAILY [facility] Last Admin: 12/23/16 10:31 Dose: 0.4 mg - Labs Labs: 12/22/16 11:09 12/22/16 11:09
[2016-12-24] MEDS: Pantoprazole 40 mg EC Tab PO SCH ×2 (09:16→21:25)
--- NOTE | 2016-12-24 14:25 | CP.PCM.PN ---
Subjective - Date & Time of Evaluation Date of Evaluation: 12/24/16 Time of Evaluation: 14:24 - Subjective Subjective: CHIEF COMPLAINTS TODAY : GEN WEAKNESS AND RESTLESSNESS RESTLESS ROS. HEENT : N. Resp : No cough, wheezing ,pleuritic CP ,or hemoptysis Cardio : No anginal CP, PND, orthopnea, palpitation GI : No abd.pain, n/v ,diarrhea or GI bleeding . 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 Musculoskel : No joint swelling , Derm : No rash Psych : Normal affect. Ext : No swelling ,calf pain PE. Pt. is alert awake in no distress. V.S As noted in the chart Head ,ear nose,throat and eyes : Normal. Neck : Supple with normal carotids. Lungs: Clear air entry. Heart : S1 & S2 normal with S4. No murmur. Abd : Soft non tender with normal bowel sounds. Neuro : Moves all ext. with no localized deficit. Ext : No edema with intact pulses.Non tender calves Derm : No rashes or decubitus ulcer. LABS/RADIOLOGY: CT ABD NO CHANGE WITH MULTIPLE SCATTERED DENSITY ASSESSMENT/PLAN : SURGICAL EVAL NOTED , OUT PT F/U ADJUST PSYCH MEDS Objective - Vital Signs/Intake and Output Vital Signs (last 24 hours): Temp Pulse Resp BP Pulse Ox 98.3 F 86 20 148/90 100 12/24/16 08:00 12/24/16 08:00 12/24/16 08:00 12/24/16 08:00 12/24/16 08:00 - Medications Medications: Current Medications Benztropine Mesylate (Cogentin) 1 mg PO BID [facility] Last Admin: 12/24/16 09:17 Dose: 1 mg Cyproheptadine HCl (Periactin) 4 mg PO HS [facility] Last Admin: 12/23/16 21:32 Dose: 4 mg Fluphenazine HCl (Prolixin) 5 mg PO BID [facility] Last Admin: 12/24/16 09:16 Dose: 5 mg Gabapentin (Neurontin) 100 mg PO TID [facility] Last Admin: 12/24/16 13:01 Dose: 100 mg Lisinopril (Zestril) 20 mg PO DAILY [facility] Last Admin: 12/24/16 09:16 Dose: 20 mg Lorazepam (Ativan) 1 mg PO Q6 PRN PRN Reason: Anxiety Last Admin: 12/24/16 05:47 Dose: 1 mg Mirtazapine (Remeron) 15 mg PO HS [facility] Last Admin: 12/23/16 21:32 Dose: 15 mg Pantoprazole Sodium (Protonix Ec Tab) 40 mg PO Q12 [facility] Last Admin: 12/24/16 09:16 Dose: 40 mg Tamsulosin HCl (Flomax) 0.4 mg PO DAILY [facility] Last Admin: 12/24/16 09:17 Dose: 0.4 mg - Labs Labs: 12/22/16 11:09 12/22/16 11:09
[2016-12-24 16:48] VITALS: O2SAT 98
[2016-12-25] MEDS: Pantoprazole 40 mg EC Tab PO SCH (10:08)
--- NOTE | 2016-12-25 11:37 | CP.PCM.PN ---
Subjective - Date & Time of Evaluation Date of Evaluation: 12/25/16 Time of Evaluation: 11:34 - Subjective Subjective: Patient continues to complain of anxiety, thinks the Ativan does not work as well as Xanax. He continues to experince regurgitation without hearburn. He denies having nausea, vomiting, loss of appetite, constipation, diarrhea, rectal bleeding. Objective - Vital Signs/Intake and Output Vital Signs (last 24 hours): Temp Pulse Resp BP Pulse Ox 97.9 F 84 20 134/92 H 98 12/25/16 07:05 12/25/16 08:31 12/25/16 07:05 12/25/16 07:05 12/25/16 07:05 Intake and Output: 12/25/16 12/25/16 06:59 18:59 Intake Total 200 Balance 200 - Medications Medications: Current Medications Benztropine Mesylate (Cogentin) 1 mg PO BID [facility] Last Admin: 12/25/16 10:08 Dose: 1 mg Cyproheptadine HCl (Periactin) 4 mg PO HS [facility] Last Admin: 12/24/16 21:19 Dose: 4 mg Fluphenazine HCl (Prolixin) 5 mg PO BID [facility] Last Admin: 12/25/16 10:08 Dose: 5 mg Gabapentin (Neurontin) 100 mg PO TID [facility] Last Admin: 12/25/16 10:08 Dose: 100 mg Lisinopril (Zestril) 20 mg PO DAILY [facility] Last Admin: 12/25/16 10:08 Dose: 20 mg Lorazepam (Ativan) 1 mg PO Q6 PRN PRN Reason: Anxiety Last Admin: 12/25/16 05:31 Dose: 1 mg Mirtazapine (Remeron) 15 mg PO HS [facility] Last Admin: 12/24/16 21:21 Dose: 15 mg Pantoprazole Sodium (Protonix Ec Tab) 40 mg PO Q12 [facility] Last Admin: 12/25/16 10:08 Dose: 40 mg Tamsulosin HCl (Flomax) 0.4 mg PO DAILY [facility] Last Admin: 12/25/16 10:08 Dose: 0.4 mg - Labs Labs: 12/22/16 11:09 12/22/16 11:09 - Constitutional Appears: No Acute Distress - Neck Exam Neck Exam: absent: Lymphadenopathy, Thyromegaly - Respiratory Exam Respiratory Exam: NORMAL BREATHING PATTERN. absent: Rales, Rhonchi, Wheezes - Cardiovascular Exam Cardiovascular Exam: REGULAR RHYTHM, +S1, +S2. absent: Gallop, Rubs, Murmur - GI/Abdominal Exam GI & Abdominal Exam: Soft, Normal Bowel Sounds. absent: Tenderness, Mass, Organomegaly - Rectal Exam Rectal Exam: Deferred - Extremities Exam Extremities Exam: absent: Calf Tenderness, Pedal Edema Assessment and Plan (1) Splenic mass Assessment & Plan: Patient is stable. Patient was evaluated by Dr. Soria; the leading diagnostic consideration is multiple hemangiomas. Agree with plans for outpatient follow-up with repeat CT scan. Status: Acute
--- NOTE | 2016-12-25 13:52 | CP.PCM.DIS ---
Provider - Provider Date of Admission: 12/20/16 08:45 Attending physician: Mary Sam MD Time Spent in preparation of Discharge (in minutes): 30 Hospital Course - Lab Results Lab Results: Micro Results 12/22/16 10:00 Blood-Venous Blood Culture - Preliminary NO GROWTH AFTER 3 DAYS 12/22/16 10:15 Blood-Venous Blood Culture - Preliminary NO GROWTH AFTER 3 DAYS Most Recent Lab Values WBC 6.0 K/uL (4.8-10.8) D 12/22/16 11:09 RBC 4.23 Mil/uL (4.40-5.90) L 12/22/16 11:09 Hgb 12.7 g/dL (12.0-18.0) 12/22/16 11:09 Hct 37.6 % (35.0-51.0) 12/22/16 11:09 MCV 89.0 fL (80.0-94.0) 12/22/16 11:09 MCH 30.0 pg (27.0-31.0) 12/22/16 11:09 MCHC 33.7 g/dL (33.0-37.0) 12/22/16 11:09 RDW 13.9 % (11.5-14.5) 12/22/16 11:09 Plt Count 261 K/uL (130-400) 12/22/16 11:09 MPV 8.8 fL (7.2-11.7) 12/22/16 11:09 Neut % (Auto) 69.6 % (50.0-75.0) 12/22/16 11:09 Lymph % (Auto) 21.2 % (20.0-40.0) 12/22/16 11:09 [place] % (Auto) 7.9 % (0.0-10.0) 12/22/16 11:09 Eos % (Auto) 0.6 % (0.0-4.0) 12/22/16 11:09 Baso % (Auto) 0.7 % (0.0-2.0) 12/22/16 11:09 Neut # 4.2 K/uL (1.8-7.0) 12/22/16 11:09 Lymph # 1.3 K/uL (1.0-4.3) 12/22/16 11:09 [place] # 0.5 K/uL (0.0-0.8) 12/22/16 11:09 Eos # 0.0 K/uL (0.0-0.7) 12/22/16 11:09 Baso # 0.0 K/uL (0.0-0.2) 12/22/16 11:09 Neutrophils % (Manual) 83 % (50-75) H 12/18/16 15:09 Lymphocytes % (Manual) 7 % (20-40) L 12/18/16 15:09 Monocytes % (Manual) 9 % (0-10) 12/18/16 15:09 Eosinophils % (Manual) 1 % (0-4) 12/18/16 15:09 Platelet Estimate Normal (NORMAL) 12/18/16 15:09 RBC Morphology Normal 12/18/16 15:09 Sodium 142 mmol/L (132-148) 12/22/16 11:09 Potassium 4.2 mmol/L (3.6-5.2) 12/22/16 11:09 Chloride 100 mmol/L (98-107) 12/22/16 11:09 Carbon Dioxide 30 mmol/L (22-30) 12/22/16 11:09 Anion Gap 17 (10-20) 12/22/16 11:09 BUN 12 mg/dL (9-20) 12/22/16 11:09 Creatinine 0.8 MG/DL (0.8-1.5) 12/22/16 11:09 Est GFR ( Amer) > 60 12/22/16 11:09 Est GFR (Non-Af Amer) > 60 12/22/16 11:09 Random Glucose 87 mg/dL (75-110) 12/22/16 11:09 Calcium 9.8 mg/dl (8.6-10.4) 12/22/16 11:09 Total Bilirubin 0.4 mg/dL (0.2-1.3) 12/22/16 11:09 AST 26 U/L (17-59) 12/22/16 11:09 ALT 36 U/L (21-72) 12/22/16 11:09 Alkaline Phosphatase 65 U/L (38-126) 12/22/16 11:09 Total Creatine Kinase 22 U/L (55-170) L 12/19/16 05:04 CK-MB (Mass) 0.22 ng/mL (0.0-3.38) 12/19/16 05:04 Troponin I < 0.0120 ng/mL (0.00-0.120) 12/18/16 15:09 Troponin I, Quant < 0.0120 ng/mL (0.00-0.120) 12/19/16 05:04 Total Protein 7.4 g/dL (6.3-8.3) 12/22/16 11:09 Albumin 4.1 g/dL (3.5-5.0) 12/22/16 11:09 Globulin 3.3 gm/dL (2.2-3.9) 12/22/16 11:09 Albumin/Globulin Ratio 1.2 (1.0-2.1) 12/22/16 11:09 HIV 1&2 Antibody Screen Negative (NEGATIVE) 12/22/16 11:09 - Hospital Course Hospital Course: WHILE STANDING ON LINE PT, FELT FAINT AND PASSED OUT WITHOUT ANY SX. ACTVITY IN ER MILD POST ICTAL PAST HIST. MAJOR PSYCH DIORDER WITH MULTIPLE ADMISSIONS HTN HEP C , IN REMESION CIRRHOSIS OF LIVER CARDIO/NEURO W/U NEG GI AND SURGERY CONSULTED FOR ABN SPLEEN REC : OUT PT F/U PT STABLE , AMBULATING AFTER ADJUSTING PSYCH MEDS WILL D/C HOME Discharge Exam - Head Exam Head Exam: ATRAUMATIC, NORMOCEPHALIC Discharge Plan - Follow Up Plan Condition: FAIR Disposition: HOME/ ROUTINE
--- NOTE | 2016-12-25 15:54 | CP.PCM.PN ---
Subjective - Date & Time of Evaluation Date of Evaluation: 12/25/16 Time of Evaluation: 15:54 - Subjective Subjective: pt cleared for d/c today from consults and pt to f/u as OP. per alberto toribio d/c today home. pt to f/u with dr. toribio in office. paperwork for adult day care services to be filled out per cm, however, upon review of documents they need to be completed by MD. no further orders. Objective - Vital Signs/Intake and Output Vital Signs (last 24 hours): Temp Pulse Resp BP Pulse Ox 97.9 F 84 20 134/92 H 98 12/25/16 07:05 12/25/16 08:31 12/25/16 07:05 12/25/16 07:05 12/25/16 07:05 Intake and Output: 12/25/16 12/25/16 06:59 18:59 Intake Total 200 Balance 200 - Medications Medications: Current Medications Benztropine Mesylate (Cogentin) 1 mg PO BID [facility] Last Admin: 12/25/16 10:08 Dose: 1 mg Cyproheptadine HCl (Periactin) 4 mg PO HS [facility] Last Admin: 12/24/16 21:19 Dose: 4 mg Fluphenazine HCl (Prolixin) 5 mg PO BID [facility] Last Admin: 12/25/16 10:08 Dose: 5 mg Gabapentin (Neurontin) 100 mg PO TID [facility] Last Admin: 12/25/16 13:57 Dose: 100 mg Lisinopril (Zestril) 20 mg PO DAILY [facility] Last Admin: 12/25/16 10:08 Dose: 20 mg Mirtazapine (Remeron) 15 mg PO HS [facility] Last Admin: 12/24/16 21:21 Dose: 15 mg Pantoprazole Sodium (Protonix Ec Tab) 40 mg PO Q12 [facility] Last Admin: 12/25/16 10:08 Dose: 40 mg Tamsulosin HCl (Flomax) 0.4 mg PO DAILY [facility] Last Admin: 12/25/16 10:08 Dose: 0.4 mg - Labs Labs: 12/22/16 11:09 12/22/16 11:09
[2016-12-25 16:06] VITALS: BP 92/55; PULSE 73; TEMP 98.5
== END 2016-12-25 17:40 | disposition home or self-care (01) | DRG 312 ==
LOC: C.ER 13:46 → C.9E 15:52 → C.6T 12-19 14:45 → OBSVTOIN 12-20 08:45
PROVIDERS: ADMIT Internal Medicine Cardiovascular Disease; ATTEND Internal Medicine Cardiovascular Disease
DX: R55 Syncope and collapse (principal); R16.1 Splenomegaly, not elsewhere classified; K74.60 Unspecified cirrhosis of liver; F20.0 Paranoid schizophrenia; I10 Essential (primary) hypertension; B19.20 Unspecified viral hepatitis C without hepatic coma; F32.9 Major depressive disorder, single episode, unspecified; K29.70 Gastritis, unspecified, without bleeding; H54.41 Blindness, right eye, normal vision left eye; R53.1 Weakness; Z87.891 Personal history of nicotine dependence

== ENCOUNTER 2017-01-02 10:32 | Observation (INO) | payer OTHER ==
[2017-01-02 10:37] VITALS: BMI 22.8
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
[2017-01-02] MEDS ORDERED: Sodium Chloride 0.9% 2,000 ML ONE (11:11)
[2017-01-02] MEDS ORDERED: Sodium Chloride 0.9% 250 ML IV ONE (11:11)
[2017-01-02 11:26] LABS: VENOUS BLOOD GAS BASE EXCESS 5.1 mmol/L (0.0-2.0); VENOUS BLOOD GAS PCO2 47 mmHg (40-60); VENOUS BLOOD PH 7.42 (7.32-7.43)
[2017-01-02 11:26] LABS: BASO # 0.1 K/uL (0.0-0.2); BASO % 0.8 % (0.0-2.0); EOS % 0.2 % (0.0-4.0); HEMATOCRIT 40.3 % (35.0-51.0); LYMPH # 1.3 K/uL (1.0-4.3); LYMPH % 16.1 % (20.0-40.0); MEAN CELL VOLUME 87.4 fL (80.0-94.0); MEAN CORPUSCULAR HEMOGLOBIN 30.1 pg (27.0-31.0); MEAN CORPUSCULAR HGB CONC 34.5 g/dL (33.0-37.0); MEAN PLATELET VOLUME 8.7 fL (7.2-11.7); MONO # 0.6 K/uL (0.0-0.8); MONO % 7.2 % (0.0-10.0); NRBC % 0.1 % (0.0-2.0); WHITE BLOOD COUNT 7.9 K/uL (4.8-10.8)
--- NOTE | 2017-01-02 11:30 | RAD ---
HISTORY: Sepsis Patient COMPARISON: 06/21/2015 and 12/18/2016 FINDINGS: LUNGS: No active pulmonary disease. A few granulomas are suggested the most conspicuous is in the right upper lung zone this is unchanged since 2016 it is estimate at 5 to 6 mm. The left upper lobe granulomata are tinier approximately 2 mm No consolidation. PLEURA: No significant pleural effusion identified, no pneumothorax apparent. CARDIOVASCULAR: Normal. OSSEOUS STRUCTURES: There is deformity of the lateral right clavicle -a similar appearance- likely relating to old fracture is noted VISUALIZED UPPER ABDOMEN: Normal. OTHER FINDINGS: None. IMPRESSION: No consolidation or pulmonary pathology to suggest a source here noted. Incidentally noted are benign-appearing granulomata -similar-appearing with 2016 Old lateral clavicular fracture
[2017-01-02 11:38] LABS: ALB/GLOB RATIO 1.1 (1.0-2.1); ALKALINE PHOSPHATASE 83 U/L (38-126); ALT/SGPT 49 U/L (21-72); AST/SGOT 24 U/L (17-59); BILIRUBIN,TOTAL 0.4 mg/dL (0.2-1.3); BLOOD UREA NITROGEN 23 mg/dL (9-20); CALCIUM 9.8 mg/dl (8.6-10.4); CARBON DIOXIDE 25 mmol/L (22-30); CHLORIDE 100 mmol/L (98-107); GFR AFRICAN-AMERICAN > 60; GLUCOSE,RANDOM 99 mg/dL (75-110); MAGNESIUM 1.9 mg/dL (1.6-2.3); PHOSPHOROUS 3.7 mg/dL (2.5-4.5); POTASSIUM 3.9 mmol/L (3.6-5.2); SODIUM 142 mmol/L (132-148); TOTAL PROTEIN 7.7 g/dL (6.3-8.3)
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
[2017-01-02] MEDS ORDERED: Sodium Chloride 0.9% 1,000 ML IV ONE (13:59)
[2017-01-02] MEDS ORDERED: Sodium Chloride 0.9% 1,000 ML ONE (14:12)
[2017-01-02 15:46] LABS: RBC URINE < 1 /hpf (0-3); URINE BILIRUBIN NEGATIVE (NEGATIVE); URINE BLOOD NEGATIVE (NEGATIVE); URINE COLOR Yellow (YELLOW); URINE GLUCOSE (UA) NORMAL (Normal); URINE KETONE NEGATIVE (NEGATIVE); URINE LEUKOCYTE ESTERASE NEG Leu/uL (Negative); URINE PROTEIN NEGATIVE (NEGATIVE); URINE UROBILINOGEN NORMAL mg/dL (0.2-1.0); WBC URINE < 1 /hpf (0-5)
[2017-01-02] MEDS ORDERED: Pantoprazole 40 mg EC Tab PO STA (16:10)
[2017-01-02] MEDS ORDERED: Alum-Mag Hydrox-Simethicone Susp (30 mL) PO STA (16:10)
[2017-01-02 16:19] VITALS: O2SAT 100
[2017-01-02 16:24] VITALS: BP 146/95; PULSE 95; RESP 16; TEMP 98.6
--- NOTE | 2017-01-04 18:28 | CARD ---
APPROVED REPORT EKG Measurement Heart [id number] <Conclusion> Normal sinus rhythm Normal ECG
== END 2017-01-02 16:06 | disposition home or self-care (01) ==
LOC: C.ER 10:32 → C.9OBSV 11:00
PROVIDERS: ADMIT Emergency Medicine; ATTEND Emergency Medicine
DX: E86.0 Dehydration (principal); K21.9 Gastro-esophageal reflux disease without esophagitis; B19.20 Unspecified viral hepatitis C without hepatic coma
CPT/HCPCS: 70450; 71010; 80053; 81001; 82803; 82948; 83735; 84100; 84484; 85025; 85610; 85730; 87040; 87086; 96360; 96361; G0378; J7040

== ENCOUNTER 2017-01-07 17:31 | Emergency (ER) | payer OTHER ==
[2017-01-07 17:31] VITALS: BMI 22.8
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
[2017-01-07 18:51] VITALS: BP 187/100; PULSE 82; RESP 16; TEMP 98.6
[2017-01-07 20:13] VITALS: O2SAT 100
== END 2017-01-07 18:50 | disposition home or self-care (01) ==
LOC: C.ER 17:31
DX: H10.9 Unspecified conjunctivitis (principal)

== ENCOUNTER 2017-02-13 17:59 | Inpatient (IN) | payer OTHER, MEDICAID ==
[2017-02-13 18:04] VITALS: BMI 21.1
--- NOTE | 2017-02-13 18:54 | C.PDOC ---
History Of Present Illness 56 y/o M presents from Psychiatry office for loss of appetite, insomnia x months. Patient denies any dyspnea, vomiting, fever, or pain. Time Seen by Provider: 02/13/17 18:23 Chief Complaint (Nursing): Psychiatric Evaluation Past Medical History Vital Signs: Last Vital Signs Temp 98.2 F 02/13/17 18:05 Pulse 75 02/13/17 18:05 Resp 18 02/13/17 18:05 BP 129/83 02/13/17 18:05 Pulse Ox 100 02/13/17 18:55 - Medical History PMH: Anxiety, Depression, Gastritis, Hepatitis (C), HTN, Schizophrenia Denies: HIV, Chronic Kidney Disease Surgical History: Appendectomy (mar 21 2013) - [employer] Procedures FLUOROSCOPY OF SUPERIOR VENA CAVA, GUIDANCE (09/27/16) INSERTION OF INFUSION DEV INTO SUP VENA CAVA, PERC APPROACH (09/27/16) OTHER APPENDECTOMY (03/19/13) ULTRASONOGRAPHY OF RIGHT AND LEFT HEART, TRANSESOPHAGEAL (09/27/16) Family History: States: Unknown Family Hx, Hypertension - Social History Hx Tobacco Use: Yes Hx Alcohol Use: No Hx Substance Use: Yes (opiods;benzo) - Immunization History Hx Tetanus Toxoid Vaccination: No Hx Influenza Vaccination: Yes Hx Pneumococcal Vaccination: No Review Of Systems Except As Marked, All Systems Reviewed And Found Negative. Constitutional: Negative for: Fever Cardiovascular: Negative for: Chest Pain Physical Exam - Physical Exam Additional Physical Exam Comments: Constitutional: No acute distress. Head: Normocephalic. Atraumatic. Eyes: PERRL. ENT: Moist mucous membranes. Neck: Supple. Cardiovascular: Regular rate. Radial pulse 2+ bilaterally. Chest: No tenderness. Respiratory: Clear to auscultation bilaterally. GI: Soft. Nontender. Nondistended. Back: No CVA tenderness. Musculoskeletal: No tenderness or swelling of extremities. Skin: No rash. Neurologic: Alert, no focal deficit. ED Course And Treatment - Laboratory Results Result Diagrams: 02/13/17 19:05 02/13/17 19:05 O2 Sat by Pulse Oximetry: 100 (RA) Pulse Ox Interpretation: Normal Medical Decision Making Medical Decision Making: Will medically clear for psychiatric evaluation. Disposition Discussed With : Ami Hanks Doctor Will See Patient In The: Hospital - Disposition Disposition: HOSPITALIZED Disposition Time: 21:00 Condition: FAIR Forms: [facility] (Polish) - Clinical Impression Clinical Impression: Major depressive disorder, recurrent episode, severe - Scribe Statement The provider has reviewed the documentation as recorded by the Scribe SM All medical record entries made by the Scribe were at my direction and personally dictated by me. I have reviewed the chart and agree that the record accurately reflects my personal performance of the history, physical exam, medical decision making, and the department course for this patient. I have also personally directed, reviewed, and agree with the discharge instructions and disposition.
[2017-02-13 19:09] LABS: BASO # 0.1 K/uL (0.0-0.2); BASO % 0.6 % (0.0-2.0); EOS % 0.2 % (0.0-4.0); HEMATOCRIT 41.9 % (35.0-51.0); LYMPH # 2.6 K/uL (1.0-4.3); LYMPH % 22.7 % (20.0-40.0); MEAN CELL VOLUME 85.8 fL (80.0-94.0); MEAN CORPUSCULAR HEMOGLOBIN 28.1 pg (27.0-31.0); MEAN CORPUSCULAR HGB CONC 32.7 g/dL (33.0-37.0); MEAN PLATELET VOLUME 8.6 fL (7.2-11.7); MONO # 1.2 K/uL (0.0-0.8); MONO % 10.3 % (0.0-10.0); RED CELL DISTRIBUTION WIDTH 14.5 % (11.5-14.5); WHITE BLOOD COUNT 11.4 K/uL (4.8-10.8)
[2017-02-13 19:33] LABS: CHLORIDE 96 mmol/L (98-107)
[2017-02-13 19:34] LABS: POTASSIUM 4.6 mmol/L (3.6-5.2); SODIUM 137 mmol/L (132-148)
[2017-02-13 19:36] LABS: ALB/GLOB RATIO 1.3 (1.0-2.1); ALKALINE PHOSPHATASE 65 U/L (38-126); ALT/SGPT 33 U/L (21-72); AST/SGOT 19 U/L (17-59); BILIRUBIN,TOTAL 0.4 mg/dL (0.2-1.3); BLOOD UREA NITROGEN 18 mg/dL (9-20); CARBON DIOXIDE 29 mmol/L (22-30); GFR AFRICAN-AMERICAN > 60; GLUCOSE,RANDOM 104 mg/dL (75-110); TOTAL PROTEIN 7.8 g/dL (6.3-8.3)
[2017-02-13 19:37] LABS: ALCOHOL SERUM < 10 mg/dl (0-10); CALCIUM 9.4 mg/dl (8.6-10.4)
[2017-02-13 20:40] LABS: RBC URINE < 1 /hpf (0-3); URINE BACTERIA RARE (<OCC); URINE BILIRUBIN NEGATIVE (NEGATIVE); URINE BLOOD NEGATIVE (NEGATIVE); URINE COLOR Yellow (YELLOW); URINE GLUCOSE (UA) NORMAL (Normal); URINE KETONE NEGATIVE (NEGATIVE); URINE LEUKOCYTE ESTERASE NEG Leu/uL (Negative); URINE PROTEIN 1+ mg/dL (NEGATIVE); URINE UROBILINOGEN NORMAL mg/dL (0.2-1.0); WBC URINE 1 /hpf (0-5)
--- NOTE | 2017-02-13 22:30 | PCM.BM ---
<Izzy De León - Last Filed: 02/13/17 22:29> Treatment Plan Problems - Problems identified on initial assessmt depression Date Initiated: 02/13/17 Time Initiated: 22:29 Assessment reference: NA Status: Active Treatment assets and liabiliti Patient Assests: cooperative, negotiates basic needs Patient Liabilities: live alone, substance abuse, medical problems - Milieu Protocol Maintain good personal hygiene: daily Encourage regular showers, daily Remind patient to perform daily oral care Conduct patient checks and document Observation sheet: Q15 minutes Maintain personal safety: every shift Educate patient to report safety concerns to staff, every shift Monitor environment for contraband/sharps Medication safety: Monitor for expected outcome, potential side effects: every shift, Assess barriers to learning: every shift, Assess readiness for medication education: every shift <Alycia Pulido - Last Filed: 02/14/17 11:18> Family Contact Family involvement: Famliy/SO not involved - Goals for Treatment Patient goals for treatment: "I want to go back to my adult daycare center." Discharge/Continuing Care - Education Needs Education Needs: Patient Medication, Patient Coping Skills - Discharge Discharge Criteria: Tolerates medication w/o severe side effects, Reduction of target symptoms Discharge to:: Home - Treatment Team Participation Discussed with Family/SO: No Was Patient/Family/SO present at Treatment Team Meeting: Yes <Thaddeus Morrissey - Last Filed: 02/16/17 00:16> - Diagnosis (1) Major depressive disorder, recurrent episode, severe Status: Acute Interventions: 02/16/17 00:16 * Assess/adjust medications daily and /or as needed * See patient on an individual basis 7x/week to assess symptoms of depression * Monitor for side effects & effectiveness of medications * <Quentin Johnson - Last Filed: 02/16/17 12:31> - Diagnosis (1) Schizoaffective disorder, bipolar type Status: Acute Interventions: Assess/adjust medications daily and/or as needed SEE patient on him individual basis 7x/week to assess status of hallucinations. Discuss risks, benefits, side effects and alternatives of medications. 02/16/17 12:30 (2) Anxiety disorder, unspecified Status: Acute Interventions: Assess/adjust medications daily and/or as needed SEE patient on him individual basis 7x/week to assess status of hallucinations. Discuss risks, benefits, side effects and alternatives of medications. 02/16/17 12:30 (3) Opiate dependence Status: Acute Interventions: Assess 7x/week regarding severity of withdrawal Educated regarding risks, benefits, side effects and alternatives of medications Used motivational interview for abstinence Used CBT for relapse prevention Medication management for withdrawal symptoms Encouraged medication assisted treatment 02/16/17 12:29
[2017-02-14] MEDS: Polymyxin/Trimethoprim Ophth Soln OD SCH ×3 (09:06→21:55)
--- NOTE | 2017-02-14 11:18 | PCM.PSYCH ---
Initial Psychiatric Evaluation - Initial Psychiatric Evaluation Type of Admission: Voluntary Legal Status: Capacity Chief Complaint (in patient's own words): "I'm losing too much weight" Patient's Reaction to Hospitalization: Cooperative History of Present Illness and Precipitating Events: Pt is seen, chart reviewed, case discussed with staff. Pt is a 56 year of white male who is , has one adult daughter, lives alone, is unemployed and collects SSI. He attends a day program called [facility]. He has a PMH of paranoid schizophrenia, anxiety, depression, gastritis, hepatitis C. He presented to the ED 02/13/17 for a several month history of loss of appetite and insomnia. He reports that he has lost a total of 143 lbs, and lost 10 lbs this past month. He follows up with an outpatient psychiatrist and he states that he does not know why his depression is worsening and denies recent life stressors. He reports recent feelings of paranoia but denies them currently. He denies hallucinations, delucisions and SI. He reports to have had "a lot" of psychiatric hospitalizations in the past ( occurred more than 10 years ago) after he was diagnosed with paranoid schizophrenia. He has a family history of paranoia schizophrenia in his mother. He reports to taking painkillers (unspecified) "when he can get them" but will not specify how often or how much. He denies the use of other drugs, despite his urine testing positive for benzodiazepines. He denies the use of alcohol and tobacco. Support and psychoeducation given, SC and CBT used briefly. After care discussed. He would like to follow up at [facility] and will continue to attend day program. Current Medications: Active Medications Generic Name Dose Route Start Last Admin Trade Name Freq PRN Reason Stop Dose Admin Gabapentin 300 mg 02/14/17 18:00 Neurontin PO BID ELAYNE Ibuprofen 600 mg 02/13/17 22:12 Motrin Tab PO Q6 PRN Pain, moderate (4-7) Lisinopril 20 mg 02/14/17 10:00 02/14/17 09:06 Zestril PO 20 mg DAILY ELAYNE Administration Lorazepam 1 mg 02/13/17 22:12 02/14/17 09:06 Ativan PO 1 mg Q6 PRN Administration Anxiety Mirtazapine 15 mg 02/13/17 22:15 02/13/17 23:02 Remeron PO Not Given HS REPLACED BY [facility] Pneumococcal Polyvalent Vaccine 0.5 ml 02/15/17 10:00 Pneumovax 23 Vaccine IM 02/15/17 10:01 .ONCE ONE Polymyxin/Trimethoprim Sulfate 0 ml 02/14/17 10:00 02/14/17 09:06 Polytrim Ophth Soln OD 1 drop BID ELAYNE Administration Trazodone HCl 50 mg 02/14/17 22:00 Desyrel PO HS REPLACED BY [facility] Past Psychiatric History - Past Psychiatric History Pertinent Medical Hx (Current Medical&Sleep Prob, Allergies): Allergies Allergy/AdvReac Type Severity Reaction Status Date / Time No Known Allergies Allergy Verified 02/13/17 18:03 Benztropine [Cogentin] 1 mg PO BID tab 09/13/16 Gabapentin [Neurontin] 100 mg PO TID cap 09/13/16 Lisinopril [Zestril] 20 mg PO DAILY tab 09/13/16 Pantoprazole [Protonix EC Tab] 40 mg PO Q12 ect 09/13/16 Tamsulosin [Flomax] 0.4 mg PO DAILY cap 09/13/16 fluPHENAZine [Prolixin] 5 mg PO BID #60 tab 10/06/16 Cyproheptadine [Periactin] 4 mg PO HS #30 tab 11/13/16 Mirtazapine [Remeron] 15 mg PO HS #15 tab 11/13/16 ALPRAZolam [Xanax] 1 mg PO Q12 PRN #4 tab 12/25/16 Esomeprazole Magnesium [Nexium] 40 mg PO QPM #30 ecc 01/02/17 Famotidine [Pepcid AC] 10 mg PO QN #30 tablet 01/02/17 Polymyxin/Trimethoprim Sulfate [Polytrim Ophth Soln] 1 drop OD Q4 #1 bottle 02/13 Review of Systems - Review of Systems All systems: reviewed and no additional remarkable complaints except - Neurological Neurological: UNREMARKABLE - Psychiatric Psychiatric: Abnormal Sleep Pattern, Anxiety, Change in Appetite, Depression, Hopelessness, Paranoia. absent: Hallucinations, Suicidal Ideation Mental Status Examination - Personal Presentation Personal Presentation: Looks stated age - Affect Affect: Constricted, Depressed - Motor Activity Motor Activity: Calm - Reliability in Providing Information Reliability in Providing Information: Fair - Speech Speech: Organized, Relevant, Coherent - Mood Mood: Depressed, Anxious - Formal Thought Process Formal Thought Process: Paranoia, Loosening of associations - Obsessions/Compulsions Obsessions: No Compulsions: No - Cognitive Functions Orientation: Person, Place, Situation, Time Sensorium: Alert Attention/Concentration: Attentive Estimate of Intelligence: Below average Judgement: Imparied, as evidence by: Poor judgement, Imparied, as evidence by: Lack of insight into illness Memory: Recent intact, as evidence by: Ability to recall events of the day, Remote intact, as evidenced by: Abilit to recall sig. life events - Risk Risk: Withdrawal, Diminished functioning - Limitations Limitations: Living alone DSM 5 DX - DSM 5 DSM 5 Diagnosis: Schizoaffective disorder, Bipolar type Anxiety disorder, unspecified Opioid use disorder Lkogpzbc-rxrnnejp-tsxupqviia use disorder - Recommended/Plan of Treatment Treatment Recommendations and Plan of Treatment: Neurontin 300 mg PO BID ELAYNE Ativan 1 mg PO Q6 PRN Remeron 15 mg PO HS ELAYNE Desyrel 50 mg PO HS ELAYNE Supportive therapy and psychoeducation Attend groups and activities Attend self-help groups as well SC for abstinence CBT for relapse prevention Refer to after care Prognosis: Fair with treatment - Smoking Cessation Smoking Cessation Initiated: No
[2017-02-14] MEDS ORDERED: Aluminum Hydroxide/Magnesium Hydroxide Susp (30 mL) PO PRN (17:06)
[2017-02-14] MEDS: Pantoprazole 40 mg EC Tab PO SCH (18:04)
[2017-02-15] MEDS ORDERED: Pneumococcal 23-Valent Vaccine IM ONE (10:00)
[2017-02-15] MEDS ORDERED: Influenza Vaccine 60 mcg/0.5 mL SYR (4YR UP) IM ONE (10:00)
[2017-02-15] MEDS: Pantoprazole 40 mg EC Tab PO SCH (11:09)
--- NOTE | 2017-02-15 11:56 | PCM.PYCHPN ---
Psychiatric Progress Note - Psychiatric Progress Note Patient seen today, length of contact: 16 minutes Patient Chief Complaint: "Not real good" Problems Identified/Issues Discussed: Pt is seen, chart reviewed, case discussed with staff. Pt is compliant with medications and reports no side effects. Pt continues to feel depressed but otherwise has no problems to report at this time. He denies SI. Symptoms are improving but pt needs more time to stabilize. Support and psychoeducation given, CBT and SC used briefly. After care discussed. Medication Change: No Medical Record Reviewed: Yes Mental Status Examination - Cognitive Function Orientation: Person, Place, Situation, Time Memory: Intact Attention: WNL Concentration: WNL Association: WNL Fund of Knowledge: WNL - Mood Mood: Depressed - Affect Affect: Constricted, Depressed - Speech Speech: Appropriate - Formal Thought Process Formal Thought Process: No Impairment - Suicidal Ideation Suicidal Ideation: No - Homicidal Ideation Homicidal Ideation: No Goal/Treatment Plan - Goal/Treatment Plan Need for Continued Stay: Severe depression anxiety, Discharge may exacerbated symptoms, Severe functional impairment Progress Toward Problem(s) and Goals/Treatment Plan: Continue medications as prescribed Supportive therapy and psychoeducation Attend groups and activities Attend self-help groups SC for abstinence CBT for relapse prevention Refer to after care
[2017-02-15] MEDS: Polymyxin/Trimethoprim Ophth Soln OD SCH (17:48)
[2017-02-16] MEDS: Pantoprazole 40 mg EC Tab PO SCH (10:14)
[2017-02-16] MEDS: Polymyxin/Trimethoprim Ophth Soln OD SCH ×2 (10:19→18:21)
--- NOTE | 2017-02-16 12:33 | PCM.PYCHPN ---
Psychiatric Progress Note - Psychiatric Progress Note Patient seen today, length of contact: 15 minutes Patient Chief Complaint: I'm getting better Problems Identified/Issues Discussed: Patient seen. Chart reviewed. Case discussed with the staff. Issues related to illness and treatment were discussed with the patient. Reported compliant with treatment with no adverse affects. Tolerating treatment well. Reported feeling better with the treatment. At the time of evaluation, patient was awake alert oriented 3, had no delusions , no auditory or visual hallucinations, no suicidal ideations or homicidal ideations. Diagnostic Results: Reviewed DSM 5 Symptoms Update: Improving with treatment Medication Change: No Medical Record Reviewed: Yes Mental Status Examination - Cognitive Function Orientation: Person, Place, Situation, Time Memory: Intact Attention: WNL Concentration: WNL Association: WNL Fund of Knowledge: [facility] Decription of patient's judgement and insights: Fair - Mood Mood: Depressed - Affect Affect: Depressed - Speech Speech: Appropriate - Formal Thought Process Formal Thought Process: No Impairment - Suicidal Ideation Suicidal Ideation: No - Homicidal Ideation Homicidal Ideation: No Goal/Treatment Plan - Goal/Treatment Plan Need for Continued Stay: Remain at risks for inpatient hospitalization, Discharge may exacerbated symptoms, Severe functional impairment Progress Toward Problem(s) and Goals/Treatment Plan: Patient education Supportive therapy Continue treatment as before Patient will go to [facility] for follow-up care after discharge from the hospital Estimated Date of D/C: 02/21/17 - Smoking Cessation Smoking Cessation Initiated: No
[2017-02-17] MEDS: Pantoprazole 40 mg EC Tab PO SCH (10:00)
[2017-02-17] MEDS: Polymyxin/Trimethoprim Ophth Soln OD SCH ×2 (10:00→17:34)
--- NOTE | 2017-02-17 19:00 | PCM.PYCHPN ---
Psychiatric Progress Note - Psychiatric Progress Note Patient seen today, length of contact: 15 minutes Patient Chief Complaint: I had stomach pain in the morning, but now I'm fine Problems Identified/Issues Discussed: Patient was seen. Chart was reviewed important content noted. Nurse input received that he had stomach pain in the morning, but after receiving pepcid he is better. No events overnight. Patient slept well and is eating well. Patient denies any depressive symptoms. Denies suicidal or homicidal ideation. Patient does not report hallucinations. No delusions elicited. No paranoia elicited. Patient has remained in good clinical and behavioral control. Patient is finding medications beneficial and would like to continue with treatment plan. Patient appreciated that treatment team is trying to help. Diagnostic Results: no new lab DSM 5 Symptoms Update: Schizoaffective disorder, Bipolar type Anxiety disorder, unspecified Opioid use disorder Nzxbxeet-afxdpcbu-oulwpwfkeq use disorder Medication Change: No Medical Record Reviewed: Yes Mental Status Examination - Cognitive Function Orientation: Person, Place, Situation, Time Memory: Intact Attention: WNL Concentration: WNL Association: WNL Fund of Knowledge: WNL - Mood Mood: Depressed - Affect Affect: Constricted - Speech Speech: Appropriate - Formal Thought Process Formal Thought Process: No Impairment - Suicidal Ideation Suicidal Ideation: No - Homicidal Ideation Homicidal Ideation: No Goal/Treatment Plan - Goal/Treatment Plan Need for Continued Stay: Remain at risks for inpatient hospitalization, Discharge may exacerbated symptoms, Severe functional impairment Progress Toward Problem(s) and Goals/Treatment Plan: Patient education Supportive therapy Continue treatment as before Patient will go to [facility] for follow-up care after discharge from the hospital Estimated Date of D/C: 02/21/17
[2017-02-18] MEDS: Pantoprazole 40 mg EC Tab PO SCH (10:17)
[2017-02-18] MEDS: Polymyxin/Trimethoprim Ophth Soln OD SCH (17:59)
--- NOTE | 2017-02-18 18:00 | PCM.PYCHPN ---
Psychiatric Progress Note - Psychiatric Progress Note Patient seen today, length of contact: 15 minutes Patient Chief Complaint: "I'm fine" Problems Identified/Issues Discussed: Patient was seen. Chart was reviewed important content noted. Nurse input received that pt is doing better. No events overnight. Patient slept well and is eating well. Patient reported depressive symptoms, feeling tired and isolated to himself. But per staff nurse he slept well and eating well. Denies suicidal or homicidal ideation. Patient does not report hallucinations. No delusions elicited. No paranoia elicited. Patient has remained in good clinical and behavioral control. Patient is finding medications beneficial and would like to continue with treatment plan. Patient appreciated that treatment team is trying to help. Diagnostic Results: no new lab DSM 5 Symptoms Update: Schizoaffective d/o Medication Change: No Medical Record Reviewed: Yes Mental Status Examination - Cognitive Function Orientation: Person, Place, Situation, Time Memory: Intact Attention: WNL Concentration: WNL Association: WNL Fund of Knowledge: WNL - Mood Mood: Depressed - Affect Affect: Constricted - Speech Speech: Appropriate - Formal Thought Process Formal Thought Process: No Impairment Psychotic Thoughts and Behaviors: denied - Suicidal Ideation Suicidal Ideation: No - Homicidal Ideation Homicidal Ideation: No Goal/Treatment Plan - Goal/Treatment Plan Need for Continued Stay: Remain at risks for inpatient hospitalization, Discharge may exacerbated symptoms, Severe functional impairment Progress Toward Problem(s) and Goals/Treatment Plan: Patient education Supportive therapy Continue treatment as before Patient will go to [facility] for follow-up care after discharge from the hospital Estimated Date of D/C: 02/21/17
[2017-02-19] MEDS: Pantoprazole 40 mg EC Tab PO SCH (09:00)
[2017-02-19] MEDS: Polymyxin/Trimethoprim Ophth Soln OD SCH ×2 (09:01→17:08)
[2017-02-19 09:09] VITALS: O2SAT 99
--- NOTE | 2017-02-19 18:08 | PCM.PYCHPN ---
Psychiatric Progress Note - Psychiatric Progress Note Patient seen today, length of contact: 15 minutes Patient Chief Complaint: I'm sleeping less. Problems Identified/Issues Discussed: Patient seen. Chart reviewed. Case discussed with the staff. Issues related to illness and treatment were discussed with the patient. Reported compliant with treatment with no adverse affects. Tolerating treatment well. Reported less sleep and feels little depressed at times. At the time of evaluation, patient was awake alert oriented 3, had no delusions , no auditory or visual hallucinations, no suicidal ideations or homicidal ideations. Medical Problems: GERD Diagnostic Results: Reviewed DSM 5 Symptoms Update: Some improvement in symptoms Medication Change: No Medical Record Reviewed: Yes Mental Status Examination - Cognitive Function Orientation: Person, Place, Situation, Time Memory: Intact Attention: WNL Concentration: WNL Association: WNL Fund of Knowledge: WN Decription of patient's judgement and insights: Fair - Mood Mood: Depressed - Affect Affect: Depressed - Speech Speech: Appropriate - Formal Thought Process Formal Thought Process: No Impairment - Suicidal Ideation Suicidal Ideation: No - Homicidal Ideation Homicidal Ideation: No Goal/Treatment Plan - Goal/Treatment Plan Need for Continued Stay: Remain at risks for inpatient hospitalization, Discharge may exacerbated symptoms, Severe functional impairment Progress Toward Problem(s) and Goals/Treatment Plan: Patient education Supportive therapy Continue treatment as before Patient will go to [facility] for follow-up care after discharge from the hospital Estimated Date of D/C: 02/21/17 - Smoking Cessation Smoking Cessation Initiated: No
[2017-02-20] MEDS: Pantoprazole 40 mg EC Tab PO SCH (09:10)
[2017-02-20] MEDS: Polymyxin/Trimethoprim Ophth Soln OD SCH ×2 (09:10→17:30)
--- NOTE | 2017-02-20 14:58 | PCM.PYCHPN ---
Psychiatric Progress Note - Psychiatric Progress Note Patient seen today, length of contact: 15 minutes Patient Chief Complaint: I'm feeling better. My sleep was good. Problems Identified/Issues Discussed: Patient seen. Chart reviewed. Case discussed with the staff. Issues related to illness and treatment were discussed with the patient. Reported compliant with treatment with no adverse affects. Tolerating treatment well. Reported feeling better with better sleep. At the time of evaluation, patient was awake alert oriented 3, had no delusions , no auditory or visual hallucinations, no suicidal ideations or homicidal ideations. Medical Problems: GERD Diagnostic Results: Reviewed DSM 5 Symptoms Update: Improving with treatment Medication Change: No Medical Record Reviewed: Yes Mental Status Examination - Cognitive Function Orientation: Person, Place, Situation, Time Memory: Intact Attention: WNL Concentration: WNL Association: WNL Fund of Knowledge: WN Decription of patient's judgement and insights: Fair - Mood Mood: Depressed (much less than before) - Affect Affect: Other (appropriate) - Speech Speech: Appropriate - Formal Thought Process Formal Thought Process: No Impairment Psychotic Thoughts and Behaviors: none - Suicidal Ideation Suicidal Ideation: No - Homicidal Ideation Homicidal Ideation: No Goal/Treatment Plan - Goal/Treatment Plan Need for Continued Stay: Remain at risks for inpatient hospitalization, Discharge may exacerbated symptoms, Severe functional impairment Progress Toward Problem(s) and Goals/Treatment Plan: Patient education Supportive therapy Continue treatment as before Patient will go to [facility] for follow-up care after discharge from the hospital Estimated Date of D/C: 02/21/17 - Smoking Cessation Smoking Cessation Initiated: No
[2017-02-21] MEDS: Pantoprazole 40 mg EC Tab PO SCH (09:14)
[2017-02-21] MEDS: Polymyxin/Trimethoprim Ophth Soln OD SCH (09:16)
[2017-02-21 10:14] VITALS: BP 136/77; PULSE 77; RESP 18; TEMP 97.1
--- NOTE | 2017-02-21 13:35 | PCM.PYCHDC ---
Mental Status Examination - Mental Status Examination Orientation: Person, Place, Situation, Time Memory: Intact Mood: Neutral Affect: Other (Appropriate) Speech: Appropriate Attention: WNL Concentration: WNL Association: WNL Fund of Knowledge: WNL Formal Thought Process: No Impairment Description of patient's judgement and insight: Fair Psychotic Thoughts and Behaviors: None Suicidal Ideation: No Current Homicidal Ideation?: No Discharge Summary - Discharge Note Reason for Hospitalization: Schizoaffective disorder bipolar type Anxiety disorder Opiate use disorder Age-related use disorder Laboratory Data: Reviewed Consultations:: List each consultation separately and include: 1. Reason for request. 2. Findings. 3. Follow-up Summary of Hospital Course include:: 1. Description of specific treatment plan utilized for patients during their course of treatmen. 2. Summarize the time- course for resolution of acute symptoms and/or regressed behaviors. 3. Describe issues identified and worked on during hospitalization. 4. Describe medication utilized. 5. Describe medical problems identified and treated. 6. Reassessment of suicide risk Summary of Hospital Course: Pt is a 56 year of white male who is , has one adult daughter, lives alone, is unemployed and collects PLDT. He attends a day program called [facility]. He has a PMH of paranoid schizophrenia, anxiety, depression, gastritis, hepatitis C. He presented to the ED 02/13/17 for a several month history of loss of appetite and insomnia. He reports that he has lost a total of 143 lbs, and lost 10 lbs this past month. He follows up with an outpatient psychiatrist and he states that he does not know why his depression is worsening and denies recent life stressors. He reports recent feelings of paranoia but denies them currently. He denies hallucinations, delucisions and SI. He reports to have had "a lot" of psychiatric hospitalizations in the past ( occurred more than 10 years ago) after he was diagnosed with paranoid schizophrenia. He has a family history of paranoia schizophrenia in his mother. He reports to taking painkillers (unspecified) "when he can get them" but will not specify how often or how much. He denies the use of other drugs, despite his urine testing positive for benzodiazepines. He denies the use of alcohol and tobacco. Support and psychoeducation given, OK and CBT used briefly. After care discussed. He would like to follow up at [facility] and will continue to attend day program. During his stay in the hospital patient was treated with his home medications. With some adjustment of dosage. Patient was also started on mirtazapine and trazodone. Patient also got when necessary medications. Was attending groups and other activities on the unit. We'll go above treatment patient started feeling better. Today patient was stable and ready for discharge. At the time of evaluation and discharge, patient was awake alert oriented 3, had no delusions, no auditory or visual hallucinations, no suicidal ideations or homicidal ideations. Patient was discharged in a stable condition. - Diagnosis (1) Schizoaffective disorder, bipolar type Status: Acute (2) Anxiety disorder, unspecified Status: Acute (3) Opiate dependence Status: Acute - Final Diagnosis (DSM 5) Condition upon Discharge: FAIR Disposition: HOME/ ROUTINE Follow-up Treatment Plan: Patient will go to [facility] for follow-up care after discharge from the hospital Prescriptions/Medication Reconciliation: Gabapentin [Neurontin] 300 mg PO BID #60 cap Mirtazapine [Remeron] 15 mg PO HS #30 tab traZODone [Desyrel] 150 mg PO HS #30 tab - Smoking Cessation Smoking Cessation Medication prescribed: No - Antipsychotic Medications Pt discharged on 2 or more routine antipsychotic medications: No
== END 2017-02-21 10:18 | disposition home or self-care (01) | DRG 885 ==
LOC: C.ER 17:59 → C.5E 21:28
PROVIDERS: ADMIT Psychiatry & Neurology Psychiatry; ATTEND Psychiatry & Neurology Psychiatry
PROC: GZHZZZZ Group Psychotherapy (ICD-10-PCS; principal; 2017-02-13)
PROC: GZ58ZZZ Individual Psychotherapy, Cognitive-Behavioral (ICD-10-PCS; 2017-02-13)
PROC: GZ56ZZZ Individual Psychotherapy, Supportive (ICD-10-PCS; 2017-02-13)
DX: F25.0 Schizoaffective disorder, bipolar type (principal); F11.20 Opioid dependence, uncomplicated; F20.0 Paranoid schizophrenia; K21.9 Gastro-esophageal reflux disease without esophagitis; Z81.8 Family history of other mental and behavioral disorders

== ENCOUNTER 2017-03-28 07:13 | Day surgery (SDC) | payer OTHER ==
[2017-03-28 08:09] VITALS: O2SAT 100
[2017-03-28] MEDS ORDERED: Propofol 10 mg/ml Inj (20 ML) ONE ×2 (09:13→10:02)
[2017-03-28] MEDS ORDERED: Midazolam 2 MG/2 ML VIAL ONE (09:13)
[2017-03-28] MEDS ORDERED: Lactated Ringer's 1,000 ML IV ONE ×2 (09:20)
[2017-03-28 11:24] VITALS: BP 115/73; PULSE 84; RESP 15; TEMP 99
== END 2017-03-28 11:15 | disposition home or self-care (01) ==
LOC: C.ENDO 07:13
PROVIDERS: ATTEND Internal Medicine Gastroenterology
DX: Z12.11 Encounter for screening for malignant neoplasm of colon (principal); R10.13 Epigastric pain; K44.9 Diaphragmatic hernia without obstruction or gangrene; K29.70 Gastritis, unspecified, without bleeding; R63.4 Abnormal weight loss; K64.1 Second degree hemorrhoids
CPT/HCPCS: 43239; 45378; 88305; J2250; J2704; J3010; J7120

== ENCOUNTER 2017-04-21 08:11 | Inpatient (IN) | payer OTHER ==
[2017-04-21 08:11] VITALS: BMI 21.1
[2017-04-21] MEDS ORDERED: Lactated Ringer's 1,000 ML IV ONE (08:39)
[2017-04-21] MEDS ORDERED: Lactated Ringer's 1,000 ML ONE (08:46)
--- NOTE | 2017-04-21 08:46 | C.PDOC ---
History Of Present Illness 57 yr old male w/PMHx of psychosis, GI problem, presents to the ER for evaluation of epigastric pain associated with dry heaves, intermittent non- bilious vomiting gradually developing for the past few days. Patient reports of similar symptoms in past multiple times. Pt sts, had endoscopy due to same symptoms 3 weeks with normal results. Pt sts, "able to drink only energy drink" . Otherwise, pt denies fever, chills, headache, dizziness, drooling, neck pain, chest pain, SOB, dyspnea, diaphoresis, palpitation, hematemesis, melena, diarrhea, hematoschezia, back pain, dysuria . Ambulate to ED, noted dry heaves in ED. Time Seen by Provider: 04/21/17 08:25 Chief Complaint (Nursing): Abdominal Pain History Per: Patient History/Exam Limitations: no limitations Onset/Duration Of Symptoms: Gradual (Past few days) Current Symptoms Are (Timing): Still Present Location Of Pain/Discomfort: Epigastric Associated Symptoms: Vomiting Past Medical History Reviewed: Historical Data, Nursing Documentation, Vital Signs Vital Signs: Last Vital Signs Temp 98.6 F 04/21/17 15:10 Pulse 73 04/21/17 15:10 Resp 18 04/21/17 15:10 BP 183/93 H 04/21/17 15:10 Pulse Ox 96 04/21/17 15:10 - Medical History PMH: Anxiety, Bipolar Disorder (MANIC/DEPRESSIVE PER PATIENT), Depression, Gastritis, Hepatitis (C), HTN, Schizophrenia Surgical History: Appendectomy (mar 21 2013), Endoscopy - [facility] Procedures FLUOROSCOPY OF SUPERIOR VENA CAVA, GUIDANCE (09/27/16) GROUP PSYCHOTHERAPY (02/13/17) INDIVIDUAL PSYCHOTHERAPY, COGNITIVE-BEHAVIORAL (02/13/17) INDIVIDUAL PSYCHOTHERAPY, SUPPORTIVE (02/13/17) INSERTION OF INFUSION DEV INTO SUP VENA CAVA, PERC APPROACH (09/27/16) OTHER APPENDECTOMY (03/19/13) ULTRASONOGRAPHY OF RIGHT AND LEFT HEART, TRANSESOPHAGEAL (09/27/16) Family History: States: Hypertension - Social History Hx Tobacco Use: Yes Hx Alcohol Use: No Hx Substance Use: No (former) - Immunization History Hx Tetanus Toxoid Vaccination: No Hx Influenza Vaccination: Yes Hx Pneumococcal Vaccination: No Review Of Systems Except As Marked, All Systems Reviewed And Found Negative. Constitutional: Negative for: Fever, Chills Cardiovascular: Negative for: Chest Pain Respiratory: Negative for: Shortness of Breath Gastrointestinal: Positive for: Vomiting (Intermittent. No blood.), Abdominal Pain (Epigastric). Negative for: Diarrhea Genitourinary: Negative for: Dysuria, Incontinence Physical Exam - Physical Exam Appears: Non-toxic, No Acute Distress Skin: Warm, Dry, No Rash Head: Normacephalic Eye(s): bilateral: PERRL Nose: No Flaring, No Discharge Oral Mucosa: Moist, No Drooling Tongue: Normal Appearing Lips: Normal Appearing Throat: No Erythema, No Drooling Neck: Trachea Midline, Supple Cardiovascular: Rhythm Regular, No Murmur, No JVD, Other ((-) carotid bruits B/L ) Respiratory: No Rales, No Rhonchi, No Stridor, No Wheezing Gastrointestinal/Abdominal: Soft, Tenderness (Mild epigastric tenderness), No Distention, No Guarding, No Rebound Back: No CVA Tenderness Extremity: Normal ROM, No Pedal Edema, No Swelling Neurological/Psych: Oriented x3, Normal Speech ED Course And Treatment - Laboratory Results Result Diagrams: 04/21/17 09:04 04/21/17 09:04 ECG: Interpreted By Me, Viewed By Me ECG Rhythm: Sinus Rhythm ECG Interpretation: Normal, No Changes From Prior Interpretation Of ECG: SR@88/min, NAD, no acute T wave or ST-T changes. Rate From EC (BPM) O2 Sat by Pulse Oximetry: 100 (RA) Pulse Ox Interpretation: Normal Progress Note: PT WAS OBS IN ED FOR 5 HOURS. On re-eval, pt is afberile, hemodynamicaly stable. NOn-toxic. Pt was given PO challenge and Tolerate PO well in ED, (-) vomiting but still c/o abdominal pain. Pt admits, " feels unchanged". ABd: Benign,mild epigastric tenderness, (-) guarding, (-) rebound. back: (-) CVA tenderness. After blood work review, case discussed with GI ( covering pt's GI ". As per Darby, who review pt's records, " if pt able tolerate PO well in ED, can be discharged with Rx: Protonix and outpt f/u on 04/25/17". No diagnostics tests recomend at present time. Since pt appears uncanged, HTN, mild dehydration admisison recommend. case dsicusse with and admission arranged. Medical Decision Making Medical Decision Making: PLAN: * EKG * Troponin * CBC * CMP * BNP * Urinalysis * Pepcid IVP * Protonix IVP * Zofran IVP * Lactated Ringer IV Disposition Counseled Patient/Family Regarding: Studies Performed, Diagnosis, Need For Followup, Rx Given - Disposition Referrals: Mario Chin MD [Staff Provider] - [facility] at [facility] [Outside] Disposition: HOSPITALIZED Disposition Time: 13:49 Condition: STABLE Additional Instructions: ENCOURAGE FLUIDS TAKE MEDICATION PRESCRIBED LIQUID DIET FOR 2-3 DAYS FOLLOW UP WITH GI ON 04/15/17 FOR RE-EVALUATION. FOLLOW UP WITH PMD IN 1-2 DAYS FOR RE-EVALUATION OF HTN. RETURN TO ED IF ANY WORSENING OR NEW CHANGES. Prescriptions: Ondansetron ODT [Zofran ODT] 1 odt PO BID PRN #6 odt PRN Reason: Nausea/Vomiting Pantoprazole Sodium [Protonix] 40 mg PO DAILY #20 ect Forms: [employer] (Hong Konger) - Clinical Impression Clinical Impression: Vomiting, Epigastric abdominal pain, Hypertension, Dehydration - PA / ASSISTANT SHIFT SUPERVISOR / Resident Statement MD/DO has reviewed & agrees with the documentation as recorded. - Scribe Statement The provider has reviewed the documentation as recorded by the Scribe Carleen Stearns All medical record entries made by the Scribe were at my direction and personally dictated by me. I have reviewed the chart and agree that the record accurately reflects my personal performance of the history, physical exam, medical decision making, and the department course for this patient. I have also personally directed, reviewed, and agree with the discharge instructions and disposition.
[2017-04-21 09:08] LABS: BASO % 0.4 % (0.0-2.0); EOS % 0.2 % (0.0-4.0); HEMATOCRIT 39.8 % (35.0-51.0); LYMPH % 8.8 % (20.0-40.0); MEAN CORPUSCULAR HEMOGLOBIN 29.1 pg (27.0-31.0); MEAN CORPUSCULAR HGB CONC 34.2 g/dL (33.0-37.0); MEAN PLATELET VOLUME 8.5 fL (7.2-11.7); MONO # 0.8 K/uL (0.0-0.8); MONO % 7.3 % (0.0-10.0); PLATELET COUNT 250 K/uL (130-400); RED CELL DISTRIBUTION WIDTH 14.7 % (11.5-14.5); WHITE BLOOD COUNT 11.4 K/uL (4.8-10.8)
[2017-04-21 09:50] LABS: BILIRUBIN,TOTAL 0.9 mg/dL (0.2-1.3); CALCIUM 9.6 mg/dl (8.6-10.4); GFR AFRICAN-AMERICAN > 60; GLUCOSE,RANDOM 117 mg/dL (75-110); TOTAL PROTEIN 9.5 g/dL (6.3-8.3)
[2017-04-21 10:05] LABS: ALKALINE PHOSPHATASE 70 U/L (38-126); ALT/SGPT 35 U/L (21-72); AST/SGOT 50 U/L (17-59); BLOOD UREA NITROGEN 16 mg/dL (9-20); CARBON DIOXIDE 34 mmol/L (22-30); CHLORIDE 91 mmol/L (98-107); POTASSIUM 4.9 mmol/L (3.6-5.2); SODIUM 134 mmol/L (132-148)
[2017-04-21 10:06] LABS: LARGE PLATELETS PRESENT; NEUTROPHIL 81 % (50-75); TOTAL CELLS COUNTED 100
[2017-04-21 10:16] LABS: INR 1.1
[2017-04-21] MEDS ORDERED: Metoprolol 1 mg/ml Inj IVP ONE ×3 (13:43→19:15)
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
--- NOTE | 2017-04-21 17:10 | CT ---
PROCEDURE: CT Abdomen and Pelvis without intravenous contrast HISTORY: Right upper quadrant pain and vomiting COMPARISON: 12/19/2016. TECHNIQUE: CT scan of the abdomen and pelvis was performed without administration of intravenous contrast. Oral contrast was not administered. Coronal and sagittal reformatted images were obtained. Radiation dose: Total exam DLP = 284.91 mGy-cm. This CT exam was performed using one or more of the following dose reduction techniques: Automated exposure control, adjustment of the mA and/or kV according to patient size, and/or use of iterative reconstruction technique. FINDINGS: LOWER THORAX: The lung bases are clear. LIVER: Normal in size. GALLBLADDER AND BILE DUCTS: No calcified gallstones. PANCREAS: Normal in size. No gross lesion or ductal dilatation. SPLEEN: The spleen is normal in size. There is redemonstration of 2.1 cm hypodense lesion in the medial aspect of the upper pole of the spleen. ADRENALS: No discrete nodule. KIDNEYS AND URETERS: Both kidneys are normal in size without hydronephrosis or nephrolithiasis. There is a punctate nonspecific posterior parenchymal calcification in the left kidney. VASCULATURE: No aortic aneurysm. BOWEL: The small bowel loops are normal in caliber. There is marked cashews distension of the colon. APPENDIX: Surgically absent PERITONEUM: No free fluid. No free air. LYMPH NODES: No enlarged lymph nodes. BLADDER: Normal in appearance. REPRODUCTIVE: Unremarkable. BONES: No acute fracture. Within normal limits for the patient's age. OTHER FINDINGS: None. IMPRESSION: No acute abdominal or pelvic abnormality. Mild gaseous distension of the colon. No bowel dilatation or obstruction. Stable chronic finding in the spleen.
[2017-04-21] MEDS ORDERED: Sodium Chloride 0.45% 1,000 ML IV SCH (20:15)
[2017-04-22] MEDS ORDERED: DiphenhydrAMINE 50 mg/ml Inj IVP ONE (00:10)
[2017-04-22 01:06] VITALS: RESP 20
[2017-04-22] MEDS: Oxycodone/Acetaminophen 5/325 mg Tab PO PRN ×2 (09:53→17:32)
[2017-04-22] MEDS ORDERED: Bisacodyl 5mg EC Tab PO SCH (10:15)
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
[2017-04-22 10:33] LABS: ALB/GLOB RATIO 1.3 (1.0-2.1); ALKALINE PHOSPHATASE 56 U/L (38-126); ALT/SGPT 32 U/L (21-72); AST/SGOT 37 U/L (17-59); BILIRUBIN,TOTAL 0.8 mg/dL (0.2-1.3); BLOOD UREA NITROGEN 18 mg/dL (9-20); CALCIUM 8.8 mg/dl (8.6-10.4); CARBON DIOXIDE 28 mmol/L (22-30); CHLORIDE 92 mmol/L (98-107); GFR AFRICAN-AMERICAN > 60; GLUCOSE,RANDOM 156 mg/dL (75-110); POTASSIUM 3.4 mmol/L (3.6-5.2); SODIUM 130 mmol/L (132-148); TOTAL PROTEIN 7.6 g/dL (6.3-8.3)
[2017-04-22] MEDS: POLYETHYLENE GLYCOL 3350 17 GM/Dose PACKET PO SCH ×2 (10:38→17:27)
--- NOTE | 2017-04-22 10:50 | CP.PCM.PN ---
Subjective - Date & Time of Evaluation Date of Evaluation: 04/22/17 Time of Evaluation: 10:48 - Subjective Subjective: PT STILL HAS ABD PAIN LOWER ABD CONSTIPATION UNABLE TO EATE GET WORSE AFTER HAS SOME FOOD Objective - Vital Signs/Intake and Output Vital Signs (last 24 hours): Temp Pulse Resp BP Pulse Ox 98.3 F 69 20 189/105 H 98 04/22/17 08:22 04/22/17 09:55 04/22/17 09:55 04/22/17 09:55 04/22/17 08:22 Intake and Output: 04/22/17 04/22/17 06:59 18:59 Intake Total 440 Balance 440 - Medications Medications: Current Medications Bisacodyl (Dulcolax) 10 mg PO DAILY [facility] Losartan Potassium (Cozaar) 100 mg PO DAILY [facility] Last Admin: 04/22/17 08:30 Dose: 100 mg Ondansetron HCl (Zofran Inj) 4 mg IVP Q6H PRN PRN Reason: Nausea/Vomiting Last Admin: 04/21/17 20:00 Dose: 4 mg Oxycodone/Acetaminophen (Percocet 5/325 Mg Tab) 1 tab PO Q6H PRN PRN Reason: Pain, moderate (4-7) Stop: 04/24/17 20:18 Last Admin: 04/22/17 09:53 Dose: 1 tab Pantoprazole Sodium (Protonix Inj) 40 mg IVP DAILY [facility] Last Admin: 04/22/17 10:38 Dose: 40 mg Polyethylene Glycol (Miralax) 17 gm PO BID [facility] Last Admin: 04/22/17 10:38 Dose: 17 gm Potassium Chloride (K-Dur 20 Meq Er Tab) 20 meq PO DAILY [facility] Sodium Phosphate (Fleet Enema) 135 ml [place] DAILY [facility] Last Admin: 04/22/17 10:38 Dose: 135 ml - Labs Labs: 04/21/17 09:04 04/22/17 09:19 PT 12.3 SECONDS (9.7-12.2) H 04/21/17 10:02 INR 1.1 04/21/17 10:02 APTT 30 SECONDS (21-34) 04/21/17 10:02 - Constitutional Appears: In Acute Distress - Head Exam Head Exam: NORMAL INSPECTION - Eye Exam Eye Exam: Normal appearance Pupil Exam: NORMAL ACCOMODATION - ENT Exam ENT Exam: Mucous Membranes Moist - Neck Exam Neck Exam: Normal Inspection - Respiratory Exam Respiratory Exam: Decreased Breath Sounds - Cardiovascular Exam Cardiovascular Exam: REGULAR RHYTHM - GI/Abdominal Exam GI & Abdominal Exam: Soft, Tenderness, Hyperactive Bowel Sounds - Rectal Exam Rectal Exam: NORMAL INSPECTION - Exam Exam: NORMAL INSPECTION - Extremities Exam Extremities Exam: Full ROM - Back Exam Back Exam: NORMAL INSPECTION - Neurological Exam Neurological Exam: Normal Gait - Psychiatric Exam Psychiatric exam: Flat Affect - Skin Skin Exam: Normal Color Assessment and Plan - Assessment and Plan (Free Text) Assessment: ABDOMINAL PAIN ABD GAS CONSTPATON UNABLE TO EATE NAUSEA Plan: CONT PER ORDERS
[2017-04-22 11:07] LABS: MEAN CELL VOLUME 85.3 fL (80.0-94.0); MEAN CORPUSCULAR HEMOGLOBIN 29.6 pg (27.0-31.0); MEAN CORPUSCULAR HGB CONC 34.7 g/dL (33.0-37.0); RED CELL DISTRIBUTION WIDTH 14.5 % (11.5-14.5)
[2017-04-22] MEDS: Potassium Chloride 20 mEq ER Tab PO SCH (11:25)
--- NOTE | 2017-04-22 12:10 | RAD ---
HISTORY: Constipation COMPARISON: No prior. FINDINGS: BOWEL: There is cashews distension of the stomach. There are gas filled normal caliber small bowel loops. No evidence of differential air-fluid levels. No free intraperitoneal air. BONES: Normal. OTHER FINDINGS: None. IMPRESSION: Gas-filled stomach and small bowel loops. No evidence for bowel obstruction.
[2017-04-23] MEDS: Bisacodyl 5mg EC Tab PO SCH (09:26)
[2017-04-23] MEDS: Potassium Chloride 20 mEq ER Tab PO SCH (09:26)
[2017-04-23] MEDS: POLYETHYLENE GLYCOL 3350 17 GM/Dose PACKET PO SCH ×3 (09:27→18:55)
--- NOTE | 2017-04-23 10:25 | CP.PCM.PN ---
<Madiha Matta - Last Filed: 04/23/17 10:21> Subjective - Date & Time of Evaluation Date of Evaluation: 04/23/17 Time of Evaluation: 08:15 - Subjective Subjective: GI Fellow PGY4 Progress Note Pt seen and examined at bedside, pt had a small amount of stool yesterday. He is tolerating his full liquid diet with no nausea or vomiting. Pt does report abdominal pain and acid reflux. ROS: A 12pt ROS was negative except as above. Objective - Vital Signs/Intake and Output Vital Signs (last 24 hours): Temp Pulse Resp BP Pulse Ox 98.4 F 75 20 156/83 H 98 04/23/17 07:59 04/23/17 07:59 04/23/17 07:59 04/23/17 07:59 04/23/17 07:59 Intake and Output: 04/23/17 04/23/17 06:59 18:59 Intake Total 390 Balance 390 - Medications Medications: Current Medications Bisacodyl (Dulcolax) 10 mg PO DAILY [facility] Last Admin: 04/23/17 09:26 Dose: 10 mg Losartan Potassium (Cozaar) 100 mg PO DAILY [facility] Last Admin: 04/23/17 09:26 Dose: 100 mg Ondansetron HCl (Zofran Inj) 4 mg IVP Q6H PRN PRN Reason: Nausea/Vomiting Last Admin: 04/21/17 20:00 Dose: 4 mg Oxycodone/Acetaminophen (Percocet 5/325 Mg Tab) 1 tab PO Q6H PRN PRN Reason: Pain, moderate (4-7) Stop: 04/24/17 20:18 Last Admin: 04/22/17 17:32 Dose: 1 tab Pantoprazole Sodium (Protonix Inj) 40 mg IVP DAILY [facility] Last Admin: 04/23/17 09:26 Dose: 40 mg Polyethylene Glycol (Miralax) 17 gm PO BID [facility] Last Admin: 04/23/17 09:27 Dose: 17 gm Potassium Chloride (K-Dur 20 Meq Er Tab) 20 meq PO DAILY [facility] Last Admin: 04/23/17 09:26 Dose: 20 meq Sodium Phosphate (Fleet Enema) 135 ml [place] DAILY [facility] Last Admin: 04/23/17 09:27 Dose: 135 ml - Labs Labs: 04/22/17 10:56 04/22/17 09:19 PT 12.3 SECONDS (9.7-12.2) H 04/21/17 10:02 INR 1.1 04/21/17 10:02 APTT 30 SECONDS (21-34) 04/21/17 10:02 - Constitutional Appears: Non-toxic, No Acute Distress - Head Exam Head Exam: ATRAUMATIC, NORMAL INSPECTION, NORMOCEPHALIC - Eye Exam Eye Exam: EOMI, PERRL - ENT Exam ENT Exam: Mucous Membranes Moist - Neck Exam Neck Exam: Full ROM - Respiratory Exam Respiratory Exam: NORMAL BREATHING PATTERN - GI/Abdominal Exam GI & Abdominal Exam: Soft, Tenderness. absent: Distended, Guarding - Extremities Exam Extremities Exam: Full ROM - Neurological Exam Neurological Exam: Alert, Awake, Oriented x3 - Psychiatric Exam Psychiatric exam: Normal Mood - Skin Skin Exam: Dry, Intact, Normal Color, Warm Assessment and Plan - Assessment and Plan (Free Text) Assessment: This is a 57yM presenting with complaints of abdominal pain, nausea and vomiting. 1. GERD 2. Constipation 3. Abdominal pain, nausea and vomiting Plan: -Continue supportive care with IVF hydration, anti-emetics -Pt tolerating full liquid diet, no further nausea or vomiting, abdominal pain improving -Pt with complaints of acid reflux, continue IV PPI daily, can change to po 40mg daily PPI when tolerating regular diet -Constipation can be contributing to symptoms, aggressive bowel regime with miralax bid, dulcolx daily and enemas prn -CT imaging reviewed with stool and dilated loops of bowel worse from prior imaging -Pt will need outpt workup and treatment of HCV -Pt will need outpt colonoscopy in 6months -Please call with any questions or concerns <Ramirez Le - Last Filed: 04/23/17 12:24> Objective - Vital Signs/Intake and Output Vital Signs (last 24 hours): Temp Pulse Resp BP Pulse Ox 98.4 F 75 20 156/83 H 98 04/23/17 07:59 04/23/17 07:59 04/23/17 07:59 04/23/17 07:59 04/23/17 07:59 Intake and Output: 04/23/17 04/23/17 06:59 18:59 Intake Total 390 Balance 390 - Medications Medications: Current Medications Bisacodyl (Dulcolax) 10 mg PO DAILY [facility] Last Admin: 12/25/17 09:26 Dose: 10 mg Losartan Potassium (Cozaar) 100 mg PO DAILY [facility] Last Admin: 04/23/17 09:26 Dose: 100 mg Ondansetron HCl (Zofran Inj) 4 mg IVP Q6H PRN PRN Reason: Nausea/Vomiting Last Admin: 04/21/17 20:00 Dose: 4 mg Oxycodone/Acetaminophen (Percocet 5/325 Mg Tab) 1 tab PO Q6H PRN PRN Reason: Pain, moderate (4-7) Stop: 04/24/17 20:18 Last Admin: 04/22/17 17:32 Dose: 1 tab Pantoprazole Sodium (Protonix Inj) 40 mg IVP DAILY [facility] Last Admin: 04/23/17 09:26 Dose: 40 mg Polyethylene Glycol (Miralax) 17 gm PO BID [facility] Last Admin: 04/23/17 09:27 Dose: 17 gm Potassium Chloride (K-Dur 20 Meq Er Tab) 20 meq PO DAILY [facility] Last Admin: 04/23/17 09:26 Dose: 20 meq Sodium Phosphate (Fleet Enema) 135 ml [place] DAILY [facility] Last Admin: 04/23/17 09:27 Dose: 135 ml - Labs Labs: 04/22/17 10:56 04/22/17 09:19 PT 12.3 SECONDS (9.7-12.2) H 04/21/17 10:02 INR 1.1 04/21/17 10:02 APTT 30 SECONDS (21-34) 04/21/17 10:02 Attending/Attestation - Attestation I have personally seen and examined this patient.: Yes I have fully participated in the care of the patient.: Yes I have reviewed all pertinent clinical information, including history, physical exam and plan: Yes Notes (Text): 04/23/17 12:23 57 year old male with h/o psychiatric disease admitted with abdominal pain, N/V , and constipation. 1. GERD 2. Constipation 3. Abdominal pain Plan: -vomiting improved/resolved -pain is improved but not resolved totally -Continue PPI and bowel regimen -supportive measures -diet as tolerated
--- NOTE | 2017-04-23 10:56 | CP.PCM.PN ---
Subjective - Date & Time of Evaluation Date of Evaluation: 04/23/17 Time of Evaluation: 10:52 - Subjective Subjective: still has ocasionaly lower abd pain poosr apetite nausea moved his bowel today no blood refused blood work Objective - Vital Signs/Intake and Output Vital Signs (last 24 hours): Temp Pulse Resp BP Pulse Ox 98.4 F 75 20 156/83 H 98 04/23/17 07:59 04/23/17 07:59 04/23/17 07:59 04/23/17 07:59 04/23/17 07:59 Intake and Output: 04/23/17 04/23/17 06:59 18:59 Intake Total 390 Balance 390 - Medications Medications: Current Medications Bisacodyl (Dulcolax) 10 mg PO DAILY [facility] Last Admin: 04/23/17 09:26 Dose: 10 mg Losartan Potassium (Cozaar) 100 mg PO DAILY [facility] Last Admin: 04/23/17 09:26 Dose: 100 mg Ondansetron HCl (Zofran Inj) 4 mg IVP Q6H PRN PRN Reason: Nausea/Vomiting Last Admin: 04/21/17 20:00 Dose: 4 mg Oxycodone/Acetaminophen (Percocet 5/325 Mg Tab) 1 tab PO Q6H PRN PRN Reason: Pain, moderate (4-7) Stop: 04/24/17 20:18 Last Admin: 04/22/17 17:32 Dose: 1 tab Pantoprazole Sodium (Protonix Inj) 40 mg IVP DAILY [facility] Last Admin: 04/23/17 09:26 Dose: 40 mg Polyethylene Glycol (Miralax) 17 gm PO BID [facility] Last Admin: 04/23/17 09:27 Dose: 17 gm Potassium Chloride (K-Dur 20 Meq Er Tab) 20 meq PO DAILY [facility] Last Admin: 04/23/17 09:26 Dose: 20 meq Sodium Phosphate (Fleet Enema) 135 ml [place] DAILY [facility] Last Admin: 04/23/17 09:27 Dose: 135 ml - Labs Labs: 04/22/17 10:56 04/22/17 09:19 PT 12.3 SECONDS (9.7-12.2) H 04/21/17 10:02 INR 1.1 04/21/17 10:02 APTT 30 SECONDS (21-34) 12/23/17 10:02 - Constitutional Appears: Non-toxic - Head Exam Head Exam: NORMAL INSPECTION - Eye Exam Eye Exam: EOMI, Normal appearance Pupil Exam: NORMAL ACCOMODATION - ENT Exam ENT Exam: Mucous Membranes Moist - Neck Exam Neck Exam: Full ROM - Respiratory Exam Respiratory Exam: Clear to Ausculation Bilateral - Cardiovascular Exam Cardiovascular Exam: REGULAR RHYTHM - GI/Abdominal Exam GI & Abdominal Exam: Tenderness, Normal Bowel Sounds - Rectal Exam Rectal Exam: NORMAL INSPECTION - Exam Exam: NORMAL INSPECTION External exam: NORMAL EXTERNAL EXAM - Extremities Exam Extremities Exam: Normal Inspection Assessment and Plan - Assessment and Plan (Free Text) Assessment: htn ac abd pain and vomiting improved Plan: will d/c pt f/u by his md cont med and bland diet
[2017-04-23 14:41] LABS: BASO % 0.3 % (0.0-2.0); HEMATOCRIT 40.5 % (35.0-51.0); LYMPH # 1.5 K/uL (1.0-4.3); LYMPH % 10.3 % (20.0-40.0); MEAN CELL VOLUME 85.5 fL (80.0-94.0); MEAN CORPUSCULAR HEMOGLOBIN 29.1 pg (27.0-31.0); MEAN PLATELET VOLUME 9.4 fL (7.2-11.7); MONO # 1.6 K/uL (0.0-0.8); MONO % 10.7 % (0.0-10.0); NRBC % 0.1 % (0.0-2.0); RED CELL DISTRIBUTION WIDTH 14.7 % (11.5-14.5); WHITE BLOOD COUNT 14.7 K/uL (4.8-10.8)
[2017-04-23] MEDS: Oxycodone/Acetaminophen 5/325 mg Tab PO PRN (20:29)
[2017-04-24 08:03] VITALS: PULSE 60
[2017-04-24] MEDS: Oxycodone/Acetaminophen 5/325 mg Tab PO PRN (08:24)
--- NOTE | 2017-04-24 08:54 | CP.PCM.PN ---
<Madiha Matta - Last Filed: 04/24/17 08:54> Subjective - Date & Time of Evaluation Date of Evaluation: 04/24/17 Time of Evaluation: 07:10 - Subjective Subjective: GI Fellow PGY4 Progress Note Pt seen and examined at bedside, pt had a large amount of stool last night and this morning. He is tolerating his diet with no nausea or vomiting. Pt does report abdominal pain and acid reflux. ROS: A 12pt ROS was negative except as above. Objective - Vital Signs/Intake and Output Vital Signs (last 24 hours): Temp Pulse Resp BP Pulse Ox 99.3 F 60 20 168/92 H 96 04/24/17 08:00 04/24/17 08:00 04/24/17 08:00 04/24/17 08:00 04/24/17 08:00 Intake and Output: 04/24/17 04/24/17 06:59 18:59 Intake Total 390 Balance 390 - Medications Medications: Current Medications Bisacodyl (Dulcolax) 10 mg PO DAILY [facility] Last Admin: 04/23/17 09:26 Dose: 10 mg Losartan Potassium (Cozaar) 100 mg PO DAILY [facility] Last Admin: 04/23/17 09:26 Dose: 100 mg Ondansetron HCl (Zofran Inj) 4 mg IVP Q6H PRN PRN Reason: Nausea/Vomiting Last Admin: 04/21/17 20:00 Dose: 4 mg Oxycodone/Acetaminophen (Percocet 5/325 Mg Tab) 1 tab PO Q6H PRN PRN Reason: Pain, moderate (4-7) Stop: 04/24/17 20:18 Last Admin: 04/24/17 08:24 Dose: 1 tab Pantoprazole Sodium (Protonix Ec Tab) 40 mg PO DAILY [facility] Polyethylene Glycol (Miralax) 17 gm PO BID [facility] Last Admin: 04/23/17 18:55 Dose: 17 gm Potassium Chloride (K-Dur 20 Meq Er Tab) 20 meq PO DAILY [facility] Last Admin: 04/23/17 09:26 Dose: 20 meq Sodium Phosphate (Fleet Enema) 135 ml [place] DAILY [facility] Last Admin: 04/23/17 09:27 Dose: 135 ml - Labs Labs: 04/23/17 14:02 04/22/17 09:19 PT 12.3 SECONDS (9.7-12.2) H 12/23/17 10:02 INR 1.1 04/21/17 10:02 APTT 30 SECONDS (21-34) 04/21/17 10:02 - Constitutional Appears: Non-toxic, No Acute Distress - Head Exam Head Exam: ATRAUMATIC, NORMAL INSPECTION, NORMOCEPHALIC - Eye Exam Eye Exam: Conjunctival injection, EOMI, PERRL - ENT Exam ENT Exam: Mucous Membranes Moist, Normal Exam - Neck Exam Neck Exam: Full ROM - Respiratory Exam Respiratory Exam: NORMAL BREATHING PATTERN - Cardiovascular Exam Cardiovascular Exam: REGULAR RHYTHM - GI/Abdominal Exam GI & Abdominal Exam: Soft, Tenderness, Normal Bowel Sounds. absent: Distended, Guarding, Organomegaly - Rectal Exam Rectal Exam: Deferred - Extremities Exam Extremities Exam: Full ROM, Normal Inspection - Back Exam Back Exam: NORMAL INSPECTION - Neurological Exam Neurological Exam: Alert, Awake, Oriented x3 - Psychiatric Exam Psychiatric exam: Normal Affect, Normal Mood - Skin Skin Exam: Dry, Intact, Normal Color, Warm Assessment and Plan - Assessment and Plan (Free Text) Assessment: This is a 57yM presenting with complaints of abdominal pain, nausea and vomiting. 1. GERD 2. Constipation 3. Abdominal pain, nausea and vomiting Plan: -Pt clinically improved, tolerating diet, no further nausea or vomiting, abdominal pain improving -Pt with complaints of acid reflux, continue PPI po 40mg daily -Continue aggressive bowel regime with miralax bid at home -Pt will need outpt workup and treatment of HCV -Pt will need outpt colonoscopy in 6months -Please call with any questions or concerns <Mario Chin - Last Filed: 04/24/17 09:11> Objective - Vital Signs/Intake and Output Vital Signs (last 24 hours): Temp Pulse Resp BP Pulse Ox 99.3 F 60 20 168/92 H 96 04/24/17 08:00 04/24/17 08:00 04/24/17 08:00 04/24/17 08:00 04/24/17 08:00 Intake and Output: 04/24/17 04/24/17 06:59 18:59 Intake Total 390 Balance 390 - Medications Medications: Current Medications Bisacodyl (Dulcolax) 10 mg PO DAILY [facility] Last Admin: 04/23/17 09:26 Dose: 10 mg Losartan Potassium (Cozaar) 100 mg PO DAILY [facility] Last Admin: 04/23/17 09:26 Dose: 100 mg Ondansetron HCl (Zofran Inj) 4 mg IVP Q6H PRN PRN Reason: Nausea/Vomiting Last Admin: 04/21/17 20:00 Dose: 4 mg Oxycodone/Acetaminophen (Percocet 5/325 Mg Tab) 1 tab PO Q6H PRN PRN Reason: Pain, moderate (4-7) Stop: 04/24/17 20:18 Last Admin: 04/24/17 08:24 Dose: 1 tab Pantoprazole Sodium (Protonix Ec Tab) 40 mg PO DAILY [facility] Polyethylene Glycol (Miralax) 17 gm PO BID [facility] Last Admin: 04/23/17 18:55 Dose: 17 gm Potassium Chloride (K-Dur 20 Meq Er Tab) 20 meq PO DAILY [facility] Last Admin: 04/23/17 09:26 Dose: 20 meq Sodium Phosphate (Fleet Enema) 135 ml [place] DAILY [facility] Last Admin: 04/23/17 09:27 Dose: 135 ml - Labs Labs: 04/23/17 14:02 04/22/17 09:19 PT 12.3 SECONDS (9.7-12.2) H 04/21/17 10:02 INR 1.1 04/21/17 10:02 APTT 30 SECONDS (21-34) 04/21/17 10:02 Attending/Attestation - Attestation I have personally seen and examined this patient.: Yes I have fully participated in the care of the patient.: Yes I have reviewed all pertinent clinical information, including history, physical exam and plan: Yes Notes (Text): 04/24/17 09:09 I have seen and examined patient with GI fellow. No acute events overnight, he is seen resting in bed comfortably. He denies abdominal pain, nausea, vomiting. He had a large bowel movement yesterday and was able to tolerate breakfast this morning without difficulty. Review of vitals from today shows elevated BP. GERD Chronic constipation Psychosis - Diet as tolerated - Maintain aggressive bowel regimen to prevent ongoing constipation - Encourage increased PO water and fiber intake - Continue with PPI therapy - Suggest additional outpatient follow up for scheduling repeat colonoscopy and GERD management. Will sign off case, please reconsult as necessary, thank you.
[2017-04-24] MEDS: Bisacodyl 5mg EC Tab PO SCH (09:17)
[2017-04-24] MEDS: Potassium Chloride 20 mEq ER Tab PO SCH (09:17)
[2017-04-24] MEDS: POLYETHYLENE GLYCOL 3350 17 GM/Dose PACKET PO SCH (09:18)
[2017-04-24] MEDS ORDERED: Pantoprazole 40 mg EC Tab PO SCH (10:00)
--- NOTE | 2017-04-24 10:48 | CP.PCM.PN ---
Subjective - Date & Time of Evaluation Date of Evaluation: 04/24/17 Time of Evaluation: 10:45 - Subjective Subjective: slight discomfort abd didnot have bowel movement today yet wbc hi Objective - Vital Signs/Intake and Output Vital Signs (last 24 hours): Temp Pulse Resp BP Pulse Ox 99.3 F 60 20 168/92 H 96 04/24/17 08:00 04/24/17 08:00 04/24/17 08:00 04/24/17 08:00 04/24/17 08:00 Intake and Output: 04/24/17 04/24/17 06:59 18:59 Intake Total 390 Balance 390 - Medications Medications: Current Medications Amlodipine Besylate (Norvasc) 2.5 mg PO DAILY [facility] Bisacodyl (Dulcolax) 10 mg PO DAILY [facility] Last Admin: 04/24/17 09:17 Dose: 10 mg Losartan Potassium (Cozaar) 100 mg PO DAILY [facility] Last Admin: 04/24/17 09:17 Dose: 100 mg Metronidazole (Flagyl) 500 mg PO Q8 [facility] Ondansetron HCl (Zofran Inj) 4 mg IVP Q6H PRN PRN Reason: Nausea/Vomiting Last Admin: 04/21/17 20:00 Dose: 4 mg Oxycodone/Acetaminophen (Percocet 5/325 Mg Tab) 1 tab PO Q6H PRN PRN Reason: Pain, moderate (4-7) Stop: 04/24/17 20:18 Last Admin: 04/24/17 08:24 Dose: 1 tab Pantoprazole Sodium (Protonix Ec Tab) 40 mg PO DAILY [facility] Last Admin: 04/24/17 09:17 Dose: 40 mg Polyethylene Glycol (Miralax) 17 gm PO BID [facility] Last Admin: 04/24/17 09:18 Dose: 17 gm Potassium Chloride (K-Dur 20 Meq Er Tab) 20 meq PO DAILY [facility] Last Admin: 04/24/17 09:17 Dose: 20 meq Sodium Phosphate (Fleet Enema) 135 ml [place] DAILY [facility] Last Admin: 04/24/17 09:18 Dose: Not Given - Labs Labs: 04/23/17 14:02 04/22/17 09:19 PT 12.3 SECONDS (9.7-12.2) H 04/21/17 10:02 INR 1.1 04/21/17 10:02 APTT 30 SECONDS (21-34) 04/21/17 10:02 - Constitutional Appears: Non-toxic - Head Exam Head Exam: NORMAL INSPECTION - Eye Exam Eye Exam: PERRL Pupil Exam: NORMAL ACCOMODATION - ENT Exam ENT Exam: Normal Exam - Neck Exam Neck Exam: Full ROM - Respiratory Exam Respiratory Exam: NORMAL BREATHING PATTERN - Cardiovascular Exam Cardiovascular Exam: REGULAR RHYTHM - GI/Abdominal Exam GI & Abdominal Exam: Soft, Normal Bowel Sounds - Rectal Exam Rectal Exam: NORMAL INSPECTION - Exam Exam: NORMAL INSPECTION - Back Exam Back Exam: NORMAL INSPECTION - Neurological Exam Neurological Exam: Alert, Oriented x3 - Psychiatric Exam Psychiatric exam: Normal Affect - Skin Skin Exam: Normal Color Assessment and Plan - Assessment and Plan (Free Text) Assessment: abdominal gas lecocytosis abd pain constipation s/p vomiting gatritis colitis htn uncontroled will add norvasc and flagyl in comfotable will d/c home today Plan: awaite lunch if well tolerated will d/c home today
--- NOTE | 2017-04-24 12:14 | CARD ---
APPROVED REPORT EKG Measurement Heart [id number] <Conclusion> Normal sinus rhythm Normal ECG
[2017-04-24 16:01] VITALS: BP 146/80; TEMP 98; O2SAT 99
== END 2017-04-24 18:15 | disposition home or self-care (01) | DRG 392 ==
LOC: C.ER 08:11 → OBSVTOIN 13:50 → C.9E 13:50 → C.3T 16:19
PROVIDERS: ADMIT Internal Medicine; ATTEND Internal Medicine
DX: K52.9 Noninfective gastroenteritis and colitis, unspecified (principal); F20.0 Paranoid schizophrenia; R10.30 Lower abdominal pain, unspecified; E86.0 Dehydration; K21.9 Gastro-esophageal reflux disease without esophagitis; K59.09 Other constipation; I10 Essential (primary) hypertension; F41.9 Anxiety disorder, unspecified; B19.20 Unspecified viral hepatitis C without hepatic coma; H54.8 Legal blindness, as defined in USA

== ENCOUNTER 2017-06-24 08:57 | Emergency (ER) | payer OTHER ==
[2017-06-24 08:58] VITALS: BMI 21.0
[2017-06-24 09:06] VITALS: BP 173/108; PULSE 90; RESP 18; TEMP 98.4; O2SAT 100
--- NOTE | 2017-06-24 09:38 | C.PDOC ---
History Of Present Illness 57-year-old male, presents to the emergency department requesting medication for chronic back pain. Patient is also requesting medication for his psychiatric Hx, but does not remember the name of his medications, which he has not taken since 08/14. Patient denies any SI/HI, bladder/bowel incontinence, numbness/weakness. No other complaints at this time PMD Dr Sam Time Seen by Provider: 06/24/17 09:09 Chief Complaint (Nursing): Pain, Chronic History Per: Patient History/Exam Limitations: no limitations Past Medical History Reviewed: Historical Data, Nursing Documentation, Vital Signs Vital Signs: Last Vital Signs Temp 98.4 F 06/24/17 09:03 Pulse 90 06/24/17 09:03 Resp 18 06/24/17 09:03 BP 173/108 H 06/24/17 09:03 Pulse Ox 100 06/24/17 09:38 - Medical History PMH: Anxiety, Bipolar Disorder (MANIC/DEPRESSIVE PER PATIENT), Depression, Gastritis, Hepatitis (C), HTN, Schizophrenia Surgical History: Appendectomy (mar 21 2013), Endoscopy - [facility] Procedures FLUOROSCOPY OF SUPERIOR VENA CAVA, GUIDANCE (09/27/16) GROUP PSYCHOTHERAPY (04/27/17) INDIVIDUAL PSYCHOTHERAPY, COGNITIVE-BEHAVIORAL (04/27/17) INDIVIDUAL PSYCHOTHERAPY, SUPPORTIVE (02/13/17) INSERTION OF INFUSION DEV INTO SUP VENA CAVA, PERC APPROACH (09/27/16) OTHER APPENDECTOMY (03/19/13) ULTRASONOGRAPHY OF RIGHT AND LEFT HEART, TRANSESOPHAGEAL (09/27/16) Family History: States: Hypertension - Social History Hx Tobacco Use: Yes Hx Alcohol Use: No Hx Substance Use: Yes - Immunization History Hx Tetanus Toxoid Vaccination: No Hx Influenza Vaccination: Yes Hx Pneumococcal Vaccination: No Review Of Systems Constitutional: Negative for: Fever Respiratory: Negative for: Shortness of Breath Musculoskeletal: Positive for: Back Pain Neurological: Negative for: Weakness, Numbness, Headache, Dizziness Psych: Negative for: Suicidal ideation Physical Exam - Physical Exam Appears: Non-toxic, No Acute Distress, Other (Bizarre affect) Skin: Normal Color, Warm, Dry, No Rash Head: Normacephalic Neck: Normal ROM Cardiovascular: Rhythm Regular, No Murmur Respiratory: Normal Breath Sounds, No Accessory Muscle Use Back: No Vertebral Tenderness, Paraspinal Tenderness (Mild, diffuse) Extremity: Normal ROM, No Deformity, No Swelling Neurological/Psych: Oriented x3 ED Course And Treatment O2 Sat by Pulse Oximetry: 100 (RA) Pulse Ox Interpretation: Normal Progress Note: Patient treated with PO Toradol for back pain. On reassessment, patient is resting comfortably, with improvement of back pain. Patient remains afebrile, with no bony tenderness, extremity numbness or weakness, or abdominal pain. Patient is ambulatory in the emergency department with no signs of discomfort. Patient was advised to follow up with physician/clinic in 1-2 days. Disposition Counseled Patient/Family Regarding: Diagnosis, Need For Followup, Rx Given - Disposition Referrals: Mary Sam MD [Staff Provider] - Disposition: HOME/ ROUTINE Disposition Time: 10:00 Condition: STABLE Additional Instructions: FOLLOW UP WITH YOUR DOCTOR IN 1-2 DAYS YOU NEED TO GET YOUR PSYCHIATRIC MEDICATIONS FROM A PSYCHIATRIST, NOT IN THE EMERGENCY ROOM!! RETURN TO ER IF SYMPTOMS WORSEN Prescriptions: Naproxen 375 mg PO BID PRN #20 tablet PRN Reason: pain Instructions: Chronic Pain (DC) Forms: [employer] (Croatian) Print Language: EGYPTIAN - Clinical Impression Clinical Impression: Chronic back pain - Scribe Statement The provider has reviewed the documentation as recorded by the Scribe (Juno Price) All medical record entries made by the Scribe were at my direction and personally dictated by me. I have reviewed the chart and agree that the record accurately reflects my personal performance of the history, physical exam, medical decision making, and the department course for this patient. I have also personally directed, reviewed, and agree with the discharge instructions and disposition.
== END 2017-06-24 10:05 | disposition home or self-care (01) ==
LOC: C.ER 08:57
DX: G89.29 Other chronic pain (principal); M54.9 Dorsalgia, unspecified; I10 Essential (primary) hypertension; Z72.0 Tobacco use
CPT/HCPCS: 96372; 99283; J1885

== ENCOUNTER 2017-07-23 14:38 | Emergency (ER) | payer OTHER ==
[2017-07-23 14:38] VITALS: BMI 21.0
[2017-07-23 14:54] VITALS: O2SAT 100
[2017-07-23] MEDS ORDERED: Sodium Chloride 0.9% 1,000 ML IV ONE (16:16)
[2017-07-23] MEDS ORDERED: Sodium Chloride 0.9% 1,000 ML ONE (16:34)
[2017-07-23 16:38] LABS: BASO % 0.1 % (0.0-2.0); HEMOGLOBIN 13.8 g/dL (12.0-18.0); LYMPH # 0.7 K/uL (1.0-4.3); MEAN CELL VOLUME 86.1 fL (80.0-94.0); MEAN CORPUSCULAR HEMOGLOBIN 29.2 pg (27.0-31.0); MEAN CORPUSCULAR HGB CONC 33.9 g/dL (33.0-37.0); MEAN PLATELET VOLUME 8.1 fL (7.2-11.7); MONO # 0.3 K/uL (0.0-0.8); MONO % 3.4 % (0.0-10.0); NEUT # 6.6 K/uL (1.8-7.0); NEUT % 87.5 % (50.0-75.0); NRBC % 0.1 % (0.0-2.0); PLATELET COUNT 280 K/uL (130-400); RBC 4.72 Mil/uL (4.40-5.90); RED CELL DISTRIBUTION WIDTH 14.6 % (11.5-14.5); WHITE BLOOD COUNT 7.5 K/uL (4.8-10.8)
[2017-07-23 16:52] LABS: ALB/GLOB RATIO 1.1 (1.0-2.1); ALBUMIN 4.7 g/dL (3.5-5.0); ALT/SGPT 34 U/L (21-72); AST/SGOT 35 U/L (17-59); BLOOD UREA NITROGEN 14 mg/dL (9-20); CALCIUM 9.8 mg/dl (8.6-10.4); GFR AFRICAN-AMERICAN > 60; GFR NON-AFRICAN AMERICAN > 60; LIPASE 91 U/L (23-300)
[2017-07-23 17:04] LABS: ACETAMINOPHEN < 10.0 ug/mL (10.0-30.0); SALICYLATE < 1.0 mg/dL 1
[2017-07-23 17:12] LABS: LYMPHOCYTE 8 % (20-40); MONOCYTE 3 % (0-10); NEUTROPHIL 89 % (50-75); PLATELET ESTIMATE NORMAL (NORMAL); TOTAL CELLS COUNTED 100
--- NOTE | 2017-07-23 17:50 | RAD ---
HISTORY: Coughing COMPARISON: 01/02/2017 TECHNIQUE: Chest PA and lateral FINDINGS: LUNGS: Hyperinflation, manifestations of COPD. No active pulmonary disease. PLEURA: No significant pleural effusion identified. No pneumothorax apparent. CARDIOVASCULAR: Normal. OSSEOUS STRUCTURES: No significant abnormalities. VISUALIZED UPPER ABDOMEN: Normal. OTHER FINDINGS: None. IMPRESSION: No active disease.
[2017-07-23 17:56] LABS: URINE BILIRUBIN NEGATIVE (NEGATIVE); URINE BLOOD NEGATIVE (NEGATIVE); URINE CLARITY Clear (Clear); URINE COLOR Yellow (YELLOW); URINE GLUCOSE (UA) NORMAL (Normal); URINE LEUKOCYTE ESTERASE NEG Leu/uL (Negative); URINE PROTEIN NEGATIVE (NEGATIVE); URINE UROBILINOGEN NORMAL mg/dL (0.2-1.0)
[2017-07-23 18:05] LABS: BARBITURATES, UR NEGATIVE (NEGATIVE); BENZODIAZEPINES, UR NEGATIVE (NEGATIVE); PHENCYCLIDINE, UR NEGATIVE (NEGATIVE)
[2017-07-23 18:07] LABS: OPIATES, UR POSITIVE (NEGATIVE)
[2017-07-23 18:27] VITALS: TEMP 98.1
--- NOTE | 2017-07-23 20:02 | C.PDOC ---
Time Seen by Provider: 07/23/17 15:47 Chief Complaint (Nursing): Cough, Cold, Congestion History Per: Patient Onset/Duration Of Symptoms: Days (3) Current Symptoms Are (Timing): Still Present Associated Symptoms: Sore Throat, Cough, Nasal Congestion, Nausea, Vomiting Severity: Moderate Recent travel outside of the [place]: No Additional History Per: Prior Records Past Medical History Reviewed: Historical Data, Nursing Documentation, Vital Signs Vital Signs: Last Vital Signs Temp 98.1 F 07/23/17 18:27 Pulse 77 07/23/17 18:27 Resp 18 07/23/17 18:27 BP 165/94 H 07/23/17 18:27 Pulse Ox 100 07/23/17 20:02 - Medical History PMH: Anxiety, Bipolar Disorder (MANIC/DEPRESSIVE PER PATIENT), Depression, Gastritis, Hepatitis (C), HTN, Schizophrenia Surgical History: Appendectomy (mar 21 2013), Endoscopy - [facility] Procedures FLUOROSCOPY OF SUPERIOR VENA CAVA, GUIDANCE (09/27/16) GROUP PSYCHOTHERAPY (04/27/17) INDIVIDUAL PSYCHOTHERAPY, COGNITIVE-BEHAVIORAL (04/27/17) INDIVIDUAL PSYCHOTHERAPY, SUPPORTIVE (02/13/17) INSERTION OF INFUSION DEV INTO SUP VENA CAVA, PERC APPROACH (09/27/16) OTHER APPENDECTOMY (03/19/13) ULTRASONOGRAPHY OF RIGHT AND LEFT HEART, TRANSESOPHAGEAL (09/27/16) Family History: States: Unknown Family Hx, Hypertension - Social History Hx Tobacco Use: Yes Hx Alcohol Use: No Hx Substance Use: Yes - Immunization History Hx Tetanus Toxoid Vaccination: No Hx Influenza Vaccination: Yes Hx Pneumococcal Vaccination: No Review Of Systems Except As Marked, All Systems Reviewed And Found Negative. Constitutional: Positive for: Malaise ENT: Positive for: Nose Congestion, Throat Pain. Negative for: Ear Pain, Ear Discharge Cardiovascular: Negative for: Chest Pain Respiratory: Positive for: Cough. Negative for: Shortness of Breath, Hemoptysis Gastrointestinal: Positive for: Nausea, Vomiting. Negative for: Abdominal Pain , Diarrhea Genitourinary: Negative for: Dysuria Musculoskeletal: Negative for: Neck Pain, Back Pain Skin: Negative for: Rash Neurological: Negative for: Weakness, Numbness, Seizures, Altered Mental Status Psych: Positive for: Depression Physical Exam - Physical Exam Appears: Non-toxic, No Acute Distress Skin: Normal Color, Warm, Dry, No Rash Head: Atraumatic, Normacephalic Eye(s): bilateral: Normal Inspection, PERRL, EOMI Ear(s): Bilateral: Normal Oral Mucosa: Moist Throat: Erythema, No Exudate, No Drooling, No Mass Neck: Normal ROM, Supple Cardiovascular: Rhythm Regular Respiratory: Normal Breath Sounds, No Accessory Muscle Use Gastrointestinal/Abdominal: Soft, No Tenderness Back: No CVA Tenderness Extremity: Normal ROM, No Pedal Edema, No Calf Tenderness Neurological/Psych: Oriented x3, Normal Motor, Normal Sensation ED Course And Treatment - Laboratory Results Result Diagrams: 07/23/17 16:35 07/23/17 16:35 Lab Interpretation: No Acute Changes O2 Sat by Pulse Oximetry: 100 Pulse Ox Interpretation: Normal - Radiology CXR: Viewed By Me, Read By Radiologist CXR Interpretation: Yes: No Acute Disease, COPD. No: Infiltrates Progress Note: Pt was evaluated by the youth worker who d/w Dr. Hanks. They psychiatrically cleared pt for discharge home and arranged for outpatient psychiatric follow up. Reassessment Condition: Improved Disposition Counseled Patient/Family Regarding: Studies Performed, Diagnosis, Need For Followup, Rx Given, Smoking Cessation - Disposition Disposition: HOME/ ROUTINE Disposition Time: 20:23 Condition: IMPROVED Additional Instructions: Follow up with your doctor and with outpatient mental health as instructed. Return to the ER if you develop shortness of breath, worsening of symptoms or if you have any other concerns. Instructions: Cough, Runny Nose, and the Common Cold (DC) Forms: [facility] (Citizen Of [place]), General Discharge Instructions - Clinical Impression Clinical Impression: Upper respiratory infection, Depressed
[2017-07-23 20:32] VITALS: BP 147/84; PULSE 82; RESP 16
== END 2017-07-23 20:32 | disposition home or self-care (01) ==
LOC: C.ER 14:38
DX: J06.9 Acute upper respiratory infection, unspecified (principal); F32.9 Major depressive disorder, single episode, unspecified
CPT/HCPCS: 71046; 80053; 81001; 83690; 85025; 87804; 96361; 96374; 96375; 99285; G0480; J2765; J7040